=== PATIENT | male | born 1950 | race Caucasian/White ===

== ENCOUNTER 2017-09-21 04:12 | Inpatient (IN) ==
[2017-09-21] MEDS ORDERED: Sodium Chlor 0.9% Inj 500 ML IV.SIG ONE (04:25)
--- NOTE | 2017-09-21 04:56 | ED ---
HPI General Chief complaint: Weakness Stated complaint: Den Weakness/evac Time Seen by Provider: 09/21/17 04:23 Source: patient and EMS History of Present Illness HPI narrative: The patient is a 67 year old male who presents to the [facility] emergency department with a history of generalized weakness that began over the past week. The patient reports having a history of chronic anemia that has been gradually worsening in spite of oral iron supplementation. He is followed by Dr. Espinosa for his hematologic care. The patient reports that this past week he had an iron infusion. He reports that he briefly felt improved, however then the weakness began to worsen again. He denies having any numbness or tingling to his extremities. He denies having any one-sided weakness. He denies having any known fevers or chills. He denies having any loss of bowel or bladder control. He denies having any night sweats or unexplained weight loss. Since arriving in the emergency department he did develop a left-sided chest pain. He reports that it is an aching sensation. He denies having any radiation of pain. He denies having any shortness of breath. He denies having any diaphoresis, nausea, or vomiting. He denies having any recent diarrhea. The patient was brought in by ambulance services. The patient was noted to have frequent PVCs and intermittent bigeminy. The patient reported to them that he has a history of mitral valve prolapse, no other cardiac history. The patient is placed on nasal cannula O2 in normal saline a 500 mL bolus was given 1 without any changes in the PVCs. The patient's blood sugar was noted to be 150 prior to arrival. On review of systems otherwise, the patient denies having any known fevers, cough or congestion, neck pain, abdominal pain, urinary symptoms, vision changes, difficulty with word finding ability, facial droop, or vertigo. The patient reports that he was so weak prior to arrival that he was having difficulty getting up off of the toilet after urinating. He reports that he did fall to the ground, however he did not injure himself. The patient incidentally reports having chronic neck pain from rheumatoid arthritis. He is followed by pain management for this. He was last seen 2 weeks ago and underwent epidural steroid injection and cauterization of nerves in his neck that are causing pain. Related Data Home Medications Medication Instructions Recorded Confirmed aspirin 81 mg PO DAILY 09/21/17 09/21/17 baclofen 09/21/17 diclofenac sodium 75 mg PO BID 09/21/17 09/21/17 fluticasone 1 spray INTRANASAL DAILY 09/21/17 09/21/17 iron 44 mg PO BID 09/21/17 09/21/17 leflunomide 20 mg PO QAM 09/21/17 09/21/17 omeprazole 20 mg PO DAILY 09/21/17 09/21/17 potassium chloride 50 meq PO DAILY 09/21/17 09/21/17 saw palmetto-pumpkin seed oil 450 mg DAILY 09/21/17 09/21/17 sulfasalazine 500 mg PO BID 09/21/17 09/21/17 tramadol 50 mg PO TID 09/21/17 09/21/17 zolpidem 5 mg PO DAILY 09/21/17 09/21/17 Allergies Allergy/AdvReac Type Severity Reaction Status Date / Time ciprofloxacin Allergy Severe ANAPHYLAXIS Verified 09/21/17 04:35 Review of Systems ROS Unobtainable All other systems reviewed negative except as stated in HPI PMFSH History History Provided By: Patient Medical History Medical History Anemia (Acute) Arthritis (Acute) Cataract (Acute) GERD (gastroesophageal reflux disease) (Acute) Glaucoma (Acute) Osteoarthritis (Acute) Prostate cancer (Acute) Rheumatoid arthritis (Acute) Surgical History Surgical History History of cataract surgery (Acute) History of tonsillectomy (Acute) Social History Social History Substance History: No History of Abuse Second Hand Smoke Exposure: No Smoking Status: Never smoker How Often Do You Have a Drink Containing Alcohol: 2 to 3 times a week Exam Const General: cooperative and no acute distress Orientation: oriented x3 HENMT Head: normocephalic and atraumatic Nose: no nasal discharge and no epistaxis Mouth: moist mucous membranes Eyes Sclera: normal sclerae Pupils: PERRL Neck Neck: trachea midline and no JVD Resp Effort & Inspection: no use of accessory muscles Auscultation: clear to auscultation bilaterally Cardio Rate: other Rhythm: regular rhythm Heart Sounds: no murmurs Other: The patient's heart rate is irregularly irregular with frequent PVCs noted on telemetry. GI Inspection: non-distended Palpation: soft, no hepatosplenomegaly and nontender Skin General: dry skin (warm) and other (The patient is pale-appearing.) Neuro General: alert and awake Cranial Nerves: PERRL and other Speech: speech normal Motor: other (The patient has generalized weakness with 5/5 strength in b/l upper ext 4/5 strength in b/l lower extremities.) Sensory Exam: no sensory deficits noted Extrem General: normal to inspection, no clubbing, no cyanosis and no edema Psych Mood: congruent mood Affect: normal affect Judgment: judgment good Course Hospital Course: During the course of the patient's emergency department visit, the patient's history, examination, and differential diagnosis were reviewed with the patient. The patient was placed on a cardiac cath technician with oximetry and frequent blood pressure monitoring. The patient had IV access obtained and blood work sent for analysis. The patient was initially provided aspirin 324 mg p.o. 1, nitroglycerin sublingual 1, and a normal saline IV fluid bolus. Consultations Consultation #1: The patient's case including history, pertinent physical examination findings, and laboratory studies were discussed with Dr. Tilley. It was agreed that the patient would be admitted to the hospitalist service. Initial Documented Vital Signs Pulse Oximetry 100 09/21/17 04:42 Last Documented Vital Signs Temperature 98.2 F 09/21/17 05:06 Pulse Rate 65 09/21/17 05:15 Respiratory Rate 0 L 09/21/17 07:03 Blood Pressure 153/88 H 09/21/17 05:06 Pulse Oximetry 99 09/21/17 05:[address] [facility] Narrative Medical decision making narrative: The patient's diagnostic evaluation is remarkable for a white count of 6.6, hemoglobin 9.4, platelets 317 with a normal differential, PT 11, PTT 33.7, CMP is remarkable for a GFR of 65, AST 13 , albumin 2.9, BNP is elevated at 139, CPK within normal limits at 129, troponin I 0.10. Given the patient's new onset chest pain and intermediately elevated troponin with frequent PVCs, the patient will be admitted to the hospital for continued evaluation and treatment, rule out serial cardiac enzyme protocol. The patient's imaging is remarkable for CT scan of the head that showed no acute abnormality. CT scan of the C-spine shows degenerative changes, no other acute abnormality. Chest x-ray shows no acute abnormality. The patient's results were discussed with the patient, including the plan of care. I explained that further testing and/ or monitoring is indicated based on the patient's history, examination, and/ or laboratory findings. Therefore, I recommended admission for additional evaluation. The patient expressed understanding and was agreeable with this plan. The patient was admitted to the hospital in guarded condition and sent to a bed under the care of [facility] service Differential Diagnosis Differential Diagnosis: Progressive anemia that is now symptomatic, versus Medical Records Medical records reviewed: Yes I reviewed the patient's medical records. Lab Data Lab results reviewed: Yes I reviewed the patient's lab results. Result diagrams: 09/21/17 04:55 09/21/17 04:55 Lab Results 09/21/17 09/21/17 09/21/17 Range/Units 04:55 04:55 04:55 WBC 6.6 (4.0-11.0) th/mm3 RBC 3.27 L (4.50-5.90) mil/mm3 Hgb 9.4 L (13.0-17.0) gm/dL Hct 29.0 L (39.0-51.0) % MCV 88.8 (80.0-100.0) fL MCH 28.6 (27.0-34.0) pg MCHC 32.3 (32.0-36.0) % RDW 16.6 (11.6-17.2) % Plt Count 317 (150-450) th/mm3 MPV 6.3 L (7.0-11.0) fL Neut % (Auto) 78.8 H (16.0-70.0) % Lymph % (Auto) 10.4 (9.0-44.0) % [place] % (Auto) 7.9 (0.0-8.0) % Eos % (Auto) 2.5 (0.0-4.0) % Baso % (Auto) 0.4 (0.0-2.0) % Neut # (Auto) 5.2 (1.8-7.7) th/mm3 Lymph # (Auto) 0.7 L (1.0-4.8) th/mm3 [place] # (Auto) 0.5 (0.0-0.9) th/mm3 Eos # (Auto) 0.2 (0.0-0.4) th/mm3 Baso # (Auto) 0.0 (0.0-0.2) th/mm3 WBC Differential . Differential Comment Auto diff final PT 11.0 (9.8-11.6) sec INR 1.1 Ratio APTT 33.7 H (24.3-30.1) sec Sodium 141 (136-145) meq/L Potassium 3.6 (3.5-5.1) meq/L Chloride 104 (98-107) meq/L Carbon Dioxide 28.3 (21.0-32.0) meq/L Anion Gap 9 (5-15) meq/L BUN 14 (7-18) mg/dL Creatinine 1.13 (0.60-1.30) mg/dL Estimated GFR 65 L (>89) mL/min Random Glucose 102 (74-106) mg/dL Calcium 9.1 (8.5-10.1) mg/dL Magnesium 2.3 (1.5-2.5) mg/dL Total Bilirubin 0.4 (0.2-1.0) mg/dL AST 13 L (15-37) U/L ALT 14 (12-78) U/L Alkaline Phosphatase 99 (45-117) U/L Total Creatine Kinase 129 (39-308) U/L CK-MB (CK-2) 2.1 (0.5-3.6) ng/mL Troponin I 0.10 H (0.02-0.05) ng/mL B-Natriuretic Peptide (0-100) pg/mL Total Protein 7.3 (6.4-8.2) g/dL Albumin 2.9 L (3.4-5.0) g/dL Lipase 76 (73-393) U/L 09/21/17 Range/Units 04:55 WBC (4.0-11.0) th/mm3 RBC (4.50-5.90) mil/mm3 Hgb (13.0-17.0) gm/dL Hct (39.0-51.0) % MCV (80.0-100.0) fL MCH (27.0-34.0) pg MCHC (32.0-36.0) % RDW (11.6-17.2) % Plt Count (150-450) th/mm3 MPV (7.0-11.0) fL Neut % (Auto) (16.0-70.0) % Lymph % (Auto) (9.0-44.0) % [place] % (Auto) (0.0-8.0) % Eos % (Auto) (0.0-4.0) % Baso % (Auto) (0.0-2.0) % Neut # (Auto) (1.8-7.7) th/mm3 Lymph # (Auto) (1.0-4.8) th/mm3 [place] # (Auto) (0.0-0.9) th/mm3 Eos # (Auto) (0.0-0.4) th/mm3 Baso # (Auto) (0.0-0.2) th/mm3 WBC Differential Differential Comment PT (9.8-11.6) sec INR Ratio APTT (24.3-30.1) sec Sodium (136-145) meq/L Potassium (3.5-5.1) meq/L Chloride (98-107) meq/L Carbon Dioxide (21.0-32.0) meq/L Anion Gap (5-15) meq/L BUN (7-18) mg/dL Creatinine (0.60-1.30) mg/dL Estimated GFR (>89) mL/min Random Glucose (74-106) mg/dL Calcium (8.5-10.1) mg/dL Magnesium (1.5-2.5) mg/dL Total Bilirubin (0.2-1.0) mg/dL AST (15-37) U/L ALT (12-78) U/L Alkaline Phosphatase (45-117) U/L Total Creatine Kinase (39-308) U/L CK-MB (CK-2) (0.5-3.6) ng/mL Troponin I (0.02-0.05) ng/mL B-Natriuretic Peptide 139 H (0-100) pg/mL Total Protein (6.4-8.2) g/dL Albumin (3.4-5.0) g/dL Lipase (73-393) U/L Imaging Data Radiologist's impression: ITS Impressions Chest X-Ray 09/21/17 04:25 CONCLUSION: The lungs are clear. Cervical Spine CT 09/21/17 05:07 CONCLUSION: 1. No evidence of compression deformity or spondylolisthesis. 2. Hypertrophic degenerative changes in the posterior elements with multilevel right-sided bony neural foraminal stenosis. Head CT 09/21/17 05:07 CONCLUSION: 1. Negative noncontrast CT brain. ECG Data Attestation: I personally reviewed and interpreted this ECG as follows: Interpretation: The patient had a EKG done on arrival. The patient's EKG reveals a sinus rhythm with frequent ventricular premature complexes, moderate voltage criteria for LVH, nonspecific ST segment depression in leads V4, V5, V6. T waves are inverted in aVL, V1. Discharge Plan Discharge Disposition Patient Disposition: 30 Still Patient Discharge Details Discharge Problem: Generalized weakness, Elevated troponin I level Physicians Team ED Provider: Mirian Farmer Primary Care Provider: Dominic Blanchard Attending Provider: Nivia Hermosillo Status ED Status: Admitted Observation Patient
[2017-09-21 05:19] LABS: Baso % (Auto) 0.4 % (0.0-2.0); Eos # (Auto) 0.2 th/mm3 (0.0-0.4); Eos % (Auto) 2.5 % (0.0-4.0); Hemoglobin 9.4 gm/dL (13.0-17.0); Lymph # (Auto) 0.7 th/mm3 (1.0-4.8); Lymph % (Auto) 10.4 % (9.0-44.0); Mean Corpuscular HGB Conc 32.3 % (32.0-36.0); Mean Corpuscular Hemoglobin 28.6 pg (27.0-34.0); Mean Corpuscular Volume 88.8 fL (80.0-100.0); Mean Platelet Volume 6.3 fL (7.0-11.0); Mono # (Auto) 0.5 th/mm3 (0.0-0.9); Mono % (Auto) 7.9 % (0.0-8.0); Neut # (Auto) 5.2 th/mm3 (1.8-7.7); Neut % (Auto) 78.8 % (16.0-70.0); Platelet Count 317 th/mm3 (150-450); Red Blood Count 3.27 mil/mm3 (4.50-5.90); Red Cell Distribution Width 16.6 % (11.6-17.2); White Blood Count 6.6 th/mm3 (4.0-11.0)
--- NOTE | 2017-09-21 05:38 | XR ---
EXAM DATE: 09/21/2017 5:03 AM EDT AGE/SEX: 67 years / Male INDICATIONS: Chest pain. CLINICAL DATA: This is the patient's initial encounter. Patient reports that signs and symptoms have been present for 1 day and indicates a pain score of 8/10. MEDICAL/SURGICAL HISTORY: None. None. COMPARISON: POI, XR CHEST PA AND LAT, 09/20/2016. . FINDINGS: A single AP view of the chest demonstrates the lungs to be symmetrically aerated without evidence of mass, infiltrate or effusion. The cardiomediastinal contours are unremarkable. Osseous structures a re intact. CONCLUSION: The lungs are clear. Electronically signed by: Jamshid Ayala MD 09/21/2017 5:36 AM EDT
[2017-09-21 05:40] LABS: Activated Partial Thrombo Time 33.7 sec (24.3-30.1); INR 1.1 Ratio
[2017-09-21 05:47] LABS: Alanine Aminotransferase 14 U/L (12-78)
[2017-09-21 05:50] LABS: Albumin 2.9 g/dL (3.4-5.0); Anion Gap 9 meq/L (5-15); Aspartate Aminotransferase 13 U/L (15-37); Blood Urea Nitrogen 14 mg/dL (7-18); Calcium 9.1 mg/dL (8.5-10.1); Carbon Dioxide 28.3 meq/L (21.0-32.0); Chloride 104 meq/L (98-107); Glomerular Filtration Rate 65 mL/min (>89); Glucose,Random 102 mg/dL (74-106); Lipase 76 U/L (73-393); Magnesium 2.3 mg/dL (1.5-2.5); Potassium 3.6 meq/L (3.5-5.1); Sodium 141 meq/L (136-145)
[2017-09-21 05:51] LABS: Alkaline Phosphatase 99 U/L (45-117); Creatine Kinase 129 U/L (39-308); Total Protein 7.3 g/dL (6.4-8.2)
[2017-09-21 06:03] LABS: Creatine Kinase MB 2.1 ng/mL (0.5-3.6)
[2017-09-21 07:24] LABS: Bilirubin,Urine Negative (Negative); Clarity,Urine Clear (Clear); Color,Urine Amber (Yellw/Straw); Glucose,Urine (UA) Negative (Negative); Leukocyte Esterase,Urine Negative (Negative); Nitrite,Urine Negative (Negative)
[2017-09-21] MEDS ORDERED: IRON PO SCH (09:00)
[2017-09-21] MEDS: sulfaSALAzine 500 MG Tablet PO SCH ×2 (09:31→21:45)
[2017-09-21] MEDS: Potassium Chloride 10 MEQ ER Capsule PO SCH (09:32)
[2017-09-21] MEDS: Pantoprazole Sodium 20 MG DR Tablet PO SCH (09:32)
[2017-09-21 13:21] LABS: Troponin I 1.57 ng/mL (0.02-0.05)
--- NOTE | 2017-09-21 13:50 | P.HP ---
History of Present Illness Primary Care Physician: Dominic Blanchard History of Present Illness: Patient is a 67-year-old male with past medical history of prostate cancer, rheumatoid arthritis, iron deficiency anemia, GERD, glaucoma and cataracts presented to the emergency room because of worsening weakness in his lower extremities for the past 2 weeks. He states he sees Dr. Daley, taste tester, for his iron deficiency anemia and received a dose of IV iron recently. He states that his weakness have quickly gotten worst that yesterday after he used the restroom he could not make it to his bed, had to crawl back to bed and had trouble pushing himself up. His was not able to help and therefore they called the ambulance and he was brought here. Patient states that he went to see his primary care physician however he was not available so he saw the [employer] who was concerned about his progressive weakness and was going to refer him to a neurologist. He follows pain management for his chronic back pain and has received a few steroid injections which made him feel better. he notes muscle wasting in his lower ext and on the right has been having muscle spasms as if "bugs crawling" on it. denies any bladder or bowel incontinence Patient also states that he has also been having chest pain which she rates 4-5 out of 10. He states he has been having this chest pain open present in the mid chest) which he attributed to his arthritis however he is not able to reproduce it with palpation. He states that the pain at times gets worse with movement. He had a mild headache earlier but that has resolved. He denies any nausea or vomiting. He denies any radiation of his chest pain. He also mentions weight loss for the past few months 200lbs-->167lbs. He has been uptodate w his colonoscopies. Past medical history: prostate cancer status post TURP and radiation, rheumatoid arthritis, iron deficiency anemia, GERD, glaucoma and cataracts Past surgical history: Cataract removal, tonsillectomy, melanoma removal in 2005 , varicocele removal, bilateral feet surgery, Dupuytren surgery of the left hand , TURP in 2012 Family history: Father had either colon or prostate cancer. He does not know what medical condition his mother had. He has 2 sisters but he does not know other medical history. Social history: He has never smoked. Admits to drinking 2 drinks a day (hard liquor). Denies any illegal drug use. He tells me he has never had withdrawals or seizures from alcohol. CODE STATUS: he wishes to be DNR - Inpatient Certification If this patient has been admitted as an Inpatient: I certify that the inpatient services were ordered in accordance with Medicare regulations governing the order. This includes certification that hospital inpatient services are reasonable and necessary and in the case of services not specified as inpatient-only under 42 CFR 419.22(n), that they are appropriately provided as inpatient services in accordance to with the 2-midnight benchmark under 43 CFR 412.3(e) Review of Systems All other systems reviewed negative except as stated in HPI PMFSH - History History Provided By: Patient - Medical History Medical History: Medical History (Last Reviewed 09/21/17 @ 11:20 by Isis Collazo PT) Anemia Arthritis Cataract GERD (gastroesophageal reflux disease) Glaucoma History of radiation therapy Onset Date: 05/2016 Osteoarthritis Prostate cancer Rheumatoid arthritis - Surgical History Surgical History: Surgical History (Last Reviewed 09/21/17 @ 11:20 by Isis Collazo PT) History of cataract surgery History of tonsillectomy Hx of hand surgery Onset Date: ~2012 S/P foot surgery, left Onset Date: ~1999 S/P foot surgery, right Onset Date: ~1999 - Tobacco History Second Hand Smoke Exposure: No Tobacco Use In Past 30 Days: No Smoking Status: Never smoker - Alcohol History How Often Do You Have a Drink Containing Alcohol: 2 to 4 times a month - Substance Use History Substance History: No History of Abuse - Travel History Recent Travel in the [facility] Within the Last 8 Weeks: No - Immunization History Tetanus Immunization: Unsure Hx Influenza Vaccine This Season: Yes Medications and Allergies Active Medications: Active Medications Acetaminophen (Tylenol) 650 mg PO Q4H PRN PRN Reason: Temp > 100.4 Aspirin (Aspirin) 325 mg PO DAILY [facility] Diclofenac Sodium (Voltaren Dr) 75 mg PO BID [facility] Last Admin: 09/21/17 09:31 Dose: 75 mg Fluticasone Propionate (Flonase Nasal Bath) 1 spray EACH NARE DAILY [facility] Last Admin: 09/21/17 09:32 Dose: 1 spray Leflunomide (Arava) 20 mg PO DAILY [facility] Last Admin: 09/21/17 09:31 Dose: 20 mg Pantoprazole Sodium (Protonix) 20 mg PO DAILY [facility] Last Admin: 09/21/17 09:32 Dose: 20 mg Pt Own Med: Iron (44mg Po Bid) 0 each PO BID [facility] Potassium Chloride (Kcl) 50 meq PO DAILY [facility] Last Admin: 09/21/17 09:32 Dose: 50 meq Sodium Chloride (Ns Flush) 2 ml IV.FLUSH UNSCH PRN PRN Reason: FLUSH AFTER USING IV ACCESS Sulfasalazine (Azulfidine) 500 mg PO BID [facility] Last Admin: 09/21/17 09:31 Dose: 500 mg Allergies Allergy/AdvReac Type Severity Reaction Status Date / Time ciprofloxacin Allergy Severe Rash Verified 09/21/17 10:13 Home Medications Medication Instructions Recorded Confirmed Type aspirin 81 mg PO DAILY 09/21/17 09/21/17 History baclofen 5 mg PO TID 09/21/17 09/21/17 History diclofenac sodium 75 mg PO BID 09/21/17 09/21/17 History fluticasone 1 spray INTRANASAL DAILY 09/21/17 09/21/17 History iron 44 mg PO BID 09/21/17 09/21/17 History leflunomide 20 mg PO QAM 09/21/17 09/21/17 History omeprazole 20 mg PO DAILY 09/21/17 09/21/17 History potassium chloride 50 meq PO DAILY 09/21/17 09/21/17 History sulfasalazine 500 mg PO BID 09/21/17 09/21/17 History tramadol 50 mg PO TID 09/21/17 09/21/17 History zolpidem 5 mg PO HS PRN 09/21/17 09/21/17 History Exam Vital signs: Vital Signs 09/21/17 04:42 09/21/17 05:06 09/21/17 05:15 Temperature 98.2 F Pulse Rate 64 65 Respiratory Rate 16 Blood Pressure 153/88 H Pulse Oximetry 100 99 09/21/17 07:03 09/21/17 07:26 09/21/17 07:28 Temperature Pulse Rate 85 Respiratory Rate 0 L 14 Blood Pressure 157/77 H Pulse Oximetry 100 100 09/21/17 09:02 09/21/17 11:49 Temperature 98.8 F Pulse Rate 79 85 Respiratory Rate 16 14 Blood Pressure 156/89 H 160/82 H Pulse Oximetry 100 96 Intake & Output 09/20/17 09/21/17 09/21/17 18:59 06:59 18:59 Intake Total 500 / 500 Output Total 450 / 450 Balance 50 / 50 Weight 79.379 kg Intake: IV 500 / 500 NS Inj 500 ML @ Wide Open IV. 500 / 500 SIG ONCE ONE Rx#:[id number] Output: Urine Amount (Catheter) 450 / 450 Indwelling Urethral Catheter 450 / 450 Narrative: GENERAL: Pt laying in bed, appears tired. SKIN: Warm and dry. HEAD: Atraumatic. Normocephalic. EYES: EOMI ENT: No nasal discharge. Mucous membranes pink and moist. NECK: Trachea midline. CARDIOVASCULAR: Regular rate and rhythm. RESPIRATORY: No accessory muscle use. Clear to auscultation. No wheezing. GASTROINTESTINAL: Abdomen soft, non-tender, nondistended. MUSCULOSKELETAL: Extremities without edema. No obvious deformities. NEUROLOGICAL: Awake and alert. he has trouble lifting both of his lower ext agains gravity. he is able to flex or resist at the ankles. sensation appears intact. he is able to move his upper ext but he does have trouble lifting his upper ext above his head. Results - Labs CBC & Chem 7: 09/21/17 04:55 09/21/17 04:55 Labs: Laboratory Results - last 24 hr 09/21/17 09/21/17 09/21/17 04:55 04:55 04:55 WBC 6.6 RBC 3.27 L Hgb 9.4 L Hct 29.0 L MCV 88.8 MCH 28.6 MCHC 32.3 RDW 16.6 Plt Count 317 MPV 6.3 L Neut % (Auto) 78.8 H Lymph % (Auto) 10.4 Banner % (Auto) 7.9 Eos % (Auto) 2.5 Baso % (Auto) 0.4 Neut # (Auto) 5.2 Lymph # (Auto) 0.7 L Banner # (Auto) 0.5 Eos # (Auto) 0.2 Baso # (Auto) 0.0 WBC Differential . Differential Comment Auto diff final PT 11.0 INR 1.1 APTT 33.7 H Sodium 141 Potassium 3.6 Chloride 104 Carbon Dioxide 28.3 Anion Gap 9 BUN 14 Creatinine 1.13 Estimated GFR 65 L Random Glucose 102 Calcium 9.1 Magnesium 2.3 Total Bilirubin 0.4 AST 13 L ALT 14 Alkaline Phosphatase 99 Total Creatine Kinase 129 CK-MB (CK-2) 2.1 Troponin I 0.10 H B-Natriuretic Peptide Total Protein 7.3 Albumin 2.9 L Lipase 76 Urine Color Urine Clarity Urine pH Ur Specific [place] Urine Protein Urine Glucose (UA) Urine Ketones Urine Occult Blood Urine Nitrate Urine Bilirubin Urine Urobilinogen Ur Leukocyte Esterase Urine RBC Urine WBC Micro UA Comment Urine Culture Comments 09/21/17 09/21/17 09/21/17 04:55 07:03 12:00 WBC RBC Hgb Hct MCV MCH MCHC RDW Plt Count MPV Neut % (Auto) Lymph % (Auto) [place]anner % (Auto) Eos % (Auto) Baso % (Auto) Neut # (Auto) Lymph # (Auto) [place]anner # (Auto) Eos # (Auto) Baso # (Auto) WBC Differential Differential Comment PT INR APTT Sodium Potassium Chloride Carbon Dioxide Anion Gap BUN Creatinine Estimated GFR Random Glucose Calcium Magnesium Total Bilirubin AST ALT Alkaline Phosphatase Total Creatine Kinase 152 CK-MB (CK-2) Troponin I 1.57 H* B-Natriuretic Peptide 139 H Total Protein Albumin Lipase Urine Color [place] Urine Clarity Clear Urine pH 6.0 Ur Specific [place] 1.010 Urine Protein Negative Urine Glucose (UA) Negative Urine Ketones Negative Urine Occult Blood Negative Urine Nitrate Negative Urine Bilirubin Negative Urine Urobilinogen Less than 2 Ur Leukocyte Esterase Negative Urine RBC 1 Urine WBC Less than 1 Micro UA Comment Cath-culture not ind Urine Culture Comments Cath-cult not ind - Imaging Impressions Chest X-Ray 09/21/17 04:25 CONCLUSION: The lungs are clear. Cervical Spine CT 09/21/17 05:07 CONCLUSION: 1. No evidence of compression deformity or spondylolisthesis. 2. Hypertrophic degenerative changes in the posterior elements with multilevel right-sided bony neural foraminal stenosis. Head CT 09/21/17 05:07 CONCLUSION: 1. Negative noncontrast CT brain. Caprini VTE Risk Assessment Caprini VTE Risk Assessment: Moderate/High Risk (score >= 2) Caprini Risk Assessment Model: Point Value = 1 Point Value = 2 Point Value = 3 Point Value = 5 Age 41-60 Minor surgery BMI > 25 kg/m2 Swollen legs Varicose veins or History of unexplained or recurrent spontaneous Oral contraceptives or hormone replacement Sepsis (< 1 month) Serious lung disease, including pneumonia (< 1 month) Abnormal pulmonary function Acute myocardial infarction Congestive heart failure (< 1 month) History of inflammatory bowel disease Medical patient at bed rest Age 61-74 Arthroscopic surgery Major open surgery (> 45 min) Laparoscopic surgery (> 45 min) Malignancy Confined to bed (> 72 hours) Immobilizing plaster cast Central venous access Age >= 75 History of VTE Family history of VTE Factor V Leiden Prothrombin [id number] Lupus anticoagulant Anticardiolipin antibodies Elevated serum homocysteine Heparin-induced thrombocytopenia Other congenital or acquired thrombophilia Stroke (< 1 month) Elective arthroplasty Hip, pelvis, or leg fracture Acute spinal cord injury (< 1 month) Prophylaxis Regimen: Total Risk Factor Score Risk Level Prophylaxis Regimen 0-1 Low Early ambulation 2 Moderate Order ONE of the following: *Sequential Compression Device (SCD) *Heparin 5000 units SQ BID 3-4 Higher Order ONE of the following medications: *Heparin 5000 units SQ TID *Enoxaparin/Lovenox 40 mg SQ daily (WT < 150 kg, CrCl > 30 mL/min) *Enoxaparin/Lovenox 30 mg SQ daily (WT < 150 kg, CrCl > 10-29 mL/min) *Enoxaparin/Lovenox 30 mg SQ BID (WT < 150 kg, CrCl > 30 mL/min) AND/OR *Sequential Compression Device (SCD) 5 or more Highest Order ONE of the following medications: *Heparin 5000 units SQ TID (Preferred with Epidurals) *Enoxaparin/Lovenox 40 mg SQ daily (WT < 150 kg, CrCl > 30 mL/min) *Enoxaparin/Lovenox 30 mg SQ daily (WT < 150 kg, CrCl > 10-29 mL/min) *Enoxaparin/Lovenox 30 mg SQ BID (WT < 150 kg, CrCl > 30 mL/min) AND *Sequential Compression Device (SCD) Assessment and Plan - Plan 67-year-old male presents with: Chest pain: Pt states this has been going on for a while but always attributed to his arthritis although not reproducible. Initial troponin 0.1, second set was up to 1.5. Dr. Quiñones, technical instructor evaluated the patient. Continue w third set of troponin. Continue aspirin, morphine and nitro paste as needed for chest pain. After discussion with Dr. Quiñones, I will start patient on a heparin drip with bolus. monitor Hb closely lower ext weakness: for the past 2 weeks. Pt did see pain mgt as an outpatient however denies any MRI of his spine in the past. yesterday couldn't walk from bathroom to bed. will obtain MR cervical/thoracic/lumbar. neuro consult as well. PT gilal HTN: pt not on any meds but tells me that at home BP's in the 130's-140's systolic. will start him on 10mg po amlodipine. added vasotec prn Anemia: iron deficient. Sees Dr. Daley. If anemia worsens while on heparin, consult Dr. Daley. continue iron tabs All other chronic medical problems: stable Code Status: Pt wishes to be DNR
[2017-09-21] MEDS ORDERED: Heparin 10,000 UNITS/10 ML Vial (for IV use) IV.PUSH STA (13:59)
[2017-09-21] MEDS ORDERED: Morphine Sulfate Inj 2 MG/ML Vial IV.PUSH PRN (14:21)
--- NOTE | 2017-09-21 15:51 | MB ---
cc: Byron Quiñones DO DATE: 09/21/2017 REASON FOR CONSULTATION: Elevated troponins, and chest pain. HISTORY OF PRESENT ILLNESS: Abraham Goodman is a pleasant 67-year-old male, who presented to [facility] Emergency Room due to weakness. He states that the weakness has been coming on in his lower extremities for the past 3-4 weeks and over the past few days has gotten significantly worse. He has also been known to be anemic and being worked up by Dr. Daley for what is believed to be iron deficiency anemia. He has recently received a dose of IV iron. He went to use the restroom and while doing that, he started to feel weak in his legs, like they were going to give out. He denied lightheadedness, chest pain or shortness of breath during the episode. He lowered himself to the floor and attempted to crawl back to the bed. He was unable to get himself into bed and so they called EMS. He also states that he had chest pain, which is about 4/10. Chest pain is somewhat in the mid portion of the chest and he attributes it to his arthritis. He states this has been ongoing for some time. He has been worked up for his anemia with a colonoscopy, EGD and capsule endoscopy, which were all negative. PAST MEDICAL HISTORY: 1. Iron deficiency anemia. 2. Prostate cancer, status post radiation. 3. Rheumatoid arthritis. 4. Gastroesophageal reflux disease. 5. Glaucoma. 6. Cataracts. PAST SURGICAL HISTORY: 1. Cataract removal. 2. Tonsillectomy. 3. Melanoma removal (2005). 4. Varicocele removal. 5. Bilateral feet surgery. 6. Dupuytren surgery, left hand. 7. TURP. ALLERGIES: CIPROFLOXACIN. MEDICATIONS: 1. Diclofenac 75 mg b.i.d. 2. Leflunomide 20 mg every morning. 3. Iron 44 mg b.i.d. 4. 5 mg every night as needed for insomnia. 5. Omeprazole 20 mg daily. 6. Tramadol 50 mg t.i.d. 7. Potassium 50 mEq daily. 8. Sulfasalazine 500 mg b.i.d. 9. Baclofen 5 mg t.i.d. 10. Aspirin 81 mg daily. 11. 50 mcg daily. FAMILY HISTORY: Father had either colon or prostate cancer. He does not know the conditions of his mother or 2 sisters. SOCIAL HISTORY: He denies tobacco abuse. He drinks 2 drinks of hard liquor a day. Denies illegal drug abuse. REVIEW OF SYSTEMS: Fourteen systems were reviewed including osteopathic. Pertinent positives and negatives above, otherwise negative. PHYSICAL EXAMINATION: VITAL SIGNS: Temperature 98.8, heart rate 85, blood pressure 156/89, respirations 16, pulse oximetry 100% on 2 liters. GENERAL: The patient appears older than stated age and overall chronically ill. No acute distress. Alert, awake and oriented x3. HEENT: Extraocular muscles intact. Mucous membranes moist. NECK: Supple. No JVD at 45 degrees. No carotid bruits heard bilaterally. Carotid upstroke is brisk in nature. HEART: Regular rate and rhythm. Positive first and second heart sounds with no noted murmurs, gallops or rubs. LUNGS: Clear to auscultation bilaterally. No wheezes, rales or rhonchi. ABDOMEN: Soft, nontender, nondistended. No organomegaly noted. EXTREMITIES: Show no clubbing, cyanosis or edema. Overall, he does have muscle wasting throughout. NEUROLOGIC: He does have overall weakness, but specifically of the lower extremities. SKIN: Warm, dry and intact. OSTEOPATHIC: No kyphoscoliosis or lordosis. LABORATORY DATA: Hemoglobin 9.4, hematocrit 29.0, platelets 317. Potassium 3.6, BUN 14, creatinine 1.13. Troponin 1.57. Electrocardiogram (09/21/2017 at 0627): Sinus rhythm with occasional PVC, LVH with probable secondary ST-T wave changes. IMPRESSION: 1. Chest pain, somewhat atypical for coronary insufficiency, although elevated troponin, signifying a non-ST elevation myocardial infarction. 2. Lower extremity weakness. 3. Anemia, felt to be iron deficiency. 4. Hypertension. RECOMMENDATIONS: 1. Mr. Goodman appears to have chest pain with an elevated troponin, and he will be started on a heparin drip. 2. He has made himself DNR status, but if there are plans for cardiac catheterization, which he said he was agreeable to, he will have to reverse this for 24 hours. This will be discussed further with him. 3. If he decides he would like to be treated medically due to all his chronic issues, we would plan on a heparin drip for 48 hours. 4. He has been started on a heparin drip. We will have to see what happens with his hemoglobin, although if this is iron deficiency anemia, it should not affect it. 5. We will check a 2-D echo to look at his overall left ventricular function, cardiac structure and possible valvulopathies. 6. Further recommendations will be made based on the hospital course. Thank you for allowing me to see Abraham Goodman. If there are any questions, please do not hesitate to call. Byron Quiñones DO VGP/TL , 03:10 PM , 03:49 PM
[2017-09-21 15:57] LABS: Activated Partial Thrombo Time 34.2 sec (24.3-30.1); INR 1.1 Ratio; Prothrombin Time 11.1 sec (9.8-11.6)
[2017-09-21] MEDS: amLODIPine 10 MG Tablet PO SCH (16:27)
[2017-09-21] MEDS: Heparin Drip 25,000 UNIT/250 ML BAG IV.CONT PRN (16:29)
[2017-09-21] MEDS ORDERED: IVIG (Immune Globulin) Inj 30 GM in Syringe/Bag 1 EACH IV.SIG SCH (16:45)
--- NOTE | 2017-09-21 17:08 | ECHRPT ---
Indication: CHEST PAIN CONCLUSIONS Mildly dilated left ventricle. Mild concentric left ventricular hypertrophy. Moderate global left ventricular systolic function with the ejection fraction of 35%. Distal anteroseptal and apical severe hypokinesis. Posterior mitral valve leaflet prolapse. Mild mitral valve regurgitation. There is trace tricuspid valve regurgitation. The estimated pulmonary arterial pressure is 41 mmHg. BP: / HR: Rhythm: Sinus MEASUREMENTS (Male / Female) Normal Values Technical Quality:Very technically difficult study 2D ECHO LV Diastolic Diameter PLAX 5.9 cm 4.2 - 5.9 / 3.9 - 5.3 cm LV Systolic Diameter PLAX 5.0 cm IVS Diastolic Thickness 1.1 cm 0.6 - 1.0 / 0.6 - 0.9 cm LVPW Diastolic Thickness 1.1 cm 0.6 - 1.0 / 0.6 - 0.9 cm LV Relative Wall Thickness 0.4 DOPPLER AV Peak Velocity 125.0 cm/s AV Peak Gradient 6.3 mmHg AV Mean Gradient 4.0 mmHg AV Velocity Time Integral 20.9 cm LVOT Peak Velocity 93.2 cm/s LVOT Peak Gradient 3.5 mmHg LVOT Velocity Time Integral 16.9 cm Mitral E Point Velocity 86.4 cm/s Mitral A Point Velocity 108.0 cm/s Mitral E to A Ratio 0.8 LV E' Lateral Velocity 5.9 cm/s Mitral E to LV E' Lateral Ratio 14.8 LV E' Septal Velocity 5.0 cm/s Mitral E to LV E' Septal Ratio 17.4 TR Peak Velocity 276.0 cm/s TR Peak Gradient 30.5 mmHg Right Atrial Pressure 10.0 mmHg Pulmonary Artery Systolic Pressu 40.5 mmHg Right Ventricular Systolic Press 40.5 mmHg FINDINGS LEFT VENTRICLE Mildly dilated left ventricle. Mild concentric left ventricular hypertrophy. Moderate global left ventricular systolic function with the ejection fraction of 35%. Distal anteroseptal and apical hypokinesis RIGHT VENTRICLE Normal right ventricular size and systolic function. LEFT ATRIUM The left atrial size is normal. RIGHT ATRIUM The right atrial size is normal. ATRIAL SEPTUM No atrial level shunt is demonstrated by color flow Doppler interrogation. AORTA The aortic root and proximal ascending aorta are not well visualized. MITRAL VALVE Posterior mitral valve leaflet prolapse. Mild mitral valve regurgitation. AORTIC VALVE Trileaflet aortic valve. No aortic valve stenosis or regurgitation. TRICUSPID VALVE There is trace tricuspid valve regurgitation. The estimated pulmonary arterial pressure is 40.5 mmHg. PULMONARY VALVE The pulmonary valve is not well visualized. VESSELS There is greater than 50% respiratory change in dimension of the inferior vena cava (normal). PERICARDIUM No pericardial effusion. Baldemar Ware MD, FACC (Electronically Signed) Final Date:21 September 2017 17:07
--- NOTE | 2017-09-21 17:27 | MB ---
cc: Mary Carmen Enriquez MD, Dalia MD DATE: 09/21/2017 REASON FOR CONSULTATION: Weakness. HISTORY OF PRESENT ILLNESS: This is a pleasant 67-year-old male with a history of rheumatoid arthritis, anemia, glaucoma, prostate cancer, status post TURP and radiation who comes in because he has had, over the last few days, progressive weakness. About a week ago, he was at [employer] and assisting an elderly neighbor painting their garage. He was fully functional. The last 2 days, he was having issues with strength in his legs that progressed. It initially felt like tingling but, progressed up into his arms. He states that he has no real sphincter control currently. As far as urination, he has a Stafford catheter. It took 2 therapists he states to get him out of bed to go to the bedside commode. He has trouble turning over in his bed and he is told also that his voice is lower than normal. He has not been choking on any food. There is no double vision. At times, he feels like his head is even weak. He no longer has any of the tingling. He has no loss of sensation. PAST MEDICAL HISTORY: As stated. PAST SURGICAL HISTORY: Cataracts, tonsillectomy, melanoma in 2005, varicocele, bilateral foot surgery, Dupuytren's in the left hand and TURP in 2012. FAMILY HISTORY: Colon and prostate cancer possibly. SOCIAL HISTORY: He does not smoke. He drinks maybe 2 drinks a day. No illicit drugs. PHYSICAL EXAMINATION: VITAL SIGNS: Temperature is 98.8, pulse 85, respiratory rate 14, blood pressure 160/82. NECK: Supple. No appreciable bruits. HEART: Regular. ABDOMEN: Soft, nontender. NEUROLOGIC: He is awake and alert. He is oriented and fluent. Pupils are reactive. Extraocular muscles are normal. There is no diplopia. There is no ptosis. His tongue is midline. Head strength otherwise is fairly intact in flexion and extension. Motor strength: He can lift his arms antigravity, but I can fairly easily overcome him; at best he is a 4/5 proximally and distally. There is no Rosa sign. He does have 2+ reflexes in his upper extremities. Lower extremity strength: He could not lift them antigravity. He can bend at the knee and lift the ankle up, but he cannot lift his entire legs. At best, he is a 4- 3+/5 bilaterally proximally and distally he is a 4/5. Ankle strength is intact. DTRs are absent at the knees, patellars and ankles. Toes are both downgoing. Sensory: He can feel light touch and temperature and position sense. Cerebellar: Mkuhyf-pmhm-[id number] upper is normal. Gait is withheld at this time. He has been seen by physical therapy. LABORATORY DATA: His troponin is 0.10, currently 1.57, AST 13, ALT 14, GFR 65, albumin 2.9. Urine unremarkable. Coag panel: PTT 34.2. He is on heparin now for cardiac issues. CBC: Hemoglobin 9.4, hematocrit 29, platelets 317,000. IMAGING STUDIES: CT head did not show anything acute. Her C-spine did not show anything acute either, but hypertrophic degenerative changes in the posterior elements with multilevel right-sided bony neural foraminal stenosis. Chest x-ray: Lungs were clear. ASSESSMENT AND PLAN: 1. 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 2. Doubt myasthenia. 3. Possible cord lesion less likely. Recommend at this point in time, after discussion with the hospital team, to start IVIG 30 grams mg/kg x5 days. Discussed with the pharmacist as well. I would like to do apheresis. However, at this point in time it would be difficult to set it up on the holiday weekend, so we are going to do the IVIG, have him undergo spinal tap. We will get glucose, protein, RBC, WBC, cytology. I want to see if his protein count is elevated. We will get a sedimentation rate, C-reactive protein, thyroid panel, vitamins and electrophoresis as well as I will just order myasthenic labs. He will undergo brain, cervical, thoracic, lumbosacral MRI with and without contrast to look for any type of lesions. The patient was informed of all testing that will be done and he is in agreement and actually he revoked his DNR status to full code. Further recommendations will be made accordingly. Most likely, if there is an issue with IVIG certainly we will change him to plasmapheresis and he will need a hematology consult as well as consult to radiology to put in a catheter. Further recommendations will be made accordingly. MD MARCO Gibbons , 05:02 PM , 05:26 PM [place]
--- NOTE | 2017-09-21 20:56 | MR ---
EXAM DATE: 09/21/2017 8:36 PM EDT AGE/SEX: 67 years / Male INDICATIONS: Extremity weakness. CLINICAL DATA: This is the patient's initial encounter. Patient reports that signs and symptoms have been present for 1 day and indicates a pain score of 2/10. MEDICAL/SURGICAL HISTORY: Carcinoma, prostatic. GERD. Tonsillectomy. Hand sx, Bilateral feet s x, COMPARISON: No prior exams available for comparison. TECHNIQUE: Multiplanar, multisequence MRI of the lumbar spine was performed without contrast. Patie nt was scanned in a sitting position; neutral, flexion, and extension scans were performed in the sa gittal plane. FINDINGS: At A25-[id number]-K7 there is minimal disc bulge and facet arthropathy without stenosis. Incidental renal cysts on the right. At L3-4 there is a broad-based disc bulge and facet arthropathy with a minimal anterolisthesis. There is mild stenosis of the lateral recesses and neural foramina bilaterally. At L4-5 there is a mild central canal stenosis secondary to facet arthropathy and disc osteophyte com plex with mild bilateral foraminal stenosis. At L5-S1 there is facet arthropathy. Minimal anterolisthesis. Mild foraminal stenosis on the right. CONCLUSION: 1. At L4-5 there is a mild central canal lateral recess stenosis with mild bilateral foraminal steno sis. 2. At L3-4 and L5-S1 there is a minimal anterolisthesis with mild foraminal encroachment. 3. Conus medullaris intact. No acute fracture. Electronically signed by: Rodrigo Hebert MD 09/21/2017 8:54 PM EDT
--- NOTE | 2017-09-21 21:02 | MR ---
EXAM DATE: 09/21/2017 8:45 PM EDT AGE/SEX: 67 years / Male INDICATIONS: Extremity weakness. Difficulty walking. CLINICAL DATA: This is the patient's initial encounter. Patient reports that signs and symptoms have been present for 1 day and indicates a pain score of 3/10. MEDICAL/SURGICAL HISTORY: Carcinoma, prostatic. GERD. Tonsillectomy. Hand sx, Bilateral feet s x. COMPARISON: No prior exams available for comparison. TECHNIQUE: Multiplanar, multisequence MRI of the thoracic spine was performed. FINDINGS: At the level of T5-6 there is suspected 1.4 cm nodule in the right lung. Further evaluation with ches t CT is recommended. There is mild to moderate degenerative disc disease in the thoracic spine. No acute fracture or spond ylolisthesis. No significant canal or foraminal stenosis. No discrete disc protrusions. Mild facet ar thropathy. CONCLUSION: 1. There is a suspected 1.4 cm nodule in the right lung. Further evaluation with chest CT is recomme nded. 2. Mild degenerative change in the thoracic spine without canal stenosis or nerve root compression i dentified. Electronically signed by: Rodrigo Hebert MD 09/21/2017 9:01 PM EDT
--- NOTE | 2017-09-21 21:47 | ECG ---
Date Performed: 09/21/2017 Time Performed: 06:27:17 PTAGE: 67 years EKG: Sinus rhythm WITH FREQUENT VENTRICULAR PREMATURE COMPLEXES MODERATE VOLTAGE CRITERIA FOR LVH, CONSIDER NORMAL SUSIE IANT MODERATE ST DEPRESSION ABNORMAL ECG NO PREVIOUS TRACING DOCTOR: Baldemar Ware Interpretating Date/Time 09/21/2017 21:46:52
[2017-09-21] MEDS: IVIG (Immune Globulin) Inj 30 GM in Syringe/Bag 1 EACH IV.SIG SCH ×2 (22:51→23:26)
[2017-09-21 23:10] LABS: Free T4 (Free Thyroxine) 1.09 ng/dL (0.76-1.46)
[2017-09-22] MEDS ORDERED: Chlorhexidine Gluconate 2% 1 Pack (2 Cloths) TOPICAL SCH (04:00)
[2017-09-22] MEDS ORDERED: Chlorhexidine Gluconate 2% 1 Pack (2 Cloths) TOPICAL PRN (04:00)
[2017-09-22] MEDS: Potassium Chloride 10 MEQ ER Capsule PO SCH (08:30)
[2017-09-22] MEDS: amLODIPine 10 MG Tablet PO SCH (08:35)
[2017-09-22] MEDS: Pantoprazole Sodium 20 MG DR Tablet PO SCH (08:35)
[2017-09-22] MEDS: Heparin Drip 25,000 UNIT/250 ML BAG IV.CONT PRN (08:36)
[2017-09-22] MEDS: sulfaSALAzine 500 MG Tablet PO SCH ×2 (08:39→21:44)
[2017-09-22] MEDS ORDERED: Aspirin 325 MG Tablet PO SCH (09:00)
[2017-09-22 09:18] LABS: Baso % (Auto) 0.5 % (0.0-2.0); Eos % (Auto) 0.5 % (0.0-4.0); Hematocrit 32.9 % (39.0-51.0); Hemoglobin 10.7 gm/dL (13.0-17.0); Lymph # (Auto) 0.7 th/mm3 (1.0-4.8); Lymph % (Auto) 14.7 % (9.0-44.0); Mean Corpuscular HGB Conc 32.5 % (32.0-36.0); Mean Corpuscular Hemoglobin 28.5 pg (27.0-34.0); Mean Corpuscular Volume 87.7 fL (80.0-100.0); Mean Platelet Volume 6.5 fL (7.0-11.0); Mono # (Auto) 0.4 th/mm3 (0.0-0.9); Mono % (Auto) 8.5 % (0.0-8.0); Neut # (Auto) 3.5 th/mm3 (1.8-7.7); Neut % (Auto) 75.8 % (16.0-70.0); Platelet Count 352 th/mm3 (150-450); Red Blood Count 3.76 mil/mm3 (4.50-5.90); Red Cell Distribution Width 16.6 % (11.6-17.2); White Blood Count 4.7 th/mm3 (4.0-11.0)
--- NOTE | 2017-09-22 10:04 | P.PN ---
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 Patient is currently in the ICU and doing well on room air. He denies any chest pain, shortness of breath, fever or chills. However, on minor exertion he does feel somewhat dyspneic. No fever or chills. I discussed with patient at length regarding lumbar puncture requested by neurology as well as the need for cardiac catheterization. After discussing with cardiology and neurology, we decided to proceed with LP. Patient received aspirin 325 mg this morning. He understands there is increased risk of bleeding but is not an absolute contraindication to undergo LP study. Patient agrees with our plan to obtain LP study. Physical Exam Vital signs: Vital Signs 09/21/17 11:49 09/21/17 16:45 09/21/17 16:57 Temperature 98.8 F 97.9 F 97.9 F Pulse Rate 85 83 87 Respiratory Rate 14 18 16 Blood Pressure 160/82 H 151/87 H 151/87 H Pulse Oximetry 96 96 96 09/21/17 21:30 09/21/17 22:00 09/21/17 22:30 Temperature 98.2 F Pulse Rate 95 H 88 90 Respiratory Rate 26 H 14 Blood Pressure 134/81 112/70 Pulse Oximetry 96 96 96 09/21/17 23:26 09/21/17 23:30 09/21/17 23:45 Temperature 98.5 F Pulse Rate 95 H 97 H 88 Respiratory Rate 24 17 12 Blood Pressure 137/86 128/75 117/70 Pulse Oximetry 97 97 96 09/22/17 00:00 09/22/17 00:15 09/22/17 00:30 Temperature 98.5 F Pulse Rate 88 96 H 91 H Respiratory Rate 19 17 12 Blood Pressure 124/78 129/79 126/75 Pulse Oximetry 97 95 97 09/22/17 01:00 09/22/17 02:00 09/22/17 03:00 Temperature Pulse Rate 86 92 H 99 H Respiratory Rate 21 16 21 Blood Pressure 124/77 123/76 116/67 Pulse Oximetry 97 97 97 09/22/17 04:00 09/22/17 05:00 09/22/17 06:00 Temperature 97.9 F Pulse Rate 92 H 86 92 H Respiratory Rate 12 14 Blood Pressure 116/69 117/68 Pulse Oximetry 96 96 09/22/17 07:00 09/22/17 07:25 Temperature Pulse Rate 91 H Respiratory Rate 14 Blood Pressure 120/73 Pulse Oximetry 96 95 Intake & Output 09/21/17 09/22/17 09/22/17 18:59 06:59 18:59 Intake Total 500 / 500 0 / 0 250 / 250 Output Total 450 / 450 1450 / 1450 Balance 50 / 50 -1450 / -1450 250 / 250 Weight 79.6 kg Intake: IV 500 / 500 250 / 250 Heparin/D5W 25,000 U/250 mL 25, 250 / 250 000 unit In 250 ml @ 1,000 UNITS/HR 10 mls/hr IV.CONT TITRATE PRN Rx#:[id number] NS Inj 500 ML @ Wide Open IV. 500 / 500 SIG ONCE ONE Rx#:[id number] Oral 0 / 0 Output: Urine Amount (Catheter) 450 / 450 1450 / 1450 Indwelling Urethral Catheter 450 / 450 1450 / 1450 Other: Date of Last Bowel Movement 09/21/17 09/21/17 # Bowel Movements 0 Weight On Admission 78.3 kg Narrative: GENERAL: Alert, oriented 3, NAD. SKIN: Warm and dry. HEAD: Normocephalic. EYES: No scleral icterus. No injection or drainage. NECK: Supple, trachea midline. No JVD or lymphadenopathy. CARDIOVASCULAR: Regular rate and rhythm without murmurs, gallops, or rubs. RESPIRATORY: Breath sounds equal bilaterally. No accessory muscle use. When he talks his breathing is somewhat labored. GASTROINTESTINAL: Abdomen soft, non-tender, nondistended. MUSCULOSKELETAL: No cyanosis, or edema. BACK: Nontender without obvious deformity. No CVA tenderness. - Urinary Catheter Management Indwelling Urethral Catheter Cath placed during this visit: yes Reason for continuing: Other continuation reason Insertion date: 09/21/17 Insertion time: 06:57 Results - Labs CBC & Chem 7: 09/22/17 09:05 09/21/17 04:55 Laboratory Results - last 24 hr 09/21/17 09/21/17 09/21/17 12:00 15:05 20:50 WBC RBC Hgb Hct MCV MCH MCHC RDW Plt Count MPV Neut % (Auto) Lymph % (Auto) [place] % (Auto) Eos % (Auto) Baso % (Auto) Neut # (Auto) Lymph # (Auto) [place] # (Auto) Eos # (Auto) Baso # (Auto) WBC Differential Differential Comment ESR PT 11.1 INR 1.1 APTT 34.2 H Total Creatine Kinase 152 Troponin I 1.57 H* C-Reactive Protein Total Protein (PEP) TSH Free T4 Nasal Screen MRSA (PCR) Not detected 09/21/17 09/21/17 09/21/17 22:20 22:20 22:20 WBC RBC Hgb Hct MCV MCH MCHC RDW Plt Count MPV Neut % (Auto) Lymph % (Auto) [place] % (Auto) Eos % (Auto) Baso % (Auto) Neut # (Auto) Lymph # (Auto) [place] # (Auto) Eos # (Auto) Baso # (Auto) WBC Differential Differential Comment ESR 78 H PT INR APTT 35.8 H Total Creatine Kinase Troponin I C-Reactive Protein 11.00 H Total Protein (PEP) TSH Free T4 Nasal Screen MRSA (PCR) 09/21/17 09/21/17 09/22/17 22:20 22:20 09:05 WBC 4.7 RBC 3.76 L Hgb 10.7 L Hct 32.9 L MCV 87.7 MCH 28.5 MCHC 32.5 RDW 16.6 Plt Count 352 MPV 6.5 L Neut % (Auto) 75.8 H Lymph % (Auto) 14.7 [place] % (Auto) 8.5 H Eos % (Auto) 0.5 Baso % (Auto) 0.5 Neut # (Auto) 3.5 Lymph # (Auto) 0.7 L [place] # (Auto) 0.4 Eos # (Auto) 0.0 Baso # (Auto) 0.0 WBC Differential . Differential Comment Auto diff final ESR PT INR APTT Total Creatine Kinase Troponin I C-Reactive Protein Total Protein (PEP) 7.8 TSH 2.240 Free T4 1.09 Nasal Screen MRSA (PCR) 09/22/17 09:05 WBC RBC Hgb Hct MCV MCH MCHC RDW Plt Count MPV Neut % (Auto) Lymph % (Auto) [place] % (Auto) Eos % (Auto) Baso % (Auto) Neut # (Auto) Lymph # (Auto) [place] # (Auto) Eos # (Auto) Baso # (Auto) WBC Differential Differential Comment ESR PT INR APTT 35.5 H Total Creatine Kinase Troponin I C-Reactive Protein Total Protein (PEP) TSH Free T4 Nasal Screen MRSA (PCR) - Imaging Impressions Lumbar Spine MRI 09/21/17 00:00 CONCLUSION: 1. At L4-5 there is a mild central canal lateral recess stenosis with mild bilateral foraminal stenosis. 2. At L3-4 and L5-S1 there is a minimal anterolisthesis with mild foraminal encroachment. 3. Conus medullaris intact. No acute fracture. Thoracic Spine MRI 09/21/17 00:00 CONCLUSION: 1. There is a suspected 1.4 cm nodule in the right lung. Further evaluation with chest CT is recommended. 2. Mild degenerative change in the thoracic spine without canal stenosis or nerve root compression identified. 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 Goodman is a pleasant 67-year-old male with a history of prostate cancer, rheumatoid arthritis, iron deficiency anemia who presented to the emergency department on 09/21/2017 due to worsening weakness in his lower extremities that started 2 weeks prior to this admission. He was evaluated by neurology who suspected possible Guillain Clinton syndrome. Patient also reports chest pain that has been going on for months but worse in the last 2-3 days. He reported having diaphoresis along with chest pain. His troponin was elevated to 1.57. Cardiology was consulted. 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 Patient is already on IVIG treatment. -After extensive discussion with patient as well as the neurologist and medical officer psychiatry, the decision is to proceed with MRI studies as well as lumbar puncture. - Patient understands that with aspirin there is increased risk of bleeding. However, he also understands the importance of getting LP study done. - Patient wishes to proceed with lumbar puncture study. I agree with his decision as well. NSTEMI -I discussed with medical officer psychiatry who will evaluate the need for cardiac catheterization on 09/26/2017. -We will continue aspirin 81 mg daily. Start Lipitor 40 mg nightly. History of iron deficiency anemia -currently stable. Hemoglobin 10.7, MCV 87.7. Hypertension -continue amlodipine 10 mg daily. Full code. Heparin drip. Discussed with interventional radiology, neurology, cardiology.
[2017-09-22 10:08] LABS: Anion Gap 14 meq/L (5-15); Blood Urea Nitrogen 10 mg/dL (7-18); Calcium 9.5 mg/dL (8.5-10.1); Carbon Dioxide 21.6 meq/L (21.0-32.0); Chloride 100 meq/L (98-107); Glomerular Filtration Rate Greater Than 89 mL/min (>89); Glucose,Random 83 mg/dL (74-106); Potassium 3.6 meq/L (3.5-5.1); Sodium 136 meq/L (136-145)
[2017-09-22] MEDS ORDERED: Gadodiamide PF Inj 287 MG/ML 5 ML Syringe (for RAD MRI) IVCONTRAST ONE (12:39)
--- NOTE | 2017-09-22 13:01 | MR ---
EXAM DATE: 09/22/2017 12:46 PM EDT AGE/SEX: 67 years / Male INDICATIONS: . Bilateral lower leg weakness. CLINICAL DATA: This is the patient's subsequent encounter. Patient reports that signs and symptoms h ave been present for 2 days and indicates a pain score of 0/10. MEDICAL/SURGICAL HISTORY: Carcinoma, prostatic. Rheumatoid arthritis. Gastroesophageal reflux disease. Tonsillectomy. Cataracts. Hand surgery. Bilateral foot surgery. COMPARISON: No prior exams available for comparison. TECHNIQUE: Multiplanar, multisequence MRI examination of the cervical spine was performed without an d with 15 ml Omniscan (gadodiamide) contrast as a single exam dose. FINDINGS: There are mild changes of degenerative disc disease. No discrete disc protrusions are identified. Is no significant canal or foraminal stenosis. No cord signal abnormality. No abnormal enhancing lesions post contrast. CONCLUSION: 1. No acute findings. No abnormal enhancement. Cervical cord unremarkable. Mild degenerative change. Electronically signed by: Rodrigo Hebert MD 09/22/2017 1:00 PM EDT
--- NOTE | 2017-09-22 13:02 | MR ---
EXAM DATE: 09/22/2017 12:52 PM EDT AGE/SEX: 67 years / Male INDICATIONS: . Unsteady gait. CLINICAL DATA: This is the patient's subsequent encounter. Patient reports that signs and symptoms h ave been present for 2 days and indicates a pain score of 0/10. MEDICAL/SURGICAL HISTORY: Carcinoma, prostatic. Rheumatoid arthritis. Gastroesophageal reflux disease. Tonsillectomy. Cataracts. Hand surgery. Bilateral foot surgery. COMPARISON: [facility], MR BRAIN W AND W/O CONTRAST, 03/18/2017. . TECHNIQUE: Multiplanar, multisequence examination of the brain was performed without and with 15 ml O mniscan (gadodiamide) contrast as a single exam dose. FINDINGS: Cerebrum: The ventricles are normal for age. No evidence of midline shift, mass lesion, hemorrhage or acute infarction. No extraaxial fluid collections are seen. The pituitary gland and suprasellar cistern are normal in configuration. White Matter: No significant signal abnormalities are seen in the white matter. Posterior Fossa: The cerebellum and brainstem are intact. The 4th ventricle is midline. The cerebel lopontine angle is unremarkable. The cerebellar tonsils are normal in position. Diffusion Imaging: No focal areas of restricted diffusion are seen. No evidence of acute infarction . Extracranial: The visualized portions of the orbits and paranasal sinuses are unremarkable. Post Contrast: No abnormal areas of parenchymal or dural enhancement. No evidence of blood-brain ba rrier breakdown. No enhancing mass occupying lesions. CONCLUSION: 1. Unremarkable and stable MRI of the brain compared to the prior examination. No new or significant changes. Electronically signed by: Jean Paul Dunham MD 09/22/2017 1:01 PM EDT
--- NOTE | 2017-09-22 14:12 | P.RAD ---
Post Procedure Progress Note - Pre Procedure Diagnosis (1) Guillain Romero syndrome - Post Procedure Diagnosis (1) Guillain Romero syndrome - Procedure Information Procedure Date: 09/22/17 Supervising Radiologist: Tima De La Cruz MD Estimated blood loss (mL): 0 Anesthesia: Local - Plan of Activity Patient to Unit: Nursing Unit Patient Condition: Good See PACS Report for procedural detail/treatment.
[2017-09-22 15:09] LABS: Total Protein,CSF 38.6 mg/dL (15.0-45.0)
--- NOTE | 2017-09-22 15:53 | IR ---
EXAM DATE: 09/22/2017 2:36 PM EDT AGE/SEX: 67 years / Male INDICATIONS: Patient presents with progressive weakness in need of lumbar puncture for further evalu ation. CLINICAL DATA: This is the patient's initial encounter. Patient reports that signs and symptoms have been present for 1 week and indicates a pain score of 0/10. MEDICAL/SURGICAL HISTORY: . Rheumatoid arthritisAnemiaGlaucomaProstate cancer . CataractsTonsi llectomyMelanoma in 2005VaricoceleBilateral foot surgeryTURP in 2012 COMPAR[place]: [facility] [place] C[place] SPINE W & W/O CON, 09/22/2017. . FLUORO TIME (min): 0.3 IMAGE SERIES: 2 ACCESS SITE: L4-5 LUMBAR PUNCTURE TIME: 13:57 hours FLUID: Total volume of 9 cc of . . PROCEDURE: 1. Fluoroscopic guided lumbar puncture. The risks, benefits and alternatives to the procedure were explained and verbal and written consent w as obtained. The site was prepped in sterile fashion. Full sterile technique was used, including ca p, mask, sterile gloves and gown and a large sterile sheet. Hand hygiene and 2% chlorhexidine and/or betadine/alcohol prep was utilized per protocol for cutaneous antisepsis. The skin and subcutaneous tissues were infiltrated with local anesthetic solution. With fluoroscopic guidance the lumbar thecal sac was punctured at the level above. The fluid describ ed above was removed without difficulty. The patient tolerated the procedure well and there were no complications. CONCLUSION: 1. Uncomplicated fluoroscopically guided lumbar puncture. Electronically signed by: Tima De La Cruz MD 09/22/2017 3:52 PM EDT
[2017-09-22 15:57] LABS: Eosinophils,CSF 1 %; Lymphocytes, CSF 71 %; Monocytes,CSF 11 %; Neutrophils,CSF 17 %
[2017-09-22 16:07] LABS: RBC on Tube 4 291 /mm3
--- NOTE | 2017-09-22 18:31 | P.PNCA ---
Subjective Interval history: Patient heading to [facility] No complaints Physical Exam Vital signs: Vital Signs 09/21/17 21:30 09/21/17 22:00 09/21/17 22:30 Temperature 98.2 F Pulse Rate 95 H 88 90 Respiratory Rate 26 H 14 Blood Pressure 134/81 112/70 Pulse Oximetry 96 96 96 09/21/17 23:26 09/21/17 23:30 09/21/17 23:45 Temperature 98.5 F Pulse Rate 95 H 97 H 88 Respiratory Rate 24 17 12 Blood Pressure 137/86 128/75 117/70 Pulse Oximetry 97 97 96 09/22/17 00:00 09/22/17 00:15 09/22/17 00:30 Temperature 98.5 F Pulse Rate 88 96 H 91 H Respiratory Rate 19 17 12 Blood Pressure 124/78 129/79 126/75 Pulse Oximetry 97 95 97 09/22/17 01:00 09/22/17 02:00 09/22/17 03:00 Temperature Pulse Rate 86 92 H 99 H Respiratory Rate 21 16 21 Blood Pressure 124/77 123/76 116/67 Pulse Oximetry 97 97 97 09/22/17 04:00 09/22/17 05:00 09/22/17 06:00 Temperature 97.9 F Pulse Rate 92 H 86 92 H Respiratory Rate 12 14 Blood Pressure 116/69 117/68 Pulse Oximetry 96 96 09/22/17 07:00 09/22/17 07:25 09/22/17 08:00 Temperature 98.4 F Pulse Rate 91 H 93 H Respiratory Rate 14 13 Blood Pressure 120/73 Pulse Oximetry 96 95 97 09/22/17 10:00 09/22/17 12:00 09/22/17 14:00 Temperature 98.9 F Pulse Rate 93 H 99 H 103 H Respiratory Rate 20 Blood Pressure Pulse Oximetry 20 L 09/22/17 16:00 Temperature 98.4 F Pulse Rate 65 Respiratory Rate 12 Blood Pressure 127/69 Pulse Oximetry 100 Intake & Output 09/21/17 09/22/17 09/22/17 18:59 06:59 18:59 Intake Total 500 / 500 0 / 0 250 / 250 Output Total 450 / 450 1450 / 1450 Balance 50 / 50 -1450 / -1450 250 / 250 Weight 79.6 kg Intake: IV 500 / 500 250 / 250 Heparin/D5W 25,000 U/250 mL 25, 250 / 250 000 unit In 250 ml @ 1,000 UNITS/HR 10 mls/hr IV.CONT TITRATE PRN Rx#:[id number] NS Inj 500 ML @ Wide Open IV. 500 / 500 SIG ONCE ONE Rx#:[id number] Oral 0 / 0 Output: Urine Amount (Catheter) 450 / 450 1450 / 1450 Indwelling Urethral Catheter 450 / 450 1450 / 1450 Other: Date of Last Bowel Movement 09/21/17 09/21/17 09/21/17 # Bowel Movements 0 Weight On Admission 78.3 kg Narrative: GENERAL: NAD, AAOx3 SKIN: Warm and dry. HEAD: Atraumatic. Normocephalic. EYES: Pupils equal and round. No scleral icterus. No injection or drainage. ENT: No nasal bleeding or discharge. Mucous membranes pink and moist. NECK: Trachea midline. No JVD. CARDIOVASCULAR: Regular rate and rhythm. RESPIRATORY: No accessory muscle use. Clear to auscultation. Breath sounds equal bilaterally. GASTROINTESTINAL: Abdomen soft, non-tender, nondistended. Hepatic and splenic margins not palpable. MUSCULOSKELETAL: Extremities without clubbing, cyanosis, or edema. No obvious deformities. NEUROLOGICAL: Awake and alert. No obvious cranial nerve deficits. Overall weakness of both legs PSYCHIATRIC: Appropriate mood and affect; insight and judgment normal. - Urinary Catheter Management Indwelling Urethral Catheter Cath placed during this visit: yes Reason for continuing: Other continuation reason Insertion date: 09/21/17 Insertion time: 06:57 Assessment and Plan - Assessment (1) Generalized weakness Code(s): R53.1 - Weakness Status: Acute (2) Elevated troponin I level Code(s): R74.8 - Abnormal levels of other serum enzymes Status: Acute (3) Guillain Romero syndrome Code(s): G61.0 - Guillain-Tryon syndrome Status: Acute (4) NSTEMI (non-ST elevated myocardial infarction) Code(s): I21.4 - Non-ST elevation (NSTEMI) myocardial infarction Status: Acute - Plan 1) Chest pain/NSTEMI Medical management for now Heparin drip Plan cardiac catheterization on Tuesday Unable to do cath today, as patient needed LP for further work up for GBS If cath today unable to do LP if placed on anti-platelets 2) Progressive weakness Concern for GBS Further work up per neurology 3) Iron deficiency anemia Stable on heparin drip
[2017-09-22] MEDS: IVIG (Immune Globulin) Inj 30 GM in Syringe/Bag 1 EACH IV.SIG SCH (19:00)
[2017-09-23] MEDS: Acetaminophen 325 MG Tablet PO PRN ×2 (08:21→16:34)
[2017-09-23] MEDS: Pantoprazole Sodium 20 MG DR Tablet PO SCH (08:22)
[2017-09-23] MEDS: Potassium Chloride 10 MEQ ER Capsule PO SCH (08:23)
[2017-09-23] MEDS: amLODIPine 10 MG Tablet PO SCH (08:24)
[2017-09-23] MEDS: sulfaSALAzine 500 MG Tablet PO SCH ×2 (08:26→21:22)
[2017-09-23 08:27] LABS: Hematocrit 34.3 % (39.0-51.0); Hemoglobin 11.4 gm/dL (13.0-17.0); Mean Corpuscular HGB Conc 33.2 % (32.0-36.0); Mean Corpuscular Volume 87.4 fL (80.0-100.0); Mean Platelet Volume 6.8 fL (7.0-11.0); Platelet Count 430 th/mm3 (150-450); Red Blood Count 3.92 mil/mm3 (4.50-5.90); Red Cell Distribution Width 16.7 % (11.6-17.2); White Blood Count 6.7 th/mm3 (4.0-11.0)
--- NOTE | 2017-09-23 12:25 | P.PNCA ---
Subjective Interval history: No events overnight No chest pain Mildly SOB Feels like he's moving his lower extremities better already Physical Exam Vital signs: Vital Signs 09/22/17 14:00 09/22/17 16:00 09/22/17 18:00 Temperature 98.4 F Pulse Rate 103 H 65 102 H Respiratory Rate 12 Blood Pressure 127/69 Pulse Oximetry 100 09/22/17 19:00 09/22/17 19:15 09/22/17 19:25 Temperature 98.6 F Pulse Rate 103 H 99 H Respiratory Rate 22 24 Blood Pressure 119/76 129/80 Pulse Oximetry 100 96 97 09/22/17 20:00 09/22/17 21:00 09/22/17 22:00 Temperature 98.6 F Pulse Rate 92 H 97 H 86 Respiratory Rate 15 24 21 Blood Pressure 131/73 129/80 134/89 Pulse Oximetry 96 97 97 09/22/17 23:00 09/23/17 00:00 09/23/17 01:00 Temperature 98.2 F Pulse Rate 82 97 H 90 Respiratory Rate 21 25 H 22 Blood Pressure 109/68 140/86 95/60 L Pulse Oximetry 97 98 98 09/23/17 02:00 09/23/17 03:00 09/23/17 04:00 Temperature 98.1 F Pulse Rate 86 80 90 Respiratory Rate 23 16 17 Blood Pressure 118/74 120/76 132/77 Pulse Oximetry 98 97 98 09/23/17 05:00 09/23/17 06:00 09/23/17 07:42 Temperature Pulse Rate 80 85 Respiratory Rate 15 15 Blood Pressure 131/78 113/73 Pulse Oximetry 98 98 98 09/23/17 08:00 09/23/17 10:00 09/23/17 12:00 Temperature 98.6 F 98.4 F Pulse Rate 97 H 102 H 93 H Respiratory Rate 15 15 Blood Pressure 107/71 92/64 L Pulse Oximetry 97 97 Intake & Output 09/22/17 09/23/17 09/23/17 18:59 06:59 18:59 Intake Total 970 / 970 240 / 240 Output Total 450 / 450 1050 / 1050 Balance 520 / 520 -810 / -810 Weight 76.3 kg Intake: IV 250 / 250 Heparin/D5W 25,000 U/250 mL 25, 250 / 250 000 unit In 250 ml @ 1,000 UNITS/HR 10 mls/hr IV.CONT TITRATE PRN Rx#:[id number] Oral 720 / 720 240 / 240 Output: Urine Amount (Catheter) 450 / 450 1050 / 1050 Indwelling Urethral Catheter 450 / 450 1050 / 1050 Other: Date of Last Bowel Movement 09/21/17 09/21/17 09/23/17 # Bowel Movements 0 Narrative: GENERAL: NAD, AAOx3 SKIN: Warm and dry. HEAD: Atraumatic. Normocephalic. EYES: Pupils equal and round. No scleral icterus. No injection or drainage. ENT: No nasal bleeding or discharge. Mucous membranes pink and moist. NECK: Trachea midline. No JVD. CARDIOVASCULAR: Regular rate and rhythm. RESPIRATORY: No accessory muscle use. Clear to auscultation. Breath sounds equal bilaterally. GASTROINTESTINAL: Abdomen soft, non-tender, nondistended. Hepatic and splenic margins not palpable. MUSCULOSKELETAL: Extremities without clubbing, cyanosis, or edema. No obvious deformities. NEUROLOGICAL: Awake and alert. No obvious cranial nerve deficits. Overall weakness of both legs PSYCHIATRIC: Appropriate mood and affect; insight and judgment normal. 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
--- NOTE | 2017-09-23 16:10 | P.PNNEU ---
Subjective Subjective Comments: Trouble swallowing MBS pending on modified diet now legs feel stronger than arms ivig#3 tonight. awake alert voice a bit wet sounding perrla tongue midline motor ue 4/5 legs 4 / dtrs 2+ue,absent dtrs in legs sensory intact gait deferred a/p GBS cont ivig for 5 days pt-ot-st chest pain elevated troponin-heparin,cardiac cath tuesday RA-likely cause of elevated esr/crp at least partly. some labs still pending Dr Velasquez to follow over the weekend. Active Medications: Active Medications Generic Name Dose Route Start Last Admin Trade Name Freq PRN Reason Stop Dose Admin Acetaminophen 650 mg 09/21/17 07:00 09/23/17 08:21 Tylenol PO 650 mg Q4H PRN Administration Temp > 100.4 Amlodipine Besylate 10 mg 09/21/17 15:00 09/23/17 08:24 Norvasc PO 10 mg DAILY DOROTHY Administration Aspirin 81 mg 09/23/17 09:00 09/23/17 08:22 Ecotrin PO 81 mg DAILY DOROTHY Administration Atorvastatin Calcium 40 mg 09/22/17 21:00 09/22/17 21:45 Lipitor PO 40 mg HS DOROTHY Administration Chlorhexidine Gluconate 3 pack 09/22/17 04:00 Chlorhexidine 2% Cloth TOPICAL 09/27/17 03:59 DAILY@0400 PRN Extra cloth needed Enalaprilat 1.25 mg 09/21/17 14:27 Vasotec Inj IV.PUSH Q6H PRN SBP>160, DBP>90 Fluticasone Propionate 1 spray 09/21/17 09:00 09/23/17 08:24 Flonase Nasal [place] EACH NARE 1 spray DAILY DOROTHY Administration Heparin Sodium/Dextrose 25,000 unit in 250 mls @ 10 mls/hr 09/21/17 14:30 09/05 10:00 Heparin/D5w 25,000 U/250 Ml IV.CONT 1,300 units/hr TITRATE PRN 13 mls/hr Per Protocol Titration Protocol 1,000 UNITS/HR Immune Globulin 30 gm/ Syringe 300 mls @ 23.81 mls/hr 09/22/17 18:00 19:00 /Bag IV.SIG 23.81 mls/hr Q24H DOROTHY Administration Protocol 0.5 MG/KG/MIN Leflunomide 20 mg 09/21/17 09:00 09/23/17 08:22 Arava PO 20 mg DAILY DOROTHY Administration Morphine Sulfate 2 mg 09/21/17 14:21 09/22/17 08:41 Morphine Inj IV.PUSH 2 mg Q3H PRN Administration CHEST PAIN Nitroglycerin 0.5 inch 09/21/17 18:00 09/23/17 11:35 Nitro-Bid 2% Oint TOPICAL 0.5 inch Q6HR DOROTHY Administration Pantoprazole Sodium 20 mg 09/21/17 09:00 09/23/17 08:22 Protonix PO 20 mg DAILY DOROTHY Administration Pt Own Med: Iron 0 each 09/21/17 09:00 44mg Po Bid PO BID DOROTHY Potassium Chloride 50 meq 09/21/17 09:00 09/23/17 08:23 Kcl PO 50 meq DAILY DOROTHY Administration Sodium Chloride 2 ml 09/21/17 04:25 09/23/17 08:21 Ns Flush IV.FLUSH 2 ml UNSCH PRN Administration FLUSH AFTER USING IV ACCESS Sulfasalazine 500 mg 09/21/17 09:00 09/23/17 08:26 Azulfidine PO 500 mg BID DOROTHY Administration Allergies/Adverse Reactions: Allergies Allergy/AdvReac Type Severity Reaction Status Date / Time ciprofloxacin Allergy Severe Rash Verified 09/21/17 10:13 Physical Exam Vital signs: Vital Signs 09/22/17 18:00 09/22/17 19:00 09/22/17 19:15 Temperature 98.6 F Pulse Rate 102 H 103 H 99 H Respiratory Rate 22 24 Blood Pressure 119/76 129/80 Pulse Oximetry 100 96 09/22/17 19:25 09/22/17 20:00 09/22/17 21:00 Temperature 98.6 F Pulse Rate 92 H 97 H Respiratory Rate 15 24 Blood Pressure 131/73 129/80 Pulse Oximetry 97 96 97 09/22/17 22:00 09/22/17 23:00 09/23/17 00:00 Temperature 98.2 F Pulse Rate 86 82 97 H Respiratory Rate 21 21 25 H Blood Pressure 134/89 109/68 140/86 Pulse Oximetry 97 97 98 09/23/17 01:00 09/23/17 02:00 09/23/17 03:00 Temperature Pulse Rate 90 86 80 Respiratory Rate 22 23 16 Blood Pressure 95/60 L 118/74 120/76 Pulse Oximetry 98 98 97 09/23/17 04:00 09/23/17 05:00 09/23/17 06:00 Temperature 98.1 F Pulse Rate 90 80 85 Respiratory Rate 17 15 15 Blood Pressure 132/77 131/78 113/73 Pulse Oximetry 98 98 98 09/23/17 07:42 09/23/17 08:00 09/23/17 10:00 Temperature 98.6 F Pulse Rate 97 H 102 H Respiratory Rate 15 Blood Pressure 107/71 Pulse Oximetry 98 97 09/23/17 12:00 09/23/17 14:00 Temperature 98.4 F Pulse Rate 93 H 100 H Respiratory Rate 15 Blood Pressure 92/64 L Pulse Oximetry 97 Intake & Output 09/22/17 09/23/17 09/23/17 18:59 06:59 18:59 Intake Total 970 / 970 240 / 240 Output Total 450 / 450 1050 / 1050 Balance 520 / 520 -810 / -810 Weight 76.3 kg Intake: IV 250 / 250 Heparin/D5W 25,000 U/250 mL 25, 250 / 250 000 unit In 250 ml @ 1,000 UNITS/HR 10 mls/hr IV.CONT TITRATE PRN Rx#:[id number] Oral 720 / 720 240 / 240 Output: Urine Amount (Catheter) 450 / 450 1050 / 1050 Indwelling Urethral Catheter 450 / 450 1050 / 1050 Other: Date of Last Bowel Movement 09/21/17 09/21/17 09/23/17 # Bowel Movements 0 - Urinary Catheter Management Indwelling Urethral Catheter Cath placed during this visit: yes Reason for continuing: Other continuation reason Insertion date: 09/21/17 Insertion time: 06:57 Objective Laboratory Results - last 24 hr 09/21/17 09/22/17 09/23/17 22:20 13:53 00:15 WBC RBC Hgb Hct MCV MCH MCHC RDW Plt Count MPV APTT 37.2 H Albumin (PEP) 4.13 Albumin/Globulin Ratio 1.12 L Puoel-1-Maihidunx 0.45 H Swnyu-9-Wlldazeaq 1.01 H Beta Globulins 0.84 Gamma Globulins 1.37 PEP Pathologist Comment CSF Volume (1) 1.4 CSF Supernat Color (1) Clear CSF Gross Blood (1) 0 CSF Volume (2) 2.1 CSF Supernat Color (2) Clear CSF Gross Blood (2) 0 CSF Volume (3) 2.2 CSF Supernat Color (3) Clear CSF Gross Blood (3) 0 CSF Volume (4) 2.9 CSF Supernat Color (4) Clear CSF Gross Blood (4) Trace A CSF WBC (4) 21 H CSF RBC (4) 291 H CSF Neutrophils % 17 CSF Lymphocytes % 71 CSF Monocytes % 11 CSF Eosinophils % 1 09/23/17 09/23/17 07:49 07:49 WBC 6.7 RBC 3.92 L Hgb 11.4 L Hct 34.3 L MCV 87.4 MCH 29.0 MCHC 33.2 RDW 16.7 Plt Count 430 MPV 6.8 L APTT 31.3 H Albumin (PEP) Albumin/Globulin Ratio Ulkmo-2-Pabjjvher Ixlny-7-Ibiiqnedz Beta Globulins Gamma Globulins PEP Pathologist Comment CSF Volume (1) CSF Supernat Color (1) CSF Gross Blood (1) CSF Volume (2) CSF Supernat Color (2) CSF Gross Blood (2) CSF Volume (3) CSF Supernat Color (3) CSF Gross Blood (3) CSF Volume (4) CSF Supernat Color (4) CSF Gross Blood (4) CSF WBC (4) CSF RBC (4) CSF Neutrophils % CSF Lymphocytes % CSF Monocytes % CSF Eosinophils % Microbiology 09/22/17 13:53 Gram Stain - Final Lumbar Puncture CSF Culture - Preliminary No growth in 24 hours
[2017-09-23] MEDS: Heparin Drip 25,000 UNIT/250 ML BAG IV.CONT PRN (16:35)
[2017-09-23] MEDS: IVIG (Immune Globulin) Inj 30 GM in Syringe/Bag 1 EACH IV.SIG SCH (17:43)
--- NOTE | 2017-09-23 23:22 | P.PN ---
Subjective Interval history: Follow-up for suspected Guillain Salam[place] syndrome, NSTEMI. Patient is doing better. He feels that his lower extremity strength is improving. No fever, chills. Physical Exam Vital signs: Vital Signs 09/22/17 23:00 09/23/17 00:00 09/23/17 01:00 Temperature 98.2 F Pulse Rate 82 97 H 90 Respiratory Rate 21 25 H 22 Blood Pressure 109/68 140/86 95/60 L Pulse Oximetry 97 98 98 09/23/17 02:00 09/23/17 03:00 09/23/17 04:00 Temperature 98.1 F Pulse Rate 86 80 90 Respiratory Rate 23 16 17 Blood Pressure 118/74 120/76 132/77 Pulse Oximetry 98 97 98 09/23/17 05:00 09/23/17 06:00 09/23/17 07:42 Temperature Pulse Rate 80 85 Respiratory Rate 15 15 Blood Pressure 131/78 113/73 Pulse Oximetry 98 98 98 09/23/17 08:00 09/23/17 10:00 09/23/17 12:00 Temperature 98.6 F 98.4 F Pulse Rate 97 H 102 H 93 H Respiratory Rate 15 15 Blood Pressure 107/71 92/64 L Pulse Oximetry 97 97 09/23/17 14:00 09/23/17 16:00 09/23/17 17:43 Temperature 98.4 F Pulse Rate 100 H 94 H 96 H Respiratory Rate 25 H 15 Blood Pressure 132/81 152/83 H Pulse Oximetry 97 09/23/17 18:00 09/23/17 19:12 Temperature Pulse Rate 93 H Respiratory Rate Blood Pressure Pulse Oximetry 97 Intake & Output 09/23/17 09/23/17 09/24/17 06:59 18:59 06:59 Intake Total 1930 / 1930 Output Total 2175 / 2175 Balance -245 / -245 Weight 76.3 kg Intake: IV 250 / 250 Heparin/D5W 25,000 U/250 mL 25, 250 / 250 000 unit In 250 ml @ 1,000 UNITS/HR 10 mls/hr IV.CONT TITRATE PRN Rx#:[id number] Oral 1680 / 1680 Output: Urine 1125 / 1125 Urine Amount (Catheter) 1050 / 1050 Indwelling Urethral Catheter 1050 / 1050 Other: Date of Last Bowel Movement 09/21/17 09/23/17 # Bowel Movements 1 Narrative: GENERAL: Alert, Oriented x 3, NAD. SKIN: Warm and dry. HEAD: Normocephalic. EYES: No scleral icterus. No injection or drainage. NECK: Supple, trachea midline. No JVD or lymphadenopathy. CARDIOVASCULAR: Regular rate and rhythm without murmurs, gallops, or rubs. RESPIRATORY: Breath sounds equal bilaterally. No accessory muscle use. GASTROINTESTINAL: Abdomen soft, non-tender, nondistended. MUSCULOSKELETAL: No cyanosis, or edema. BACK: Nontender without obvious deformity. No CVA tenderness. - Urinary Catheter Management Indwelling Urethral Catheter Cath placed during this visit: yes Reason for continuing: Other continuation reason Insertion date: 09/21/17 Insertion time: 06:57 Results - Labs CBC & Chem 7: 09/23/17 07:49 09/22/17 09:05 Laboratory Results - last 24 hr 09/21/17 09/23/17 09/23/17 22:20 00:15 07:49 WBC 6.7 RBC 3.92 L Hgb 11.4 L Hct 34.3 L MCV 87.4 MCH 29.0 MCHC 33.2 RDW 16.7 Plt Count 430 MPV 6.8 L APTT 37.2 H PEP Pathologist Comment 09/23/17 09/23/17 07:49 17:37 WBC RBC Hgb Hct MCV MCH MCHC RDW Plt Count MPV APTT 31.3 H 31.0 H PEP Pathologist Comment Microbiology 09/22/17 13:53 Lumbar Puncture Gram Stain - Final 09/22/17 13:53 Lumbar Puncture CSF Culture - Preliminary No growth in 24 hours Assessment and Plan - Assessment (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 Goodman is a pleasant 67-year-old male with a history of prostate cancer, rheumatoid arthritis, iron deficiency anemia who presented to the emergency department on 09/21/2017 due to worsening weakness in his lower extremities that started 2 weeks prior to this admission. He was evaluated by neurology who suspected possible Guillain Salamanca syndrome. Patient also reports chest pain that has been going on for months but worse in the last 2-3 days. He reported having diaphoresis along with chest pain. His troponin was elevated to 1.57. Cardiology was consulted. Probable Guillain [place] syndrome -Neurology is following. Patient is already on IVIG treatment. -s/p LP. CSF labs are pending. NSTEMI - Aspirin 81mg Qday, Lipitor 40mg QHS. - Possible Cath early next week. History of iron deficiency anemia -currently stable. Hemoglobin 11.4, MCV 87.7. Hypertension - continue amlodipine 10 mg daily. Full code. Heparin drip.
--- NOTE | 2017-09-24 09:42 | FL ---
EXAM DATE: 09/24/2017 9:38 AM EDT AGE/SEX: 67 years / Male INDICATIONS: Dysphagia. CLINICAL DATA: This is the patient's subsequent encounter. Patient reports that signs and symptoms h ave been present for 3 days and indicates a pain score of 2/10. MEDICAL/SURGICAL HISTORY: Gastroesophageal reflux disease. Tonsillectomy. Endoscopy a year ago for difficulty swallowing. COMPARISON: POI, XR SPINE CERVICAL (MIN 4 VIEWS), 08/05/2016. . FLUORO TIME: 2.41 IMAGE COUNT: 0 FINDINGS: A modified barium swallow was performed with speech pathology. Patient was given a variety of liquids to swallow. There was aspiration with thin and thick liquids and solid foods. For a full detailed report, see report by the speech pathologist. CONCLUSION: Aspiration as above. Electronically signed by: Dejuan Bernal MD 09/24/2017 9:41 AM EDT
[2017-09-24] MEDS: Heparin Drip 25,000 UNIT/250 ML BAG IV.CONT PRN (12:16)
[2017-09-24] MEDS: Potassium Chloride 10 MEQ ER Capsule PO SCH (12:51)
[2017-09-24] MEDS: sulfaSALAzine 500 MG Tablet PO SCH (12:51)
[2017-09-24] MEDS: Pantoprazole Sodium 20 MG DR Tablet PO SCH (12:52)
[2017-09-24] MEDS ORDERED: Potassium Chlor 40 mEq Premix 40 MEQ/100 ML PIGGYBACK IV.SIG PRN ×2 (15:26)
[2017-09-24] MEDS ORDERED: Potassium Chloride 25 MEQ Effervescent Tablet PO PRN (15:26)
[2017-09-24] MEDS ORDERED: Magnesium Sulfate Inj 4 GM in Sodium Chlor 0.9% Inj 92 ML IV.SIG PRN (15:26)
[2017-09-24] MEDS ORDERED: Potassium Phosphate 500 MG Soluble Tablet PO PRN ×2 (15:26)
[2017-09-24] MEDS ORDERED: Sodium Phosphate Inj 30 MMOL in Sodium Chlor 0.9% Inj 250 ML IV.SIG PRN (15:26)
[2017-09-24] MEDS ORDERED: Magnesium Oxide 400 MG Tablet PO PRN (15:26)
[2017-09-24] MEDS ORDERED: Potassium Chlor 20 mEq Premix 20 MEQ/100 ML PIGGYBACK IV.SIG PRN (15:26)
[2017-09-24] MEDS ORDERED: Potassium Phosphate Inj 30 MMOL in Sodium Chlor 0.9% Inj 250 ML IV.SIG PRN (15:26)
[2017-09-24] MEDS ORDERED: Magnesium Sulfate Inj 2 GM in Sodium Chlor 0.9% Inj 96 ML IV.SIG PRN (15:26)
[2017-09-24] MEDS ORDERED: Famotidine Premix Inj 20 MG/50 ML PIGGYBACK IV.SIG SCH (15:28)
--- NOTE | 2017-09-24 16:30 | P.PN ---
Subjective Interval history: Follow-up for suspected Guillain [place] syndrome, NSTEMI. Patient is currently doing well. He had speech therapy evaluation as well as barium swallow study. Speech therapy recommends complete n.p.o. Patient denies any fever chills. Physical Exam Vital signs: Vital Signs 09/23/17 17:43 09/23/17 18:00 09/23/17 19:12 Temperature Pulse Rate 96 H 93 H Respiratory Rate 15 Blood Pressure 152/83 H Pulse Oximetry 97 09/23/17 20:00 09/24/17 00:00 09/24/17 02:00 Temperature 99 F 98.4 F Pulse Rate 87 88 85 Respiratory Rate 18 18 Blood Pressure 115/68 142/80 H Pulse Oximetry 98 98 09/24/17 04:00 09/24/17 06:00 09/24/17 08:00 Temperature 98.4 F 98.2 F Pulse Rate 91 H 97 H 92 H Respiratory Rate 16 18 Blood Pressure 107/66 111/71 Pulse Oximetry 98 96 09/24/17 10:00 09/24/17 12:00 09/24/17 14:00 Temperature 98.5 F Pulse Rate 99 H 91 H 90 Respiratory Rate 19 Blood Pressure 113/72 Pulse Oximetry 96 Intake & Output 09/23/17 09/24/17 09/24/17 18:59 06:59 18:59 Intake Total 1930 / 1930 0 / 0 250 / 250 Output Total 2175 / 2175 1500 / 1500 Balance -245 / -245 -1500 / -1500 250 / 250 Weight 76.2 kg Intake: IV 250 / 250 250 / 250 Heparin/D5W 25,000 U/250 mL 25, 250 / 250 250 / 250 000 unit In 250 ml @ 1,000 UNITS/HR 10 mls/hr IV.CONT TITRATE PRN Rx#:[id number] Oral 1680 / 1680 0 / 0 Output: Urine 1125 / 1125 Urine Amount (Catheter) 1050 / 1050 1500 / 1500 Indwelling Urethral Catheter 1050 / 1050 1500 / 1500 Other: Date of Last Bowel Movement 09/23/17 09/24/17 09/24/17 # Bowel Movements 1 1 Narrative: GENERAL: Alert, Oriented x 3, NAD. SKIN: Warm and dry. HEAD: Normocephalic. EYES: No scleral icterus. No injection or drainage. NECK: Supple, trachea midline. No JVD or lymphadenopathy. CARDIOVASCULAR: Regular rate and rhythm without murmurs, gallops, or rubs. RESPIRATORY: Breath sounds equal bilaterally. No accessory muscle use. GASTROINTESTINAL: Abdomen soft, non-tender, nondistended. MUSCULOSKELETAL: No cyanosis, or edema. BACK: Nontender without obvious deformity. No CVA tenderness. - Urinary Catheter Management Indwelling Urethral Catheter Cath placed during this visit: yes Reason for continuing: Other continuation reason Insertion date: 09/21/17 Insertion time: 06:57 Results - Labs CBC & Chem 7: 09/23/17 07:49 09/22/17 09:05 Laboratory Results - last 24 hr 09/23/17 09/24/17 09/24/17 17:37 03:41 14:24 APTT 31.0 H 37.4 H D 41.4 H Microbiology 09/22/17 13:53 Lumbar Puncture Gram Stain - Final 09/22/17 13:53 Lumbar Puncture CSF Culture - Preliminary No growth in 48 hours - Imaging Impressions Videofluoroscopic Swallow 09/24/17 00:00 CONCLUSION: Aspiration as above. 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 Goodman is a pleasant 67-year-old male with a history of prostate cancer, rheumatoid arthritis, iron deficiency anemia who presented to the emergency department on 09/21/2017 due to worsening weakness in his lower extremities that started 2 weeks prior to this admission. He was evaluated by neurology who suspected possible Guillain Dou[place] syndrome. Patient also reports chest pain that has been going on for months but worse in the last 2-3 days. He reported having diaphoresis along with chest pain. His troponin was elevated to 1.57. Cardiology was consulted. Probable Guillain Doucette syndrome Lung nodule 1.4cm -Neurology is following. Patient is already on IVIG treatment. -Apparently neurology indicated starting steroids. Will start Solu-Medrol 60 mg every 6 hours. -If neurology recommends high dose steroid, we can increase the dosage. -s/p LP. -MRI studies are largely unremarkable for any acute findings. However thoracic MRI shows an incidental finding of 1.4 cm lung nodule. -Patient is likely to undergo cardiac catheterization on 09/26/2017. -2-3 days after cardiac cath, we can obtain a CT chest with contrast to evaluate lung nodule. NSTEMI - Aspirin 81mg Qday, Lipitor 40mg QHS. - Possible Cath early next week. Dysphagia - Possibly related to GBS - NPO Per Speech. - Will start patient on D5NS @ 84cc/hour. History of iron deficiency anemia -currently stable. Hemoglobin 11.4, MCV 87.7. Hypotension - Patient's BP is somewhat low. However, MAP is 70. - Will start D5NS. If BP does not improve, we will give 1L NS bolus. Full code. Heparin drip.
[2017-09-24] MEDS ORDERED: MethylPREDNISolone Sod Succinate Inj 125 MG/2 ML Vial IV.PUSH SCH (18:00)
--- NOTE | 2017-09-24 18:36 | P.PNNEU ---
Subjective Subjective Comments: No acute events reported Pt feels slight improvement in LE strength. Has received first dose of ivig yesterday and tolerated it. Is also on solumedrol 60 mg iv Q 6 hr Active Medications: Active Medications Generic Name Dose Route Start Last Admin Trade Name Freq PRN Reason Stop Dose Admin Acetaminophen 650 mg 09/21/17 07:00 09/23/17 16:34 Tylenol PO 650 mg Q4H PRN Administration Temp > 100.4 Aspirin 81 mg 09/23/17 09:00 09/24/17 12:51 Ecotrin PO Not Given DAILY DOROTHY Atorvastatin Calcium 40 mg 09/22/17 21:00 09/23/17 21:18 Lipitor PO 40 mg HS DOROTHY Administration Chlorhexidine Gluconate 3 pack 09/22/17 04:00 Chlorhexidine 2% Cloth TOPICAL 09/27/17 03:59 DAILY@0400 PRN Extra cloth needed Enalaprilat 1.25 mg 09/21/17 14:27 Vasotec Inj IV.PUSH Q6H PRN SBP>160, DBP>90 Famotidine 20 mg 09/24/17 16:00 Pepcid Pf Inj IV.SIG DAILY DOROTHY Fluticasone Propionate 1 spray 09/21/17 09:00 09/23/17 08:24 Flonase Nasal [place] EACH NARE 1 spray DAILY [facility] Administration Heparin Sodium/Dextrose 25,000 unit in 250 mls @ 10 mls/hr 09/21/17 14:30 10/05 12:16 Heparin/D5w 25,000 U/250 Ml IV.CONT 1,500 units/hr TITRATE PRN 15 mls/hr Per Protocol Administration Protocol 1,000 UNITS/HR Immune Globulin 30 gm/ Syringe 300 mls @ 23.81 mls/hr 09/22/17 18:00 17:43 /Bag IV.SIG 23.81 mls/hr Q24H DOROTHY Administration Protocol 0.5 MG/KG/MIN Magnesium Sulfate Inj 4 gm/ 100 mls @ 50 mls/hr 09/24/17 15:26 Sodium Chloride IV.SIG UNSCH PRN For Magnesium 0.9 - 1.1 mg/dL Magnesium Sulfate Inj 2 gm/ 100 mls @ 50 mls/hr 09/24/17 15:26 Sodium Chloride IV.SIG UNSCH PRN For Magnesium 1.2 - 1.6 mg/dL Potassium Chloride 20 meq in 100 mls @ 50 mls/hr 09/24/17 15:26 Kcl 20 Meq Premix Inj IV.SIG Q2H PRN For Potassium 3.3 - 3.5 mEq/L Potassium Chloride 40 meq in 100 mls @ 25 mls/hr 09/24/17 15:26 Kcl 40 Meq Premix Inj IV.SIG UNSCH PRN For Potassium 3.3 - 3.5 mEq/L Potassium Chloride 20 meq in 100 mls @ 50 mls/hr 09/24/17 15:26 Kcl 20 Meq Premix Inj IV.SIG Q2H PRN For Potassium 2.8 - 3.2 mEq/L Potassium Phosphate 30 mmol/ 260 mls @ 42 mls/hr 09/24/17 15:26 Sodium Chloride IV.SIG UNSCH PRN SEE LABEL COMMENTS Sodium Phosphate 30 mmol/ 260 mls @ 42 mls/hr 09/24/17 15:26 Sodium Chloride IV.SIG UNSCH PRN For Phosphorus < 2.5 mg/dL Potassium Chloride 40 meq in 100 mls @ 25 mls/hr 09/24/17 15:26 Kcl 40 Meq Premix Inj IV.SIG Q2H PRN For Potassium 2.8 - 3.2 mEq/L Dextrose/Sodium Chloride 1,000 mls @ 84 mls/hr 09/24/17 15:45 D5w/Normal Saline Inj IV.CONT .[id number] [facility] Leflunomide 20 mg 09/21/17 09:00 09/24/17 12:51 Arava PO Not Given DAILY [facility] Magnesium Oxide 800 mg 09/24/17 15:26 Mag-Ox PO UNSCH PRN For Magnesium 1.2 - 1.6 mg/dL Methylprednisolone Sodium Succinate 60 mg 09/24/17 18:00 Solumedrol Inj IV.PUSH Q6HR [facility] Morphine Sulfate 2 mg 09/21/17 14:21 09/22/17 08:41 Morphine Inj IV.PUSH 2 mg Q3H PRN Administration CHEST PAIN Nitroglycerin 0.5 inch 09/21/17 18:00 09/24/17 06:29 Nitro-Bid 2% Oint TOPICAL 0.5 inch Q6HR DOROTHY Administration Pt Own Med: Iron 0 each 09/21/17 09:00 44mg Po Bid PO BID [facility] Potassium Bicarb/Potassium Chloride 50 meq 09/24/17 15:26 K-Lyte Cl Eff PO UNSCH PRN For Potassium 3.3 - 3.5 mEq/L Potassium Phosphate 2,000 mg 09/24/17 15:26 K-Phos Original PO Q4H PRN Phosphorus Less Than 2.5 mg/dL Potassium Phosphate 2,000 mg 09/24/17 15:26 K-Phos Original PO UNSCH PRN SEE LABEL COMMENTS Sodium Chloride 2 ml 09/21/17 04:25 09/23/17 08:21 Ns Flush IV.FLUSH 2 ml UNSCH PRN Administration FLUSH AFTER USING IV ACCESS Sulfasalazine 500 mg 09/21/17 09:00 09/24/17 12:51 Azulfidine PO Not Given BID DOROTHY Allergies/Adverse Reactions: Allergies Allergy/AdvReac Type Severity Reaction Status Date / Time ciprofloxacin Allergy Severe Rash Verified 09/21/17 10:13 Physical Exam Vital signs: Vital Signs 09/23/17 19:12 09/23/17 20:00 09/24/17 00:00 Temperature 99 F 98.4 F Pulse Rate 87 88 Respiratory Rate 18 18 Blood Pressure 115/68 142/80 H Pulse Oximetry 97 98 98 09/24/17 02:00 09/24/17 04:00 09/24/17 06:00 Temperature 98.4 F Pulse Rate 85 91 H 97 H Respiratory Rate 16 Blood Pressure 107/66 Pulse Oximetry 98 09/24/17 08:00 09/24/17 10:00 09/24/17 12:00 Temperature 98.2 F 98.5 F Pulse Rate 92 H 99 H 91 H Respiratory Rate 18 19 Blood Pressure 111/71 113/72 Pulse Oximetry 96 96 09/24/17 14:00 09/24/17 16:00 09/24/17 18:00 Temperature 100.0 F H Pulse Rate 90 101 H 92 H Respiratory Rate Blood Pressure 137/85 Pulse Oximetry 95 Intake & Output 09/23/17 09/24/17 09/24/17 18:59 06:59 18:59 Intake Total 1930 / 1930 0 / 0 350 / 350 Output Total 2175 / 2175 1500 / 1500 500 / 500 Balance -245 / -245 -1500 / -1500 -150 / -150 Weight 76.2 kg Intake: IV 250 / 250 250 / 250 Heparin/D5W 25,000 U/250 mL 25, 250 / 250 250 / 250 000 unit In 250 ml @ 1,000 UNITS/HR 10 mls/hr IV.CONT TITRATE PRN Rx#:[id number] Oral 1680 / 1680 0 / 0 0 / 0 Other 100 / 100 Output: Urine 1125 / 1125 500 / 500 Stool 0 / 0 Urine Amount (Catheter) 1050 / 1050 1500 / 1500 Indwelling Urethral Catheter 1050 / 1050 1500 / 1500 Other: Other Intake Source Saline Solution Date of Last Bowel Movement 09/23/17 09/24/17 09/24/17 # Bowel Movements 1 1 - Routine Neurological Exam alert, oriented, normal speech CN intact MOTOR 5/5 BUE, 4/5 proximal and distal BLE DTR absent BLE with no Babinski sign - Urinary Catheter Management Indwelling Urethral Catheter Cath placed during this visit: yes Reason for continuing: Other continuation reason Insertion date: 09/21/17 Insertion time: 06:57 Objective Laboratory Results - last 24 hr 09/23/17 09/24/17 09/24/17 17:37 03:41 14:24 APTT 31.0 H 37.4 H D 41.4 H Microbiology 09/22/17 13:53 Gram Stain - Final Lumbar Puncture CSF Culture - Preliminary No growth in 48 hours Review/Management - 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 Will increase solumedrol dose to 250 mg iv Q 6 hr for 2 -3 days
[2017-09-24] MEDS: IVIG (Immune Globulin) Inj 30 GM in Syringe/Bag 1 EACH IV.SIG SCH (19:31)
[2017-09-24] MEDS: Famotidine PF Inj 20 MG/2 ML Vial IV.SIG SCH (19:33)
[2017-09-25] MEDS: MethylPREDNISolone Sod Succinate Inj 125 MG/2 ML Vial IV.PUSH SCH ×3 (03:56→18:47)
[2017-09-25] MEDS: Heparin Drip 25,000 UNIT/250 ML BAG IV.CONT PRN (06:19)
[2017-09-25] MEDS: Dextrose 5%/NaCl 0.9% Inj 1,000 ML IV.CONT SCH ×2 (06:19→18:46)
--- NOTE | 2017-09-25 10:02 | P.PNNEU ---
Subjective Subjective Comments: No acute events reported still weak in legs. possibly weak in arms tolerating solumedrol and ivig. Active Medications: Active Medications Generic Name Dose Route Start Last Admin Trade Name Frejessica PRN Reason Stop Dose Admin Acetaminophen 650 mg 09/21/17 07:00 09/23/17 16:34 Tylenol PO 650 mg Q4H PRN Administration Temp > 100.4 Aspirin 81 mg 09/23/17 09:00 09/24/17 12:51 Ecotrin PO Not Given DAILY DOROTHY Atorvastatin Calcium 40 mg 09/22/17 21:00 09/23/17 21:18 Lipitor PO 40 mg HS DOROTHY Administration Chlorhexidine Gluconate 3 pack 09/22/17 04:00 Chlorhexidine 2% Cloth TOPICAL 09/27/17 03:59 DAILY@0400 PRN Extra cloth needed Enalaprilat 1.25 mg 09/21/17 14:27 Vasotec Inj IV.PUSH Q6H PRN SBP>160, DBP>90 Famotidine 20 mg 09/24/17 16:00 09/24/17 19:33 Pepcid Pf Inj IV.SIG 20 mg DAILY [facility] Administration Fluticasone Propionate 1 spray 09/21/17 09:00 09/24/17 19:33 Flonase Nasal [place] EACH NARE Not Given DAILY [facility] Heparin Sodium/Dextrose 25,000 unit in 250 mls @ 10 mls/hr 09/21/17 14:30 11/05 06:19 Heparin/D5w 25,000 U/250 Ml IV.CONT 1,600 units/hr TITRATE PRN 16 mls/hr Per Protocol Administration Protocol 1,000 UNITS/HR Immune Globulin 30 gm/ Syringe 300 mls @ 23.81 mls/hr 09/22/17 18:00 19:31 /Bag IV.SIG 23.81 mls/hr Q24H DOROTHY Administration Protocol 0.5 MG/KG/MIN Magnesium Sulfate Inj 4 gm/ 100 mls @ 50 mls/hr 09/24/17 15:26 Sodium Chloride IV.SIG UNSCH PRN For Magnesium 0.9 - 1.1 mg/dL Magnesium Sulfate Inj 2 gm/ 100 mls @ 50 mls/hr 09/24/17 15:26 Sodium Chloride IV.SIG UNSCH PRN For Magnesium 1.2 - 1.6 mg/dL Potassium Chloride 20 meq in 100 mls @ 50 mls/hr 09/24/17 15:26 Kcl 20 Meq Premix Inj IV.SIG Q2H PRN For Potassium 3.3 - 3.5 mEq/L Potassium Chloride 40 meq in 100 mls @ 25 mls/hr 09/24/17 15:26 Kcl 40 Meq Premix Inj IV.SIG UNSCH PRN For Potassium 3.3 - 3.5 mEq/L Potassium Chloride 20 meq in 100 mls @ 50 mls/hr 09/24/17 15:26 Kcl 20 Meq Premix Inj IV.SIG Q2H PRN For Potassium 2.8 - 3.2 mEq/L Potassium Phosphate 30 mmol/ 260 mls @ 42 mls/hr 09/24/17 15:26 Sodium Chloride IV.SIG UNSCH PRN SEE LABEL COMMENTS Sodium Phosphate 30 mmol/ 260 mls @ 42 mls/hr 09/24/17 15:26 Sodium Chloride IV.SIG UNSCH PRN For Phosphorus < 2.5 mg/dL Potassium Chloride 40 meq in 100 mls @ 25 mls/hr 09/24/17 15:26 Kcl 40 Meq Premix Inj IV.SIG Q2H PRN For Potassium 2.8 - 3.2 mEq/L Dextrose/Sodium Chloride 1,000 mls @ 84 mls/hr 09/24/17 15:45 09/25/17 06:19 D5w/Normal Saline Inj IV.CONT 84 mls/hr .[id number] DOROTHY Administration Leflunomide 20 mg 09/21/17 09:00 09/24/17 12:51 Arava PO Not Given DAILY [facility] Magnesium Oxide 800 mg 09/24/17 15:26 Mag-Ox PO UNSCH PRN For Magnesium 1.2 - 1.6 mg/dL Methylprednisolone Sodium Succinate 250 mg 09/24/17 18:37 09/25/17 06:20 Solumedrol Inj IV.PUSH 250 mg Q6HR [facility] Administration Morphine Sulfate 2 mg 09/21/17 14:21 09/22/17 08:41 Morphine Inj IV.PUSH 2 mg Q3H PRN Administration CHEST PAIN Nitroglycerin 0.5 inch 09/21/17 18:00 09/25/17 06:23 Nitro-Bid 2% Oint TOPICAL Not Given Q6HR [facility] Pt Own Med: Iron 0 each 09/21/17 09:00 44mg Po Bid PO BID DOROTHY Potassium Bicarb/Potassium Chloride 50 meq 09/24/17 15:26 K-Lyte Cl Eff PO UNSCH PRN For Potassium 3.3 - 3.5 mEq/L Potassium Phosphate 2,000 mg 09/24/17 15:26 K-Phos Original PO Q4H PRN Phosphorus Less Than 2.5 mg/dL Potassium Phosphate 2,000 mg 09/24/17 15:26 K-Phos Original PO UNSCH PRN SEE LABEL COMMENTS Sodium Chloride 2 ml 09/21/17 04:25 09/23/17 08:21 Ns Flush IV.FLUSH 2 ml UNSCH PRN Administration FLUSH AFTER USING IV ACCESS Sulfasalazine 500 mg 09/21/17 09:00 09/24/17 12:51 Azulfidine PO Not Given BID [facility] Allergies/Adverse Reactions: Allergies Allergy/AdvReac Type Severity Reaction Status Date / Time ciprofloxacin Allergy Severe Rash Verified 09/21/17 10:13 Physical Exam Vital signs: Vital Signs 09/24/17 12:00 09/24/17 14:00 09/24/17 16:00 Temperature 98.5 F 100.0 F H Pulse Rate 91 H 90 101 H Respiratory Rate 19 Blood Pressure 113/72 137/85 Pulse Oximetry 96 95 09/24/17 18:00 09/24/17 19:31 09/24/17 19:33 Temperature Pulse Rate 92 H 94 H Respiratory Rate 25 H Blood Pressure 120/71 Pulse Oximetry 95 09/24/17 20:00 09/24/17 22:00 09/25/17 00:00 Temperature 99.4 F 99.1 F Pulse Rate 92 H 93 H 82 Respiratory Rate 21 19 Blood Pressure 122/77 128/71 Pulse Oximetry 96 96 09/25/17 02:00 09/25/17 04:00 09/25/17 06:00 Temperature 99.5 F Pulse Rate 94 H 91 H 81 Respiratory Rate 19 Blood Pressure 126/75 Pulse Oximetry 98 09/25/17 07:00 Temperature Pulse Rate Respiratory Rate Blood Pressure Pulse Oximetry 97 Intake & Output 09/24/17 09/25/17 09/25/17 18:59 06:59 18:59 Intake Total 350 / 350 250 / 250 Output Total 500 / 500 200 / 200 Balance -150 / -150 50 / 50 Weight 76.9 kg Intake: IV 250 / 250 250 / 250 Heparin/D5W 25,000 U/250 mL 25, 250 / 250 250 / 250 000 unit In 250 ml @ 1,000 UNITS/HR 10 mls/hr IV.CONT TITRATE PRN Rx#:[id number] Oral 0 / 0 Other 100 / 100 Output: Urine 500 / 500 Stool 0 / 0 Urine Amount (Catheter) 200 / 200 Indwelling Urethral Catheter 200 / 200 Other: Other Intake Source Saline Solution Date of Last Bowel Movement 09/24/17 09/24/17 - Routine Neurological Exam alert, speech normal Cn intact MOTOR 5/5 BUE, 4/5 BLE arreflexid BLE. 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 Dr Enriquez to follow up tomorrow
[2017-09-25] MEDS: Famotidine PF Inj 20 MG/2 ML Vial IV.SIG SCH (11:15)
[2017-09-25 13:43] LABS: Baso % (Auto) 0.2 % (0.0-2.0); Hematocrit 30.4 % (39.0-51.0); Lymph # (Auto) 0.3 th/mm3 (1.0-4.8); Lymph % (Auto) 5.8 % (9.0-44.0); Mean Corpuscular HGB Conc 32.8 % (32.0-36.0); Mean Corpuscular Hemoglobin 28.6 pg (27.0-34.0); Mean Corpuscular Volume 87.1 fL (80.0-100.0); Mean Platelet Volume 6.6 fL (7.0-11.0); Mono # (Auto) 0.1 th/mm3 (0.0-0.9); Mono % (Auto) 2.4 % (0.0-8.0); Neut # (Auto) 5.4 th/mm3 (1.8-7.7); Neut % (Auto) 91.6 % (16.0-70.0); Platelet Count 439 th/mm3 (150-450); Red Blood Count 3.49 mil/mm3 (4.50-5.90); Red Cell Distribution Width 16.3 % (11.6-17.2); White Blood Count 5.8 th/mm3 (4.0-11.0)
[2017-09-25 13:59] LABS: Anion Gap 8 meq/L (5-15); Blood Urea Nitrogen 22 mg/dL (7-18); Calcium 9.1 mg/dL (8.5-10.1); Chloride 105 meq/L (98-107); Glomerular Filtration Rate Greater Than 89 mL/min (>89); Glucose,Random 154 mg/dL (74-106); Sodium 139 meq/L (136-145)
--- NOTE | 2017-09-25 15:17 | P.PN ---
Subjective Interval history: Follow-up for suspected Guillain Bruce syndrome, NSTEMI. Patient is currently doing well. He reports gradual improvements. He believes his swallowing is probably somewhat improved too. Physical Exam Vital signs: Vital Signs 09/24/17 16:00 09/24/17 18:00 09/24/17 19:31 Temperature 100.0 F H Pulse Rate 101 H 92 H 94 H Respiratory Rate 25 H Blood Pressure 137/85 120/71 Pulse Oximetry 95 09/24/17 19:33 09/24/17 20:00 09/24/17 22:00 Temperature 99.4 F Pulse Rate 92 H 93 H Respiratory Rate 21 Blood Pressure 122/77 Pulse Oximetry 95 96 09/25/17 00:00 09/25/17 02:00 09/25/17 04:00 Temperature 99.1 F 99.5 F Pulse Rate 82 94 H 91 H Respiratory Rate 19 19 Blood Pressure 128/71 126/75 Pulse Oximetry 96 98 09/25/17 06:00 09/25/17 07:00 09/25/17 08:00 Temperature 99.2 F Pulse Rate 81 83 Respiratory Rate 21 Blood Pressure 126/86 Pulse Oximetry 97 98 09/25/17 10:00 09/25/17 12:00 Temperature Pulse Rate 87 79 Respiratory Rate Blood Pressure Pulse Oximetry Intake & Output 09/24/17 09/25/17 09/25/17 18:59 06:59 18:59 Intake Total 350 / 350 250 / 250 Output Total 500 / 500 200 / 200 Balance -150 / -150 50 / 50 Weight 76.9 kg Intake: IV 250 / 250 250 / 250 Heparin/D5W 25,000 U/250 mL 25, 250 / 250 250 / 250 000 unit In 250 ml @ 1,000 UNITS/HR 10 mls/hr IV.CONT TITRATE PRN Rx#:[id number] Oral 0 / 0 Other 100 / 100 Output: Urine 500 / 500 Stool 0 / 0 Urine Amount (Catheter) 200 / 200 Indwelling Urethral Catheter 200 / 200 Other: Other Intake Source Saline Solution Date of Last Bowel Movement 09/24/17 09/24/17 09/24/17 Narrative: GENERAL: Alert, Oriented x 3, NAD. SKIN: Warm and dry. HEAD: Normocephalic. EYES: No scleral icterus. No injection or drainage. NECK: Supple, trachea midline. No JVD or lymphadenopathy. CARDIOVASCULAR: Regular rate and rhythm without murmurs, gallops, or rubs. RESPIRATORY: Breath sounds equal bilaterally. No accessory muscle use. GASTROINTESTINAL: Abdomen soft, non-tender, nondistended. MUSCULOSKELETAL: No cyanosis, or edema. BACK: Nontender without obvious deformity. No CVA tenderness. - Urinary Catheter Management Indwelling Urethral Catheter Cath placed during this visit: yes, but has since been removed by the nurse Reason for continuing: Other continuation reason Insertion date: 09/21/17 Insertion time: 06:57 Removal date: 09/25/17 Removal time: 09:00 Results - Labs CBC & Chem 7: 09/25/17 13:20 09/25/17 13:20 Laboratory Results - last 24 hr 09/25/17 09/25/17 09/25/17 00:40 06:47 13:20 WBC RBC Hgb Hct MCV MCH MCHC RDW Plt Count MPV Neut % (Auto) Lymph % (Auto) [place] % (Auto) Eos % (Auto) Baso % (Auto) Neut # (Auto) Lymph # (Auto) [place] # (Auto) Eos # (Auto) Baso # (Auto) WBC Differential Differential Comment APTT 39.4 H 47.3 H D Sodium 139 Potassium 4.0 Chloride 105 Carbon Dioxide 26.0 Anion Gap 8 BUN 22 H Creatinine 0.81 Estimated GFR Greater than 89 Random Glucose 154 H Calcium 9.1 09/25/17 13:20 WBC 5.8 RBC 3.49 L Hgb 10.0 L Hct 30.4 L MCV 87.1 MCH 28.6 MCHC 32.8 RDW 16.3 Plt Count 439 MPV 6.6 L Neut % (Auto) 91.6 H Lymph % (Auto) 5.8 L [place] % (Auto) 2.4 Eos % (Auto) 0.0 Baso % (Auto) 0.2 Neut # (Auto) 5.4 Lymph # (Auto) 0.3 L [place] # (Auto) 0.1 Eos # (Auto) 0.0 Baso # (Auto) 0.0 WBC Differential . 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 Goodman is a pleasant 67-year-old male with a history of prostate cancer, rheumatoid arthritis, iron deficiency anemia who presented to the emergency department on 09/21/2017 due to worsening weakness in his lower extremities that started 2 weeks prior to this admission. He was evaluated by neurology who suspected possible Guillain Bruce syndrome. Patient also reports chest pain that has been going on for months but worse in the last 2-3 days. He reported having diaphoresis along with chest pain. His troponin was elevated to 1.57. Cardiology was consulted. 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 Patient is already on IVIG treatment and high dose steroid. -s/p LP. -MRI studies are largely unremarkable for any acute findings. However thoracic MRI shows an incidental finding of 1.4 cm lung nodule. -Patient is likely to undergo cardiac catheterization on 09/26/2017. -2-3 days after cardiac cath, we can obtain a CT chest with contrast to evaluate lung nodule. NSTEMI - Aspirin 81mg Qday, Lipitor 40mg QHS. - Possible Cath early next week. Dysphagia - Possibly related to GBS - NPO Per Speech. Would appreciate speech eval again on 09/26/2017. - Will continue on D5NS @ 84cc/hour. History of iron deficiency anemia -currently stable. Hemoglobin 11.4, MCV 87.7. Hypotension - Currently resolved. Full code. Heparin drip.
[2017-09-25] MEDS: IVIG (Immune Globulin) Inj 30 GM in Syringe/Bag 1 EACH IV.SIG SCH (19:43)
[2017-09-26] MEDS: MethylPREDNISolone Sod Succinate Inj 125 MG/2 ML Vial IV.PUSH SCH ×4 (00:55→18:50)
[2017-09-26] MEDS: Heparin Drip 25,000 UNIT/250 ML BAG IV.CONT PRN (01:36)
[2017-09-26] MEDS: Dextrose 5%/NaCl 0.9% Inj 1,000 ML IV.CONT SCH ×2 (05:57→18:31)
[2017-09-26] MEDS: Famotidine PF Inj 20 MG/2 ML Vial IV.SIG SCH (08:31)
--- NOTE | 2017-09-26 11:17 | P.PN ---
Subjective Interval history: Feels stronger w/increased rom cardiac cath today swallowing ?better will need reevaluation. Physical Exam Vital signs: Vital Signs 09/25/17 12:00 09/25/17 13:00 09/25/17 14:00 Temperature Pulse Rate 79 82 82 Respiratory Rate 18 14 17 Blood Pressure 133/75 127/78 154/84 H Pulse Oximetry 96 98 97 09/25/17 15:00 09/25/17 16:00 09/25/17 17:00 Temperature Pulse Rate 81 87 85 Respiratory Rate 20 23 19 Blood Pressure 131/71 149/79 H 152/72 H Pulse Oximetry 96 94 L 94 L 09/25/17 18:00 09/25/17 20:00 09/25/17 22:00 Temperature 98.8 F Pulse Rate 84 80 71 Respiratory Rate 20 Blood Pressure 149/81 H Pulse Oximetry 96 09/26/17 00:00 09/26/17 02:00 09/26/17 04:00 Temperature 97.9 F 97.9 F Pulse Rate 80 75 79 Respiratory Rate 15 14 Blood Pressure 140/82 144/82 H Pulse Oximetry 96 97 09/26/17 06:00 09/26/17 07:34 09/26/17 08:00 Temperature 97.8 F Pulse Rate 84 80 Respiratory Rate 14 Blood Pressure 148/80 H Pulse Oximetry 95 95 09/26/17 10:00 Temperature Pulse Rate 80 Respiratory Rate Blood Pressure Pulse Oximetry Intake & Output 09/25/17 09/26/17 09/26/17 18:59 06:59 18:59 Intake Total 1999 / 1999 1250 / 1250 Output Total 1000 / 1000 600 / 600 Balance 1000 / 1000 650 / 650 Weight 76.9 kg Intake: IV 1000 / 1000 1250 / 1250 D5W/Normal Saline Inj 1,000 ML 1000 / 1000 1000 / 1000 @ 84 mls/hr IV.CONT .[id number] DOROTHY Rx#:[id number] Heparin/D5W 25,000 U/250 mL 25, 250 / 250 000 unit In 250 ml @ 1,000 UNITS/HR 10 mls/hr IV.CONT TITRATE PRN Rx#:[id number] Oral 0 / 0 Other 1000 / 1000 Output: Stool 0 / 0 Urine Amount (Catheter) 1000 / 1000 600 / 600 Indwelling Urethral Catheter 1000 / 1000 600 / 600 Other: Other Intake Source Saline Solution Date of Last Bowel Movement 09/24/17 09/24/17 09/24/17 Narrative: awake alert oriented fluent motor ue nl 2 +dtrs LE much better near nl absent dtrs le - Urinary Catheter Management Indwelling Urethral Catheter Cath placed during this visit: yes, but has since been removed by the nurse Reason for continuing: Other continuation reason Insertion date: 09/25/17 Insertion time: 06:57 Removal date: 09/25/17 Removal time: 09:00 Results - Labs CBC & Chem 7: 09/25/17 13:20 09/25/17 13:20 Laboratory Results - last 24 hr 09/25/17 09/25/17 09/25/17 13:20 13:20 21:21 WBC 5.8 RBC 3.49 L Hgb 10.0 L Hct 30.4 L MCV 87.1 MCH 28.6 MCHC 32.8 RDW 16.3 Plt Count 439 MPV 6.6 L Neut % (Auto) 91.6 H Lymph % (Auto) 5.8 L [place] % (Auto) 2.4 Eos % (Auto) 0.0 Baso % (Auto) 0.2 Neut # (Auto) 5.4 Lymph # (Auto) 0.3 L [place] # (Auto) 0.1 Eos # (Auto) 0.0 Baso # (Auto) 0.0 WBC Differential . Differential Comment Auto diff final APTT 66.0 H D Sodium 139 Potassium 4.0 Chloride 105 Carbon Dioxide 26.0 Anion Gap 8 BUN 22 H Creatinine 0.81 Estimated GFR Greater than 89 Random Glucose 154 H Calcium 9.1 09/26/17 05:44 WBC RBC Hgb Hct MCV MCH MCHC RDW Plt Count MPV Neut % (Auto) Lymph % (Auto) [place] % (Auto) Eos % (Auto) Baso % (Auto) Neut # (Auto) Lymph # (Auto) [place] # (Auto) Eos # (Auto) Baso # (Auto) WBC Differential Differential Comment APTT 52.7 H D Sodium Potassium Chloride Carbon Dioxide Anion Gap BUN Creatinine Estimated GFR Random Glucose Calcium Microbiology 09/22/17 13:53 Lumbar Puncture Gram Stain - Final 09/22/17 13:53 Lumbar Puncture CSF Culture - Final No growth in 72 hours Assessment and Plan - 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 cardiac cath today defer tx to cardiology.
[2017-09-26] MEDS ORDERED: Heparin 10,000 UNITS/10 ML Vial (for IV use) ONE (13:13)
[2017-09-26] MEDS ORDERED: Heparin/NS PF Inj 1,500 ML ONE (13:13)
[2017-09-26] MEDS ORDERED: Lidocaine PF 1% Inj 30 ML Vial ONE (13:23)
[2017-09-26] MEDS ORDERED: fentaNYL Citrate Inj 100 MCG/2 ML Ampul ONE (13:23)
--- NOTE | 2017-09-26 14:23 | CATHPROC ---
[facility] HIS Report Study Information Study Number Admission Scheduled Start Study Start [id number] Sep 21 2017 1:51PM 09/26/2017 Sep 26 2017 1:11PM [place] Service Cardiac Catheterization Admit Source Facility Department Other [facility] - Sifting Operator Physician and Clinical Staff Initial Byron Jacobo Electronic Calibration Technician Jahaira Macario RN Electronic Calibration Technician Chris Morales RN Other cathlab, cathlab Recorder Latoya Rausch,LOGISTICS SUPERVISOR TECH2 Scrub Thalia Sharp ,RT(R) Procedures Performed Procedure Location (Site) Vessel Name Coronary Angiograms LCA Left Coronary Coronary Angiograms RCA Right Coronary L Heart Cath Wire insertion Radial (right) Radial Art. Equipment Time Flex O Writer Operator Description Size Mfg Part Number Used/Scraped TRANSDUCER, TRUWAVE [id number] 13:12 CARDONA MCCONNELL * Used W/STOCKCOCK *[id number] *[id number] *[id number] 13:12 28msec BLANKET,WARM AIR CCL * Used *[id number] 13:12 28msec PACK, CCL CUSTOM * Used *[id number] 13:12 28msec SUPPORT, ARTERIAL ADULT 15019 *[id number] Used BAND, RADIAL COMPRESSION TR [id number] 14:10 InstaGIS 24CM Used SHORT 24 *[id number] 13:12 [employer] WIRE, EXCHANGE 260CM 3MMJ 260CM Used *[id number] 13:12 NAMIC MANIFOLD, 4 PORT * Used *[id number] 13:12 NYCOMED OMNIPAQUE, 350 MG, 150ML 150ML [id number] Used SHEATH, FR6 TRANSRADIAL [id number] 13:12 TestCred MEDICAL FR 6 Used SLENDER 10CM *[id number] History: Current Medications Medication Dosage/Unit Route Frequency Last Date/Time Taken ASA History: Allergies Allergy Reaction Cipro ANAPHYLAXIS ciprofloxacin Rash History: Risk Factors Family History of Hypertension Dyslipidemia Previous NC Previous Heart Failure Premature CAD No No No No No Prior Valve Prior PCI Prior CABG Surgery No No No Cerebrovascular Peripheral Artery Chronic Lung On Dialysis Diabetes Disease Disease Disease No No No No No History: Stress Tests Stress or Imaging Studies Performed No History: Other Disease Selection Items Gerd History: Other Current Smoker No Labs Hgb (g/dl) Hct (%) WBC (l/cumm) 11.60-17.00 35.00-51.00 4.00-11.00 10.0 30.4 5.8 Glucose (mg/dl) BUN (mg/dl) Creatinine (mg/dl) BUN:Creatinine (1:x) 74.00-106.00 7.00-18.00 0.50-1.30 10.00-20.00 154 22 0.8 27.5 Na (meq/l) K (meq/l) 136.00-145.00 3.50-5.10 139 4 Troponin I (ng/ml) 0.02-0.05 1.5 Medication Medication Total Dose (Bolus/Oral) Medication Total Dosage/Unit 1% XYLOCAINE 10 mL FENTANYL 50 mcg RADIAL COCKTAIL 5 mL (Bolus) Medications (Bolus/Oral) Medication Time Given Dosage/Unit Administered By Reason FENTANYL 09/26/2017 1:48:45 PM 25 mcg Chris Morales 25 mcg FENTANYL given in lab by Chris Morales RN in Left Antecubital via Peripheral IV. Ordered by Byron Andrade 1% XYLOCAINE 09/26/2017 1:49:32 PM 10 mL Chris Morales Patient arrived on 10 mL 1% XYLOCAINE given by Chris Morales RN in Right Radial via Subcutaneous. Ord ered by Byron Nicole Ntg 200mcg Verapamil 2.5mg Heparin RADIAL COCKTAIL 09/26/2017 1:52:20 PM 5 mL (Bolus) Chris Morales 2000U Patient arrived on 5 mL (Bolus) RADIAL COCKTAIL given by Chris Morales RN via Radial. Using [Solution Name]. Ordered by Byron Nicole Reason: Ntg 200mcg Verapamil 2.5mg Heparin 3100U. FENTANYL 09/26/2017 1:59:23 PM 25 mcg Chris Morales Patient arrived on 25 mcg FENTANYL given by Chris Morales RN in Left Antecubital via Peripheral IV. O rdered by Byron Nicole Medication (Drip) Medication Time Given Dosage/Unit Concentration/Unit Diluent (ml) Solution IV Solutions 09/26/2017 1:11:24 PM 0 mL (IV) 500 NaCl .9 Patient arrived on IV Solutions given by Byron Nicole in Left Antecubital via Peripheral IV. P ump/Drip Flow = 20 ml/hr using NaCl .9. Ordered by Byron Nicole Initial Case Assessment Cardiovascular HR NIBP 75 161/96 Edema Present Skin color Skin None Normal Warm Dry Circulatory - Right Pulses Dorsalis Pedis Femoral Radial 2 2 2 Scale (0,1,2,3,4,d) Circulatory - Left Pulses Dorsalis Pedis Femoral Radial 2 2 Scale (0,1,2,3,4,d) Neurological State Oriented to time-place- Alert Moves all extremities person Respiration - General Respiration Rate SpO2 (%) (B/min) 15 95 Final Case Assessment Cardiovascular HR NIBP 75 159/87 Edema Present Skin color Skin None Normal Warm Dry Circulatory - Right Pulses Dorsalis Pedis Femoral Radial 2 2 2 Scale (0,1,2,3,4,d) Circulatory - Left Pulses Dorsalis Pedis Femoral Radial 2 2 Scale (0,1,2,3,4,d) Neurological State Oriented to time-place- Alert Moves all extremities person Respiration - General Respiration Rate SpO2 (%) (B/min) 15 97 Chronological Log Time Study Chronological Log 13:11:04 Patient arrived via Bed. 13:11:05 Patient Name, D.O.B, / Armband Verified By R.N. 13:11:06 Consent signed by the physician and the patient and verified by the Sifting Operator staff. 13:11:07 Pre-op and post- op instructions given; patient acknowledges understanding of instructions. 13:11:11 Allens test performed on the right radial and ulnar artery. 13:11:13 Patient has been NPO for More than 6Hrs. 13:11:14 NO Skin Breakdown- 13:11:16 Patient Warmer Placed on the Table. 13:11:17 Xander Prominences Protected 13:11:21 A # 20 IV was noted in the Wrist (right). Grade = 0 13:11:22 A # 18 IV was noted in the Antecubital (left). Grade = 0 Patient arrived on IV Solutions given by Byron Nicole in Left Antecubital via Peripheral IV. Pump/Drip Flow = 20 13:11:24 ml/hr using NaCl .9. Ordered by Byron Nicole. 13:11:25 History and physical on the chart or being dictated. Vitals capture started with the following parameters, Patient=Adult, Interval=5 min, Initial Pr ksxadc=300 mmHg, 13:19:50 Deflation Rate=5 mmHg, Cuff placed on Right Arm 13:20:27 HR=75 bpm, ESND=698/96 mmhg, SpO2=95.0 %, Resp=15 B/min, Pain=0, Grady=10, Ribera=2 Assessment: Initial Case, HR=75 BPM, WUZS=721/96 mmhg, Edema=None, Color=Normal, Skin = Warm, D ry Right Pulses: Issac Ped=2, Femoral=2, Radial=2 13:24:24 Left Pulses: Issac Ped=2, Femoral=2 Neurological: State=Alert, Ox3, HERNANDEZ Respiration: Resp=15 B/min, SpO2=95 % 13:24:34 Reference ECG taken 13:25:23 Right Radial and groin(s) prepped with 2% chlorhexidine, and draped after a 3 min. waiting time. 13:25:30 HR=83 bpm, JFDS=744/96 mmhg, SpO2=97.0 %, Resp=15 B/min, Pain=0, Grady=10, Ribera=2 13:30:31 HR=81 bpm, MOHE=250/88 mmhg, SpO2=97.0 %, Resp=15 B/min, Pain=0, Grady=10, Ribera=2 13:34:18 Pressure channel 1 zeroed. 13:35:30 HR=81 bpm, HGGS=929/97 mmhg, SpO2=96.0 %, Resp=15 B/min, Pain=0, Grady=10, Ribera=2 13:40:34 HR=78 bpm, EDHL=146/90 mmhg, SpO2=95.0 %, Resp=14 B/min, Pain=0, Grady=10, Ribera=2 13:45:33 HR=75 bpm, DKUB=441/91 mmhg, SpO2=96.0 %, Resp=13 B/min, Pain=0, Grady=10, Ribera=2 Time Out. Correct patient, correct procedure, correct physician, labs, allergies, and equipment verified with labor gang supervisor 13:48:21 team present. Fire risk assesment completed (see hard stop sheet for coding). Time Out Conc urred by MD and individual staff in procedure. 13:48:41 Case Start 25 mcg FENTANYL given in lab by Chris Morales RN in Left Antecubital via Peripheral IV. Ordered by Byron Nicole 13:48:45 G. Patient arrived on 10 mL 1% XYLOCAINE given by Chris Morales RN in Right Radial via Subcutaneou s. Ordered by 13:49:32 Byron Nicole 13:50:34 HR=77 bpm, FEBP=026/92 mmhg, SpO2=95.0 %, Resp=15 B/min, Pain=0, Grady=10, Ribera=2 13:51:58 Access site was Radial Artery. A SHEATH, FR6 TRANSRADIAL SLENDER 10CM FR 6 was advanced into the Radial (right) using the [place]khar fied Seldinger 13:52:07 technique. Patient arrived on 5 mL (Bolus) RADIAL COCKTAIL given by Chris Morales RN via Radial. Using [So lution Name]. 13:52:20 Ordered by Byron Nicole Reason: Ntg 200mcg Verapamil 2.5mg Heparin 3100U. 13:52:26 HEPARIN DISCONTIUED AT [address] NICOLE A JR 4.0 INFINITI CATHETER FR 5 was advanced over a wire. OMNIPAQUE, 350 MG, 150ML 150ML was us ed for 13:53:38 injections. Recorded Pressure: LV, HR=83, Condition=Condition 1 13:55:25 (Left Ventricle) LV 139/2/6 Recorded Pressure: LV, Ao, HR=78, Condition=Condition 1 13:55:37 (Left Ventricle) LV 136/1/9, (Aorta) Ao 128/66/97 13:55:39 HR=79 bpm, SRUE=572/82 mmhg, SpO2=94.0 %, Resp=14 B/min, Pain=0, Grady=10, Ribera=2 Recorded Pressure: Ao, HR=79, Condition=Condition 1 13:56:21 (Aorta) Ao 135/74/102 13:58:38 The RCA was injected and visualized at various angles. OMNIPAQUE, 350 MG, 150ML 150ML used . Patient arrived on 25 mcg FENTANYL given by Chris Morales RN in Left Antecubital via Peripheral IV. Ordered by 13:59:23 Byrno Nicole After removing the current catheter a JL 3.5 INFINITI CATHETER FR 5 was advanced over a WIRE, E XCHANGE 260CM 13:59:45 3MMJ 260CM. 14:01:07 HR=75 bpm, EUNO=740/90 mmhg, SpO2=95.0 %, Resp=14 B/min, Pain=0, Grady=10, Ribera=2 14:05:31 The LCA was injected and visualized at various angles. OMNIPAQUE, 350 MG, 150ML 150ML used . 14:05:37 HR=75 bpm, KZLE=447/82 mmhg, SpO2=96.0 %, Resp=15 B/min, Pain=0, Grady=10, Ribera=2 14:10:13 A WIRE, EXCHANGE 260CM 3MMJ 260CM was inserted via Radial (right). 14:10:20 Catheter was removed 14:10:34 HR=70 bpm, MRWD=075/90 mmhg, SpO2=96.0 %, Resp=13 B/min, Pain=0, Grady=10, Ribera=2 14:12:06 Case End (Physician broke scrub) 14:14:16 Catheter(s) removed without difficulty Radial Compression Device Used. 8 mLs of air placed in BAND, RADIAL COMPRESSION TR SHORT 24 24 CM. Affected 14:14:17 hand 97 % O2 saturation. 14:14:36 No case complications noted. 14:14:37 Cine recording checked. 14:14:41 Bedside Report will be given. 14:14:44 A Left Heart Cath was performed. 14:15:39 HR=75 bpm, SFNV=632/87 mmhg, SpO2=97 %, Resp=14 B/min, Pain=0, Grady=10, Ribera=2 14:16:09 Vitals capture stopped. Assessment: Final Case, HR=75 BPM, CPNJ=582/87 mmhg, Edema=None, Color=Normal, Skin = Warm, Dr y Right Pulses: Issac Ped=2, Femoral=2, Radial=2 14:16:29 Left Pulses: Issac Ped=2, Femoral=2 Neurological: State=Alert, Ox3, HERNANDEZ Respiration: Resp=15 B/min, SpO2=97 % 14:19:23 Patient moved to stretcher 14:21:32 A Left Heart Cath was performed. End Study - Contrast Media Used In Study Contrast Total Opened (mL) Total Used (mL) Total Wasted (mL) Hypaque 76 75 75 0 End Study - Maximum Contrast Load Max Contrast Load (mL) 480.1 End Study - Radiation Exposure Fluoro Time (minutes) 2.3 End Study - Patient Disposition Complications Transferred To No Telemetry Bed
--- NOTE | 2017-09-26 15:04 | MA ---
cc: Byron Quiñones DO DATE: 09/26/2017 DATE OF PROCEDURE: 09/26/2017. PROCEDURE: Left heart catheterization, coronary angiogram. PREOPERATIVE DIAGNOSIS: Chest pain, non-ST elevation myocardial infarction POSTOPERATIVE DIAGNOSIS: Mild to moderate coronary artery disease. MEDICATIONS: Fentanyl 50 mcg, nitro 200 mcg, verapamil 2.5 mg, heparin 3100 units. CONTRAST USED: 75 mL FLUOROSCOPY: 2.3 minutes. MODERATE SEDATION: 0 minutes. FRAILTY SCORE: 6. ESTIMATED BLOOD LOSS: 10 mL PROCEDURAL SUMMARY: Abraham Goodman is a pleasant 67-year-old male who presented to [facility] Emergency Room due to overall weakness. 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 During his initial presentation, he had chest pain and was found to have an elevated troponin. We had planned on doing catheterization on him last week, but because he needed a lumbar puncture, cardiac catheterization was put on hold until he was able to be placed on high-dose anticoagulation, IIb-IIIa inhibitors and/or dual antiplatelet therapy. Risks, benefits and alternatives were explained to him and he consented to such. He was brought to the lab and prepped in the usual sterile fashion. The right radial artery was accessed using a modified Seldinger technique and placement of a 5/6 Latvian Slender Sheath. This was easily aspirated and flushed. A JR4 was advanced over a J-wire to the ascending aorta and across the aortic valve for measurement of left ventricular pressure. This was pulled back across the aortic valve showing no significant gradient of aortic stenosis. JR4 was used for selective angiography of the right coronary artery system. This was exchanged out for a JL3.5, which was used for selective angiography of the left coronary artery system. JL3.5 was removed over a J wire. Radial band was placed over the arteriotomy site for hemostasis. The patient left the lab courier cardiovascularly stable. FINDINGS: LEFT MAIN: Large vessel with adequate reflux. It bifurcates into LAD and circumflex. LAD: Large vessel with no significant disease in the proximal portion. The mid-portion has 30-40% disease. Distally, it supplies the apex. It gives off 2 diagonals with no significant disease. LEFT CIRCUMFLEX: Large vessel with 20-30% disease in the proximal portion. Distally it supplies two obtuse marginals with no significant disease. RCA: Moderate-sized vessel with 20% disease in the mid portion. Distally it supplies a PDA as well as multiple posterolateral branches. LVEDP: 9. IMPRESSIONS: 1. Chest pain. 2. Mild coronary artery disease by cardiac catheterization. RECOMMENDATIONS: 1. Mr. Goodman presented with progressive weakness and this will be treated by Neurology. 2. He did have an elevated troponin, but overall has no significant disease by cardiac catheterization. He will be continued to be treated medically. 3. Heparin drip can be stopped. 4. Further recommendations will be made based on the hospital course. Thank you for allowing me to see Abraham Goodman. If there are any questions, please do not hesitate to call. Byron Quiñones DO VGP/SB , 02:27 PM , 03:02 PM
[2017-09-26] MEDS ORDERED: Iohexol 350 MG/ML 100 ML Vial (for Cath Lab) IVCONTRAST ONE (17:13)
--- NOTE | 2017-09-26 18:28 | P.PN ---
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 Patient is doing well. Feels that he is slowly improving. He was able to swallow water at bedside. No fever, chills. Physical Exam Vital signs: Vital Signs 09/25/17 20:00 09/25/17 22:00 09/26/17 00:00 Temperature 98.8 F 97.9 F Pulse Rate 80 71 80 Respiratory Rate 20 15 Blood Pressure 149/81 H 140/82 Pulse Oximetry 96 96 09/26/17 02:00 09/26/17 04:00 09/26/17 06:00 Temperature 97.9 F Pulse Rate 75 79 84 Respiratory Rate 14 Blood Pressure 144/82 H Pulse Oximetry 97 09/26/17 07:34 09/26/17 08:00 09/26/17 10:00 Temperature 97.8 F Pulse Rate 80 80 Respiratory Rate 14 Blood Pressure 148/80 H Pulse Oximetry 95 95 09/26/17 12:00 09/26/17 14:00 09/26/17 14:42 Temperature 98.2 F Pulse Rate 81 81 79 Respiratory Rate 21 22 Blood Pressure 154/74 H Pulse Oximetry 96 09/26/17 14:57 09/26/17 15:12 09/26/17 15:27 Temperature Pulse Rate 76 79 76 Respiratory Rate 16 23 16 Blood Pressure 149/85 H 150/93 H Pulse Oximetry 09/26/17 15:57 09/26/17 16:00 Temperature 98.0 F 98.0 F Pulse Rate 76 76 Respiratory Rate 15 15 Blood Pressure 156/87 H 156/87 H Pulse Oximetry Intake & Output 09/25/17 09/26/17 09/26/17 18:59 06:59 18:59 Intake Total 1999 / 1999 1250 / 1250 Output Total 1000 / 1000 600 / 600 Balance 1000 / 1000 650 / 650 Weight 76.9 kg Intake: IV 1000 / 1000 1250 / 1250 D5W/Normal Saline Inj 1,000 ML 1000 / 1000 1000 / 1000 @ 84 mls/hr IV.CONT .[id number] [facility] Rx#:[id number] Heparin/D5W 25,000 U/250 mL 25, 250 / 250 000 unit In 250 ml @ 1,000 UNITS/HR 10 mls/hr IV.CONT TITRATE PRN Rx#:[id number] Oral 0 / 0 Other 1000 / 1000 Output: Stool 0 / 0 Urine Amount (Catheter) 1000 / 1000 600 / 600 Indwelling Urethral Catheter 1000 / 1000 600 / 600 Other: Other Intake Source Saline Solution Date of Last Bowel Movement 09/24/17 09/24/17 09/24/17 Narrative: GENERAL: Alert, Oriented x 3, NAD. SKIN: Warm and dry. HEAD: Normocephalic. EYES: No scleral icterus. No injection or drainage. NECK: Supple, trachea midline. No JVD or lymphadenopathy. CARDIOVASCULAR: Regular rate and rhythm without murmurs, gallops, or rubs. RESPIRATORY: Breath sounds equal bilaterally. No accessory muscle use. GASTROINTESTINAL: Abdomen soft, non-tender, nondistended. MUSCULOSKELETAL: No cyanosis, or edema. BACK: Nontender without obvious deformity. No CVA tenderness. 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 Goodman is a pleasant 67-year-old male with a history of prostate cancer, rheumatoid arthritis, iron deficiency anemia who presented to the emergency department on 09/21/2017 due to worsening weakness in his lower extremities that started 2 weeks prior to this admission. He was evaluated by neurology who suspected possible Guillain Iberia syndrome. Patient also reports chest pain that has been going on for months but worse in the last 2-3 days. He reported having diaphoresis along with chest pain. His troponin was elevated to 1.57. Cardiology was consulted. 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 Patient is already on IVIG treatment and high dose steroid. -s/p LP. -MRI studies are largely unremarkable for any acute findings. However thoracic MRI shows an incidental finding of 1.4 cm lung nodule. -2-3 days after cardiac cath, we can obtain a CT chest with contrast to evaluate lung nodule. NSTEMI - Aspirin 81mg Qday, Lipitor 40mg QHS. -Patient underwent cardiac catheterization on 09/26/2017 ==> No remarkable finding, no stent placed. Dysphagia - Possibly related to GBS - NPO Per Speech. Speech again recommended NPO on 09/26/2017. - Will continue on D5NS @ 84cc/hour. - If there no improvement, Patient will likely need a PEG tube for nutrition. History of iron deficiency anemia -currently stable. Hemoglobin 10.0, MCV 87.1. Full code. Heparin drip discontinued. Will start Lovenox 40mg Qday for DVT prophylaxis.
--- NOTE | 2017-09-26 18:55 | P.PNCA ---
Subjective Interval history: Patient was seen post-cath No complaints Physical Exam Vital signs: Vital Signs 09/25/17 20:00 09/25/17 22:00 09/26/17 00:00 Temperature 98.8 F 97.9 F Pulse Rate 80 71 80 Respiratory Rate 20 15 Blood Pressure 149/81 H 140/82 Pulse Oximetry 96 96 09/26/17 02:00 09/26/17 04:00 09/26/17 06:00 Temperature 97.9 F Pulse Rate 75 79 84 Respiratory Rate 14 Blood Pressure 144/82 H Pulse Oximetry 97 09/26/17 07:34 09/26/17 08:00 09/26/17 10:00 Temperature 97.8 F Pulse Rate 80 80 Respiratory Rate 14 Blood Pressure 148/80 H Pulse Oximetry 95 95 09/26/17 12:00 09/26/17 14:00 09/26/17 14:42 Temperature 98.2 F Pulse Rate 81 81 79 Respiratory Rate 21 22 Blood Pressure 154/74 H Pulse Oximetry 96 09/26/17 14:57 09/26/17 15:12 09/26/17 15:27 Temperature Pulse Rate 76 79 76 Respiratory Rate 16 23 16 Blood Pressure 149/85 H 150/93 H Pulse Oximetry 09/26/17 15:57 09/26/17 16:00 09/26/17 16:27 Temperature 98.0 F 98.0 F 98.2 F Pulse Rate 76 76 80 Respiratory Rate 15 15 27 H Blood Pressure 156/87 H 156/87 H 155/90 H Pulse Oximetry 96 09/26/17 16:57 09/26/17 17:27 09/26/17 18:00 Temperature 80 F L Pulse Rate 77 80 74 Respiratory Rate 27 H 19 Blood Pressure 146/86 H 175/77 H Pulse Oximetry 97 98 09/26/17 18:27 Temperature Pulse Rate 74 Respiratory Rate 18 Blood Pressure 151/81 H Pulse Oximetry 95 Intake & Output 09/25/17 09/26/17 09/26/17 18:59 06:59 18:59 Intake Total 1999 / 1999 1250 / 1250 1000 / 1000 Output Total 1000 / 1000 600 / 600 450 / 450 Balance 1000 / 1000 650 / 650 550 / 550 Weight 76.9 kg Intake: IV 1000 / 1000 1250 / 1250 1000 / 1000 D5W/Normal Saline Inj 1,000 ML 1000 / 1000 1000 / 1000 1000 / 1000 @ 84 mls/hr IV.CONT .[id number] [facility] Rx#:[id number] Heparin/D5W 25,000 U/250 mL 25, 250 / 250 000 unit In 250 ml @ 1,000 UNITS/HR 10 mls/hr IV.CONT TITRATE PRN Rx#:[id number] Oral 0 / 0 0 / 0 Other 1000 / 1000 Output: Stool 0 / 0 0 / 0 Urine Amount (Catheter) 1000 / 1000 600 / 600 450 / 450 Indwelling Urethral Catheter 1000 / 1000 600 / 600 450 / 450 Other: Other Intake Source Saline Solution Date of Last Bowel Movement 09/24/17 09/24/17 09/24/17 Narrative: GENERAL: Alert, Oriented x 3, NAD. SKIN: Warm and dry. HEAD: Normocephalic. EYES: No scleral icterus. No injection or drainage. NECK: Supple, trachea midline. No JVD or lymphadenopathy. CARDIOVASCULAR: Regular rate and rhythm without murmurs, gallops, or rubs. RESPIRATORY: Breath sounds equal bilaterally. No accessory muscle use. GASTROINTESTINAL: Abdomen soft, non-tender, nondistended. MUSCULOSKELETAL: No cyanosis, or edema. Right radial no hematoma BACK: Nontender without obvious deformity. No CVA tenderness. 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
[2017-09-27] MEDS: MethylPREDNISolone Sod Succinate Inj 125 MG/2 ML Vial IV.PUSH SCH ×4 (00:23→18:53)
[2017-09-27] MEDS: Dextrose 5%/NaCl 0.9% Inj 1,000 ML IV.CONT SCH (07:07)
[2017-09-27 08:40] LABS: Hematocrit 29.4 % (39.0-51.0); Hemoglobin 9.5 gm/dL (13.0-17.0); Lymph # (Auto) 0.2 th/mm3 (1.0-4.8); Lymph % (Auto) 4.1 % (9.0-44.0); Mean Corpuscular HGB Conc 32.4 % (32.0-36.0); Mean Corpuscular Hemoglobin 28.5 pg (27.0-34.0); Mean Corpuscular Volume 88.1 fL (80.0-100.0); Mean Platelet Volume 7.2 fL (7.0-11.0); Mono # (Auto) 0.2 th/mm3 (0.0-0.9); Mono % (Auto) 3.8 % (0.0-8.0); Neut % (Auto) 92.1 % (16.0-70.0); Platelet Count 421 th/mm3 (150-450); Red Blood Count 3.34 mil/mm3 (4.50-5.90); Red Cell Distribution Width 16.7 % (11.6-17.2); White Blood Count 4.3 th/mm3 (4.0-11.0)
[2017-09-27 09:11] LABS: Anion Gap 7 meq/L (5-15); Blood Urea Nitrogen 24 mg/dL (7-18); Calcium 9.2 mg/dL (8.5-10.1); Carbon Dioxide 28.3 meq/L (21.0-32.0); Chloride 110 meq/L (98-107); Glomerular Filtration Rate Greater Than 89 mL/min (>89); Glucose,Random 154 mg/dL (74-106); Potassium 3.5 meq/L (3.5-5.1); Sodium 145 meq/L (136-145)
--- NOTE | 2017-09-27 09:12 | P.PN ---
Physical Exam Vital signs: Vital Signs 09/26/17 10:00 09/26/17 12:00 09/26/17 14:00 Temperature 98.2 F Pulse Rate 80 81 81 Respiratory Rate 21 Blood Pressure 154/74 H Pulse Oximetry 96 09/26/17 14:28 09/26/17 14:42 09/26/17 14:57 Temperature Pulse Rate 86 79 76 Respiratory Rate 20 22 16 Blood Pressure Pulse Oximetry 97 09/26/17 15:00 09/26/17 15:09 09/26/17 15:12 Temperature Pulse Rate 76 84 79 Respiratory Rate 15 29 H 23 Blood Pressure 171/92 H 149/85 H Pulse Oximetry 97 97 09/26/17 15:15 09/26/17 15:27 09/26/17 15:30 Temperature Pulse Rate 79 76 76 Respiratory Rate 23 16 16 Blood Pressure 149/85 H 150/93 H 150/93 H Pulse Oximetry 97 98 09/26/17 15:45 09/26/17 15:57 09/26/17 16:00 Temperature 98.0 F 98.0 F Pulse Rate 78 76 76 Respiratory Rate 29 H 15 16 Blood Pressure 157/94 H 156/87 H 156/87 H Pulse Oximetry 98 97 09/26/17 16:15 09/26/17 16:27 09/26/17 16:30 Temperature 98.2 F Pulse Rate 74 80 80 Respiratory Rate 14 27 H 27 H Blood Pressure 162/84 H 155/90 H 155/90 H Pulse Oximetry 97 96 96 09/26/17 16:45 09/26/17 16:57 09/26/17 17:00 Temperature Pulse Rate 76 77 77 Respiratory Rate 18 27 H 27 H Blood Pressure 148/76 H 146/86 H 146/86 H Pulse Oximetry 96 97 97 09/26/17 17:15 09/26/17 17:27 09/26/17 17:30 Temperature 80 F L Pulse Rate 78 80 80 Respiratory Rate 22 19 25 H Blood Pressure 174/85 H 175/77 H 175/77 H Pulse Oximetry 97 98 97 09/26/17 17:45 09/26/17 18:00 09/26/17 18:15 Temperature Pulse Rate 79 74 76 Respiratory Rate 19 18 32 H Blood Pressure 159/85 H 151/81 H 154/87 H Pulse Oximetry 98 95 97 09/26/17 18:27 09/26/17 19:00 09/26/17 20:00 Temperature 98.2 F Pulse Rate 74 75 74 Respiratory Rate 18 21 16 Blood Pressure 151/81 H 150/92 H 160/83 H Pulse Oximetry 95 94 L 96 09/26/17 20:14 09/26/17 21:00 09/26/17 22:00 Temperature Pulse Rate 71 72 Respiratory Rate 18 18 Blood Pressure 161/86 H 158/81 H Pulse Oximetry 100 96 95 09/26/17 23:00 09/27/17 00:00 09/27/17 01:00 Temperature 98.1 F Pulse Rate 73 74 77 Respiratory Rate 16 19 17 Blood Pressure 162/92 H 160/89 H 153/93 H Pulse Oximetry 96 93 L 96 09/27/17 01:37 09/27/17 02:00 09/27/17 03:00 Temperature 98.1 F Pulse Rate 81 87 Respiratory Rate 16 21 Blood Pressure 156/73 H 165/92 H Pulse Oximetry 94 L 94 L 09/27/17 04:00 09/27/17 05:00 09/27/17 06:00 Temperature 98.2 F Pulse Rate 81 77 72 Respiratory Rate 18 16 24 Blood Pressure 149/86 H 153/84 H 151/83 H Pulse Oximetry 96 97 97 09/27/17 07:00 09/27/17 07:41 Temperature Pulse Rate 89 Respiratory Rate 20 Blood Pressure 139/74 Pulse Oximetry 97 98 Intake & Output 09/26/17 09/27/17 09/27/17 18:59 06:59 18:59 Intake Total 1000 / 1000 1000 / 1000 Output Total 450 / 450 850 / 850 Balance 550 / 550 150 / 150 Weight 74.2 kg Intake: IV 1000 / 1000 1000 / 1000 D5W/Normal Saline Inj 1,000 ML 1000 / 1000 1000 / 1000 @ 84 mls/hr IV.CONT .[id number] [facility] Rx#:[id number] Oral 0 / 0 0 / 0 Output: Stool 0 / 0 0 / 0 Urine Amount (Catheter) 450 / 450 850 / 850 Indwelling Urethral Catheter 450 / 450 850 / 850 Other: Date of Last Bowel Movement 09/24/17 09/27/17 # Bowel Movements 1 Narrative: Subjective: Follow-up for suspected Guillain [place] syndrome, NSTEMI. Patient appears in nad. PT working with the patient. Patient failed repeatedly swallow evaluation. He is still n.p.o. We will insert Dobbhoff for feeding. Consult dietitian as well. Very well. No chest pain or shortness of breath. Blood pressure is better controlled. Physical exam: GENERAL: Alert, Oriented x 3, NAD. CARDIOVASCULAR: Regular rate and rhythm without murmurs, gallops, or rubs. RESPIRATORY: Breath sounds equal bilaterally. No accessory muscle use. GASTROINTESTINAL: Abdomen soft, non-tender, nondistended. MUSCULOSKELETAL: No cyanosis, or edema. BACK: Nontender without obvious deformity. No CVA tenderness. Assessment and Plan Mr. Goodman is a pleasant 67-year-old male with a history of prostate cancer, rheumatoid arthritis, iron deficiency anemia who presented to the emergency department on 09/21/2017 due to worsening weakness in his lower extremities that started 2 weeks prior to this admission. He was evaluated by neurology who suspected possible Guillain [place] syndrome. Patient also reports chest pain that has been going on for months but worse in the last 2-3 days. He reported having diaphoresis along with chest pain. His troponin was elevated to 1.57. Cardiology was consulted. 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 Patient is already on IVIG treatment and high dose steroid. s/p LP. MRI studies are largely unremarkable for any acute findings. However thoracic MRI shows an incidental finding of 1.4 cm lung nodule. 2-3 days after cardiac cath, we can obtain a CT chest with contrast to evaluate lung nodule. NSTEMI Aspirin 81mg Qday, Lipitor 40mg QHS. Patient underwent cardiac catheterization on 09/26/2017 ==> No remarkable finding , no stent placed. Dysphagia Possibly related to GBS NPO Per Speech. Speech again recommended NPO on 09/26/2017. Will continue on D5NS @ 84cc/hour. If there no improvement, Patient will likely need a PEG tube for nutrition. We will Place Dobbhoff for now and monitor for improvement. Patient may need a PEG tube feedings thereafter. Consult dietitian. History of iron deficiency anemia -currently stable. Hemoglobin 10.0, MCV 87.1. Full code. Lovenox 40mg Qday for DVT prophylaxis. Heparin drip discontinued. Discussed with the patient, nurse. - Urinary Catheter Management Indwelling Urethral Catheter Cath placed during this visit: yes, but has since been removed by the nurse Reason for continuing: Other continuation reason Insertion date: 09/25/17 Insertion time: 06:57 Removal date: 09/25/17 Removal time: 09:00 Results - Labs CBC & Chem 7: 09/27/17 07:42 09/27/17 07:42 Laboratory Results - last 24 hr 09/21/17 09/27/17 22:20 07:42 WBC 4.3 RBC 3.34 L Hgb 9.5 L Hct 29.4 L MCV 88.1 MCH 28.5 MCHC 32.4 RDW 16.7 Plt Count 421 MPV 7.2 Neut % (Auto) 92.1 H Lymph % (Auto) 4.1 L Person % (Auto) 3.8 Eos % (Auto) 0.0 Baso % (Auto) 0.0 Neut # (Auto) 4.0 Lymph # (Auto) 0.2 L Person # (Auto) 0.2 Eos # (Auto) 0.0 Baso # (Auto) 0.0 WBC Differential . 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
[2017-09-27] MEDS: Famotidine PF Inj 20 MG/2 ML Vial IV.SIG SCH (09:49)
[2017-09-27] MEDS: Enoxaparin Inj 40 MG/0.4 ML Syringe SQ SCH (09:51)
--- NOTE | 2017-09-27 13:58 | P.PNCA ---
Subjective Interval history: No events overnight Feels stronger Working with speech therapy on swallowing Physical Exam Vital signs: Vital Signs 09/26/17 14:00 09/26/17 14:28 09/26/17 14:42 Temperature Pulse Rate 81 86 79 Respiratory Rate 20 22 Blood Pressure Pulse Oximetry 97 09/26/17 14:57 09/26/17 15:00 09/26/17 15:09 Temperature Pulse Rate 76 76 84 Respiratory Rate 16 15 29 H Blood Pressure 171/92 H Pulse Oximetry 97 97 09/26/17 15:12 09/26/17 15:15 09/26/17 15:27 Temperature Pulse Rate 79 79 76 Respiratory Rate 23 23 16 Blood Pressure 149/85 H 149/85 H 150/93 H Pulse Oximetry 97 09/26/17 15:30 09/26/17 15:45 09/26/17 15:57 Temperature 98.0 F Pulse Rate 76 78 76 Respiratory Rate 16 29 H 15 Blood Pressure 150/93 H 157/94 H 156/87 H Pulse Oximetry 98 98 09/26/17 16:00 09/26/17 16:15 09/26/17 16:27 Temperature 98.0 F 98.2 F Pulse Rate 76 74 80 Respiratory Rate 16 14 27 H Blood Pressure 156/87 H 162/84 H 155/90 H Pulse Oximetry 97 97 96 09/26/17 16:30 09/26/17 16:45 09/26/17 16:57 Temperature Pulse Rate 80 76 77 Respiratory Rate 27 H 18 27 H Blood Pressure 155/90 H 148/76 H 146/86 H Pulse Oximetry 96 96 97 09/26/17 17:00 09/26/17 17:15 09/26/17 17:27 Temperature 80 F L Pulse Rate 77 78 80 Respiratory Rate 27 H 22 19 Blood Pressure 146/86 H 174/85 H 175/77 H Pulse Oximetry 97 97 98 09/26/17 17:30 09/26/17 17:45 09/26/17 18:00 Temperature Pulse Rate 80 79 74 Respiratory Rate 25 H 19 18 Blood Pressure 175/77 H 159/85 H 151/81 H Pulse Oximetry 97 98 95 09/26/17 18:15 09/26/17 18:27 09/26/17 19:00 Temperature Pulse Rate 76 74 75 Respiratory Rate 32 H 18 21 Blood Pressure 154/87 H 151/81 H 150/92 H Pulse Oximetry 97 95 94 L 09/26/17 20:00 09/26/17 20:14 09/26/17 21:00 Temperature 98.2 F Pulse Rate 74 71 Respiratory Rate 16 18 Blood Pressure 160/83 H 161/86 H Pulse Oximetry 96 100 96 09/26/17 22:00 09/26/17 23:00 09/27/17 00:00 Temperature 98.1 F Pulse Rate 72 73 74 Respiratory Rate 18 16 19 Blood Pressure 158/81 H 162/92 H 160/89 H Pulse Oximetry 95 96 93 L 09/27/17 01:00 09/27/17 01:37 09/27/17 02:00 Temperature 98.1 F Pulse Rate 77 81 Respiratory Rate 17 16 Blood Pressure 153/93 H 156/73 H Pulse Oximetry 96 94 L 09/27/17 03:00 09/27/17 04:00 09/27/17 05:00 Temperature 98.2 F Pulse Rate 87 81 77 Respiratory Rate 21 18 16 Blood Pressure 165/92 H 149/86 H 153/84 H Pulse Oximetry 94 L 96 97 09/27/17 06:00 09/27/17 07:00 09/27/17 07:41 Temperature Pulse Rate 72 89 Respiratory Rate 24 20 Blood Pressure 151/83 H 139/74 Pulse Oximetry 97 97 98 Intake & Output 09/26/17 09/27/17 09/27/17 18:59 06:59 18:59 Intake Total 1000 / 1000 1000 / 1000 Output Total 450 / 450 850 / 850 Balance 550 / 550 150 / 150 Weight 74.2 kg Intake: IV 1000 / 1000 1000 / 1000 D5W/Normal Saline Inj 1,000 ML 1000 / 1000 1000 / 1000 @ 84 mls/hr IV.CONT .[id number] [facility] Rx#:[id number] Oral 0 / 0 0 / 0 Output: Stool 0 / 0 0 / 0 Urine Amount (Catheter) 450 / 450 850 / 850 Indwelling Urethral Catheter 450 / 450 850 / 850 Other: Date of Last Bowel Movement 09/24/17 09/27/17 # Bowel Movements 1 Narrative: GENERAL: NAD, AAOx3 SKIN: Warm and dry. HEAD: Atraumatic. Normocephalic. EYES: Pupils equal and round. No scleral icterus. No injection or drainage. ENT: No nasal bleeding or discharge. Mucous membranes pink and moist. NECK: Trachea midline. No JVD. CARDIOVASCULAR: Regular rate and rhythm. RESPIRATORY: No accessory muscle use. Clear to auscultation. Breath sounds equal bilaterally. GASTROINTESTINAL: Abdomen soft, non-tender, nondistended. Hepatic and splenic margins not palpable. MUSCULOSKELETAL: Extremities without clubbing, cyanosis, or edema. No obvious deformities. 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
--- NOTE | 2017-09-27 17:33 | XR ---
EXAM DATE: 09/27/2017 5:28 PM EDT AGE/SEX: 67 years / Male INDICATIONS: Evaluate for Dobbhoff placement. CLINICAL DATA: This is the patient's initial encounter. Patient reports that signs and symptoms have been present for 1 day and indicates a pain score of 0/10. MEDICAL/SURGICAL HISTORY: None. None. COMPARISON: No prior exams available for comparison. FINDINGS: Limited examination of the abdomen demonstrates a weighted feeding tube in the left upper abdominal q uadrant in the expected location of the proximal gastric body. Retained contrast in the visualized co kasandra. No pneumoperitoneum. Lung bases are clear. CONCLUSION: Weighted feeding tube in the expected location of the proximal gastric body Electronically signed by: Ron Kellogg MD 09/27/2017 5:31 PM EDT
[2017-09-28] MEDS: MethylPREDNISolone Sod Succinate Inj 125 MG/2 ML Vial IV.PUSH SCH ×3 (00:11→23:30)
[2017-09-28 07:44] LABS: Baso % (Auto) 0.1 % (0.0-2.0); Hematocrit 29.2 % (39.0-51.0); Hemoglobin 9.5 gm/dL (13.0-17.0); Lymph # (Auto) 0.2 th/mm3 (1.0-4.8); Lymph % (Auto) 6.2 % (9.0-44.0); Mean Corpuscular HGB Conc 32.6 % (32.0-36.0); Mean Corpuscular Hemoglobin 28.4 pg (27.0-34.0); Mean Corpuscular Volume 87.2 fL (80.0-100.0); Mean Platelet Volume 7.2 fL (7.0-11.0); Mono # (Auto) 0.2 th/mm3 (0.0-0.9); Mono % (Auto) 5.4 % (0.0-8.0); Neut # (Auto) 2.5 th/mm3 (1.8-7.7); Neut % (Auto) 88.3 % (16.0-70.0); Platelet Count 370 th/mm3 (150-450); Red Blood Count 3.35 mil/mm3 (4.50-5.90); Red Cell Distribution Width 16.2 % (11.6-17.2); White Blood Count 2.8 th/mm3 (4.0-11.0)
[2017-09-28 08:11] LABS: Anion Gap 7 meq/L (5-15); Blood Urea Nitrogen 25 mg/dL (7-18); Calcium 9.3 mg/dL (8.5-10.1); Carbon Dioxide 30.4 meq/L (21.0-32.0); Chloride 110 meq/L (98-107); Glomerular Filtration Rate Greater Than 89 mL/min (>89); Glucose,Random 162 mg/dL (74-106); Potassium 3.2 meq/L (3.5-5.1); Sodium 147 meq/L (136-145)
[2017-09-28] MEDS: Enoxaparin Inj 40 MG/0.4 ML Syringe SQ SCH (08:56)
[2017-09-28] MEDS: Famotidine PF Inj 20 MG/2 ML Vial IV.SIG SCH (08:57)
--- NOTE | 2017-09-28 09:12 | P.PN ---
Physical Exam Vital signs: Vital Signs 09/27/17 09:45 09/27/17 10:00 09/27/17 11:00 Temperature Pulse Rate 95 H 90 87 Respiratory Rate 18 18 19 Blood Pressure 143/81 H 145/84 H 161/98 H Pulse Oximetry 91 L 95 95 09/27/17 12:00 09/27/17 13:00 09/27/17 13:37 Temperature 98.1 F Pulse Rate 88 79 79 Respiratory Rate 21 15 27 H Blood Pressure 162/87 H 160/86 H 172/88 H Pulse Oximetry 97 99 96 09/27/17 14:00 09/27/17 15:00 09/27/17 16:00 Temperature 98.1 F Pulse Rate 78 85 83 Respiratory Rate 20 24 34 H Blood Pressure 156/85 H 158/87 H 167/90 H Pulse Oximetry 98 96 98 09/27/17 17:00 09/27/17 17:30 09/27/17 18:00 Temperature Pulse Rate 81 73 77 Respiratory Rate 32 H 17 20 Blood Pressure 179/95 H 159/91 H 178/97 H Pulse Oximetry 98 97 99 09/27/17 19:00 09/27/17 19:26 09/27/17 19:30 Temperature Pulse Rate 77 78 Respiratory Rate 22 34 H Blood Pressure 158/85 H 156/80 H Pulse Oximetry 98 97 98 09/27/17 20:00 09/27/17 21:00 09/27/17 22:00 Temperature 97.9 F Pulse Rate 72 67 69 Respiratory Rate 22 16 16 Blood Pressure 159/93 H 166/81 H 153/81 H Pulse Oximetry 99 96 98 09/27/17 23:00 09/28/17 00:00 09/28/17 01:00 Temperature 98.4 F Pulse Rate 64 63 73 Respiratory Rate 18 15 37 H Blood Pressure 151/73 H 148/80 H Pulse Oximetry 98 99 98 09/28/17 01:08 09/28/17 02:00 09/28/17 03:00 Temperature Pulse Rate 71 65 67 Respiratory Rate 24 24 16 Blood Pressure 158/83 H 147/82 H Pulse Oximetry 97 98 98 09/28/17 03:01 09/28/17 04:00 09/28/17 05:00 Temperature 97.4 F L Pulse Rate 65 73 67 Respiratory Rate 13 25 H 15 Blood Pressure 170/88 H 160/83 H 180/77 H Pulse Oximetry 98 95 95 09/28/17 05:09 09/28/17 06:00 09/28/17 07:00 Temperature Pulse Rate 69 72 72 Respiratory Rate 17 19 13 Blood Pressure 155/78 H 148/84 H 156/84 H Pulse Oximetry 96 98 99 09/28/17 08:00 Temperature Pulse Rate Respiratory Rate Blood Pressure Pulse Oximetry 100 Intake & Output 09/27/17 09/28/17 09/28/17 18:59 06:59 18:59 Intake Total 0 / 0 0 / 0 Output Total 1100 / 1100 875 / 875 Balance -1100 / -1100 -875 / -875 Weight 73.9 kg Intake: Oral 0 / 0 0 / 0 Output: Stool 0 / 0 0 / 0 Urine Amount (Catheter) 1100 / 1099 875 / 875 Indwelling Urethral Catheter 1100 / 1099 875 / 875 Other: Date of Last Bowel Movement 09/27/17 09/28/17 # Bowel Movements 1 1 Narrative: Follow-up for suspected Guillain [place] syndrome, NSTEMI. Patient appears in nad. Patient failed repeatedly swallow evaluation. He is still n.p.o. feeding started and tolerates fairly well. No chest pain or shortness of breath. Blood pressure is into higher side. Patient is also anxious. Physical exam: GENERAL: Alert, Oriented x 3, NAD. CARDIOVASCULAR: Regular rate and rhythm without murmurs, gallops, or rubs. RESPIRATORY: Breath sounds equal bilaterally. No accessory muscle use. GASTROINTESTINAL: Abdomen soft, non-tender, nondistended. MUSCULOSKELETAL: No cyanosis, or edema. BACK: Nontender without obvious deformity. No CVA tenderness. Assessment and Plan Mr. Goodman is a pleasant 67-year-old male with a history of prostate cancer, rheumatoid arthritis, iron deficiency anemia who presented to the emergency department on 09/21/2017 due to worsening weakness in his lower extremities that started 2 weeks prior to this admission. He was evaluated by neurology who suspected possible Guillain [place] syndrome. Patient also reports chest pain that has been going on for months but worse in the last 2-3 days. He reported having diaphoresis along with chest pain. His troponin was elevated to 1.57. Cardiology was consulted. 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 Patient is already on IVIG treatment and high dose steroid. s/p LP. MRI studies are largely unremarkable for any acute findings. However thoracic MRI shows an incidental finding of 1.4 cm lung nodule. 2-3 days after cardiac cath, we can obtain a CT chest with contrast to evaluate lung nodule. NSTEMI Hypertension Aspirin 81mg Qday, Lipitor 40mg QHS. Patient underwent cardiac catheterization on 09/26/2017 ==> No remarkable finding , no stent placed. Increase Coreg to 6.25 mg p.o. twice daily as patient is with elevated blood pressure and also tachycardic Dysphagia Possibly related to GBS NPO Per Speech. Speech again recommended NPO on 09/26/2017. Speech therapy follow. Had modified barium swallow evaluation and is recommended n.p.o. at this time. Patient continues with exercises given by speech therapy Will continue on D5NS @ 84cc/hour. If there no improvement, Patient will likely need a PEG tube for nutrition. Continue tube feedings, has Dobbhoff for now and monitor for improvement. Patient may need a PEG tube feedings thereafter. The patient however is refusing PEG tube. Consult dietitian. History of iron deficiency anemia -currently stable. Hemoglobin 10.0, MCV 87.1. Anxiety. Give Xanax small dose as needed for anxiety Full code. Lovenox 40mg Qday for DVT prophylaxis. Heparin drip discontinued. Discussed with the patient, nurse. - Urinary Catheter Management Indwelling Urethral Catheter Cath placed during this visit: yes, but has since been removed by the nurse Reason for continuing: Other continuation reason Insertion date: 09/25/17 Insertion time: 06:57 Removal date: 09/25/17 Removal time: 09:00 Results - Labs CBC & Chem 7: 09/28/17 06:54 09/28/17 06:54 Laboratory Results - last 24 hr 09/21/17 09/22/17 09/27/17 22:20 13:53 07:42 WBC RBC Hgb Hct MCV MCH MCHC RDW Plt Count MPV Neut % (Auto) Lymph % (Auto) [place] % (Auto) Eos % (Auto) Baso % (Auto) Neut # (Auto) Lymph # (Auto) [place] # (Auto) Eos # (Auto) Baso # (Auto) WBC Differential Differential Comment Sodium 145 Potassium 3.5 Chloride 110 H Carbon Dioxide 28.3 Anion Gap 7 BUN 24 H Creatinine 0.73 Estimated GFR Greater than 89 Random Glucose 154 H Calcium 9.2 CSF [place] IgG Ab Less than 1.30 CSF [place] IgM Ab Less than 0.90 Striated Muscle Ab Ttr ND Striated Muscle Ab Negative 09/28/17 09/28/17 06:54 06:54 WBC 2.8 L RBC 3.35 L Hgb 9.5 L Hct 29.2 L MCV 87.2 MCH 28.4 MCHC 32.6 RDW 16.2 Plt Count 370 MPV 7.2 Neut % (Auto) 88.3 H Lymph % (Auto) 6.2 L [place] % (Auto) 5.4 Eos % (Auto) 0.0 Baso % (Auto) 0.1 Neut # (Auto) 2.5 Lymph # (Auto) 0.2 L [place] # (Auto) 0.2 Eos # (Auto) 0.0 Baso # (Auto) 0.0 WBC Differential . 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
--- NOTE | 2017-09-28 12:28 | P.DIET ---
Nutritional Evaluation Type of nutrition evaluation: initial Screening comments: [facility] [place] RECS: Continuous and Bolus Subjective Subjective Comments: Per Speech note: Pt states I REALLY WANT TO BE ABLE TO EAT, I HAVE BEEN DOING ALL THE EXERCISES QUITE A FEW TIMES A DAY Objective - Objective % IBW: 92 Body Weight Used for Calculations: Actual Energy Needs - Lower Range (kCal/kg): 28 Energy Needs - Upper Range (kCal/kg): 33 Lower Limit kCal/kg (kCals): 2,072 Upper Limit kCal/kg (kCals): 2,442 Lower Limit Protein Factor (Grams per Kg): 1.1 Upper Limit Protein Factor (Grams per Kg): 1.5 Lower Protein Needs (Protein): 81 Upper Protein Needs (Protein): 111 Fluid Factor (ml/kg): 30 Estimated Fluid Needs (ml): 2,220 Dietitian Reviewed in Medical Record: Current diet, Curent medications, Intake & Output, Labs, Medical history, Tube feeding Objective Comments: Nutritional needs based on 74kg PMH: RA, OA, Anemia, GERD, Prostate CA Meds include: Lipitor Labs include: WBC 2.8, Hgb 9.5, Hct 29.2, Na 147, K+ 3.2, Glu 162 +1 BM Assessment Assessment: Pt at nutritional risk r/t current clinical status. Pt s/p NSTEMI IN, has Guillain [place] Syndrome, pt NPO per speech. TF Jevity 1.5 per MD. Pt's nutritional needs as assessed above. In order to meet pt's needs a goal rate of 65 ml/hr is necessary providing 2340 kcals, 100 gms protein and 1186 mls free water. 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 Will monitor TF tolerance, clinical course. Recommendations: TF RECS: Jevity 1.5 with goal rate 65 ml/hr continuous If G-tube is necessary, suggested bolus feedinmls at 8am, 2pm, 8pm 240mls at 11am, 5pm 30mls before and after each bolus feeding To meet pt's fluid needs, 360mls free water flush q 12 hrs Will monitor clinical course. Dietitian to Monitor: Lab values, Intake & Output, Tube feeding tolerance, Weight change, Residuals, Medical course
--- NOTE | 2017-09-28 17:29 | P.PNCA ---
Subjective Interval history: No events overnight Resting comfortably in bed Physical Exam Vital signs: Vital Signs 09/27/17 17:30 09/27/17 18:00 09/27/17 19:00 Temperature Pulse Rate 73 77 77 Respiratory Rate 17 20 22 Blood Pressure 159/91 H 178/97 H 158/85 H Pulse Oximetry 97 99 98 09/27/17 19:26 09/27/17 19:30 09/27/17 20:00 Temperature 97.9 F Pulse Rate 78 72 Respiratory Rate 34 H 22 Blood Pressure 156/80 H 159/93 H Pulse Oximetry 97 98 99 09/27/17 21:00 09/27/17 22:00 09/27/17 23:00 Temperature Pulse Rate 67 69 64 Respiratory Rate 16 16 18 Blood Pressure 166/81 H 153/81 H 151/73 H Pulse Oximetry 96 98 98 09/28/17 00:00 09/28/17 01:00 09/28/17 01:08 Temperature 98.4 F Pulse Rate 63 73 71 Respiratory Rate 15 37 H 24 Blood Pressure 148/80 H 158/83 H Pulse Oximetry 99 98 97 09/28/17 02:00 09/28/17 03:00 09/28/17 03:01 Temperature Pulse Rate 65 67 65 Respiratory Rate 24 16 13 Blood Pressure 147/82 H 170/88 H Pulse Oximetry 98 98 98 09/28/17 04:00 09/28/17 05:00 09/28/17 05:09 Temperature 97.4 F L Pulse Rate 73 67 69 Respiratory Rate 25 H 15 17 Blood Pressure 160/83 H 180/77 H 155/78 H Pulse Oximetry 95 95 96 09/28/17 06:00 09/28/17 07:00 09/28/17 08:00 Temperature Pulse Rate 72 72 63 Respiratory Rate 19 13 20 Blood Pressure 148/84 H 156/84 H 164/79 H Pulse Oximetry 98 99 99 09/28/17 09:00 09/28/17 10:00 09/28/17 11:00 Temperature Pulse Rate 71 70 66 Respiratory Rate 17 14 24 Blood Pressure 169/79 H 147/82 H 148/78 H Pulse Oximetry 99 98 99 09/28/17 12:00 09/28/17 12:33 09/28/17 13:00 Temperature Pulse Rate 76 80 80 Respiratory Rate 22 25 H 17 Blood Pressure 155/91 H Pulse Oximetry 96 98 100 07/11/18 14:00 09/28/17 15:00 09/28/17 15:24 Temperature Pulse Rate 67 75 76 Respiratory Rate 23 21 19 Blood Pressure 164/85 H Pulse Oximetry 100 95 100 09/28/17 15:33 09/28/17 16:00 Temperature Pulse Rate 73 67 Respiratory Rate 17 17 Blood Pressure 195/93 H 162/85 H Pulse Oximetry 100 Intake & Output 09/27/17 09/28/17 09/28/17 18:59 06:59 18:59 Intake Total 0 / 0 0 / 0 Output Total 1100 / 1100 875 / 875 Balance -1100 / -1100 -875 / -875 Weight 73.9 kg Intake: Oral 0 / 0 0 / 0 Output: Stool 0 / 0 0 / 0 Urine Amount (Catheter) 1100 / 1100 875 / 875 Indwelling Urethral Catheter 1100 / 1100 875 / 875 Other: Date of Last Bowel Movement 09/27/17 09/28/17 09/28/17 # Bowel Movements 1 1 Narrative: GENERAL: NAD, AAOx3 SKIN: Warm and dry. HEAD: Atraumatic. Normocephalic. EYES: Pupils equal and round. No scleral icterus. No injection or drainage. ENT: No nasal bleeding or discharge. Mucous membranes pink and moist. NECK: Trachea midline. No JVD. CARDIOVASCULAR: Regular rate and rhythm. RESPIRATORY: No accessory muscle use. Clear to auscultation. Breath sounds equal bilaterally. GASTROINTESTINAL: Abdomen soft, non-tender, nondistended. Hepatic and splenic margins not palpable. MUSCULOSKELETAL: Extremities without clubbing, cyanosis, or edema. No obvious deformities. NEUROLOGICAL: Awake and alert. No obvious cranial nerve deficits. Weakness overall better PSYCHIATRIC: Appropriate mood and affect; insight and judgment normal. 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
[2017-09-28] MEDS: Carvedilol 6.25 MG Tablet PO SCH (21:00)
[2017-09-29] MEDS: Dextrose 5%/NaCl 0.9% Inj 1,000 ML IV.CONT SCH ×2 (00:33→11:56)
[2017-09-29] MEDS: MethylPREDNISolone Sod Succinate Inj 125 MG/2 ML Vial IV.PUSH SCH ×5 (05:20→17:27)
[2017-09-29] MEDS: Enoxaparin Inj 40 MG/0.4 ML Syringe SQ SCH (08:50)
[2017-09-29] MEDS: Carvedilol 6.25 MG Tablet PO SCH ×2 (08:51→20:21)
[2017-09-29] MEDS: Famotidine PF Inj 20 MG/2 ML Vial IV.SIG SCH (08:52)
--- NOTE | 2017-09-29 15:11 | P.PN ---
Physical Exam Vital signs: Vital Signs 09/28/17 15:24 09/28/17 15:33 09/28/17 16:00 Temperature Pulse Rate 76 73 67 Respiratory Rate 19 17 17 Blood Pressure 164/85 H 195/93 H 162/85 H Pulse Oximetry 100 100 09/28/17 17:00 09/28/17 17:16 09/28/17 18:00 Temperature Pulse Rate 75 67 69 Respiratory Rate 25 H 22 22 Blood Pressure 188/93 H 167/87 H 184/91 H Pulse Oximetry 100 100 100 09/28/17 18:32 09/28/17 19:00 09/28/17 20:00 Temperature 97.6 F Pulse Rate 100 H 75 62 Respiratory Rate 26 H 21 21 Blood Pressure 162/82 H 167/84 H 153/74 H Pulse Oximetry 97 97 96 09/28/17 21:00 09/28/17 22:00 09/28/17 23:00 Temperature Pulse Rate 60 64 67 Respiratory Rate 16 14 15 Blood Pressure 163/80 H 154/75 H 151/75 H Pulse Oximetry 100 100 98 09/29/17 00:00 09/29/17 01:00 09/29/17 02:00 Temperature 97.7 F Pulse Rate 66 64 71 Respiratory Rate 18 18 21 Blood Pressure 151/78 H 168/78 H 161/88 H Pulse Oximetry 100 98 99 09/29/17 03:00 09/29/17 04:00 09/29/17 05:00 Temperature 97.8 F Pulse Rate 71 65 64 Respiratory Rate 12 16 22 Blood Pressure 161/85 H 159/84 H 163/82 H Pulse Oximetry 99 99 98 09/29/17 06:00 09/29/17 07:00 09/29/17 08:00 Temperature 96.7 F L Pulse Rate 68 68 60 Respiratory Rate 15 22 16 Blood Pressure 174/81 H 166/84 H 173/81 H Pulse Oximetry 98 100 100 09/29/17 09:00 09/29/17 10:00 09/29/17 10:42 Temperature Pulse Rate 69 68 Respiratory Rate 19 16 Blood Pressure 177/84 H 141/79 H Pulse Oximetry 100 99 99 09/29/17 11:00 09/29/17 12:00 09/29/17 14:00 Temperature 98 F Pulse Rate 59 L 72 67 Respiratory Rate 17 27 H Blood Pressure 155/79 H 166/84 H Pulse Oximetry 100 100 Intake & Output 09/28/17 09/29/17 09/29/17 18:59 06:59 18:59 Intake Total 120 / 120 636 / 636 1000 / 1000 Output Total 500 / 500 1100 / 1100 Balance -380 / -380 -464 / -464 1000 / 1000 Weight 73.4 kg Intake: IV 1000 / 1000 D5W/Normal Saline Inj 1,000 ML 1000 / 1000 @ 84 mls/hr IV.CONT .[id number] [facility] Rx#:[id number] Oral 0 / 0 0 / 0 Tube Feeding 120 / 120 516 / 516 Water Bolus Amount 120 / 120 Output: Stool 0 / 0 0 / 0 Urine Amount (Catheter) 500 / 500 1100 / 1100 Indwelling Urethral Catheter 500 / 500 1100 / 1100 Other: Other Intake Source Saline Solution Date of Last Bowel Movement 09/28/17 09/29/17 09/29/17 # Bowel Movements 1 1 Narrative: Subjective: Follow-up for suspected Guillain [place] syndrome, NSTEMI. Dysphagia Patient appears in nad. BP elevated, start amlodipine no fever or chills plan for repeat swallow Overall improved. No cp, sob, no headache or change in vision Physical exam: GENERAL: Pleasant male in bed, Alert, Oriented x 3, appears in NAD. CARDIOVASCULAR: Regular rate and rhythm without murmurs, gallops, or rubs. RESPIRATORY: Breath sounds equal bilaterally. No accessory muscle use. GASTROINTESTINAL: NG tube in place. Abdomen soft, non-tender, nondistended. MUSCULOSKELETAL: No cyanosis, or edema. BACK: Nontender without obvious deformity. No CVA tenderness. Assessment and Plan Mr. Goodman is a pleasant 67-year-old male with a history of prostate cancer, rheumatoid arthritis, iron deficiency anemia who presented to the emergency department on 09/21/2017 due to worsening weakness in his lower extremities that started 2 weeks prior to this admission. He was evaluated by neurology who suspected possible Guillain [place] syndrome. Patient also reports chest pain that has been going on for months but worse in the last 2-3 days. He reported having diaphoresis along with chest pain. His troponin was elevated to 1.57. Cardiology was consulted. Probable Guillain [place] syndrome Lung nodule 1.4cm Neurology is following. Patient is already on IVIG treatment and high dose steroid. s/p LP. MRI studies are largely unremarkable for any acute findings. However thoracic MRI shows an incidental finding of 1.4 cm lung nodule. 2-3 days after cardiac cath, we can obtain a CT chest with contrast to evaluate lung nodule. NSTEMI Aspirin 81mg Qday, Lipitor 40mg QHS. Patient underwent cardiac catheterization on 09/26/2017 ==> No remarkable finding , no stent placed. Dysphagia Possibly related to GBS NPO Per Speech. Speech again recommended NPO on 09/26/2017. Will continue on D5NS @ 84cc/hour. If there no improvement, Patient will likely need a PEG tube for nutrition. We will Place Dobbhoff for now and monitor for improvement. Patient may need a PEG tube feedings thereafter. Consult dietitian. History of iron deficiency anemia -currently stable. Hemoglobin 10.0, MCV 87.1. Continue tube feedings per functional tester recommendations. Repeat swallow barium /st tomorrow 09/30 Full code. Lovenox 40mg Qday for DVT prophylaxis. Heparin drip discontinued. Discussed with the patient, nurse. 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
[2017-09-29] MEDS ORDERED: amLODIPine 5 MG Tablet PO ONE (18:15)
[2017-09-29] MEDS: Potassium Chlor 20 mEq Premix 20 MEQ/100 ML PIGGYBACK IV.SIG PRN ×2 (19:56→22:26)
--- NOTE | 2017-09-29 20:56 | P.PNCA ---
Subjective Interval history: Patient was seen earlier today, late entry note No events overnight Dobbhoff in place Physical Exam Vital signs: Vital Signs 09/28/17 21:00 09/28/17 22:00 09/28/17 23:00 Temperature Pulse Rate 60 64 67 Respiratory Rate 16 14 15 Blood Pressure 163/80 H 154/75 H 151/75 H Pulse Oximetry 100 100 98 09/29/17 00:00 09/29/17 01:00 09/29/17 02:00 Temperature 97.7 F Pulse Rate 66 64 71 Respiratory Rate 18 18 21 Blood Pressure 151/78 H 168/78 H 161/88 H Pulse Oximetry 100 98 99 09/29/17 03:00 09/29/17 04:00 09/29/17 05:00 Temperature 97.8 F Pulse Rate 71 65 64 Respiratory Rate 12 16 22 Blood Pressure 161/85 H 159/84 H 163/82 H Pulse Oximetry 99 99 98 09/29/17 06:00 09/29/17 07:00 09/29/17 08:00 Temperature 96.7 F L Pulse Rate 68 68 60 Respiratory Rate 15 22 16 Blood Pressure 174/81 H 166/84 H 173/81 H Pulse Oximetry 98 100 100 09/29/17 09:00 09/29/17 10:00 09/29/17 10:42 Temperature Pulse Rate 69 68 Respiratory Rate 19 16 Blood Pressure 177/84 H 141/79 H Pulse Oximetry 100 99 99 09/29/17 11:00 09/29/17 12:00 09/29/17 13:00 Temperature 98 F Pulse Rate 59 L 72 64 Respiratory Rate 17 27 H 20 Blood Pressure 155/79 H 166/84 H 170/85 H Pulse Oximetry 100 100 99 09/29/17 14:00 09/29/17 15:00 09/29/17 16:00 Temperature 98.3 F Pulse Rate 67 66 65 Respiratory Rate 20 18 17 Blood Pressure 169/88 H 166/80 H 187/99 H Pulse Oximetry 98 99 100 09/29/17 17:00 09/29/17 18:00 09/29/17 20:02 Temperature Pulse Rate 63 65 Respiratory Rate 14 15 Blood Pressure 156/77 H 159/84 H Pulse Oximetry 99 99 97 Intake & Output 09/29/17 09/29/17 09/30/17 06:59 18:59 06:59 Intake Total 636 / 636 1440 / 1440 Output Total 1100 / 1100 850 / 850 Balance -464 / -464 590 / 590 Weight 73.4 kg Intake: IV 1000 / 1000 D5W/Normal Saline Inj 1,000 ML 1000 / 1000 @ 84 mls/hr IV.CONT .[id number] [facility] Rx#:[id number] Oral 0 / 0 0 / 0 Tube Feeding 516 / 516 320 / 320 Water Bolus Amount 120 / 120 120 / 120 Output: Urine 850 / 850 Stool 0 / 0 Urine Amount (Catheter) 1100 / 1100 Indwelling Urethral Catheter 1100 / 1100 Other: Other Intake Source Saline Solution Date of Last Bowel Movement 09/29/17 09/29/17 # Bowel Movements 1 Narrative: GENERAL: NAD, AAOx3 SKIN: Warm and dry. HEAD: Atraumatic. Normocephalic. EYES: Pupils equal and round. No scleral icterus. No injection or drainage. ENT: No nasal bleeding or discharge. Mucous membranes pink and moist. NECK: Trachea midline. No JVD. CARDIOVASCULAR: Regular rate and rhythm. RESPIRATORY: No accessory muscle use. Clear to auscultation. Breath sounds equal bilaterally. GASTROINTESTINAL: Abdomen soft, non-tender, nondistended. Hepatic and splenic margins not palpable. MUSCULOSKELETAL: Extremities without clubbing, cyanosis, or edema. No obvious deformities. NEUROLOGICAL: Awake and alert. No obvious cranial nerve deficits. Motor grossly within normal limits. 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
[2017-09-29] MEDS: Lisinopril 5 MG Tablet PO SCH (22:27)
[2017-09-30] MEDS: Potassium Chlor 20 mEq Premix 20 MEQ/100 ML PIGGYBACK IV.SIG PRN ×6 (00:17→19:27)
[2017-09-30] MEDS: MethylPREDNISolone Sod Succinate Inj 125 MG/2 ML Vial IV.PUSH SCH ×4 (00:17→19:26)
[2017-09-30] MEDS: Dextrose 5%/NaCl 0.9% Inj 1,000 ML IV.CONT SCH (00:18)
--- NOTE | 2017-09-30 08:35 | P.PN ---
Subjective Interval history: Follow-up for suspected Guillain [place] syndrome, NSTEMI, dysphagia. Patient is currently doing well. Has Dobbhoff tube in place, tolerating tube feed well. Overall, he feels he is improving well. No fever, chills. Physical Exam Vital signs: Vital Signs 09/29/17 09:00 09/29/17 10:00 09/29/17 10:42 Temperature Pulse Rate 69 68 Respiratory Rate 19 16 Blood Pressure 177/84 H 141/79 H Pulse Oximetry 100 99 99 09/29/17 11:00 09/29/17 12:00 09/29/17 13:00 Temperature 98 F Pulse Rate 59 L 72 64 Respiratory Rate 17 27 H 20 Blood Pressure 155/79 H 166/84 H 170/85 H Pulse Oximetry 100 100 99 09/29/17 14:00 09/29/17 15:00 09/29/17 16:00 Temperature 98.3 F Pulse Rate 67 66 65 Respiratory Rate 20 18 17 Blood Pressure 169/88 H 166/80 H 187/99 H Pulse Oximetry 98 99 100 09/29/17 17:00 09/29/17 18:00 09/29/17 20:00 Temperature 98.6 F Pulse Rate 63 65 66 Respiratory Rate 14 15 17 Blood Pressure 156/77 H 159/84 H 165/90 H Pulse Oximetry 99 99 100 09/29/17 20:02 09/29/17 22:00 09/30/17 00:00 Temperature 98.7 F Pulse Rate 61 65 Respiratory Rate 17 Blood Pressure 157/74 H Pulse Oximetry 97 100 09/30/17 02:00 09/30/17 04:00 09/30/17 06:00 Temperature 98.6 F Pulse Rate 71 74 79 Respiratory Rate 17 Blood Pressure 158/74 H Pulse Oximetry 100 Intake & Output 09/29/17 09/30/17 09/30/17 18:59 06:59 18:59 Intake Total 1440 / 1440 2120 / 2120 Output Total 850 / 850 800 / 800 Balance 590 / 590 1320 / 1320 Weight 77.5 kg Intake: IV 1000 / 1000 1400 / 1400 D5W/Normal Saline Inj 1,000 ML 1000 / 1000 1000 / 1000 @ 84 mls/hr IV.CONT .[id number] [facility] Rx#:[id number] KCl 20 mEq Premix Inj 20 meq In 400 / 400 100 ml @ 50 mls/hr IV.SIG Q2H PRN Rx#:[id number] Oral 0 / 0 0 / 0 Tube Feeding 320 / 320 600 / 600 Water Bolus Amount 120 / 120 120 / 120 Output: Urine 850 / 850 Urine Amount (Catheter) 800 / 800 Indwelling Urethral Catheter 800 / 800 Other: Date of Last Bowel Movement 09/29/17 09/29/17 # Bowel Movements 1 Narrative: GENERAL: Alert, Oriented x 3, NAD. Dobbhoff in place. SKIN: Warm and dry. HEAD: Normocephalic. EYES: No scleral icterus. No injection or drainage. NECK: Supple, trachea midline. No JVD or lymphadenopathy. CARDIOVASCULAR: Regular rate and rhythm without murmurs, gallops, or rubs. RESPIRATORY: Breath sounds equal bilaterally. No accessory muscle use. GASTROINTESTINAL: Abdomen soft, non-tender, nondistended. MUSCULOSKELETAL: No cyanosis, or edema. BACK: Nontender without obvious deformity. No CVA tenderness. 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 Goodman is a pleasant 67-year-old male with a history of prostate cancer, rheumatoid arthritis, iron deficiency anemia who presented to the emergency department on 09/21/2017 due to worsening weakness in his lower extremities that started 2 weeks prior to this admission. He was evaluated by neurology who suspected possible Guillain [place] syndrome. Patient also reports chest pain that has been going on for months but worse in the last 2-3 days. He reported having diaphoresis along with chest pain. His troponin was elevated to 1.57. Cardiology was consulted. 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 Patient is already on IVIG treatment and high dose steroid. -s/p LP. -MRI studies are largely unremarkable for any acute findings. However thoracic MRI shows an incidental finding of 1.4 cm lung nodule. -Discussed with Patient regarding CT chest to further evaluate lung nodule. He will do CT chest in the outpatient setting. NSTEMI Cardiomyopathy -EF 35%. -Aspirin 81mg Qday, Lipitor 40mg QHS and Carvedilol 6.25mg BID, Lisinopril 5mg Qday. -Patient underwent cardiac catheterization on 09/26/2017 ==> No remarkable finding, no stent placed. Dysphagia - Possibly related to GBS - NPO Per Speech. Speech to see patient again 09/30/2017. - Continue Dobbhoff for now. History of iron deficiency anemia -currently stable. Hemoglobin 9.5, MCV 87.2. Possible transfer to med-surg floor after IVIG treatment is completed - possibly on 10/01/2017. Full code. Lovenox 40mg Qday.
[2017-09-30] MEDS ORDERED: amLODIPine 5 MG Tablet PO SCH (09:00)
[2017-09-30] MEDS: Enoxaparin Inj 40 MG/0.4 ML Syringe SQ SCH (09:26)
[2017-09-30] MEDS: Famotidine PF Inj 20 MG/2 ML Vial IV.SIG SCH (09:26)
[2017-09-30] MEDS: Carvedilol 6.25 MG Tablet PO SCH ×2 (09:26→20:12)
[2017-09-30] MEDS: Lisinopril 5 MG Tablet PO SCH (09:26)
[2017-09-30 10:28] LABS: Alanine Aminotransferase 54 U/L (12-78); Albumin 2.6 g/dL (3.4-5.0); Anion Gap 5 meq/L (5-15); Aspartate Aminotransferase 20 U/L (15-37); Blood Urea Nitrogen 25 mg/dL (7-18); Calcium 8.5 mg/dL (8.5-10.1); Carbon Dioxide 31.9 meq/L (21.0-32.0); Chloride 108 meq/L (98-107); Glomerular Filtration Rate Greater Than 89 mL/min (>89); Glucose,Random 191 mg/dL (74-106); Potassium 3.1 meq/L (3.5-5.1); Sodium 145 meq/L (136-145)
[2017-09-30 10:30] LABS: Alkaline Phosphatase 55 U/L (45-117); Total Protein 7.2 g/dL (6.4-8.2)
--- NOTE | 2017-09-30 11:34 | FL ---
EXAM DATE: 09/30/2017 11:10 AM EDT AGE/SEX: 67 years / Male INDICATIONS: Dysphagia. CLINICAL DATA: This is the patient's subsequent encounter. Patient reports that signs and symptoms h ave been present for 1 week and indicates a pain score of 0/10. MEDICAL/SURGICAL HISTORY: Gastroesophageal reflux disease. Tonsillectomy. Endoscopy a year ago for difficulty swallowing. COMPARISON: No prior exams available for comparison. FLUORO TIME: 3.8 IMAGE COUNT: 1 FINDINGS: A modified barium swallow was performed with speech pathology. Patient was given a variety of liquids to swallow. Moderate aspiration For a full detailed report, see report by the speech pathologist. CONCLUSION: Moderate aspiration. Please see consultation for speech pathology Electronically signed by: Tyler Staton MD 09/30/2017 11:33 AM EDT
--- NOTE | 2017-09-30 18:04 | P.PN ---
Subjective Interval history: did not pass mbs pending rehab. no new weakness better in legs and arms. awake alert fluent dht placed motor intact ue /le absent dtrs legs Physical Exam Vital signs: Vital Signs 09/29/17 19:00 09/29/17 20:00 09/29/17 20:02 Temperature 98.6 F Pulse Rate 67 64 Respiratory Rate 18 13 Blood Pressure 176/85 H 153/79 H Pulse Oximetry 98 98 97 09/29/17 21:00 09/29/17 22:00 09/29/17 22:01 Temperature Pulse Rate 67 61 65 Respiratory Rate 24 21 20 Blood Pressure 165/90 H 144/65 H Pulse Oximetry 99 97 99 09/29/17 23:00 09/30/17 00:00 09/30/17 01:00 Temperature 98.7 F Pulse Rate 74 65 69 Respiratory Rate 17 15 19 Blood Pressure 156/77 H 157/74 H 158/74 H Pulse Oximetry 97 97 93 L 09/30/17 02:00 09/30/17 03:00 09/30/17 04:00 Temperature 98.6 F Pulse Rate 66 71 77 Respiratory Rate 15 14 15 Blood Pressure 159/77 H 134/71 158/74 H Pulse Oximetry 98 98 95 09/30/17 05:00 09/30/17 06:00 09/30/17 07:00 Temperature Pulse Rate 71 74 71 Respiratory Rate 15 14 17 Blood Pressure 158/71 H 138/75 151/80 H Pulse Oximetry 99 98 96 09/30/17 08:00 09/30/17 09:00 09/30/17 10:00 Temperature Pulse Rate 74 80 70 Respiratory Rate 13 18 22 Blood Pressure 174/79 H Pulse Oximetry 98 98 09/30/17 11:28 09/30/17 11:29 09/30/17 12:00 Temperature Pulse Rate 67 68 64 Respiratory Rate 15 13 15 Blood Pressure 155/87 H Pulse Oximetry 98 98 97 09/30/17 13:00 09/30/17 14:00 09/30/17 15:00 Temperature Pulse Rate 71 87 71 Respiratory Rate 26 H 16 29 H Blood Pressure Pulse Oximetry 98 99 96 09/30/17 16:00 09/30/17 17:00 09/30/17 17:18 Temperature Pulse Rate 64 67 70 Respiratory Rate 16 19 23 Blood Pressure 137/78 Pulse Oximetry 99 98 99 Intake & Output 09/29/17 09/30/17 09/30/17 18:59 06:59 18:59 Intake Total 1440 / 1440 2120 / 2120 200 / 200 Output Total 850 / 850 800 / 800 Balance 590 / 590 1320 / 1320 200 / 200 Weight 77.5 kg Intake: IV 1000 / 1000 1400 / 1400 200 / 200 D5W/Normal Saline Inj 1,000 ML 1000 / 1000 1000 / 1000 @ 84 mls/hr IV.CONT .[id number] [facility] Rx#:[id number] KCl 20 mEq Premix Inj 20 meq In 400 / 400 200 / 200 100 ml @ 50 mls/hr IV.SIG Q2H PRN Rx#:[id number] Oral 0 / 0 0 / 0 Tube Feeding 320 / 320 600 / 600 Water Bolus Amount 120 / 120 120 / 120 Output: Urine 850 / 850 Urine Amount (Catheter) 800 / 800 Indwelling Urethral Catheter 800 / 800 Other: Date of Last Bowel Movement 09/29/17 09/29/17 09/29/17 # Bowel Movements 1 - Urinary Catheter Management Indwelling Urethral Catheter Cath placed during this visit: yes, but has since been removed by the nurse Reason for continuing: Acute urinary retention Insertion date: 09/25/17 Insertion time: 06:57 Removal date: 09/25/17 Removal time: 09:00 Results - Labs CBC & Chem 7: 09/28/17 06:54 09/30/17 08:55 Laboratory Results - last 24 hr 09/22/17 09/30/17 13:53 08:55 Sodium 145 Potassium 3.1 L Chloride 108 H Carbon Dioxide 31.9 Anion Gap 5 BUN 25 H Creatinine 0.72 Estimated GFR Greater than 89 Random Glucose 191 H Calcium 8.5 Total Bilirubin 0.6 AST 20 ALT 54 Alkaline Phosphatase 55 Total Protein 7.2 Albumin 2.6 L CSF VDRL Non-reactive CSF Lyme IgG Antibody CSF Lyme IgM Antibody - Imaging Impressions Videofluoroscopic Swallow 09/30/17 09:00 CONCLUSION: Moderate aspiration. 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
--- NOTE | 2017-09-30 18:27 | P.PNCA ---
Subjective Interval history: Still not passing his swallow study Blood pressure better Physical Exam Vital signs: Vital Signs 09/29/17 19:00 09/29/17 20:00 09/29/17 20:02 Temperature 98.6 F Pulse Rate 67 64 Respiratory Rate 18 13 Blood Pressure 176/85 H 153/79 H Pulse Oximetry 98 98 97 09/29/17 21:00 09/29/17 22:00 09/29/17 22:01 Temperature Pulse Rate 67 61 65 Respiratory Rate 24 21 20 Blood Pressure 165/90 H 144/65 H Pulse Oximetry 99 97 99 09/29/17 23:00 09/30/17 00:00 09/30/17 01:00 Temperature 98.7 F Pulse Rate 74 65 69 Respiratory Rate 17 15 19 Blood Pressure 156/77 H 157/74 H 158/74 H Pulse Oximetry 97 97 93 L 09/30/17 02:00 09/30/17 03:00 09/30/17 04:00 Temperature 98.6 F Pulse Rate 66 71 77 Respiratory Rate 15 14 15 Blood Pressure 159/77 H 134/71 158/74 H Pulse Oximetry 98 98 95 09/30/17 05:00 09/30/17 06:00 09/30/17 07:00 Temperature Pulse Rate 71 74 71 Respiratory Rate 15 14 17 Blood Pressure 158/71 H 138/75 151/80 H Pulse Oximetry 99 98 96 09/30/17 08:00 09/30/17 09:00 09/30/17 10:00 Temperature Pulse Rate 74 80 70 Respiratory Rate 13 18 22 Blood Pressure 174/79 H Pulse Oximetry 98 98 09/30/17 11:28 09/30/17 11:29 09/30/17 12:00 Temperature Pulse Rate 67 68 64 Respiratory Rate 15 13 15 Blood Pressure 155/87 H Pulse Oximetry 98 98 97 09/30/17 13:00 09/30/17 14:00 09/30/17 15:00 Temperature Pulse Rate 71 87 71 Respiratory Rate 26 H 16 29 H Blood Pressure Pulse Oximetry 98 99 96 09/30/17 16:00 09/30/17 17:00 09/30/17 17:18 Temperature Pulse Rate 64 67 70 Respiratory Rate 16 19 23 Blood Pressure 137/78 Pulse Oximetry 99 98 99 Intake & Output 09/29/17 09/30/17 09/30/17 18:59 06:59 18:59 Intake Total 1440 / 1440 2120 / 2120 200 / 200 Output Total 850 / 850 800 / 800 Balance 590 / 590 1320 / 1320 200 / 200 Weight 77.5 kg Intake: IV 1000 / 1000 1400 / 1400 200 / 200 D5W/Normal Saline Inj 1,000 ML 1000 / 1000 1000 / 1000 @ 84 mls/hr IV.CONT .[id number] [facility] Rx#:[id number] KCl 20 mEq Premix Inj 20 meq In 400 / 400 200 / 200 100 ml @ 50 mls/hr IV.SIG Q2H PRN Rx#:[id number] Oral 0 / 0 0 / 0 Tube Feeding 320 / 320 600 / 600 Water Bolus Amount 120 / 120 120 / 120 Output: Urine 850 / 850 Urine Amount (Catheter) 800 / 800 Indwelling Urethral Catheter 800 / 800 Other: Date of Last Bowel Movement 09/29/17 09/29/17 09/29/17 # Bowel Movements 1 Narrative: GENERAL: Alert, Oriented x 3, NAD. Dobbhoff in place. SKIN: Warm and dry. HEAD: Normocephalic. EYES: No scleral icterus. No injection or drainage. NECK: Supple, trachea midline. No JVD or lymphadenopathy. CARDIOVASCULAR: Regular rate and rhythm without murmurs, gallops, or rubs. RESPIRATORY: Breath sounds equal bilaterally. No accessory muscle use. GASTROINTESTINAL: Abdomen soft, non-tender, nondistended. MUSCULOSKELETAL: No cyanosis, or edema. BACK: Nontender without obvious deformity. No CVA tenderness. 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 - Guillain-[place] syndrome Status: Acute (4) NSTEMI (non-ST elevated myocardial infarction) Code(s): I21.4 - Non-ST elevation (NSTEMI) myocardial infarction Status: Acute - Plan 1) Chest pain/NSTEMI Cardiac cath showing mild CAD Con't medical management Heparin drip stopped 2) Progressive weakness Concern for GBS Further work up per neurology Weakness overall better 3) Iron deficiency anemia 4) Cardiomyopathy EF 35%, posterior MVP with mild MR Agree with Coreg 6.25mg BID No Norvasc, would try to decrease BP with Coreg/PRITESH-I combination due to cardiomyopathy 5) Will see PRN, call with questions If HTN, would increase Coreg/PRITESH-I Can follow with me in the office on discharge
[2017-10-01] MEDS: MethylPREDNISolone Sod Succinate Inj 125 MG/2 ML Vial IV.PUSH SCH ×4 (00:48→23:46)
[2017-10-01] MEDS: Dextrose 5%/NaCl 0.9% Inj 1,000 ML IV.CONT SCH ×2 (06:27→19:00)
[2017-10-01] MEDS: Famotidine PF Inj 20 MG/2 ML Vial IV.SIG SCH (09:52)
[2017-10-01] MEDS: Enoxaparin Inj 40 MG/0.4 ML Syringe SQ SCH (09:52)
[2017-10-01] MEDS: Carvedilol 6.25 MG Tablet PO SCH ×2 (09:53→21:32)
[2017-10-01] MEDS: Lisinopril 5 MG Tablet PO SCH (09:53)
--- NOTE | 2017-10-01 10:03 | P.PN ---
Subjective Interval history: Patient reports having slightly increased strength since admission. Says it is hard for him to tell if his left or right leg is weaker than the other. Physical Exam Vital signs: Vital Signs 09/30/17 11:28 09/30/17 11:29 09/30/17 12:00 Temperature Pulse Rate 67 68 64 Respiratory Rate 15 13 15 Blood Pressure 155/87 H Pulse Oximetry 98 98 97 09/30/17 13:00 09/30/17 14:00 09/30/17 15:00 Temperature Pulse Rate 71 87 71 Respiratory Rate 26 H 16 29 H Blood Pressure Pulse Oximetry 98 99 96 09/30/17 16:00 09/30/17 17:00 09/30/17 17:18 Temperature Pulse Rate 64 67 70 Respiratory Rate 16 19 23 Blood Pressure 137/78 Pulse Oximetry 99 98 99 09/30/17 18:00 09/30/17 19:00 09/30/17 20:00 Temperature 98.5 F Pulse Rate 72 70 66 Respiratory Rate 16 19 23 Blood Pressure 150/82 H 148/79 H 143/76 H Pulse Oximetry 97 98 97 09/30/17 20:54 09/30/17 21:00 09/30/17 22:00 Temperature Pulse Rate 69 64 Respiratory Rate 17 16 Blood Pressure 147/74 H 152/77 H Pulse Oximetry 98 97 98 09/30/17 23:00 10/01/17 00:00 10/01/17 01:00 Temperature Pulse Rate 64 65 66 Respiratory Rate 16 15 15 Blood Pressure 148/79 H 136/82 163/77 H Pulse Oximetry 97 97 97 10/01/17 02:00 10/01/17 03:00 10/01/17 04:00 Temperature 97.9 F Pulse Rate 67 64 64 Respiratory Rate 17 16 14 Blood Pressure 154/79 H 145/72 H 157/77 H Pulse Oximetry 96 98 97 10/01/17 05:00 10/01/17 06:00 10/01/17 06:06 Temperature Pulse Rate 72 70 67 Respiratory Rate 18 17 15 Blood Pressure 173/82 H 183/93 H Pulse Oximetry 97 98 96 Intake & Output 09/30/17 10/01/17 10/01/17 18:59 06:59 18:59 Intake Total 1738 / 1738 781 / 781 Output Total 950 / 950 650 / 650 Balance 788 / 788 131 / 131 Weight 75.9 kg Intake: IV 1200 / 1200 200 / 200 D5W/Normal Saline Inj 1,000 ML 1000 / 1000 @ 84 mls/hr IV.CONT .[id number] [facility] Rx#:[id number] KCl 20 mEq Premix Inj 20 meq In 200 / 200 200 / 200 100 ml @ 50 mls/hr IV.SIG Q2H PRN Rx#:[id number] Tube Feeding 538 / 538 581 / 581 Output: Urine Amount (Catheter) 950 / 950 650 / 650 Indwelling Urethral Catheter 950 / 950 650 / 650 Other: Date of Last Bowel Movement 09/29/17 09/30/17 # Bowel Movements 1 0 Narrative: 5/5 gross proximal upper extremity strength bilaterally, 4/5 proximal lower extremity strength grossly bilaterally Unlabored breathing, no slurred speech, clear lungs bilaterally - Urinary Catheter Management Indwelling Urethral Catheter Cath placed during this visit: yes, but has since been removed by the nurse Reason for continuing: Acute urinary retention Insertion date: 09/25/17 Insertion time: 06:57 Removal date: 09/25/17 Removal time: 09:00 Results - Labs CBC & Chem 7: 09/28/17 06:54 10/01/17 00:49 Laboratory Results - last 24 hr 09/30/17 10/01/17 08:55 00:49 Sodium 145 Potassium 3.1 L 3.5 Chloride 108 H Carbon Dioxide 31.9 Anion Gap 5 BUN 25 H Creatinine 0.72 Estimated GFR Greater than 89 Random Glucose 191 H Calcium 8.5 Total Bilirubin 0.6 AST 20 ALT 54 Alkaline Phosphatase 55 Total Protein 7.2 Albumin 2.6 L - Imaging Impressions Videofluoroscopic Swallow 09/30/17 09:00 CONCLUSION: Moderate aspiration. 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 Goodman is a pleasant 67-year-old male with a history of prostate cancer, rheumatoid arthritis, iron deficiency anemia who presented to the emergency department on 09/21/2017 due to worsening weakness in his lower extremities that started 2 weeks prior to this admission. He was evaluated by neurology who suspected possible Guillain Kennedy syndrome. Patient also reports chest pain that has been going on for months but worse in the last 2-3 days. He reported having diaphoresis along with chest pain. His troponin was elevated to 1.57. Cardiology was consulted. 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 Has completed IVIG treatment per neurology. Now on steroid taper -s/p LP. -MRI studies are largely unremarkable for any acute findings. However thoracic MRI shows an incidental finding of 1.4 cm lung nodule. -Discussed with Patient regarding CT chest to further evaluate lung nodule. He will do CT chest in the outpatient setting. NSTEMI Cardiomyopathy -EF 35%. -Aspirin 81mg Qday, Lipitor 40mg QHS and Carvedilol 6.25mg BID, Lisinopril 5mg Qday. -Patient underwent cardiac catheterization on 09/26/2017 ==> No remarkable finding, no stent placed. Dysphagia - Possibly related to GBS - NPO Per Speech. -Consulting GI for PEG tube placement - Continue Dobbhoff for now. History of iron deficiency anemia -currently stable. Hemoglobin 9.5, MCV 87.2. Full code. Lovenox 40mg Qday. Will need rehab. Jama?
--- NOTE | 2017-10-01 14:07 | MB ---
cc: Chance Cabral MD DATE: 10/01/2017 ENDOSCOPIST: Chance Cabral MD PRIMARY PLUGGING MACHINE OPERATOR: Roman Ashley MD REFERRING PHYSICIAN: Celestino Delaney MD SERVICE: Gastroenterology. REASON FOR CONSULTATION: Feeding tube placement and dysphagia. HISTORY OF PRESENT ILLNESS: This is a very pleasant 67-year-old gentleman who has been in reasonably good health until about 09/20/2017 but started to notice his lower extremities getting weaker, initially started using a cane due to the unsteadiness, but subsequently within the next day became more weak and fell to the ground, was unable to get up off the floor and therefore an ambulance was called and he came into the hospital for further workup and evaluation. He also had intermittent chest pain and has been evaluated per Cardiology. Due to generalized weakness, significant workup has been done and working diagnosis has been Guillain-[place] syndrome. Along with his symptoms, he has been having issues with dysphagia and difficulty swallowing. He underwent a modified barium swallow evaluation as well as a detailed speech evaluation and a video fluoroscopic swallow evaluation, and he was found to have moderate to severe aspiration on every consistency of meals. Therefore, he was placed n.p.o. and a Dobbhoff tube was placed for tube feeds. He is tolerating his tube feeds very well. He has received appropriate therapy for Guillain-Buffalo syndrome, including IVIG and the workup and treatment is under progress. There is talk of patient going for further rehabilitation. Due to this, GI was consulted to help consider placing a feeding tube to [employer] his nutrition. PAST MEDICAL HISTORY: Prostate cancer, rheumatoid arthritis, history of iron deficiency anemia, GERD, cataracts. PAST SURGICAL HISTORY: Cataract removal, tonsillectomy, melanoma removal in 2005, varicocele removal, bilateral Dupuytren contracture treatment and a TURP. FAMILY HISTORY: Questionable history of prostate cancer or colon cancer in the patient's father. SOCIAL HISTORY: History of drinking 2 alcoholic beverages a day. Denies any illicit drug use. ALLERGIES: CIPRO. HOME MEDICATIONS: Included: 1. Aspirin. 2. Baclofen. 3. Fluticasone. 4. Iron. 5. Leflunomide. 6. Omeprazole. 7. Sulfasalazine. 8. Tramadol. 9. Ambien. REVIEW OF SYSTEMS: A 12-point review of system was obtained by me and showed to be negative or noncontributory except for the above-mentioned in the HPI. PHYSICAL EXAMINATION: VITAL SIGNS: Temperature 98.0, heart rate 68, respirations 17, blood pressure 179/84, O2 saturation 98%. GENERAL: Alert, oriented. Weakness lower extremities. HEENT: Normocephalic. Oral mucosa is moist and pink. Pupils are equal and round, reactive to light. NECK: Supple. No carotid bruits noted. No JVD appreciated. HEART: Regular rate and rhythm. No murmurs. LUNGS: CTAP. No wheeze. ABDOMEN: Soft, nontender. Bowel sounds present in all 4 quadrants. No hepatosplenomegaly appreciated. No abdominal scars noted. GENITOURINARY: No CVA angle tenderness noted. LYMPHATICS: No lymphadenopathy noted. NEUROLOGIC: Alert, oriented. No focal deficits. Weakness in lower extremities. A detailed neuro exam is not completed. PSYCHIATRIC: Cooperative, appropriate mood and affect. LABORATORY DATA: WBC 2.8, hemoglobin 9.5, platelet count 370. PT 52. Sodium 145, potassium 3.5, chloride 108, bicarbonate 31, BUN 25, creatinine 0.72. IMPRESSION: 1. Dysphagia may be secondary to neurologic disorder, possibly Guillain-Buffalo syndrome. Currently, tolerating tube feeds via Dobbhoff. 2. Ascending paralysis. Working diagnosis per Neurology, Guillain-Buffalo syndrome. 3. Chest pain. Workup completed per cardiology. RECOMMENDATION IN REGARD TO TUBE FEEDS: 1. Continue tube feeds over the weekend with current rate. 2. Stop tube feeds and n.p.o. after midnight on Tuesday. 3. We will plan for an upper endoscopy with a PEG tube placement on Tuesday. Timing dependent on the OR schedule. Risks, benefits and alternatives to treatment were all explained to the patient in detail including, but not limited to risk of bleeding, infection, perforation and placement of feeding tube were all explained and he is agreeable and appreciates this consultation. Thank you for allowing [facility] to participate in the care of this patient. We will follow along with you and make recommendation as per the patient's clinical course. Please do not hesitate to contact me for any further questions. MD ALTHEA Leung/PORTIA , 12:33 PM , 02:05 PM
[2017-10-02] MEDS: MethylPREDNISolone Sod Succinate Inj 125 MG/2 ML Vial IV.PUSH SCH ×2 (05:55→12:24)
[2017-10-02] MEDS: Dextrose 5%/NaCl 0.9% Inj 1,000 ML IV.CONT SCH (06:50)
[2017-10-02] MEDS: Carvedilol 6.25 MG Tablet PO SCH ×2 (08:21→21:27)
[2017-10-02] MEDS: Enoxaparin Inj 40 MG/0.4 ML Syringe SQ SCH (08:21)
[2017-10-02] MEDS: Lisinopril 5 MG Tablet PO SCH (08:22)
[2017-10-02] MEDS: Famotidine PF Inj 20 MG/2 ML Vial IV.SIG SCH (08:22)
--- NOTE | 2017-10-02 10:12 | P.PN ---
Subjective Interval history: RN denies any deterioration since last night. Did have a partial run of either aberrancy vs vtach. No reports of any CP. Pt himself denies any setbacks otherwise. Physical Exam Vital signs: Vital Signs 10/01/17 10:34 10/01/17 12:00 10/01/17 19:20 Temperature 98 F Pulse Rate 68 Respiratory Rate 17 Blood Pressure 179/84 H Pulse Oximetry 98 98 97 10/01/17 20:00 10/01/17 22:00 10/02/17 00:00 Temperature 98.8 F 98.7 F Pulse Rate 68 69 69 Respiratory Rate 13 16 Blood Pressure 149/77 H 149/72 H Pulse Oximetry 96 96 10/02/17 02:00 10/02/17 04:00 10/02/17 06:00 Temperature 98.7 F Pulse Rate 66 67 67 Respiratory Rate 16 Blood Pressure 149/74 H Pulse Oximetry 100 Intake & Output 10/01/17 10/02/17 10/02/17 18:59 06:59 18:59 Intake Total 1000 / 1000 1575 / 1575 Output Total 1300 / 1300 Balance 1000 / 1000 275 / 275 Weight 75.9 kg Intake: IV 1000 / 1000 1000 / 1000 D5W/Normal Saline Inj 1,000 ML 1000 / 1000 1000 / 1000 @ 84 mls/hr IV.CONT .[id number] [facility] Rx#:[id number] Oral 0 / 0 Tube Feeding 575 / 575 Output: Urine Amount (Catheter) 1300 / 1300 Indwelling Urethral Catheter 1300 / 1300 Other: Date of Last Bowel Movement 09/30/17 09/30/17 # Bowel Movements 1 # Incontinent Bowel Movements 1 Narrative: Heart sounds regular rate rhythm, No JVD no lower extremity edema Clear lungs bilaterally, unlabored breathing 5 out of 5 proximal lower extremity strength bilaterally, no slurred speech, no facial droop - Urinary Catheter Management Indwelling Urethral Catheter Cath placed during this visit: yes, but has since been removed by the nurse Reason for continuing: Acute urinary retention Insertion date: 09/25/17 Insertion time: 06:57 Removal date: 09/25/17 Removal time: 09:00 Results - Labs CBC & Chem 7: 09/28/17 06:54 10/01/17 00:49 Assessment and Plan - Assessment (1) 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 Goodman is a pleasant 67-year-old male with a history of prostate cancer, rheumatoid arthritis, iron deficiency anemia who presented to the emergency department on 09/21/2017 due to worsening weakness in his lower extremities that started 2 weeks prior to this admission. He was evaluated by neurology who suspected possible Guillain [place] syndrome. Patient also reports chest pain that has been going on for months but worse in the last 2-3 days. He reported having diaphoresis along with chest pain. His troponin was elevated to 1.57. Cardiology was consulted. NSTEMI Cardiomyopathy -EF 35%. -Aspirin 81mg Qday, Lipitor 40mg QHS and Carvedilol 6.25mg BID, Lisinopril 5mg Qday. -Patient underwent cardiac catheterization on 09/26/2017 ==> mild CAD, no stent placed. -My independent review of the telemetry strip shows possible Vtach vs aberrance. Given low EF and recent NSTEMI case discussed with Dr. Das from electrophysiology who will see the patient today. Will await for cardiac input and clearance for PEG placement. Dysphagia - Possibly related to GBS - NPO Per Speech. Requesting speech to reevaluate the patient today - Consulting GI for PEG tube placement - awaiting cardiac input as well as mentioned above - Continue Dobbhoff for now. Probable Guillain [place] syndrome -Neurology is following. Has completed IVIG treatment per neurology. Now on steroid taper, can transition to oral steroids once definitive p.o. plan is in place either through PEG tube versus traditional oral intake if cleared by speech -s/p LP. -MRI studies are largely unremarkable for any acute findings. Lung nodule 1.4cm -thoracic MRI shows an incidental finding of 1.4 cm lung nodule. -Discussed with Patient regarding CT chest to further evaluate lung nodule. He will do CT chest in the outpatient setting. History of iron deficiency anemia -currently stable. Hemoglobin 9.5, MCV 87.2. Rheumatoid arthritis - resume arava once po plan is stable. Full code. Lovenox 40mg Qday. Will need rehab. Jama?
--- NOTE | 2017-10-02 21:56 | MB ---
cc: Duane Das MD,Celestino Quiñones, DATE: 10/02/2017 REASON FOR CONSULTATION: Ventricular tachycardia. HISTORY OF PRESENT ILLNESS: Mr. Goodman is a 67-year-old gentleman with history of iron deficiency anemia, rheumatoid arthritis, Guillain-[place], was admitted due to weakness. During hospitalization was found with elevated troponin. Left heart catheterization was performed by Dr. Quiñones, that indicated minimal disease. Ejection fraction is around 35%. He is being managed medically. He was scheduled for a PEG. Developed multiple episodes of nonsustained ventricular tachycardia. I was called by Dr. Delaney for evaluation. The chart was reviewed. The patient was evaluated, I discussed the case extensively with him over the phone. ALLERGIES: CIPROFLOXACIN. SOCIAL HISTORY: Negative for smoking and drinking. FAMILY HISTORY: Noncontributory to his current medical condition. MEDICATIONS: Aspirin, Tylenol, Lipitor 40 mg a day, Coreg 6.25 mg a day, he is on Lovenox subcutaneously for DVT prophylaxis, he is on Pepcid IV, lisinopril 5 mg a day, magnesium, morphine p.r.n., potassium, sulfasalazine 500 mg twice a day. REVIEW OF SYSTEMS: The patient currently refers no chest pain. Still has difficulty swallowing. No chest discomfort, no fever. PHYSICAL EXAMINATION: GENERAL: Alert, fully oriented. VITAL SIGNS: His blood pressure is 115/96, pulse 71, respiratory rate 18. LUNGS: Ventilated. CARDIOVASCULAR: S1, S2. No gallop. No murmur. ABDOMEN: Soft. No mass. No bruits. EXTREMITIES: No edema. HEENT: The patient has an NG tube. ELECTROCARDIOGRAM: Shows sinus rhythm, some PVCs. Diffuse ST changes. LABORATORY DATA: Hemoglobin is 9.5, white blood cells 2.8. INR 1.1. Potassium is 3.1, sodium 145, creatinine is 0.72, blood glucose 192. ASSESSMENT AND RECOMMENDATIONS: Mr. Goodman currently is stable. He has a duodenal feeding tube. Ejection fraction 35%. He is on beta radha, as well as PRITESH inhibitor. Left heart catheterization showed no significant occlusion. He gets an episode of nonsustained ventricular tachycardia. I had a long conversation with him, as well as Dr. Delaney. At this point, I think it is okay for this gentleman to go ahead with a PEG placement tomorrow morning. Possible if necessary and after conversation with Dr. Quiñones, electrophysiology study will be considered. I will discuss the case in the morning with Dr. Quiñones. I will follow the patient during hospitalization also. MD MYRNA Anne/MARY , 09:26 PM , 09:55 PM
[2017-10-03] MEDS: MethylPREDNISolone Sod Succinate Inj 125 MG/2 ML Vial IV.PUSH SCH ×3 (00:27→17:31)
[2017-10-03] MEDS: Dextrose 5%/NaCl 0.9% Inj 1,000 ML IV.CONT SCH ×2 (02:20→17:31)
[2017-10-03] MEDS: Lisinopril 5 MG Tablet PO SCH (11:06)
[2017-10-03] MEDS: Carvedilol 6.25 MG Tablet PO SCH ×2 (11:06→20:35)
[2017-10-03] MEDS: Famotidine PF Inj 20 MG/2 ML Vial IV.SIG SCH (11:06)
[2017-10-03] MEDS: Enoxaparin Inj 40 MG/0.4 ML Syringe SQ SCH (11:08)
--- NOTE | 2017-10-03 11:32 | P.PNCA ---
Subjective Interval history: Events over the weekend noted Wide complex tachycardia noted on telemetry, patient seen by Dr. Das Physical Exam Vital signs: Vital Signs 10/02/17 12:00 10/02/17 14:00 10/02/17 15:15 Temperature 98.1 F 97.7 F Pulse Rate 78 87 71 Respiratory Rate 16 20 Blood Pressure 146/83 H 159/96 H Pulse Oximetry 98 97 10/02/17 16:00 10/02/17 19:41 10/02/17 20:00 Temperature 97.7 F Pulse Rate 87 70 71 Respiratory Rate 20 Blood Pressure 155/80 H Pulse Oximetry 95 10/02/17 23:41 10/03/17 00:00 10/03/17 01:04 Temperature 97.4 F L Pulse Rate 66 66 Respiratory Rate 20 Blood Pressure 159/82 H Pulse Oximetry 95 95 10/03/17 03:59 10/03/17 04:00 10/03/17 08:00 Temperature 97.9 F 97.7 F Pulse Rate 62 66 66 Respiratory Rate 20 18 Blood Pressure 162/89 H 154/92 H Pulse Oximetry 95 96 Intake & Output 10/02/17 10/03/17 10/03/17 18:59 06:59 18:59 Intake Total 240 / 240 Output Total 725 / 725 600 / 600 Balance -725 / -725 -360 / -360 Weight 78.8 kg 78.9 kg Intake: Oral 240 / 240 Output: Urine 725 / 725 600 / 600 Stool 0 / 0 Other: Date of Last Bowel Movement 10/02/17 10/02/17 # Bowel Movements 1 0 Narrative: GENERAL: NAD, AAOx3, Dobbhoff in place SKIN: Warm and dry. HEAD: Atraumatic. Normocephalic. EYES: Pupils equal and round. No scleral icterus. No injection or drainage. ENT: No nasal bleeding or discharge. Mucous membranes pink and moist. NECK: Trachea midline. No JVD. CARDIOVASCULAR: Regular rate and rhythm. RESPIRATORY: No accessory muscle use. Clear to auscultation. Breath sounds equal bilaterally. GASTROINTESTINAL: Abdomen soft, non-tender, nondistended. Hepatic and splenic margins not palpable. MUSCULOSKELETAL: Extremities without clubbing, cyanosis, or edema. No obvious deformities. NEUROLOGICAL: Awake and alert. No obvious cranial nerve deficits. Motor grossly within normal limits. PSYCHIATRIC: Appropriate mood and affect; insight and judgment normal. 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 Das, discussed with Dr. Das 5) Dysphagia/aspiration For PEG tube Agree with Dr. Das, ok to proceed to PEG tube and plan EP study later this week at his discretion
[2017-10-03] MEDS ORDERED: Glycopyrrolate Inj 1 MG/5 ML Syringe IV.PUSH ONE (12:00)
[2017-10-03] MEDS ORDERED: Lidocaine PF 1% Inj 5 ML Syringe INFILTRATN ONE (12:00)
--- NOTE | 2017-10-03 12:10 | P.PNIM ---
Subjective Interval history: 10-02 RN denies any deterioration since last night. Did have a partial run of either aberrancy vs vtach. No reports of any CP. Pt himself denies any setbacks otherwise. 10-03 DW NOELLE HO FOR PEG- WILL NEED EP STUDY BEFORE DISCHARGE PATIENT STILL WITH DIFFICULTLY SWALLOWING FOR PEG TUBE TODAY DW PT AND RN AND CM AM LABS Physical Exam Vital signs: Vital Signs 10/02/17 14:00 10/02/17 15:15 10/02/17 16:00 Temperature 97.7 F Pulse Rate 87 71 87 Respiratory Rate 20 Blood Pressure 159/96 H Pulse Oximetry 97 10/02/17 19:41 10/02/17 20:00 10/02/17 23:41 Temperature 97.7 F Pulse Rate 70 71 66 Respiratory Rate 20 Blood Pressure 155/80 H Pulse Oximetry 95 10/03/17 00:00 10/03/17 01:04 10/03/17 03:59 Temperature 97.4 F L Pulse Rate 66 62 Respiratory Rate 20 Blood Pressure 159/82 H Pulse Oximetry 95 95 10/03/17 04:00 10/03/17 08:00 Temperature 97.9 F 97.7 F Pulse Rate 66 66 Respiratory Rate 20 18 Blood Pressure 162/89 H 154/92 H Pulse Oximetry 95 96 Intake & Output 10/02/17 10/03/17 10/03/17 18:59 06:59 18:59 Intake Total 240 / 240 Output Total 725 / 725 600 / 600 Balance -725 / -725 -360 / -360 Weight 78.8 kg 78.9 kg Intake: Oral 240 / 240 Output: Urine 725 / 725 600 / 600 Stool 0 / 0 Other: Date of Last Bowel Movement 10/02/17 10/02/17 # Bowel Movements 1 0 Narrative: GENERAL: NAD, AAOx3, Dobbhoff in place SKIN: Warm and dry. HEAD: Atraumatic. Normocephalic. EYES: Pupils equal and round. No scleral icterus. No injection or drainage. ENT: No nasal bleeding or discharge. Mucous membranes pink and moist. NECK: Trachea midline. No JVD. CARDIOVASCULAR: Regular rate and rhythm. S1 S2 NO S3 OR S4 RESPIRATORY: No accessory muscle use. Clear to auscultation. Breath sounds equal bilaterally. GASTROINTESTINAL: Abdomen soft, non-tender, nondistended. Hepatic and splenic margins not palpable. MUSCULOSKELETAL: Extremities without clubbing, cyanosis, or edema. No obvious deformities. NEUROLOGICAL: Awake and alert. No obvious cranial nerve deficits. Motor grossly within normal limits. PSYCHIATRIC: Appropriate mood and affect; insight and judgment normal. 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 Goodman is a pleasant 67-year-old male with a history of prostate cancer, rheumatoid arthritis, iron deficiency anemia who presented to the emergency department on 09/21/2017 due to worsening weakness in his lower extremities that started 2 weeks prior to this admission. He was evaluated by neurology who suspected possible Guillain Grapeview syndrome. Patient also reports chest pain that has been going on for months but worse in the last 2-3 days. He reported having diaphoresis along with chest pain. His troponin was elevated to 1.57. Cardiology was consulted. NSTEMI Cardiomyopathy -EF 35%. -Aspirin 81mg Qday, Lipitor 40mg QHS and Carvedilol 6.25mg BID, Lisinopril 5mg Qday. -Patient underwent cardiac catheterization on 09/26/2017 ==> mild CAD, no stent placed. -My independent review of the telemetry strip shows possible Vtach vs aberrance. Given low EF and recent NSTEMI case discussed with Dr. Das from electrophysiology who will see the patient 10-02. HAS BEEN CLEARED BY CARDIO FOR PEG TUBE PLACEMENT- PEG LATER TODAY 7 Dysphagia - Possibly related to GBS - NPO Per Speech. Requesting speech to reevaluate the patient today - Consulting GI for PEG tube placement - PEG 10-03 - Continue Dobbhoff for now. 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 Has completed IVIG treatment per neurology. Now on steroid taper, can transition to oral steroids once definitive p.o. plan is in place either through PEG tube versus traditional oral intake if cleared by speech -s/p LP. -MRI studies are largely unremarkable for any acute findings. Lung nodule 1.4cm -thoracic MRI shows an incidental finding of 1.4 cm lung nodule. -Discussed with Patient regarding CT chest to further evaluate lung nodule. He will do CT chest in the outpatient setting. History of iron deficiency anemia -currently stable. Hemoglobin 9.5, MCV 87.2. Rheumatoid arthritis - resume Arava once po plan is stable. Full code. Lovenox 40mg SUB Qday. Will need rehab. [facility]? Code Status: FULL CODE Discussed Condition With: CARDIO AND RN AND PT AND CM FOR PEG TODAY NEEDS EP STUDY PRIOR TO DISCHARGE Discharge Planning: [facility] VS SNF VS C AT [place]
--- NOTE | 2017-10-03 15:36 | GIPROC ---
[facility] [address] [facility]. [facility], [address] EGD WITH PEG PROCEDURE REPORT EXAM DATE: 10/03/2017 PATIENT NAME: Abraham Goodman MR#: [id number] BIRTHDATE: 1950 ATTENDING: Chance Cabral MD ORDER #: [id number] DIELECTRIC MACHINE OPERATOR: Roman Lam and Jackelin New STATUS: inpatient INDICATIONS: The patient is a 67 yr old male here for an EGD with PEG due to dysphagia and placement of PEG PROCEDURE PERFORMED: EGD with PEG placement MEDICATIONS: None and Per Anesthesia. TOPICAL ANESTHETIC: none CONSENT: The patient understands the risks and benefits of the procedure and understands that these risks include, but are not limited to: sedation, allergic reaction, infection, perforation and/or bleeding. Alternative means of evaluation and treatment include, among others: physical exam, x-rays, and/or surgical intervention. The patient elects to proceed with this endoscopic procedure. medical equipment was checked for proper function. Hand hygiene and appropriate measures for infection prevention was taken. After the risks, benefits and alternatives of the procedure were thoroughly explained, Informed consent was verified, confirmed and timeout was successfully executed by the treatment team. The patient was anesthetized with topical anesthesia and the Pentax EG-2770K endoscope was introduced through the mouth and advanced to the second portion of the duodenum. The instrument was slowly withdrawn as the mucosa was fully examined. The stomach was entered and closely examined. The antrum, angularis, and lesser curvature were well visualized, including a retroflexed view of the cardia and fundus. The stomach wall was normally distensable. The scope passed easily through the pylorus into the duodenum. at the gastroesophageal junction. normal Duodenitis was found in the bulb of the duodenum. mild dudenitis The stomach was then inflated with air, and by a combination of transillumination and manual palpation, the site for the gastrostomy tube placement was selected and marked on the anterior abdominal wall. The skin of the anterior abdomen was surgically prepped and draped with sterile towels. Utilizing strict sterile technique, the selected site was then anesthetized with 1% xylocaine by injection into the skin and subcutaneous tissue. A 1 cm incision was made through the skin and subcutaneous tissue, and the needle/cannula assembly was then passed through the abdominal wall and through the anterior wall of the stomach, maintaining visualization with the endoscope. A snare device previously placed through the instrument channel was then opened and placed around the cannula, the needle was removed, and the insertion wire was passed through the cannula and into the stomach lumen. The snare was then loosened from the cannula, and repositioned to snare the insertion wire. The snare was then pulled up to the endoscope distal tip, and the scope was then withdrawn bringing with it the snare and insertion wire. The insertion wire was then released from the snare, and then loop-attached to the Bard 20 Fr gastrostomy tube. Using the "pull technique", the G-tube was then pulled into place by traction on the insertion wire at the abdominal wall end. The G-tube insertion site was then cleansed once again, and the external bolster was placed over the tube to secure it to the abdominal wall. A sterile dressing was then applied, and the procedure terminated. a hiatal hernia The gastroscope was then slowly withdrawn and removed. ADVERSE EVENT: There were no complications. IMPRESSIONS: 1. The stomach was entered and closely examined. The antrum, angularis, and lesser curvature were well visualized, including a retroflexed view of the cardia and fundus. The stomach wall was normally distensable. The scope passed easily through the pylorus into the duodenum. at the gastroesophageal junction 2. Duodenitis was found in the bulb of the duodenum 3. A hiatal hernia 4. PEG tube palced. RECOMMENDATIONS: PEG recomendations: 1- NPO for 6 hours except for meds 2- Flush PEG tube every 6 hours with water and after each PEG feeding 3- May resume regular diet in the morning 4- May use Ensure or Boost etc. for PEG tube feeding REPEAT EXAM: procedure as needed Chance Cabral MD eSigned: Chance Cabral MD 10/03/2017 3:35 PM cc: PATIENT NAME: Abraham Goodman MR#: [id number]
[2017-10-04] MEDS: Dextrose 5%/NaCl 0.9% Inj 1,000 ML IV.CONT SCH ×2 (05:19→17:06)
[2017-10-04 08:29] LABS: Baso % (Auto) 0.2 % (0.0-2.0); Hemoglobin 10.1 gm/dL (13.0-17.0); Lymph # (Auto) 0.3 th/mm3 (1.0-4.8); Mean Corpuscular HGB Conc 32.7 % (32.0-36.0); Mean Corpuscular Volume 88.6 fL (80.0-100.0); Mean Platelet Volume 8.4 fL (7.0-11.0); Mono # (Auto) 0.6 th/mm3 (0.0-0.9); Mono % (Auto) 4.5 % (0.0-8.0); Neut # (Auto) 11.6 th/mm3 (1.8-7.7); Neut % (Auto) 93.3 % (16.0-70.0); Platelet Count 171 th/mm3 (150-450); Red Cell Distribution Width 16.8 % (11.6-17.2); White Blood Count 12.5 th/mm3 (4.0-11.0)
[2017-10-04 08:56] LABS: Albumin 2.1 g/dL (3.4-5.0); Anion Gap 8 meq/L (5-15); Aspartate Aminotransferase 20 U/L (15-37); Blood Urea Nitrogen 29 mg/dL (7-18); Carbon Dioxide 31.1 meq/L (21.0-32.0); Chloride 108 meq/L (98-107); Glomerular Filtration Rate Greater Than 89 mL/min (>89); Glucose,Random 132 mg/dL (74-106); Magnesium 2.5 mg/dL (1.5-2.5); Potassium 3.1 meq/L (3.5-5.1); Sodium 147 meq/L (136-145)
[2017-10-04 08:57] LABS: Alanine Aminotransferase 54 U/L (12-78); Phosphorus 2.9 mg/dL (2.5-4.9)
[2017-10-04 09:05] LABS: Alkaline Phosphatase 47 U/L (45-117); Free T4 (Free Thyroxine) 0.98 ng/dL (0.76-1.46); Total Protein 5.8 g/dL (6.4-8.2)
[2017-10-04] MEDS: Famotidine PF Inj 20 MG/2 ML Vial IV.SIG SCH (09:53)
[2017-10-04] MEDS: Carvedilol 6.25 MG Tablet PO SCH ×2 (09:53→20:28)
[2017-10-04] MEDS: Lisinopril 5 MG Tablet PO SCH (09:53)
[2017-10-04] MEDS: Enoxaparin Inj 40 MG/0.4 ML Syringe SQ SCH (09:54)
[2017-10-04] MEDS ORDERED: Potassium Chloride 25 MEQ Effervescent Tablet G-TUBE ONE (12:07)
--- NOTE | 2017-10-04 12:09 | P.PNIM ---
Subjective Interval history: 10-02 RN denies any deterioration since last night. Did have a partial run of either aberrancy vs vtach. No reports of any CP. Pt himself denies any setbacks otherwise. 10-[address] NICOLE, NOELLE FOR PEG- WILL NEED EP STUDY BEFORE DISCHARGE PATIENT STILL WITH DIFFICULTLY SWALLOWING FOR PEG TUBE TODAY DW PT AND RN AND CM AM LABS 10-04 SP PEG ON 10-03 WILL NEED EPS EVAL WITH DR ABDI BEFORE DC AM LABS DW RN AND PT AND CM REPLACE POTASSIUM VIA PEG Physical Exam Vital signs: Vital Signs 10/03/17 15:45 10/03/17 15:50 10/03/17 16:00 Temperature 97.6 F 98.2 F Pulse Rate 64 67 56 L Respiratory Rate 12 14 18 Blood Pressure 135/71 131/67 179/88 H Pulse Oximetry 95 95 96 10/03/17 18:10 10/03/17 18:16 10/03/17 20:00 Temperature 97.9 F 98.3 F Pulse Rate 61 68 Respiratory Rate 12 18 Blood Pressure 152/83 H 179/85 H Pulse Oximetry 96 96 94 L 10/04/17 00:00 10/04/17 04:00 10/04/17 07:56 Temperature 97.3 F L 98.4 F Pulse Rate 66 64 62 Respiratory Rate 18 18 Blood Pressure 111/68 188/91 H Pulse Oximetry 95 93 L 10/04/17 08:00 Temperature 98.1 F Pulse Rate 66 Respiratory Rate 18 Blood Pressure 168/89 H Pulse Oximetry 97 Intake & Output 10/03/17 10/04/17 10/04/17 18:59 06:59 18:59 Intake Total 1250 / 1250 1120 / 1120 Output Total 1250 / 1250 Balance 0 / 0 1120 / 1120 Intake: IV 1000 / 1000 1000 / 1000 D5W/Normal Saline Inj 1,000 ML 1000 / 1000 1000 / 1000 @ 84 mls/hr IV.CONT .[id number] [facility] Rx#:[id number] Oral 0 / 0 120 / 120 Oral Supplement 0 / 0 Anesthesia Amount 250 / 250 Output: Urine 300 / 300 Urine Amount (Catheter) 950 / 950 Indwelling Urethral Catheter 950 / 950 Other: Date of Last Bowel Movement 10/03/17 # Bowel Movements 1 Narrative: GENERAL: NAD, AAOx3, SKIN: Warm and dry. HEAD: Atraumatic. Normocephalic. EYES: Pupils equal and round. No scleral icterus. No injection or drainage. ENT: No nasal bleeding or discharge. Mucous membranes pink and moist. NECK: Trachea midline. No JVD. CARDIOVASCULAR: Regular rate and rhythm. S1 S2 NO S3 OR S4 RESPIRATORY: No accessory muscle use. Clear to auscultation. Breath sounds equal bilaterally. GASTROINTESTINAL: Abdomen soft, non-tender, nondistended. Hepatic and splenic margins not palpable. PEG TUBE IN PLACE MUSCULOSKELETAL: Extremities without clubbing, cyanosis, or edema. No obvious deformities. NEUROLOGICAL: Awake and alert. No obvious cranial nerve deficits. Motor grossly within normal limits. PSYCHIATRIC: Appropriate mood and affect; insight and judgment normal. - Urinary Catheter Management Indwelling Urethral Catheter Cath placed during this visit: yes, but has since been removed by the nurse Reason for continuing: Other continuation reason Insertion date: 09/25/17 Insertion time: 06:57 Removal date: 09/25/17 Removal time: 09:00 Results - Labs CBC & Chem 7: 10/04/17 07:28 10/04/17 07:28 Laboratory Results - last 24 hr 10/04/17 10/04/17 07:28 07:28 WBC 12.5 H RBC 3.50 L Hgb 10.1 L Hct 31.0 L MCV 88.6 MCH 29.0 MCHC 32.7 RDW 16.8 Plt Count 171 D MPV 8.4 Neut % (Auto) 93.3 H Lymph % (Auto) 2.0 L [place] % (Auto) 4.5 Eos % (Auto) 0.0 Baso % (Auto) 0.2 Neut # (Auto) 11.6 H Lymph # (Auto) 0.3 L [place] # (Auto) 0.6 Eos # (Auto) 0.0 Baso # (Auto) 0.0 WBC Differential . Differential Comment Auto diff final Sodium 147 H Potassium 3.1 L Chloride 108 H Carbon Dioxide 31.1 Anion Gap 8 BUN 29 H Creatinine 0.63 Estimated GFR Greater than 89 Random Glucose 132 H Calcium 8.0 L Phosphorus 2.9 Magnesium 2.5 Total Bilirubin 0.6 AST 20 ALT 54 Alkaline Phosphatase 47 Total Protein 5.8 L D Albumin 2.1 L TSH 1.100 Free T4 0.98 - Procedures EGD WITH PEG PROCEDURE REPORT EXAM DATE: 10/03/2017 PATIENT NAME: Abraham Goodman MR#: [id number] BIRTHDATE: 1950 ATTENDING: Chance Cabral MD ORDER #: [id number] GENERATOR ASSEMBLER: Roman Lam and Jackelin New STATUS: inpatient INDICATIONS: The patient is a 67 yr old male here for an EGD with PEG due to dysphagia and placement of PEG PROCEDURE PERFORMED: EGD with PEG placement MEDICATIONS: None and Per Anesthesia. TOPICAL ANESTHETIC: none CONSENT: The patient understands the risks and benefits of the procedure and understands that these risks include, but are not limited to: sedation, allergic reaction, infection, perforation and/or bleeding. Alternative means of evaluation and treatment include, among others: physical exam, x-rays, and/or surgical intervention. The patient elects to proceed with this endoscopic procedure. medical equipment was checked for proper function. Hand hygiene and appropriate measures for infection prevention was taken. After the risks, benefits and alternatives of the procedure were thoroughly explained, Informed consent was verified, confirmed and timeout was successfully executed by the treatment team. The patient was anesthetized with topical anesthesia and the Pentax EG-2770K endoscope was introduced through the mouth and advanced to the second portion of the duodenum. The instrument was slowly withdrawn as the mucosa was fully examined. The stomach was entered and closely examined. The antrum, angularis, and lesser curvature were well visualized, including a retroflexed view of the cardia and fundus. The stomach wall was normally distensable. The scope passed easily through the pylorus into the duodenum. at the gastroesophageal junction. normal Duodenitis was found in the bulb of the duodenum. mild dudenitis The stomach was then inflated with air, and by a combination of transillumination and manual palpation, the site for the gastrostomy tube placement was selected and marked on the anterior abdominal wall. The skin of the anterior abdomen was surgically prepped and draped with sterile towels. Utilizing strict sterile technique, the selected site was then anesthetized with 1% xylocaine by injection into the skin and subcutaneous tissue. A 1 cm incision was made through the skin and subcutaneous tissue, and the needle/cannula assembly was then passed through the abdominal wall and through the anterior wall of the stomach, maintaining visualization with the endoscope. A snare device previously placed through the instrument channel was then opened and placed around the cannula, the needle was removed, and the insertion wire was passed through the cannula and into the stomach lumen. The snare was then loosened from the cannula, and repositioned to snare the insertion wire. The snare was then pulled up to the endoscope distal tip, and the scope was then withdrawn bringing with it the snare and insertion wire. The insertion wire was then released from the snare, and then loop-attached to the Bard 20 Fr gastrostomy tube. Using the "pull technique", the G-tube was then pulled into place by traction on the insertion wire at the abdominal wall end. The G-tube insertion site was then cleansed once again, and the external bolster was placed over the tube to secure it to the abdominal wall. A sterile dressing was then applied, and the procedure terminated. a hiatal hernia The gastroscope was then slowly withdrawn and removed. ADVERSE EVENT: There were no complications. IMPRESSIONS: 1. The stomach was entered and closely examined. The antrum, angularis, and lesser curvature were well visualized, including a retroflexed view of the cardia and fundus. The stomach wall was normally distensable. The scope passed easily through the pylorus into the duodenum. at the gastroesophageal junction 2. Duodenitis was found in the bulb of the duodenum 3. A hiatal hernia 4. PEG tube palced. RECOMMENDATIONS: PEG recomendations: 1- NPO for 6 hours except for meds 2- Flush PEG tube every 6 hours with water and after each PEG feeding 3- May resume regular diet in the morning 4- May use Ensure or Boost etc. 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 Goodman is a pleasant 67-year-old male with a history of prostate cancer, rheumatoid arthritis, iron deficiency anemia who presented to the emergency department on 09/21/2017 due to worsening weakness in his lower extremities that started 2 weeks prior to this admission. He was evaluated by neurology who suspected possible Guillain Taft syndrome. Patient also reports chest pain that has been going on for months but worse in the last 2-3 days. He reported having diaphoresis along with chest pain. His troponin was elevated to 1.57. Cardiology was consulted. NSTEMI Cardiomyopathy -EF 35%. -Aspirin 81mg Qday, Lipitor 40mg QHS and Carvedilol 6.25mg BID, Lisinopril 5mg Qday. -Patient underwent cardiac catheterization on 09/26/2017 ==> mild CAD, no stent placed. -My independent review of the telemetry strip shows possible Vtach vs aberrance. Given low EF and recent NSTEMI case discussed with Dr. Abdi from electrophysiology who will see the patient 10-02. HAS BEEN CLEARED BY CARDIO FOR PEG TUBE PLACEMENT- PEG LATER TODAY 10-03 Dysphagia - Possibly related to GBS - NPO Per Speech. 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 Has completed IVIG treatment per neurology. Now on steroid taper, can transition to oral steroids once definitive p.o. plan is in place either through PEG tube versus traditional oral intake if cleared by speech--NEEDED PEG TUBE PLACED 10-03 -s/p LP. -MRI studies are largely unremarkable for any acute findings. Lung nodule 1.4cm -thoracic MRI shows an incidental finding of 1.4 cm lung nodule. -Discussed with Patient regarding CT chest to further evaluate lung nodule. He will do CT chest in the outpatient setting. History of iron deficiency anemia -currently stable. Hemoglobin 9.5, MCV 87.2. Rheumatoid arthritis - resume Arava once po plan is stable. HYPOKALEMIA- REPLACE VIA PEG AM LABS Full code. Lovenox 40mg SUB Qday. Will need rehab. [facility]? Code Status: FULL CODE Discussed Condition With: RN AND PT AND CM Discharge Planning: [facility] VS SNF VS HHC AT [place]
--- NOTE | 2017-10-04 12:09 | P.DIET ---
Nutritional Evaluation Type of nutrition evaluation: follow-up Nutrition consult regarding: Tube Feeding (MDC for Tube Feeding) Subjective Barriers to Nutrition: Swallowing problem Oral Diet Tolerance Assessment Indicates: Swallowing problems Subjective Comments: MBS's reviewed. Pt is to be strict NPO per ST recs. Objective - Diagnosis Chest Pain - Objective % IBW: 98 (XBM=666) Body Weight Used for Calculations: Actual (73.9kg) Energy Needs - Lower Range (kCal/kg): 28 Energy Needs - Upper Range (kCal/kg): 33 Lower Limit kCal/kg (kCals): 2,069 Upper Limit kCal/kg (kCals): 2,439 Lower Limit Protein Factor (Grams per Kg): 1.1 Upper Limit Protein Factor (Grams per Kg): 1.4 Lower Protein Needs (Protein): 81 Upper Protein Needs (Protein): 103 Fluid Factor (ml/kg): 30 Estimated Fluid Needs (ml): 2,217 Dietitian Reviewed in Medical Record: Curent medications, Intake & Output, Labs , Medical history, Tube feeding Diet Order: TF Only Objective Comments: Meds: Solumedrol Labs: Na 147, K 3.1, A1C pending LBM 10/03 s/p PEG tube 10/03 Feeding - Current Tube Feeding Tube Feeding Product: Jevity 1.5 Tube Feeding Method: Pump Tube Feeding Rate: 80 Tube Feeding Route: gastrostomy Current kCals Provided by Tube Feedin,880 Current Protein Provided by Tube Feeding (gPRO): 123 Current Free H2O Provided (m/l): 1,459 Assessment Assessment: Pt had a PEG tube placed yesterday for dysphagia. Most recent MBS indicates silent aspiration w/ all consistencies trailed. Currently, pt is on Jevity 1.5 @ 80mls/hr x 24hrs. To best meet pt's nutritional requirements, recommend Jevity 1.5 @ 65mls/hr x 24hrs. This regimen will provide 2340kcals, 100g PRO, and 1186mls fluid. Will monitor pt's TFing tolerance w/ hopefully an eventual transition to bolus feedings if nutritionally indicated. Will continue to monitor. Recommendations: 1. Recommend Jevity 1.5 @ 65mls/hr x 24hrs. 2. Will monitor TFing tolerance w/ hopefully an eventual transition to bolus feedings if nutritionally indicated. Dietitian to Monitor: Lab values, Intake & Output, Tube feeding tolerance, Weight change, Residuals, Swallow recommendations, Medical course
[2017-10-04] MEDS: MethylPREDNISolone Sod Succinate Inj 125 MG/2 ML Vial IV.PUSH SCH ×2 (12:58→17:58)
[2017-10-04 12:59] LABS: Hemoglobin A1c 5.1 % (4.3-6.0)
--- NOTE | 2017-10-04 20:44 | P.PNCA ---
Subjective Interval history: Short asymptomatic wide complex tachycardia last night Feels well PEG tube in place EP study cancelled today Physical Exam Vital signs: Vital Signs 10/04/17 00:00 10/04/17 04:00 10/04/17 07:56 Temperature 97.3 F L 98.4 F Pulse Rate 66 64 62 Respiratory Rate 18 18 Blood Pressure 111/68 188/91 H Pulse Oximetry 95 93 L 10/04/17 08:00 10/04/17 11:40 10/04/17 12:00 Temperature 98.1 F 97.8 F Pulse Rate 66 80 58 L Respiratory Rate 18 18 Blood Pressure 168/89 H 152/79 H Pulse Oximetry 97 96 10/04/17 15:46 10/04/17 16:00 Temperature 98.9 F Pulse Rate 70 64 Respiratory Rate 18 Blood Pressure 165/87 H Pulse Oximetry 95 Intake & Output 10/04/17 10/04/17 10/05/17 06:59 18:59 06:59 Intake Total 1120 / 1120 1000 / 1000 Balance 1120 / 1120 1000 / 1000 Intake: IV 1000 / 1000 1000 / 1000 D5W/Normal Saline Inj 1,000 ML 1000 / 1000 1000 / 1000 @ 84 mls/hr IV.CONT .[id number] [facility] Rx#:[id number] Oral 120 / 120 0 / 0 Oral Supplement 0 / 0 Other: # Voids 2,800 Date of Last Bowel Movement 10/03/17 # Bowel Movements 0 Narrative: GENERAL: NAD, AAOx3, SKIN: Warm and dry. HEAD: Atraumatic. Normocephalic. EYES: Pupils equal and round. No scleral icterus. No injection or drainage. ENT: No nasal bleeding or discharge. Mucous membranes pink and moist. NECK: Trachea midline. No JVD. CARDIOVASCULAR: Regular rate and rhythm. S1 S2 NO S3 OR S4 RESPIRATORY: No accessory muscle use. Clear to auscultation. Breath sounds equal bilaterally. GASTROINTESTINAL: Abdomen soft, non-tender, nondistended. Hepatic and splenic margins not palpable. PEG TUBE IN PLACE MUSCULOSKELETAL: Extremities without clubbing, cyanosis, or edema. No obvious deformities. NEUROLOGICAL: Awake and alert. No obvious cranial nerve deficits. Motor grossly within normal limits. PSYCHIATRIC: Appropriate mood and affect; insight and judgment normal. 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 Das, discussed with Dr. Das 5) Dysphagia/aspiration PEG tube placed
[2017-10-05] MEDS: Dextrose 5%/NaCl 0.9% Inj 1,000 ML IV.CONT SCH ×2 (04:26→18:47)
[2017-10-05 07:02] LABS: Baso % (Auto) 0.1 % (0.0-2.0); Hematocrit 31.8 % (39.0-51.0); Hemoglobin 10.6 gm/dL (13.0-17.0); Lymph # (Auto) 0.2 th/mm3 (1.0-4.8); Lymph % (Auto) 2.8 % (9.0-44.0); Mean Corpuscular HGB Conc 33.2 % (32.0-36.0); Mean Corpuscular Hemoglobin 29.4 pg (27.0-34.0); Mean Corpuscular Volume 88.4 fL (80.0-100.0); Mean Platelet Volume 8.7 fL (7.0-11.0); Mono # (Auto) 0.3 th/mm3 (0.0-0.9); Mono % (Auto) 4.5 % (0.0-8.0); Neut % (Auto) 92.6 % (16.0-70.0); Platelet Count 172 th/mm3 (150-450); Red Blood Count 3.59 mil/mm3 (4.50-5.90); Red Cell Distribution Width 16.3 % (11.6-17.2); White Blood Count 7.5 th/mm3 (4.0-11.0)
[2017-10-05] MEDS ORDERED: Isoproterenol 200mcg/50mL Bag 200 MCG/50 ML BAG IV.CONT ONE (07:26)
[2017-10-05 07:31] LABS: Albumin 2.2 g/dL (3.4-5.0); Anion Gap 8 meq/L (5-15); Aspartate Aminotransferase 22 U/L (15-37); Blood Urea Nitrogen 25 mg/dL (7-18); Calcium 8.3 mg/dL (8.5-10.1); Carbon Dioxide 29.6 meq/L (21.0-32.0); Chloride 108 meq/L (98-107); Glomerular Filtration Rate Greater Than 89 mL/min (>89); Glucose,Random 151 mg/dL (74-106); Magnesium 2.5 mg/dL (1.5-2.5); Potassium 3.4 meq/L (3.5-5.1); Sodium 146 meq/L (136-145)
[2017-10-05 07:33] LABS: Alanine Aminotransferase 67 U/L (12-78); Phosphorus 3.2 mg/dL (2.5-4.9)
[2017-10-05 07:35] LABS: Alkaline Phosphatase 49 U/L (45-117); Total Protein 5.9 g/dL (6.4-8.2)
--- NOTE | 2017-10-05 08:38 | CATHPROC ---
Patient Name: Abraham Goodman Study #: [id number] Initial MD: Duane Das Date of : 1950 Study Date: 10/05/2017 Cardiac Catheterization Report 10/05/2017 8:37:58 AM Financial #: [id number] 1 of 5 Patient Name: Abraham Goodman Study #: [id number] Initial MD: Duane Das Date of : 1950 Study Date: 10/05/2017 Entire Case Report Patient Information Patient Name Abraham Goodman Date of 1950 Age 67 years Financial # [id number] Gender M AlternateID Lab Number 2 Room Number 1418 Height (in) 72.0 Height (cm) 182.8 BSA 2.01 Weight (lbs) 173.6 Weight (kg) 78.9 Patient Address/Phone Number Home Address [facility] Home Phone Number [address] [facility] [address] Study Information Study Number Admission Scheduled Start Study Start [id number] Sep 21 2017 1:51PM 10/05/2017 Oct 05 2017 7:15AM [place] [facility] Electrophysiology Study Admit Source Facility Department Other [facility] - Flat Lock Operator Physician and Clinical Staff Initial Duane Jeffries Solar Mechanical Engineer Tanesha Tripathi,RT(R) TECH2 Other Anesthesia, CORK MOLDER Recorder Jahaira Macario,RN Iselaub Rojelio Wray,RT(R) Procedures Performed Procedure Ablation Procedure 10/05/2017 8:37:58 AM Financial #: [id number] 2 of 5 Patient Name: Abraham Goodman Study #: [id number] Initial MD: Duane Das Date of : 1950 Study Date: 10/05/2017 Equipment Time Cooper Apprentice Description Size Mfg Part Number Used/Scraped [id number] 07:16 [employer]ES BLANKET,WARM AIR CCL * Used *[id number] 07:16 [employer] PACK, CCL CUSTOM * Used *[id number] 07:16 MEDLINE PACER [place], LIMB * 2530 *[id number] Used [id number] 07:16 [employer] CATHETER, JSN, QUAD FR 5 Used *[id number] 07:16 [employer] CATHETER, JSN, QUAD FR 5 Used *[id number] 07:16 [employer] CATHETER, JSN, QUAD FR 5 Used *[id number] 07:16 [employer] MED[employer] CATHETER, JSN, QUAD FR 5 Used *[id number] 07:16 [employer] MED[employer] SHEATH, EPS, FR5 FAST CATH FR 5 Used *[id number] 07:16 [employer] SHEATH, EPS, FR5 FAST CATH FR 5 Used *[id number] 07:16 [employer] SHEATH, EPS, FR5 FAST CATH FR 5 Used *[id number] 07:16 [employer] SHEATH, EPS, FR6 FAST CATH FR 6 Used *[id number] Insurance Information Insurance Payor Private Health Insurance Third Green Party Third Green Party Number [employer] [facility] [place] [facility] Medication Medication Total Dose (Bolus/Oral) Medication Total Dosage/Unit 1% XYLOCAINE 20 mL Medications (Bolus/Oral) Medication Time Given Dosage/Unit Administered By Reason 1% XYLOCAINE 10/05/2017 7:59:07 AM 20 mL Duane Das 20 mL 1% XYLOCAINE given in lab by Duane Das in Right Groin via Subcutaneous. 10/05/2017 8:37:58 AM Financial #: [id number] 3 of 5 Patient Name: Abraham Goodman Study #: [id number] Initial MD: Duane Das Date of : 1950 Study Date: 8 Medication (Drip) Medication Time Given Dosage/Unit Concentration/Unit Diluent (ml) Solution ISUPREL 10/05/2017 8:13:11 AM 4 mcg/min 1 mg 250 NaCl .9 4 mcg/min ISUPREL given in lab by Duane Das via Peripheral IV. Pump/Drip Flow = 60 ml/hr using Na Cl .9 with a concentration of 1 mg in 250 ml. ISUPREL DRIP STOPPED 10/05/2017 8:21:35 AM 0 units/hr 0 D5W 0 units/hr ISUPREL DRIP STOPPED given in lab by Duane Das. Pump/Drip Flow = 0 ml/hr using D5W. Chronological Log Time Study Chronological Log 7:14:56 Patient arrived via Bed. 7:14:58 Patient Name, D.O.B, / Armband Verified By R.N. 7:14:59 Consent signed by the physician and the patient and verified by the Flat Lock Operator staff. 7:15:00 Pre-op and post- op instructions given; patient acknowledges understanding of instructions. 7:16:11 Anesthesia at bedside. Assumes care of patient. 7:16:11 Verbal Stimulation=2 Physical Stimulation=2 Airway=2 Respiration=2 TOTAL=8. (0=absent, 1=li mited, 2=present) 7:16:26 Presedation assessment performed by Flat Lock Operator RN. 7:16:28 Patient has been NPO for More than 6Hrs. 7:35:22 Reference ECG taken 7:35:30 Skin Breakdown- fresh peg tude placement in abdomen 7:36:03 Patient Warmer Placed on the Table. 7:36:04 Disposable Defibrillator Pads Placed On Patient. 7:36:05 Xander Prominences Protected 7:36:06 A # 20 IV was noted in the Antecubital (left). Grade = 0 7:36:14 A # 20 IV was noted in the Antecubital (right). Grade = 0 Time Out. Correct patient, procedure, procedure equipment, site and side verified with physici an present. Time 7:49:46 concurred by MD, individual staff and CORK MOLDER. Time Out #2 - Consents verified, patient in correct position, all results are labled and displ ayed, safety precautions 7:49:48 taken, antibiotics administered. Time out concurred by MD, individual staff and CORK MOLDER in proced ure 7:49:49 Case Start 7:59:07 20 mL 1% XYLOCAINE given in lab by Duane Das in Right Groin via Subcutaneous. 7:59:15 Vascular access was obtained in the Fem Vein (right). 7:59:18 Vascular access was obtained in the Fem Vein (right). 7:59:18 Vascular access was obtained in the Fem Vein (right). 7:59:18 Vascular access was obtained in the Fem Vein (right). 7:59:22 A SHEATH, EPS, FR5 FAST CATH FR 5 was advanced into the Fem Vein (right) using the Modified Seldinger technique. 7:59:30 A SHEATH, EPS, FR5 FAST CATH FR 5 was advanced into the Fem Vein (right) using the Modified Seldinger technique. 10/05/2017 8:37:58 AM Financial #: [id number] 4 of 5 Patient Name: Abraham Goodman Study #: [id number] Initial MD: Duane Das Date of : 1950 Study Date: 10/05/2017 7:59:32 A SHEATH, EPS, FR5 FAST CATH FR 5 was advanced into the Fem Vein (right) using the Modifie d Seldinger technique. 7:59:34 A SHEATH, EPS, FR6 FAST CATH FR 6 was advanced into the Fem Vein (right) using the Modifie d Seldinger technique. A CATHETER, JSN, QUAD FR 5 was advanced vis Fem Vein (right) and placed in the CS. Placement w as visually 7:59:39 confirmed under fluoroscopy. A CATHETER, JSN, QUAD FR 5 was advanced vis Fem Vein (right) and placed in the HIS. Placement was visually 7:59:47 confirmed under fluoroscopy. A CATHETER, JSN, QUAD FR 5 was advanced vis Fem Vein (right) and placed in the HRA. Placement was visually 7:59:51 confirmed under fluoroscopy. A CATHETER, JSN, QUAD FR 5 was advanced vis Fem Vein (right) and placed in the RVA. Placement was visually 8:00:06 confirmed under fluoroscopy. 8:00:26 ep study in progress 4 mcg/min ISUPREL given in lab by Duane Das via Peripheral IV. Pump/Drip Flow = 60 ml/hr u sing NaCl .9 with a 8:13:11 concentration of 1 mg in 250 ml. 8:21:35 0 units/hr ISUPREL DRIP STOPPED given in lab by Duane Das. Pump/Drip Flow = 0 ml/hr us ing D5W. 8:22:40 Catheter(s) removed without difficulty 8:22:41 Sheath removed; pressure applied to access site. 8:22:59 Ablation procedure performed: ~ABLATION TYPE~. EP STUDY 8:23:00 Case End (Physician broke scrub) 8:23:40 EP Procedure was performed. EP STUDY ONLY End Study - Contrast Media Used In Study Contrast Total Opened (mL) Total Used (mL) Total Wasted (mL) Unspecified 0 0 0 End Study - Radiation Exposure Fluoro Time (minutes) 0.9 End Study - Patient Disposition Complications Transferred To Interventional Outcome No Telemetry Bed successful 10/05/2017 8:37:58 AM Financial #: [id number]
--- NOTE | 2017-10-05 09:08 | MA ---
cc: Duane Das MD DATE: 10/05/2017 PROCEDURE PERFORMED: Electrophysiology study, CS cannulation, repeat electrophysiology study on isuprel infusion. INDICATION: Mr. Goodman is a 67-year-old gentleman with history of Guillain-[place], previous PEG placement yesterday, episode of nonsustained ventricular tachycardia, was referred for electrophysiology study. The risks, the nature and the benefits of the procedure are clearly stated to him. Risks include pneumothorax, cardiac perforation, stroke, need for open heart surgery and even . The patient understood and agreed to proceed. PROCEDURE: After written informed consent was obtained, the patient was brought to the EP lab where he was prepped and draped in the usual sterile fashion. Conscious sedation was initiated and maintained throughout the procedure by the anesthesiologist. Once sedation was verified, the right inguinal area was anesthetized with 2% Xylocaine. Using modified Seldinger technique, the right femoral vein was cannulated on 4 occasions, 4 guidewires were advanced. Over the wire, a 3, 5 and a 6-Bermudian Hemaquet were advanced. Then, under fluoroscopic guidance through the 5 and 6-Bermudian Hemaquet, 4, 5-Bermudian Zane curved quadripolar electrophysiology catheters were advanced and placed around the His, upper right atrium, coronary sinus and right ventricular apex. Basic intervals were measured. They were within normal limits. At this point, atrial pacing protocol was performed. Atrial pacing protocol consisted of incremental atrial pacing as well as program stimulation with 210 cycle length and up to 1 extrastimuli delivered. Wenckebach was high around 650 milliseconds at baseline. Then, ventricular pacing protocol was performed. There was VA conduction. Ventricular pacing protocol consists of incremental ventricular pacing, as well as program stimulation 410 cycle length and up to 3 extrastimuli delivered. No tachyarrhythmia was induced. Then, isuprel infusion was initiated. Ventricular and atrial pacing protocol was repeated. Again, no tachyarrhythmia was induced. At that point, the procedure was complete. All catheters were removed. The patient is going to be transferred to the recovery room. No incident to report. The patient tolerated the procedure. Blood loss minimal. 1. ELECTROCARDIOGRAM: At baseline, the patient was in sinus. Postprocedure electrocardiogram was unchanged. 2. BASIC INTERVAL: Base cycle length was 2040 milliseconds, AH at 66 and HV at 44 milliseconds. 3. ATRIAL PACING PROTOCOL: Wenckebach at baseline was around 650 milliseconds. No tachyarrhythmia was induced. 4. VENTRICULAR PACING PROTOCOL: There was VA conduction. No tachyarrhythmia was induced. CONCLUSION: Negative electrophysiology study for supraventricular tachyarrhythmia. COMMENT AND RECOMMENDATION: The patient has ejection fraction of 35%. Medical management initiated. No ventricular tachycardia on electrophysiology study. My recommendation at this point is continue with medical management. Repeat echo in 2 months. If at that time, the patient still has low ejection fraction then defibrillator will be considered. Duane Das MD HS/TL , 08:26 AM , 09:07 AM
[2017-10-05] MEDS ORDERED: fentaNYL Citrate Inj 100 MCG/2 ML Ampul ONE (09:20)
[2017-10-05] MEDS ORDERED: Potassium Chloride 25 MEQ Effervescent Tablet PO ONE (10:00)
[2017-10-05] MEDS: Lisinopril 5 MG Tablet PO SCH (10:20)
[2017-10-05] MEDS: Famotidine PF Inj 20 MG/2 ML Vial IV.SIG SCH (10:20)
[2017-10-05] MEDS: Enoxaparin Inj 40 MG/0.4 ML Syringe SQ SCH (10:20)
[2017-10-05] MEDS: Carvedilol 6.25 MG Tablet PO SCH ×2 (10:20→21:11)
[2017-10-05] MEDS: MethylPREDNISolone Sod Succinate Inj 125 MG/2 ML Vial IV.PUSH SCH ×2 (11:22→18:48)
--- NOTE | 2017-10-05 14:09 | P.PNIM ---
Subjective Interval history: 10-02 RN denies any deterioration since last night. Did have a partial run of either aberrancy vs vtach. No reports of any CP. Pt himself denies any setbacks otherwise. 10-[address] NICOLE, NOELLE FOR PEG- WILL NEED EP STUDY BEFORE DISCHARGE PATIENT STILL WITH DIFFICULTLY SWALLOWING FOR PEG TUBE TODAY DW PT AND RN AND CM AM LABS 10-04 SP PEG ON 10-03 WILL NEED EPS EVAL WITH DR ABDI BEFORE DC AM LABS DW RN AND PT AND CM REPLACE POTASSIUM VIA PEG 10-05 had EPS STUDY TODAY NO INTERVENTIONS OR ABLATIONS MEDS BEING ADJUSTED BY CARDIOLOGY TUBE FEEDS BEING STARTED TODAY DW RN AND PT AND CM AND CARDIOLOGY NEEDS TO TOLERATE TUBE FEEDS AM LABS Physical Exam Vital signs: Vital Signs 10/04/17 15:46 10/04/17 16:00 10/04/17 20:00 Temperature 98.9 F 98.0 F Pulse Rate 70 64 64 Respiratory Rate 18 18 Blood Pressure 165/87 H 155/78 H Pulse Oximetry 95 96 10/05/17 00:00 10/05/17 04:00 10/05/17 10:13 Temperature 97.8 F 98.3 F 97.3 F L Pulse Rate 60 60 59 L Respiratory Rate 18 18 Blood Pressure 151/84 H 161/85 H 161/84 H Pulse Oximetry 96 97 97 10/05/17 12:00 Temperature 98.7 F Pulse Rate 59 L Respiratory Rate 14 Blood Pressure 147/82 H Pulse Oximetry 96 Intake & Output 10/04/17 10/05/17 10/05/17 18:59 06:59 18:59 Intake Total 1000 / 1000 1000 / 1000 Output Total 1200 / 1200 Balance 1000 / 1000 -200 / -200 Weight 80 kg Intake: IV 1000 / 1000 1000 / 1000 D5W/Normal Saline Inj 1,000 ML 1000 / 1000 1000 / 1000 @ 84 mls/hr IV.CONT .[id number] [facility] Rx#:[id number] Oral 0 / 0 0 / 0 Output: Urine 1200 / 1200 Other: # Voids 2,800 Date of Last Bowel Movement 10/03/17 10/04/17 # Bowel Movements 0 0 Narrative: GENERAL: NAD, AAOx3, SKIN: Warm and dry. HEAD: Atraumatic. Normocephalic. EYES: Pupils equal and round. No scleral icterus. No injection or drainage. ENT: No nasal bleeding or discharge. Mucous membranes pink and moist. NECK: Trachea midline. No JVD. CARDIOVASCULAR: Regular rate and rhythm. S1 S2 NO S3 OR S4 RESPIRATORY: No accessory muscle use. Clear to auscultation. Breath sounds equal bilaterally. GASTROINTESTINAL: Abdomen soft, non-tender, nondistended. Hepatic and splenic margins not palpable. PEG TUBE IN PLACE MUSCULOSKELETAL: Extremities without clubbing, cyanosis, or edema. No obvious deformities. NEUROLOGICAL: Awake and alert. No obvious cranial nerve deficits. Motor grossly within normal limits. PSYCHIATRIC: Appropriate mood and affect; insight and judgment normal. - Urinary Catheter Management Indwelling Urethral Catheter Cath placed during this visit: yes, but has since been removed by the nurse Reason for continuing: Other continuation reason Insertion date: 09/25/17 Insertion time: 06:57 Removal date: 09/25/17 Removal time: 09:00 Results - Labs CBC & Chem 7: 10/05/17 05:55 10/05/17 05:55 Laboratory Results - last 24 hr 10/05/17 10/05/17 05:55 05:55 WBC 7.5 RBC 3.59 L Hgb 10.6 L Hct 31.8 L MCV 88.4 MCH 29.4 MCHC 33.2 RDW 16.3 Plt Count 172 MPV 8.7 Neut % (Auto) 92.6 H Lymph % (Auto) 2.8 L Will % (Auto) 4.5 Eos % (Auto) 0.0 Baso % (Auto) 0.1 Neut # (Auto) 7.0 Lymph # (Auto) 0.2 L Will # (Auto) 0.3 Eos # (Auto) 0.0 Baso # (Auto) 0.0 WBC Differential . Differential Comment Auto diff final Sodium 146 H Potassium 3.4 L Chloride 108 H Carbon Dioxide 29.6 Anion Gap 8 BUN 25 H Creatinine 0.58 L Estimated GFR Greater than 89 Random Glucose 151 H Calcium 8.3 L Phosphorus 3.2 Magnesium 2.5 Total Bilirubin 0.6 AST 22 ALT 67 Alkaline Phosphatase 49 Total Protein 5.9 L Albumin 2.2 L - Procedures EGD WITH PEG PROCEDURE REPORT EXAM DATE: 10/03/2017 PATIENT NAME: Abraham Goodman MR#: [id number] BIRTHDATE: 1950 ATTENDING: Chance Cabral MD ORDER #: [id number] [facility] [employer] INTERMEDIARY: Roman Lam and Jackelin New STATUS: inpatient INDICATIONS: The patient is a 67 yr old male here for an EGD with PEG due to dysphagia and placement of PEG PROCEDURE PERFORMED: EGD with PEG placement MEDICATIONS: None and Per Anesthesia. TOPICAL ANESTHETIC: none CONSENT: The patient understands the risks and benefits of the procedure and understands that these risks include, but are not limited to: sedation, allergic reaction, infection, perforation and/or bleeding. Alternative means of evaluation and treatment include, among others: physical exam, x-rays, and/or surgical intervention. The patient elects to proceed with this endoscopic procedure. medical equipment was checked for proper function. Hand hygiene and appropriate measures for infection prevention was taken. After the risks, benefits and alternatives of the procedure were thoroughly explained, Informed consent was verified, confirmed and timeout was successfully executed by the treatment team. The patient was anesthetized with topical anesthesia and the Pentax [id number] endoscope was introduced through the mouth and advanced to the second portion of the duodenum. The instrument was slowly withdrawn as the mucosa was fully examined. The stomach was entered and closely examined. The antrum, angularis, and lesser curvature were well visualized, including a retroflexed view of the cardia and fundus. The stomach wall was normally distensable. The scope passed easily through the pylorus into the duodenum. at the gastroesophageal junction. normal Duodenitis was found in the bulb of the duodenum. mild dudenitis The stomach was then inflated with air, and by a combination of transillumination and manual palpation, the site for the gastrostomy tube placement was selected and marked on the anterior abdominal wall. The skin of the anterior abdomen was surgically prepped and draped with sterile towels. Utilizing strict sterile technique, the selected site was then anesthetized with 1% xylocaine by injection into the skin and subcutaneous tissue. A 1 cm incision was made through the skin and subcutaneous tissue, and the needle/cannula assembly was then passed through the abdominal wall and through the anterior wall of the stomach, maintaining visualization with the endoscope. A snare device previously placed through the instrument channel was then opened and placed around the cannula, the needle was removed, and the insertion wire was passed through the cannula and into the stomach lumen. The snare was then loosened from the cannula, and repositioned to snare the insertion wire. The snare was then pulled up to the endoscope distal tip, and the scope was then withdrawn bringing with it the snare and insertion wire. The insertion wire was then released from the snare, and then loop-attached to the Bard 20 Fr gastrostomy tube. Using the "pull technique", the G-tube was then pulled into place by traction on the insertion wire at the abdominal wall end. The G-tube insertion site was then cleansed once again, and the external bolster was placed over the tube to secure it to the abdominal wall. A sterile dressing was then applied, and the procedure terminated. a hiatal hernia The gastroscope was then slowly withdrawn and removed. ADVERSE EVENT: There were no complications. IMPRESSIONS: 1. The stomach was entered and closely examined. The antrum, angularis, and lesser curvature were well visualized, including a retroflexed view of the cardia and fundus. The stomach wall was normally distensable. The scope passed easily through the pylorus into the duodenum. at the gastroesophageal junction 2. Duodenitis was found in the bulb of the duodenum 3. A hiatal hernia 4. PEG tube palced. RECOMMENDATIONS: PEG recomendations: 1- NPO for 6 hours except for meds 2- Flush PEG tube every 6 hours with water and after each PEG feeding 3- May resume regular diet in the morning 4- May use Ensure or Boost etc. 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 Goodman is a pleasant 67-year-old male with a history of prostate cancer, rheumatoid arthritis, iron deficiency anemia who presented to the emergency department on 09/21/2017 due to worsening weakness in his lower extremities that started 2 weeks prior to this admission. He was evaluated by neurology who suspected possible Guillain Clementon syndrome. Patient also reports chest pain that has been going on for months but worse in the last 2-3 days. He reported having diaphoresis along with chest pain. His troponin was elevated to 1.57. Cardiology was consulted. NSTEMI Cardiomyopathy -EF 35%. -Aspirin 81mg Qday, Lipitor 40mg QHS and Carvedilol 6.25mg BID, Lisinopril 5mg Qday. -Patient underwent cardiac catheterization on 09/26/2017 ==> mild CAD, no stent placed. -My independent review of the telemetry strip shows possible Vtach vs aberrance. Given low EF and recent NSTEMI case discussed with Dr. Abdi from electrophysiology who will see the patient 10-02. HAS BEEN CLEARED BY CARDIO FOR PEG TUBE PLACEMENT- PEG LATER TODAY 10-[address] ABDI-ON 10-05-- NO INTERVENTION EF 35% Dysphagia - Possibly related to GBS - NPO Per Speech. 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 Has completed IVIG treatment per neurology. Now on steroid taper, can transition to oral steroids once definitive p.o. plan is in place either through PEG tube versus traditional oral intake if cleared by speech--NEEDED PEG TUBE PLACED 10-03 -s/p LP. -MRI studies are largely unremarkable for any acute findings. Lung nodule 1.4cm -thoracic MRI shows an incidental finding of 1.4 cm lung nodule. -Discussed with Patient regarding CT chest to further evaluate lung nodule. He will do CT chest in the outpatient setting. History of iron deficiency anemia -currently stable. Hemoglobin 9.5, MCV 87.2. Rheumatoid arthritis - resume Arava once po plan is stable. HYPOKALEMIA- REPLACE VIA PEG AM LABS Full code. Lovenox 40mg SUB Qday. Will need rehab. Wiley? Code Status: FULL CODE Discussed Condition With: RN AND PT AND CM AND CARDIOLOGY Discharge Planning: [place] [facility] [place]
--- NOTE | 2017-10-05 22:11 | P.PNCA ---
Subjective Interval history: Patient was seen earlier today Post-EP study, negative for induction of arrhythmia Physical Exam Vital signs: Vital Signs 10/05/17 00:00 10/05/17 04:00 10/05/17 10:13 Temperature 97.8 F 98.3 F 97.3 F L Pulse Rate 60 60 59 L Respiratory Rate 18 18 Blood Pressure 151/84 H 161/85 H 161/84 H Pulse Oximetry 96 97 97 10/05/17 12:00 10/05/17 16:00 Temperature 98.7 F 97.9 F Pulse Rate 59 L 62 Respiratory Rate 14 16 Blood Pressure 147/82 H 157/77 H Pulse Oximetry 96 95 Intake & Output 10/05/17 10/05/17 10/06/17 06:59 18:59 06:59 Intake Total 1000 / 1000 1000 / 1000 Output Total 1200 / 1200 550 / 550 Balance -200 / -200 450 / 450 Weight 80 kg Intake: IV 1000 / 1000 1000 / 1000 D5W/Normal Saline Inj 1,000 ML 1000 / 1000 1000 / 1000 @ 84 mls/hr IV.CONT .[id number] [facility] Rx#:[id number] Oral 0 / 0 Output: Urine 1200 / 1200 Urine Amount (Catheter) 550 / 550 Indwelling Urethral Catheter 550 / 550 Other: Date of Last Bowel Movement 10/04/17 # Bowel Movements 0 Narrative: GENERAL: NAD, AAOx3, SKIN: Warm and dry. HEAD: Atraumatic. Normocephalic. EYES: Pupils equal and round. No scleral icterus. No injection or drainage. ENT: No nasal bleeding or discharge. Mucous membranes pink and moist. NECK: Trachea midline. No JVD. CARDIOVASCULAR: Regular rate and rhythm. S1 S2 NO S3 OR S4 RESPIRATORY: No accessory muscle use. Clear to auscultation. Breath sounds equal bilaterally. GASTROINTESTINAL: Abdomen soft, non-tender, nondistended. Hepatic and splenic margins not palpable. PEG TUBE IN PLACE MUSCULOSKELETAL: Extremities without clubbing, cyanosis, or edema. No obvious deformities. NEUROLOGICAL: Awake and alert. No obvious cranial nerve deficits. Motor grossly within normal limits. PSYCHIATRIC: Appropriate mood and affect; insight and judgment normal. 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
[2017-10-06] MEDS: MethylPREDNISolone Sod Succinate Inj 125 MG/2 ML Vial IV.PUSH SCH ×5 (00:47→13:22)
[2017-10-06 07:48] LABS: Hematocrit 30.8 % (39.0-51.0); Hemoglobin 10.1 gm/dL (13.0-17.0); Lymph # (Auto) 0.2 th/mm3 (1.0-4.8); Lymph % (Auto) 2.3 % (9.0-44.0); Mean Corpuscular HGB Conc 32.8 % (32.0-36.0); Mean Corpuscular Hemoglobin 29.3 pg (27.0-34.0); Mean Corpuscular Volume 89.3 fL (80.0-100.0); Mean Platelet Volume 8.9 fL (7.0-11.0); Mono # (Auto) 0.3 th/mm3 (0.0-0.9); Mono % (Auto) 3.4 % (0.0-8.0); Neut # (Auto) 8.2 th/mm3 (1.8-7.7); Neut % (Auto) 94.3 % (16.0-70.0); Platelet Count 149 th/mm3 (150-450); Red Blood Count 3.45 mil/mm3 (4.50-5.90); Red Cell Distribution Width 16.5 % (11.6-17.2); White Blood Count 8.7 th/mm3 (4.0-11.0)
[2017-10-06 08:26] LABS: Alanine Aminotransferase 59 U/L (12-78); Albumin 2.1 g/dL (3.4-5.0); Alkaline Phosphatase 48 U/L (45-117); Anion Gap 8 meq/L (5-15); Aspartate Aminotransferase 17 U/L (15-37); Blood Urea Nitrogen 28 mg/dL (7-18); Calcium 8.1 mg/dL (8.5-10.1); Chloride 110 meq/L (98-107); Glomerular Filtration Rate Greater Than 89 mL/min (>89); Glucose,Random 253 mg/dL (74-106); Magnesium 2.4 mg/dL (1.5-2.5); Phosphorus 2.5 mg/dL (2.5-4.9); Potassium 3.5 meq/L (3.5-5.1); Sodium 148 meq/L (136-145); Total Protein 5.4 g/dL (6.4-8.2)
--- NOTE | 2017-10-06 11:38 | P.PNIM ---
Subjective Interval history: 10-02 RN denies any deterioration since last night. Did have a partial run of either aberrancy vs vtach. No reports of any CP. Pt himself denies any setbacks otherwise. 10-[address] NICOLE, NOELLE FOR PEG- WILL NEED EP STUDY BEFORE DISCHARGE PATIENT STILL WITH DIFFICULTLY SWALLOWING FOR PEG TUBE TODAY DW PT AND RN AND CM AM LABS 10-04 SP PEG ON 10-03 WILL NEED EPS EVAL WITH DR ABDI BEFORE DC AM LABS DW RN AND PT AND CM REPLACE POTASSIUM VIA PEG 10-05 had EPS STUDY TODAY NO INTERVENTIONS OR ABLATIONS MEDS BEING ADJUSTED BY CARDIOLOGY TUBE FEEDS BEING STARTED TODAY DW RN AND PT AND CM AND CARDIOLOGY NEEDS TO TOLERATE TUBE FEEDS AM LABS 10-06 TOLERATING TUBE FEEDS NEEDS TO GO TO [facility] OR SNF SOON MEDS WERE ADJUSTED BY CARDIOLOGY DW RN AND PT AND CM Physical Exam Vital signs: Vital Signs 10/05/17 12:00 10/05/17 16:00 10/05/17 20:00 Temperature 98.7 F 97.9 F 98.3 F Pulse Rate 59 L 62 65 Respiratory Rate 14 16 20 Blood Pressure 147/82 H 157/77 H 110/68 Pulse Oximetry 96 95 10/06/17 00:00 10/06/17 04:00 10/06/17 04:10 Temperature 79.6 F L 97.3 F L Pulse Rate 64 70 62 Respiratory Rate 20 18 Blood Pressure 114/72 159/77 H Pulse Oximetry 96 95 10/06/17 08:00 Temperature 97.7 F Pulse Rate 68 Respiratory Rate 20 Blood Pressure 166/83 H Pulse Oximetry 95 Intake & Output 10/05/17 10/06/17 10/06/17 18:59 06:59 18:59 Intake Total 1000 / 1000 0 / 0 Output Total 550 / 550 800 / 800 Balance 450 / 450 -800 / -800 Weight 79.6 kg Intake: IV 1000 / 1000 D5W/Normal Saline Inj 1,000 ML 1000 / 1000 @ 84 mls/hr IV.CONT .[id number] [facility] Rx#:[id number] Oral 0 / 0 Output: Urine 800 / 800 Urine Amount (Catheter) 550 / 550 Indwelling Urethral Catheter 550 / 550 Other: # Bowel Movements 0 Narrative: GENERAL: NAD, AAOx3, SKIN: Warm and dry. HEAD: Atraumatic. Normocephalic. EYES: Pupils equal and round. No scleral icterus. No injection or drainage. ENT: No nasal bleeding or discharge. Mucous membranes pink and moist. NECK: Trachea midline. No JVD. CARDIOVASCULAR: Regular rate and rhythm. S1 S2 NO S3 OR S4 RESPIRATORY: No accessory muscle use. Clear to auscultation. Breath sounds equal bilaterally. GASTROINTESTINAL: Abdomen soft, non-tender, nondistended. Hepatic and splenic margins not palpable. PEG TUBE IN PLACE MUSCULOSKELETAL: Extremities without clubbing, cyanosis, or edema. No obvious deformities. NEUROLOGICAL: Awake and alert. No obvious cranial nerve deficits. Motor grossly within normal limits. PSYCHIATRIC: Appropriate mood and affect; insight and judgment normal. - Urinary Catheter Management Indwelling Urethral Catheter Cath placed during this visit: yes, but has since been removed by the nurse Reason for continuing: Other continuation reason Insertion date: 09/25/17 Insertion time: 06:57 Removal date: 09/25/17 Removal time: 09:00 Results - Labs CBC & Chem 7: 10/06/17 06:50 10/06/17 06:50 Laboratory Results - last 24 hr 10/06/17 10/06/17 06:50 06:50 WBC 8.7 RBC 3.45 L Hgb 10.1 L Hct 30.8 L MCV 89.3 MCH 29.3 MCHC 32.8 RDW 16.5 Plt Count 149 L MPV 8.9 Neut % (Auto) 94.3 H Lymph % (Auto) 2.3 L [place] % (Auto) 3.4 Eos % (Auto) 0.0 Baso % (Auto) 0.0 Neut # (Auto) 8.2 H Lymph # (Auto) 0.2 L [place] # (Auto) 0.3 Eos # (Auto) 0.0 Baso # (Auto) 0.0 WBC Differential . Differential Comment Auto diff final Sodium 148 H Potassium 3.5 Chloride 110 H Carbon Dioxide 30.0 Anion Gap 8 BUN 28 H Creatinine 0.68 Estimated GFR Greater than 89 Random Glucose 253 H D Calcium 8.1 L Phosphorus 2.5 Magnesium 2.4 Total Bilirubin 0.6 AST 17 ALT 59 Alkaline Phosphatase 48 Total Protein 5.4 L Albumin 2.1 L - Imaging Lumbar Spine MRI 09/21/17 00:00 CONCLUSION: 1. At L4-5 there is a mild central canal lateral recess stenosis with mild bilateral foraminal stenosis. 2. At L3-4 and L5-S1 there is a minimal anterolisthesis with mild foraminal encroachment. 3. Conus medullaris intact. No acute fracture. Thoracic Spine MRI 09/21/17 00:00 CONCLUSION: 1. There is a suspected 1.4 cm nodule in the right lung. Further evaluation with chest CT is recommended. 2. Mild degenerative change in the thoracic spine without canal stenosis or nerve root compression identified. Chest X-Ray 09/21/17 04:25 CONCLUSION: The lungs are clear. Cervical Spine CT 09/21/17 05:07 CONCLUSION: 1. No evidence of compression deformity or spondylolisthesis. 2. Hypertrophic degenerative changes in the posterior elements with multilevel right-sided bony neural foraminal stenosis. Head CT 09/21/17 05:07 CONCLUSION: 1. Negative noncontrast CT brain. Cervical Spine MRI 09/22/17 00:00 CONCLUSION: 1. No acute findings. No abnormal enhancement. Cervical cord unremarkable. Mild degenerative change. Head MRI 09/22/17 00:00 CONCLUSION: 1. Unremarkable and stable MRI of the brain compared to the prior examination. No new or significant changes. Lumbar Puncture Fluoroscopy 09/22/17 00:00 CONCLUSION: 1. Uncomplicated fluoroscopically guided lumbar puncture. Videofluoroscopic Swallow 09/24/17 00:00 CONCLUSION: Aspiration as above. Abdomen X-Ray 09/27/17 00:00 CONCLUSION: Weighted feeding tube in the expected location of the proximal gastric body Videofluoroscopic Swallow 09/30/17 09:00 CONCLUSION: Moderate aspiration. Please see consultation for speech pathology - Procedures EGD WITH PEG PROCEDURE REPORT EXAM DATE: 10/03/2017 PATIENT NAME: Abraham Goodman MR#: [id number] BIRTHDATE: 1950 ATTENDING: Chance Cabral MD ORDER #: [id number] EVIDENCE TECHNICIAN: Roman Lam and Jackelin New STATUS: inpatient INDICATIONS: The patient is a 67 yr old male here for an EGD with PEG due to dysphagia and placement of PEG PROCEDURE PERFORMED: EGD with PEG placement MEDICATIONS: None and Per Anesthesia. TOPICAL ANESTHETIC: none CONSENT: The patient understands the risks and benefits of the procedure and understands that these risks include, but are not limited to: sedation, allergic reaction, infection, perforation and/or bleeding. Alternative means of evaluation and treatment include, among others: physical exam, x-rays, and/or surgical intervention. The patient elects to proceed with this endoscopic procedure. medical equipment was checked for proper function. Hand hygiene and appropriate measures for infection prevention was taken. After the risks, benefits and alternatives of the procedure were thoroughly explained, Informed consent was verified, confirmed and timeout was successfully executed by the treatment team. The patient was anesthetized with topical anesthesia and the Pentax [id number] endoscope was introduced through the mouth and advanced to the second portion of the duodenum. The instrument was slowly withdrawn as the mucosa was fully examined. The stomach was entered and closely examined. The antrum, angularis, and lesser curvature were well visualized, including a retroflexed view of the cardia and fundus. The stomach wall was normally distensable. The scope passed easily through the pylorus into the duodenum. at the gastroesophageal junction. normal Duodenitis was found in the bulb of the duodenum. mild dudenitis The stomach was then inflated with air, and by a combination of transillumination and manual palpation, the site for the gastrostomy tube placement was selected and marked on the anterior abdominal wall. The skin of the anterior abdomen was surgically prepped and draped with sterile towels. Utilizing strict sterile technique, the selected site was then anesthetized with 1% xylocaine by injection into the skin and subcutaneous tissue. A 1 cm incision was made through the skin and subcutaneous tissue, and the needle/cannula assembly was then passed through the abdominal wall and through the anterior wall of the stomach, maintaining visualization with the endoscope. A snare device previously placed through the instrument channel was then opened and placed around the cannula, the needle was removed, and the insertion wire was passed through the cannula and into the stomach lumen. The snare was then loosened from the cannula, and repositioned to snare the insertion wire. The snare was then pulled up to the endoscope distal tip, and the scope was then withdrawn bringing with it the snare and insertion wire. The insertion wire was then released from the snare, and then loop-attached to the Bard 20 Fr gastrostomy tube. Using the "pull technique", the G-tube was then pulled into place by traction on the insertion wire at the abdominal wall end. The G-tube insertion site was then cleansed once again, and the external bolster was placed over the tube to secure it to the abdominal wall. A sterile dressing was then applied, and the procedure terminated. a hiatal hernia The gastroscope was then slowly withdrawn and removed. ADVERSE EVENT: There were no complications. IMPRESSIONS: 1. The stomach was entered and closely examined. The antrum, angularis, and lesser curvature were well visualized, including a retroflexed view of the cardia and fundus. The stomach wall was normally distensable. The scope passed easily through the pylorus into the duodenum. at the gastroesophageal junction 2. Duodenitis was found in the bulb of the duodenum 3. A hiatal hernia 4. PEG tube palced. RECOMMENDATIONS: PEG recomendations: 1- NPO for 6 hours except for meds 2- Flush PEG tube every 6 hours with water and after each PEG feeding 3- May resume regular diet in the morning 4- May use Ensure or Boost etc. 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 Goodman is a pleasant 67-year-old male with a history of prostate cancer, rheumatoid arthritis, iron deficiency anemia who presented to the emergency department on 09/21/2017 due to worsening weakness in his lower extremities that started 2 weeks prior to this admission. He was evaluated by neurology who suspected possible Guillain Fitzpatrick syndrome. Patient also reports chest pain that has been going on for months but worse in the last 2-3 days. He reported having diaphoresis along with chest pain. His troponin was elevated to 1.57. Cardiology was consulted. NSTEMI Cardiomyopathy -EF 35%. -Aspirin 81mg Qday, Lipitor 40mg QHS and Carvedilol 6.25mg BID, Lisinopril 5mg Qday. -Patient underwent cardiac catheterization on 09/26/2017 ==> mild CAD, no stent placed. -My independent review of the telemetry strip shows possible Vtach vs aberrance. Given low EF and recent NSTEMI case discussed with Dr. Abdi from electrophysiology who will see the patient 10-02. HAS BEEN CLEARED BY CARDIO FOR PEG TUBE PLACEMENT- PEG LATER TODAY 10-[address] ABDI-ON 10-05-- NO INTERVENTION EF 35% Dysphagia - Possibly related to GBS - NPO Per Speech. 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 Has completed IVIG treatment per neurology. Now on steroid taper, can transition to oral steroids once definitive p.o. plan is in place either through PEG tube versus traditional oral intake if cleared by speech--NEEDED PEG TUBE PLACED 10-03 -s/p LP. -MRI studies are largely unremarkable for any acute findings. Lung nodule 1.4cm -thoracic MRI shows an incidental finding of 1.4 cm lung nodule. -Discussed with Patient regarding CT chest to further evaluate lung nodule. He will do CT chest in the outpatient setting. History of iron deficiency anemia -currently stable. Hemoglobin 9.5, MCV 87.2. Rheumatoid arthritis - resume Arava once po plan is stable. HYPOKALEMIA- REPLACE VIA PEG AM LABS Full code. Lovenox 40mg SUB Qday. Will need rehab. [facility]? Code Status: FULL CODE Discussed Condition With: RN AND CM AND PATIENT Discharge Planning: [facility] AT [facility] OR SNF
--- NOTE | 2017-10-06 13:17 | P.PNCA ---
Subjective Interval history: No events overnight No complaints Tolerating tube feeds Physical Exam Vital signs: Vital Signs 10/05/17 16:00 10/05/17 20:00 10/06/17 00:00 Temperature 97.9 F 98.3 F 79.6 F L Pulse Rate 62 65 64 Respiratory Rate 16 20 20 Blood Pressure 157/77 H 110/68 114/72 Pulse Oximetry 95 96 10/06/17 04:00 10/06/17 04:10 10/06/17 08:00 Temperature 97.3 F L 97.7 F Pulse Rate 70 62 68 Respiratory Rate 18 20 Blood Pressure 159/77 H 166/83 H Pulse Oximetry 95 95 Intake & Output 10/05/17 10/06/17 10/06/17 18:59 06:59 18:59 Intake Total 1000 / 1000 0 / 0 Output Total 550 / 550 800 / 800 Balance 450 / 450 -800 / -800 Weight 79.6 kg Intake: IV 1000 / 1000 D5W/Normal Saline Inj 1,000 ML 1000 / 1000 @ 84 mls/hr IV.CONT .[id number] [facility] Rx#:[id number] Oral 0 / 0 Output: Urine 800 / 800 Urine Amount (Catheter) 550 / 550 Indwelling Urethral Catheter 550 / 550 Other: # Bowel Movements 0 Narrative: GENERAL: NAD, AAOx3, SKIN: Warm and dry. HEAD: Atraumatic. Normocephalic. EYES: Pupils equal and round. No scleral icterus. No injection or drainage. ENT: No nasal bleeding or discharge. Mucous membranes pink and moist. NECK: Trachea midline. No JVD. CARDIOVASCULAR: Regular rate and rhythm. S1 S2 NO S3 OR S4 RESPIRATORY: No accessory muscle use. Clear to auscultation. Breath sounds equal bilaterally. GASTROINTESTINAL: Abdomen soft, non-tender, nondistended. Hepatic and splenic margins not palpable. PEG TUBE IN PLACE MUSCULOSKELETAL: Extremities without clubbing, cyanosis, or edema. No obvious deformities. NEUROLOGICAL: Awake and alert. No obvious cranial nerve deficits. Motor grossly within normal limits. PSYCHIATRIC: Appropriate mood and affect; insight and judgment normal. 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
[2017-10-06] MEDS: Carvedilol 6.25 MG Tablet PO SCH ×2 (13:22→20:50)
[2017-10-06] MEDS: Famotidine PF Inj 20 MG/2 ML Vial IV.SIG SCH (13:23)
[2017-10-06] MEDS: Enoxaparin Inj 40 MG/0.4 ML Syringe SQ SCH (13:23)
[2017-10-06] MEDS: Lisinopril 5 MG Tablet PO SCH (13:24)
--- NOTE | 2017-10-06 19:13 | ECG ---
Date Performed: 10/06/2017 Time Performed: 10:03:08 PTAGE: 67 years EKG: SINUS RYTHM NONSPECIFIC ST & T-WAVE ABNORMALITY PROLONGED QT INTERVAL ABNORMAL ECG PREVIOUS TRACING : 09/21/2017 06.27 QRS Voltage not as high as the previous tracing DOCTOR: Carl Farmer Interpretating Date/Time 10/06/2017 19:11:59
[2017-10-06] MEDS: predniSONE Liq 5 MG/5 ML UDC G-TUBE SCH ×2 (21:06→23:23)
[2017-10-07] MEDS: Dextrose 5%/NaCl 0.9% Inj 1,000 ML IV.CONT SCH (06:12)
[2017-10-07] MEDS: predniSONE Liq 5 MG/5 ML UDC G-TUBE SCH ×3 (06:13→17:08)
[2017-10-07 08:40] LABS: Hematocrit 28.5 % (39.0-51.0); Hemoglobin 9.3 gm/dL (13.0-17.0); Lymph # (Auto) 0.1 th/mm3 (1.0-4.8); Lymph % (Auto) 1.6 % (9.0-44.0); Mean Corpuscular HGB Conc 32.7 % (32.0-36.0); Mean Corpuscular Hemoglobin 29.3 pg (27.0-34.0); Mean Corpuscular Volume 89.4 fL (80.0-100.0); Mean Platelet Volume 9.1 fL (7.0-11.0); Mono # (Auto) 0.6 th/mm3 (0.0-0.9); Mono % (Auto) 6.4 % (0.0-8.0); Neut # (Auto) 8.2 th/mm3 (1.8-7.7); Platelet Count 127 th/mm3 (150-450); Red Blood Count 3.19 mil/mm3 (4.50-5.90); Red Cell Distribution Width 16.8 % (11.6-17.2); White Blood Count 8.9 th/mm3 (4.0-11.0)
[2017-10-07 09:10] LABS: Alanine Aminotransferase 48 U/L (12-78); Albumin 1.9 g/dL (3.4-5.0); Alkaline Phosphatase 43 U/L (45-117); Anion Gap 10 meq/L (5-15); Aspartate Aminotransferase 17 U/L (15-37); Blood Urea Nitrogen 23 mg/dL (7-18); Calcium 7.8 mg/dL (8.5-10.1); Carbon Dioxide 29.4 meq/L (21.0-32.0); Chloride 109 meq/L (98-107); Glomerular Filtration Rate Greater Than 89 mL/min (>89); Glucose,Random 220 mg/dL (74-106); Magnesium 2.4 mg/dL (1.5-2.5); Phosphorus 1.8 mg/dL (2.5-4.9); Sodium 148 meq/L (136-145)
[2017-10-07 09:13] LABS: Potassium 2.8 meq/L (3.5-5.1)
[2017-10-07] MEDS: Famotidine PF Inj 20 MG/2 ML Vial IV.SIG SCH (09:57)
[2017-10-07] MEDS: Carvedilol 6.25 MG Tablet PO SCH ×2 (09:57→21:44)
[2017-10-07] MEDS: Lisinopril 5 MG Tablet PO SCH (09:57)
[2017-10-07] MEDS: Enoxaparin Inj 40 MG/0.4 ML Syringe SQ SCH (10:09)
--- NOTE | 2017-10-07 10:16 | P.PNIM ---
Subjective Interval history: f/u; possible GBS in no acute distress. denies pain. no new complaints. d/w the RN at the bedside. Physical Exam Vital signs: Vital Signs 10/06/17 12:00 10/06/17 16:00 10/06/17 20:00 Temperature 98.2 F 98.1 F 98.8 F Pulse Rate 64 67 73 Respiratory Rate 20 20 20 Blood Pressure 152/81 H 154/81 H 135/70 Pulse Oximetry 95 96 96 10/06/17 20:40 10/07/17 00:00 10/07/17 04:00 Temperature 98.0 F 98.2 F Pulse Rate 75 69 65 Respiratory Rate 20 20 Blood Pressure 133/65 136/70 Pulse Oximetry 97 96 Intake & Output 10/06/17 10/07/17 10/07/17 18:59 06:59 18:59 Intake Total 0 / 0 1851 / 1851 Output Total 900 / 900 775 / 775 Balance -900 / -900 1076 / 1076 Weight 81.4 kg Intake: Oral 0 / 0 Tube Feeding 1751 / 1751 Tube Irrigant 100 / 100 Output: Urine 900 / 900 775 / 775 Other: Date of Last Bowel Movement 10/04/17 10/06/17 # Bowel Movements 1 0 - Constitutional no acute distress - Routine Respiratory Exam Present: CTA bilaterally - Routine Cardiovascular Exam Present: RRR - Routine Abdominal Exam Present: soft - Routine Extremities Exam Comments: no pedal edema. - Routine Neurological Exam Present: alert, oriented X3 - Urinary Catheter Management Indwelling Urethral Catheter Cath placed during this visit: yes, but has since been removed by the nurse Reason for continuing: Other continuation reason Insertion date: 09/25/17 Insertion time: 06:57 Removal date: 09/25/17 Removal time: 09:00 Results - Labs CBC & Chem 7: 10/07/17 08:07 10/07/17 08:07 Laboratory Results - last 24 hr 10/07/17 10/07/17 08:07 08:07 WBC 8.9 RBC 3.19 L Hgb 9.3 L Hct 28.5 L MCV 89.4 MCH 29.3 MCHC 32.7 RDW 16.8 Plt Count 127 L MPV 9.1 Neut % (Auto) 92.0 H Lymph % (Auto) 1.6 L [place] % (Auto) 6.4 Eos % (Auto) 0.0 Baso % (Auto) 0.0 Neut # (Auto) 8.2 H Lymph # (Auto) 0.1 L [place] # (Auto) 0.6 Eos # (Auto) 0.0 Baso # (Auto) 0.0 WBC Differential . Differential Comment Auto diff final Sodium 148 H Potassium 2.8 L* Chloride 109 H Carbon Dioxide 29.4 Anion Gap 10 BUN 23 H Creatinine 0.73 Estimated GFR Greater than 89 Random Glucose 220 H Calcium 7.8 L Phosphorus 1.8 L Magnesium 2.4 Total Bilirubin 0.5 AST 17 ALT 48 Alkaline Phosphatase 43 L Total Protein 5.0 L Albumin 1.9 L - Procedures EGD WITH PEG PROCEDURE REPORT EXAM DATE: 10/03/2017 PATIENT NAME: Abraham Goodman MR#: [id number] BIRTHDATE: 1950 ATTENDING: Chance Cabral MD ORDER #: [id number] BLOCKER HAND: Roman Lam and Jackelin New STATUS: inpatient INDICATIONS: The patient is a 67 yr old male here for an EGD with PEG due to dysphagia and placement of PEG PROCEDURE PERFORMED: EGD with PEG placement MEDICATIONS: None and Per Anesthesia. TOPICAL ANESTHETIC: none CONSENT: The patient understands the risks and benefits of the procedure and understands that these risks include, but are not limited to: sedation, allergic reaction, infection, perforation and/or bleeding. Alternative means of evaluation and treatment include, among others: physical exam, x-rays, and/or surgical intervention. The patient elects to proceed with this endoscopic procedure. medical equipment was checked for proper function. Hand hygiene and appropriate measures for infection prevention was taken. After the risks, benefits and alternatives of the procedure were thoroughly explained, Informed consent was verified, confirmed and timeout was successfully executed by the treatment team. The patient was anesthetized with topical anesthesia and the Canatuax [id number] endoscope was introduced through the mouth and advanced to the second portion of the duodenum. The instrument was slowly withdrawn as the mucosa was fully examined. The stomach was entered and closely examined. The antrum, angularis, and lesser curvature were well visualized, including a retroflexed view of the cardia and fundus. The stomach wall was normally distensable. The scope passed easily through the pylorus into the duodenum. at the gastroesophageal junction. normal Duodenitis was found in the bulb of the duodenum. mild dudenitis The stomach was then inflated with air, and by a combination of transillumination and manual palpation, the site for the gastrostomy tube placement was selected and marked on the anterior abdominal wall. The skin of the anterior abdomen was surgically prepped and draped with sterile towels. Utilizing strict sterile technique, the selected site was then anesthetized with 1% xylocaine by injection into the skin and subcutaneous tissue. A 1 cm incision was made through the skin and subcutaneous tissue, and the needle/cannula assembly was then passed through the abdominal wall and through the anterior wall of the stomach, maintaining visualization with the endoscope. A snare device previously placed through the instrument channel was then opened and placed around the cannula, the needle was removed, and the insertion wire was passed through the cannula and into the stomach lumen. The snare was then loosened from the cannula, and repositioned to snare the insertion wire. The snare was then pulled up to the endoscope distal tip, and the scope was then withdrawn bringing with it the snare and insertion wire. The insertion wire was then released from the snare, and then loop-attached to the Bard 20 Fr gastrostomy tube. Using the "pull technique", the G-tube was then pulled into place by traction on the insertion wire at the abdominal wall end. The G-tube insertion site was then cleansed once again, and the external bolster was placed over the tube to secure it to the abdominal wall. A sterile dressing was then applied, and the procedure terminated. a hiatal hernia The gastroscope was then slowly withdrawn and removed. ADVERSE EVENT: There were no complications. IMPRESSIONS: 1. The stomach was entered and closely examined. The antrum, angularis, and lesser curvature were well visualized, including a retroflexed view of the cardia and fundus. The stomach wall was normally distensable. The scope passed easily through the pylorus into the duodenum. at the gastroesophageal junction 2. Duodenitis was found in the bulb of the duodenum 3. A hiatal hernia 4. PEG tube palced. RECOMMENDATIONS: PEG recomendations: 1- NPO for 6 hours except for meds 2- Flush PEG tube every 6 hours with water and after each PEG feeding 3- May resume regular diet in the morning 4- May use Ensure or Boost etc. 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 -Aspirin 81mg Qday, Lipitor 40mg QHS and Carvedilol 6.25mg BID, Lisinopril 5mg Qday. -Patient underwent cardiac catheterization on 09/26/2017 ==> mild CAD, no stent placed. -continue medical treatment. -cleared by cardiology for discharge. 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 Has completed IVIG treatment per neurology. -now on steroid taper. -s/p LP. -MRI studies are largely unremarkable for any acute findings. Lung nodule 1.4cm -thoracic MRI shows an incidental finding of 1.4 cm lung nodule. -Discussed with Patient regarding CT chest to further evaluate lung nodule. He will do CT chest in the outpatient setting. History of iron deficiency anemia -currently stable. Hemoglobin 9.5, MCV 87.2. Rheumatoid arthritis - resume Arava once po plan is stable. hypokalemia; will replace and monitor,. Discharge Planning: [facility]- hopefully soon.
[2017-10-07] MEDS ORDERED: Potassium Chloride 20 MEQ Pwd Pkt G-TUBE ONE ×3 (11:00→18:00)
--- NOTE | 2017-10-07 12:23 | P.CONREH ---
History of Present Illness Consult date: 10/07/17 Requesting Physician: Tyler Gomez Reason for Consult: Comprehensive rehabilitation evaluation Primary Care Provider: Dominic Blanchard MD Chief Complaint: Weakness History of Present Illness: Abraham Goodman is a 67-year-old [id number] male admitted to [facility] 09/21/17 with a 2 day history of ascending weakness and bowel and bladder continent incontinence. Head CT 09/21/17 was negative for acute intracranial change. Brain MRI 09/22/[address] of the cervical spine 09/21/17 showed no evidence of compression deformity or spondylolisthesis. Hypertrophic degenerative changes in the posterior elements with multilevel right-sided bony neural foraminal stenosis. MRI of the cervical spine 09/22/17 showed no acute findings. No abnormal enhancement. Cervical cord unremarkable. Mild degenerative change MRI of the thoracic spine 09/21/17 showed suspected 1.4 cm nodule in the right lung. Further evaluation with chest CT was recommended. Mild degenerative change in the thoracic spine without canal stenosis or nerve root compression identified. MRI lumbar spine 09/21/17 showed L4-5 mild central canal lateral recess stenosis with mild bilateral foraminal stenosis. L3-4 and L5-S1 there is a minimal anterolisthesis with mild foraminal encroachment. Conus medullaris intact. No acute fracture. Echocardiogram 09/21/17 showed mildly dilated left ventricle. Mild concentric left ventricular hypertrophy. Moderate global left ventricular systolic function with the ejection fraction of 35%. Distal anteroseptal and apical severe hypokinesis. Posterior mitral valve leaflet prolapse. Mild mitral valve regurgitation. There is trace tricuspid valve regurgitation. He will underwent lumbar puncture which showed CSF pleocytosis but normal protein. He was started on IVIG. He subsequently received IV Solu-Medrol and is currently receiving p.o. steroids. His course has included non-STEMI for which he was treated with heparin drip. Cardiac cath showed mild coronary artery disease. He had episode of nonsustained V. tach and underwent EPS study 10/05/17. Cardiology is following and medications have been adjusted. PEG was placed 10/03/17 due to dysphagia and risk for silent aspiration. Review of Systems Constitutional: Denies anorexia, Denies headache(s) Eyes: Denies double vision Ears, Nose, Mouth, and Throat: Reports abnormal hearing, Reports poor balance, Reports sore throat, Reports other (Throat feels dry) Cardiovascular: Denies chest pain Respiratory: Reports shortness of breath with activity, Denies cough Gastrointestinal: Reports incontinent of stools, Denies abdominal pain Genitourinary: Reports urinary incontinence (Stafford catheter is in place) Musculoskeletal: Reports abnormal walking, Reports muscle weakness, Reports numbness, Denies muscle cramps Skin/Breast: Denies unusual bruising Neurologic: Reports tingling, Reports unsteadiness, Reports weakness, Denies headache(s), Denies memory loss, Denies other visual disturbances Psychiatric: Denies confusion Hematologic/Lymphatic: Denies easy bruising PMFSH - History History Provided By: Patient, Medical Record - Medical History Medical History: Medical History (Last Reviewed 10/07/17 @ 08:27 by Sita Lazar, TRANSPORTATION ECONOMICS TEACHER) Anemia Arthritis Cataract GERD (gastroesophageal reflux disease) Glaucoma History of radiation therapy Onset Date: 05/2016 Osteoarthritis Prostate cancer Rheumatoid arthritis - Surgical History Surgical History: Surgical History (Last Reviewed 10/05/17 @ 17:08 by Jessica Gerard) History of cataract surgery History of tonsillectomy Hx of hand surgery Onset Date: ~2012 S/P foot surgery, left Onset Date: ~1999 S/P foot surgery, right Onset Date: ~1999 - Tobacco History Second Hand Smoke Exposure: No Tobacco Use In Past 30 Days: No Smoking Status: Never smoker - Alcohol History How Often Do You Have a Drink Containing Alcohol: 4 or more times a week - Substance Use History Substance History: No History of Abuse - Travel History Recent Travel in the [facility] Within the Last 8 Weeks: No - Immunization History Tetanus Immunization: Unsure Hx Influenza Vaccine This Season: Yes Medications and Allergies Active Medications: Active Medications Acetaminophen (Tylenol) 650 mg PO Q4H PRN PRN Reason: Temp > 100.4 Last Admin: 09/23/17 16:34 Dose: 650 mg Aspirin (Ecotrin) 81 mg PO DAILY [facility] Last Admin: 10/07/17 09:57 Dose: 81 mg Atorvastatin Calcium (Lipitor) 40 mg PO HS [facility] Last Admin: 09/23/17 21:18 Dose: 40 mg Carvedilol (Coreg) 6.25 mg PO BID [facility] Last Admin: 10/07/17 09:57 Dose: 6.25 mg Enalaprilat (Vasotec Inj) 1.25 mg IV.PUSH Q6H PRN PRN Reason: SBP>160, DBP>90 Last Admin: 09/29/17 16:35 Dose: 1.25 mg Enoxaparin Sodium (Lovenox Inj) 40 mg SQ DAILY [facility] Last Admin: 10/07/17 10:09 Dose: 40 mg Famotidine (Pepcid Pf Inj) 20 mg IV.SIG DAILY [facility] Last Admin: 10/07/17 09:57 Dose: 20 mg Fluticasone Propionate (Flonase Nasal [place]) 1 spray EACH NARE DAILY [facility] Last Admin: 10/07/17 09:57 Dose: 1 spray Dextrose/Sodium Chloride (D5w/Normal Saline Inj) 1,000 mls @ 84 mls/hr IV.CONT .[id number] [facility] Last Admin: 10/07/17 06:12 Dose: 84 mls/hr Leflunomide (Arava) 20 mg PO DAILY [facility] Last Admin: 09/24/17 12:51 Dose: Not Given Lisinopril (Prinivil) 10 mg PO DAILY [facility] Last Admin: 10/07/17 09:57 Dose: 10 mg Morphine Sulfate (Morphine Inj) 2 mg IV.PUSH Q3H PRN PRN Reason: CHEST PAIN Last Admin: 09/22/17 08:41 Dose: 2 mg Ondansetron HCl (Zofran Inj) 4 mg IV.PUSH Q4H PRN PRN Reason: NAUSEA Pt Own Med: Iron (44mg Po Bid) 0 each PO BID [facility] Potassium Chloride (Kcl Powder) 20 meq G-TUBE ONCE ONE Stop: 10/07/17 14:01 Potassium Chloride (Kcl Powder) 20 meq G-TUBE ONCE ONE Stop: 10/07/17 18:01 Prednisone (Deltasone Liq) 50 mg G-TUBE Q6HR [facility] Last Admin: 10/07/17 06:13 Dose: 50 mg Sodium Chloride (Ns Flush) 2 ml IV.FLUSH BID [facility] Last Admin: 10/07/17 10:09 Dose: 2 ml Sodium Chloride (Ns Flush) 2 ml IV.FLUSH UNSCH PRN PRN Reason: FLUSH AFTER USING IV ACCESS Last Admin: 10/02/17 08:23 Dose: 2 ml Sulfasalazine (Azulfidine) 500 mg PO BID [facility] Last Admin: 09/24/17 12:51 Dose: Not Given Allergies Allergy/AdvReac Type Severity Reaction Status Date / Time ciprofloxacin Allergy Severe Rash Verified 09/21/17 10:13 Home Medications Medication Instructions Recorded Confirmed Type aspirin 81 mg PO DAILY 09/21/17 09/21/17 History baclofen 5 mg PO TID 09/21/17 09/21/17 History diclofenac sodium 75 mg PO BID 09/21/17 09/21/17 History fluticasone 1 spray INTRANASAL DAILY 09/21/17 09/21/17 History iron 44 mg PO BID 09/21/17 09/21/17 History leflunomide 20 mg PO QAM 09/21/17 09/21/17 History omeprazole 20 mg PO DAILY 09/21/17 09/21/17 History potassium chloride 50 meq PO DAILY 09/21/17 09/21/17 History sulfasalazine 500 mg PO BID 09/21/17 09/21/17 History tramadol 50 mg PO TID 09/21/17 09/21/17 History zolpidem 5 mg PO HS PRN 09/21/17 09/21/17 History Exam - Physical Examination Vital Signs / I&O: Vital Signs 10/06/17 16:00 10/06/17 20:00 10/06/17 20:40 Temperature 98.1 F 98.8 F Pulse Rate 67 73 75 Respiratory Rate 20 20 Blood Pressure 154/81 H 135/70 Pulse Oximetry 96 96 10/07/17 00:00 10/07/17 04:00 10/07/17 08:00 Temperature 98.0 F 98.2 F 98.0 F Pulse Rate 69 65 63 Respiratory Rate 20 20 20 Blood Pressure 133/65 136/70 174/84 H Pulse Oximetry 97 96 94 L Intake & Output 10/06/17 10/07/17 10/07/17 18:59 06:59 18:59 Intake Total 0 / 0 1851 / 1851 Output Total 900 / 900 775 / 775 Balance -900 / -900 1076 / 1076 Weight 81.4 kg Intake: Oral 0 / 0 Tube Feeding 1751 / 1751 Tube Irrigant 100 / 100 Output: Urine 900 / 900 775 / 775 Other: Date of Last Bowel Movement 10/04/17 10/06/17 10/06/17 # Bowel Movements 1 0 Intake & Output 10/05/17 10/06/17 10/07/17 10/08/17 06:59 06:59 06:59 06:59 Intake Total 1999 1851 / 1851 Output Total 1200 / 1200 1350 / 1350 1675 / 1675 Balance 800 / 800 650 / 650 176 / 176 Weight 80 kg 79.6 kg 81.4 kg General: No acute distress Respiratory: Lungs CTA, Non-labored respirations, BS equal (Decreased breath sounds in the bases) Gastrointestinal: Positive bowel sounds, Non-distended, Non-tender Date of Last Bowel Movement: 10/06/17 Cardiovascular: Normal rate, No edema, Regular rhythm Skin: Wound(s) (Left sacrum 3 mm x 5 mm open tear with blanchable redness in the sacral area approximately 4 x 4 cm), Other (Patient is incontinent of stool) Musculoskeletal: ROM (Within normal limits) Psychiatric: Cooperative, Appropriate mood & affect - Neurologic Orientation: oriented to: Self, Place, Time, Situation Neurologic: Cranial nerves (Intact 2 through 12), Speech (Hoarseness) Motor: Right Upper Extremity (4/5), Left Upper Extremity (4/5), Right Lower Extremity (Hip flexion 2/5; hip extension 3/5; knee extension 3-/5; ankle dorsi and plantar flexion 3+/5), Left Lower Extremity (Hip flexion 2/5; hip extension 3/5; knee extension 3-/5; ankle dorsi and plantar flexion 3+/5) Sensory: Impaired distal to the inguinal area bilaterally. Sensation is present but decreased to light touch DTRs: Abnormal (Areflexic in the lower extremities; trace upper extremities) Babinski: Negative Clonus: Negative Results - Labs CBC & Chem 7: 10/07/17 08:07 10/07/17 08:07 Labs: Laboratory Results - last 24 hr 10/07/17 10/07/17 08:07 08:07 WBC 8.9 RBC 3.19 L Hgb 9.3 L Hct 28.5 L MCV 89.4 MCH 29.3 MCHC 32.7 RDW 16.8 Plt Count 127 L MPV 9.1 Neut % (Auto) 92.0 H Lymph % (Auto) 1.6 L [place] % (Auto) 6.4 Eos % (Auto) 0.0 Baso % (Auto) 0.0 Neut # (Auto) 8.2 H Lymph # (Auto) 0.1 L [place] # (Auto) 0.6 Eos # (Auto) 0.0 Baso # (Auto) 0.0 WBC Differential . Differential Comment Auto diff final Sodium 148 H Potassium 2.8 L* Chloride 109 H Carbon Dioxide 29.4 Anion Gap 10 BUN 23 H Creatinine 0.73 Estimated GFR Greater than 89 Random Glucose 220 H Calcium 7.8 L Phosphorus 1.8 L Magnesium 2.4 Total Bilirubin 0.5 AST 17 ALT 48 Alkaline Phosphatase 43 L Total Protein 5.0 L Albumin 1.9 L Assessment and Plan (1) Guillain Romero syndrome Status: Acute Code(s): G61.0 - Guillain-[place] syndrome (2) NSTEMI (non-ST elevated myocardial infarction) Status: Acute Code(s): I21.4 - Non-ST elevation (NSTEMI) myocardial infarction - Plan Assessment: 1. 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 Dysphagia currently n.p.o. status post PEG placement with tube feeding 3. Non-STEMI with ejection fraction 35% 4. Episode of nonsustained V. tach with EPS study 10/05/17 5. Rheumatoid arthritis 6. Anemia 7. Prostate cancer status post TURP with radiation 8. History of melanoma 9. History of chronic low back pain 10. Sacral skin breakdown Recommendations: 1. Return to reposition every 2 hours with barrier cream and skin prep to sacral area 2. Continue to mobilize with physical therapy. Patient is maximal assistance to sit edge of bed. He is unable to stand due to lower extremity weakness. 3. Roho cushion when up to sitting 4. Occupational therapy is addressing ADLs and monitor max assist for upper body dressing/ADLs and dependent for lower body ADLs 5. Continue speech therapy to address swallow including vital stim 6. Continue dietitian for tube feeding and to monitor hydration and nutritional intake 7. Patient will benefit from ongoing inpatient rehabilitation to address quadriparesis due to Guilain Romero versus transverse myelitis. Case management is arranging [id number] review for benefits 8. Will follow while hospitalized and at discharge
--- NOTE | 2017-10-07 19:55 | P.PNCA ---
Subjective Interval history: No events overnight Feels a little more weak today Physical Exam Vital signs: Vital Signs 10/06/17 20:00 10/06/17 20:40 10/07/17 00:00 Temperature 98.8 F 98.0 F Pulse Rate 73 75 69 Respiratory Rate 20 20 Blood Pressure 135/70 133/65 Pulse Oximetry 96 97 10/07/17 04:00 10/07/17 08:00 10/07/17 12:00 Temperature 98.2 F 98.0 F 98.5 F Pulse Rate 65 63 69 Respiratory Rate 20 20 20 Blood Pressure 136/70 174/84 H 133/73 Pulse Oximetry 96 94 L 96 10/07/17 16:00 Temperature 98.7 F Pulse Rate 69 Respiratory Rate 20 Blood Pressure 134/73 Pulse Oximetry 95 Intake & Output 10/07/17 10/07/17 10/08/17 06:59 18:59 06:59 Intake Total 1851 / 1851 0 / 0 Output Total 775 / 775 1000 / 1000 Balance 1076 / 1076 -1000 / -1000 Weight 81.4 kg Intake: Oral 0 / 0 Tube Feeding 1751 / 1751 Tube Irrigant 100 / 100 Output: Urine 775 / 775 1000 / 1000 Other: Date of Last Bowel Movement 10/06/17 10/06/17 # Bowel Movements 0 2 Narrative: GENERAL: NAD, AAOx3, SKIN: Warm and dry. HEAD: Atraumatic. Normocephalic. EYES: Pupils equal and round. No scleral icterus. No injection or drainage. ENT: No nasal bleeding or discharge. Mucous membranes pink and moist. NECK: Trachea midline. No JVD. CARDIOVASCULAR: Regular rate and rhythm. S1 S2 NO S3 OR S4 RESPIRATORY: No accessory muscle use. Clear to auscultation. Breath sounds equal bilaterally. GASTROINTESTINAL: Abdomen soft, non-tender, nondistended. Hepatic and splenic margins not palpable. PEG TUBE IN PLACE MUSCULOSKELETAL: Extremities without clubbing, cyanosis, or edema. No obvious deformities. NEUROLOGICAL: Awake and alert. No obvious cranial nerve deficits. Motor grossly within normal limits. PSYCHIATRIC: Appropriate mood and affect; insight and judgment normal. 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 - Guillain-[place] syndrome Status: Acute (4) NSTEMI (non-ST elevated myocardial infarction) Code(s): I21.4 - Non-ST elevation (NSTEMI) myocardial infarction Status: Acute - Plan 1) Chest pain/NSTEMI Cardiac cath showing mild CAD Con't medical management 2) Progressive weakness Concern for GBS Weakness overall better 3) Iron deficiency anemia 4) Cardiomyopathy EF 35%, posterior MVP with mild MR Con't Coreg.Lisinopril Wide complex tachycardia EP study negative for inducing arrhythmia 5) Dysphagia/aspiration PEG tube placed 6) HTN Better today 7) Stable to discharge to SNF whenever accepted
[2017-10-08] MEDS: Dextrose 5%/NaCl 0.9% Inj 1,000 ML IV.CONT SCH (07:04)
--- NOTE | 2017-10-08 09:50 | P.PNIM ---
Subjective Interval history: in no acute distress. looks comfortable. no new complaints. Physical Exam Vital signs: Vital Signs 10/07/17 12:00 10/07/17 16:00 10/07/17 20:00 Temperature 98.5 F 98.7 F 98.3 F Pulse Rate 69 69 71 Respiratory Rate 20 20 18 Blood Pressure 133/73 134/73 134/78 Pulse Oximetry 96 95 96 10/07/17 23:55 10/08/17 00:00 10/08/17 04:00 Temperature 98.4 F 98.2 F Pulse Rate 64 67 76 Respiratory Rate 18 18 Blood Pressure 148/80 H 154/82 H Pulse Oximetry 97 95 10/08/17 08:00 Temperature 98.4 F Pulse Rate 61 Respiratory Rate 20 Blood Pressure 127/85 Pulse Oximetry 96 Intake & Output 10/07/17 10/08/17 10/08/17 18:59 06:59 18:59 Intake Total 1000 / 1000 120 / 120 Output Total 1000 / 1000 850 / 850 1 / 1 Balance 0 / 0 -730 / -730 -1 / -1 Weight 81.9 kg Intake: IV 1000 / 1000 D5W/Normal Saline Inj 1,000 ML 1000 / 1000 @ 84 mls/hr IV.CONT .[id number] [facility] Rx#:[id number] Oral 0 / 0 120 / 120 Output: Urine 1000 / 1000 850 / 850 Stool 1 / Other: Date of Last Bowel Movement 10/06/17 10/07/17 10/08/17 # Bowel Movements 2 3 - Constitutional no acute distress - Routine Respiratory Exam Present: CTA bilaterally - Routine Cardiovascular Exam Present: RRR - Routine Abdominal Exam Present: soft - Routine Extremities Exam Comments: no pedal edema. - Routine Neurological Exam Present: alert, oriented X3 - Urinary Catheter Management Indwelling Urethral Catheter Cath placed during this visit: yes, but has since been removed by the nurse Reason for continuing: Other continuation reason Insertion date: 09/25/17 Insertion time: 06:57 Removal date: 09/25/17 Removal time: 09:00 Results - Labs CBC & Chem 7: 10/07/17 08:07 10/08/17 05:51 Laboratory Results - last 24 hr 10/08/17 05:51 Potassium 3.0 L - Procedures EGD WITH PEG PROCEDURE REPORT EXAM DATE: 10/03/2017 PATIENT NAME: Abraham Goodman MR#: [id number] BIRTHDATE: 1950 ATTENDING: Chance Cabral MD ORDER #: [id number] TILLER WORKER: Roman Lam and Jackelin New STATUS: inpatient INDICATIONS: The patient is a 67 yr old male here for an EGD with PEG due to dysphagia and placement of PEG PROCEDURE PERFORMED: EGD with PEG placement MEDICATIONS: None and Per Anesthesia. TOPICAL ANESTHETIC: none CONSENT: The patient understands the risks and benefits of the procedure and understands that these risks include, but are not limited to: sedation, allergic reaction, infection, perforation and/or bleeding. Alternative means of evaluation and treatment include, among others: physical exam, x-rays, and/or surgical intervention. The patient elects to proceed with this endoscopic procedure. medical equipment was checked for proper function. Hand hygiene and appropriate measures for infection prevention was taken. After the risks, benefits and alternatives of the procedure were thoroughly explained, Informed consent was verified, confirmed and timeout was successfully executed by the treatment team. The patient was anesthetized with topical anesthesia and the Pentax [id number] endoscope was introduced through the mouth and advanced to the second portion of the duodenum. The instrument was slowly withdrawn as the mucosa was fully examined. The stomach was entered and closely examined. The antrum, angularis, and lesser curvature were well visualized, including a retroflexed view of the cardia and fundus. The stomach wall was normally distensable. The scope passed easily through the pylorus into the duodenum. at the gastroesophageal junction. normal Duodenitis was found in the bulb of the duodenum. mild dudenitis The stomach was then inflated with air, and by a combination of transillumination and manual palpation, the site for the gastrostomy tube placement was selected and marked on the anterior abdominal wall. The skin of the anterior abdomen was surgically prepped and draped with sterile towels. Utilizing strict sterile technique, the selected site was then anesthetized with 1% xylocaine by injection into the skin and subcutaneous tissue. A 1 cm incision was made through the skin and subcutaneous tissue, and the needle/cannula assembly was then passed through the abdominal wall and through the anterior wall of the stomach, maintaining visualization with the endoscope. A snare device previously placed through the instrument channel was then opened and placed around the cannula, the needle was removed, and the insertion wire was passed through the cannula and into the stomach lumen. The snare was then loosened from the cannula, and repositioned to snare the insertion wire. The snare was then pulled up to the endoscope distal tip, and the scope was then withdrawn bringing with it the snare and insertion wire. The insertion wire was then released from the snare, and then loop-attached to the Bard 20 Fr gastrostomy tube. Using the "pull technique", the G-tube was then pulled into place by traction on the insertion wire at the abdominal wall end. The G-tube insertion site was then cleansed once again, and the external bolster was placed over the tube to secure it to the abdominal wall. A sterile dressing was then applied, and the procedure terminated. a hiatal hernia The gastroscope was then slowly withdrawn and removed. ADVERSE EVENT: There were no complications. IMPRESSIONS: 1. The stomach was entered and closely examined. The antrum, angularis, and lesser curvature were well visualized, including a retroflexed view of the cardia and fundus. The stomach wall was normally distensable. The scope passed easily through the pylorus into the duodenum. at the gastroesophageal junction 2. Duodenitis was found in the bulb of the duodenum 3. A hiatal hernia 4. PEG tube palced. RECOMMENDATIONS: PEG recomendations: 1- NPO for 6 hours except for meds 2- Flush PEG tube every 6 hours with water and after each PEG feeding 3- May resume regular diet in the morning 4- May use Ensure or Boost etc. 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 -Aspirin 81mg Qday, Lipitor 40mg QHS and Carvedilol 6.25mg BID, Lisinopril 5mg Qday. -Patient underwent cardiac catheterization on 09/26/2017 ==> mild CAD, no stent placed. -continue medical treatment. -cleared by cardiology for discharge. Dysphagia - Possibly related to GBS - SP PEG 7-16 Probable Guillain [place] syndrome -Neurology is following. Has completed IVIG treatment per neurology. -now on steroid taper. -s/p LP. -MRI studies are largely unremarkable for any acute findings. Lung nodule 1.4cm -thoracic MRI shows an incidental finding of 1.4 cm lung nodule. -Discussed with Patient regarding CT chest to further evaluate lung nodule. He will do CT chest in the outpatient setting. History of iron deficiency anemia -currently stable. Hemoglobin 9.5, MCV 87.2. Rheumatoid arthritis - resume Arava hypokalemia; will replace and monitor,. Discharge Planning: dc to inpatient rehab when arrangements made. see med list. f/u; pcp and neurology. d/w the patient.
--- NOTE | 2017-10-08 10:01 | P.DS ---
Date of admission: 09/21/17 13:51 Primary care physician: Dominic Blanchard MD Brief History from admission: Patient is a 67-year-old male with past medical history of prostate cancer, rheumatoid arthritis, iron deficiency anemia, GERD, glaucoma and cataracts presented to the emergency room because of worsening weakness in his lower extremities for the past 2 weeks. He states he sees Dr. Daley, heeler, for his iron deficiency anemia and received a dose of IV iron recently. He states that his weakness have quickly gotten worst that yesterday after he used the restroom he could not make it to his bed, had to crawl back to bed and had trouble pushing himself up. His was not able to help and therefore they called the ambulance and he was brought here. Patient states that he went to see his primary care physician however he was not available so he saw the FEEDER DRIVER who was concerned about his progressive weakness and was going to refer him to a neurologist. He follows pain management for his chronic back pain and has received a few steroid injections which made him feel better. he notes muscle wasting in his lower ext and on the right has been having muscle spasms as if "bugs crawling" on it. denies any bladder or bowel incontinence Patient also states that he has also been having chest pain which she rates 4-5 out of 10. He states he has been having this chest pain open present in the mid chest) which he attributed to his arthritis however he is not able to reproduce it with palpation. He states that the pain at times gets worse with movement. He had a mild headache earlier but that has resolved. He denies any nausea or vomiting. He denies any radiation of his chest pain. He also mentions weight loss for the past few months 200lbs-->167lbs. He has been uptodate w his colonoscopies. Past medical history: prostate cancer status post TURP and radiation, rheumatoid arthritis, iron deficiency anemia, GERD, glaucoma and cataracts Past surgical history: Cataract removal, tonsillectomy, melanoma removal in 2005 , varicocele removal, bilateral feet surgery, Dupuytren surgery of the left hand , TURP in 2013 Family history: Father had either colon or prostate cancer. He does not know what medical condition his mother had. He has 2 sisters but he does not know other medical history. Social history: He has never smoked. Admits to drinking 2 drinks a day (hard liquor). Denies any illegal drug use. He tells me he has never had withdrawals or seizures from alcohol. CODE STATUS: he wishes to be DNR DS: Diagnosis - Discharge Diagnosis (1) Guillain Romero syndrome Status: Acute (2) NSTEMI (non-ST elevated myocardial infarction) Status: Acute DS: Summary Hospital Course: patient was admitted with dysphagia, possible Guillain- [place] syndrome and cardiomyopathy. he was seen by neurology and received IVIG and IV steroids. he completed the course of IVIG and IV steroids was switched to po prednisone which will be tapered down over the next few weeks. he was evaluated by cardiology, underwent cardiac cath and started on BB and PRITESH. he also had EP study which was negative.he had PEG placement during this admission. electrolytes were replaced as needed. he will have a f/u by pcp, neurology and cardiology as outpatient. - Time Spent with Patient Total time spent providing and/or coordinating discharge services: - Quality: VTE Deep Vein Thrombosis/Pulmonary Embolism Present on Admission: No Exam Vital signs: Vital Signs 10/07/17 12:00 10/07/17 16:00 10/07/17 20:00 Temperature 98.5 F 98.7 F 98.3 F Pulse Rate 69 69 71 Respiratory Rate 20 20 18 Blood Pressure 133/73 134/73 134/78 Pulse Oximetry 96 95 96 10/07/17 23:55 10/08/17 00:00 10/08/17 04:00 Temperature 98.4 F 98.2 F Pulse Rate 64 67 76 Respiratory Rate 18 18 Blood Pressure 148/80 H 154/82 H Pulse Oximetry 97 95 10/08/17 08:00 Temperature 98.4 F Pulse Rate 61 Respiratory Rate 20 Blood Pressure 127/85 Pulse Oximetry 96 Intake & Output 10/07/17 10/08/17 10/08/17 18:59 06:59 18:59 Intake Total 1000 / 1000 120 / 120 Output Total 1000 / 1000 850 / 850 1 / 1 Balance 0 / 0 -730 / -730 -1 / -1 Weight 81.9 kg Intake: IV 1000 / 1000 D5W/Normal Saline Inj 1,000 ML 1000 / 1000 @ 84 mls/hr IV.CONT .[id number] [facility] Rx#:[id number] Oral 0 / 0 120 / 120 Output: Urine 1000 / 1000 850 / 850 Stool Other: Date of Last Bowel Movement 10/06/17 10/07/17 10/08/17 # Bowel Movements 2 3 Results Procedures completed during hospitalization: EGD WITH PEG PROCEDURE REPORT EXAM DATE: 10/03/2017 PATIENT NAME: Abraham Goodman MR#: [id number] BIRTHDATE: 1950 ATTENDING: Chance Cabral MD ORDER #: [id number] POLYMERIZATION SUPERVISOR: Roman Lam and Jackelin New STATUS: inpatient INDICATIONS: The patient is a 67 yr old male here for an EGD with PEG due to dysphagia and placement of PEG PROCEDURE PERFORMED: EGD with PEG placement MEDICATIONS: None and Per Anesthesia. TOPICAL ANESTHETIC: none CONSENT: The patient understands the risks and benefits of the procedure and understands that these risks include, but are not limited to: sedation, allergic reaction, infection, perforation and/or bleeding. Alternative means of evaluation and treatment include, among others: physical exam, x-rays, and/or surgical intervention. The patient elects to proceed with this endoscopic procedure. medical equipment was checked for proper function. Hand hygiene and appropriate measures for infection prevention was taken. After the risks, benefits and alternatives of the procedure were thoroughly explained, Informed consent was verified, confirmed and timeout was successfully executed by the treatment team. The patient was anesthetized with topical anesthesia and the Pentax EG-2770K endoscope was introduced through the mouth and advanced to the second portion of the duodenum. The instrument was slowly withdrawn as the mucosa was fully examined. The stomach was entered and closely examined. The antrum, angularis, and lesser curvature were well visualized, including a retroflexed view of the cardia and fundus. The stomach wall was normally distensable. The scope passed easily through the pylorus into the duodenum. at the gastroesophageal junction. normal Duodenitis was found in the bulb of the duodenum. mild dudenitis The stomach was then inflated with air, and by a combination of transillumination and manual palpation, the site for the gastrostomy tube placement was selected and marked on the anterior abdominal wall. The skin of the anterior abdomen was surgically prepped and draped with sterile towels. Utilizing strict sterile technique, the selected site was then anesthetized with 1% xylocaine by injection into the skin and subcutaneous tissue. A 1 cm incision was made through the skin and subcutaneous tissue, and the needle/cannula assembly was then passed through the abdominal wall and through the anterior wall of the stomach, maintaining visualization with the endoscope. A snare device previously placed through the instrument channel was then opened and placed around the cannula, the needle was removed, and the insertion wire was passed through the cannula and into the stomach lumen. The snare was then loosened from the cannula, and repositioned to snare the insertion wire. The snare was then pulled up to the endoscope distal tip, and the scope was then withdrawn bringing with it the snare and insertion wire. The insertion wire was then released from the snare, and then loop-attached to the Bard 20 Fr gastrostomy tube. Using the "pull technique", the G-tube was then pulled into place by traction on the insertion wire at the abdominal wall end. The G-tube insertion site was then cleansed once again, and the external bolster was placed over the tube to secure it to the abdominal wall. A sterile dressing was then applied, and the procedure terminated. a hiatal hernia The gastroscope was then slowly withdrawn and removed. ADVERSE EVENT: There were no complications. IMPRESSIONS: 1. The stomach was entered and closely examined. The antrum, angularis, and lesser curvature were well visualized, including a retroflexed view of the cardia and fundus. The stomach wall was normally distensable. The scope passed easily through the pylorus into the duodenum. at the gastroesophageal junction 2. Duodenitis was found in the bulb of the duodenum 3. A hiatal hernia 4. PEG tube palced. RECOMMENDATIONS: PEG recomendations: 1- NPO for 6 hours except for meds 2- Flush PEG tube every 6 hours with water and after each PEG feeding 3- May resume regular diet in the morning 4- May use Ensure or Boost etc. for PEG tube feeding REPEAT EXAM: procedure as needed EP STUDY WITH DR ABDI 10-05 NO INTERVENTIONS cardiac cath. Labs on day of discharge: Labs from last 24 hours 10/08/17 05:51 Potassium 3.0 L - Impressions ITS Impressions Lumbar Spine MRI 09/21/17 00:00 CONCLUSION: 1. At L4-5 there is a mild central canal lateral recess stenosis with mild bilateral foraminal stenosis. 2. At L3-4 and L5-S1 there is a minimal anterolisthesis with mild foraminal encroachment. 3. Conus medullaris intact. No acute fracture. Thoracic Spine MRI 09/21/17 00:00 CONCLUSION: 1. There is a suspected 1.4 cm nodule in the right lung. Further evaluation with chest CT is recommended. 2. Mild degenerative change in the thoracic spine without canal stenosis or nerve root compression identified. Chest X-Ray 09/21/17 04:25 CONCLUSION: The lungs are clear. Cervical Spine CT 09/21/17 05:07 CONCLUSION: 1. No evidence of compression deformity or spondylolisthesis. 2. Hypertrophic degenerative changes in the posterior elements with multilevel right-sided bony neural foraminal stenosis. Head CT 09/21/17 05:07 CONCLUSION: 1. Negative noncontrast CT brain. Cervical Spine MRI 09/22/17 00:00 CONCLUSION: 1. No acute findings. No abnormal enhancement. Cervical cord unremarkable. Mild degenerative change. Head MRI 09/22/17 00:00 CONCLUSION: 1. Unremarkable and stable MRI of the brain compared to the prior examination. No new or significant changes. Lumbar Puncture Fluoroscopy 09/22/17 00:00 CONCLUSION: 1. Uncomplicated fluoroscopically guided lumbar puncture. Abdomen X-Ray 09/27/17 00:00 CONCLUSION: Weighted feeding tube in the expected location of the proximal gastric body Videofluoroscopic Swallow 09/30/17 09:00 CONCLUSION: Moderate aspiration. Please see consultation for speech pathology Discharge Plan - Discharge Disposition Patient Disposition: [facility] Inpatient - Discharge Condition Condition: Good - Physicians Team Primary Care Provider: Dominic Blanchard Attending Provider: Beatriz Vasquez Other Providers: Mary Carmen Enriquez MD ; [facility],[place] ; [employer] ; Roman Ashley MD ; Baldemar Ware MD ; Genevieve Gramajo MD
[2017-10-08] MEDS: Carvedilol 6.25 MG Tablet PO SCH (10:28)
[2017-10-08] MEDS: Lisinopril 5 MG Tablet PO SCH (10:28)
[2017-10-08] MEDS: Enoxaparin Inj 40 MG/0.4 ML Syringe SQ SCH (10:29)
[2017-10-08] MEDS: Famotidine PF Inj 20 MG/2 ML Vial IV.SIG SCH (10:29)
[2017-10-08] MEDS ORDERED: Potassium Chloride 25 MEQ Effervescent Tablet NG/OG SCH (10:30)
--- NOTE | 2017-10-08 12:24 | P.PNCA ---
Subjective Interval history: No events overnight Resting comfortably Physical Exam Vital signs: Vital Signs 10/07/17 16:00 10/07/17 20:00 10/07/17 23:55 Temperature 98.7 F 98.3 F Pulse Rate 69 71 64 Respiratory Rate 20 18 Blood Pressure 134/73 134/78 Pulse Oximetry 95 96 10/08/17 00:00 10/08/17 04:00 10/08/17 08:00 Temperature 98.4 F 98.2 F 98.4 F Pulse Rate 67 76 82 Respiratory Rate 18 18 20 Blood Pressure 148/80 H 154/82 H 127/85 Pulse Oximetry 97 95 96 Intake & Output 10/07/17 10/08/17 10/08/17 18:59 06:59 18:59 Intake Total 1000 / 1000 120 / 120 Output Total 1000 / 1000 850 / 850 Balance 0 / 0 -730 / -730 - -1 Weight 81.9 kg Intake: IV 1000 / 1000 D5W/Normal Saline Inj 1,000 ML 1000 / 1000 @ 84 mls/hr IV.CONT .[id number] [facility] Rx#:[id number] Oral 0 / 0 120 / 120 Output: Urine 1000 / 1000 850 / 850 Stool Other: Date of Last Bowel Movement 10/06/17 10/07/17 10/08/17 # Bowel Movements 2 3 Narrative: GENERAL: NAD, AAOx3, SKIN: Warm and dry. HEAD: Atraumatic. Normocephalic. EYES: Pupils equal and round. No scleral icterus. No injection or drainage. ENT: No nasal bleeding or discharge. Mucous membranes pink and moist. NECK: Trachea midline. No JVD. CARDIOVASCULAR: Regular rate and rhythm. S1 S2 NO S3 OR S4 RESPIRATORY: No accessory muscle use. Clear to auscultation. Breath sounds equal bilaterally. GASTROINTESTINAL: Abdomen soft, non-tender, nondistended. Hepatic and splenic margins not palpable. PEG TUBE IN PLACE MUSCULOSKELETAL: Extremities without clubbing, cyanosis, or edema. No obvious deformities. NEUROLOGICAL: Awake and alert. No obvious cranial nerve deficits. Motor grossly within normal limits. PSYCHIATRIC: Appropriate mood and affect; insight and judgment normal. 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 - Guillain-[place] syndrome Status: Acute (4) NSTEMI (non-ST elevated myocardial infarction) Code(s): I21.4 - Non-ST elevation (NSTEMI) myocardial infarction Status: Acute - Plan 1) Chest pain/NSTEMI Cardiac cath showing mild CAD Con't medical management 2) Progressive weakness Concern for GBS Weakness overall better 3) Iron deficiency anemia 4) Cardiomyopathy EF 35%, posterior MVP with mild MR Con't Coreg.Lisinopril Wide complex tachycardia EP study negative for inducing arrhythmia 5) Dysphagia/aspiration PEG tube placed 6) HTN Better overall 7) Stable to discharge to SNF whenever accepted No further cardiovascular issues, will see PRN, call with questions
[2017-10-08] MEDS ORDERED: Potassium Phos/Sodium Phos 250 MG Tablet PO SCH (13:00)
[2017-10-08] MEDS ORDERED: Potassium Chloride 25 MEQ Effervescent Tablet NG/OG ONE (14:00)
== END 2017-10-08 14:30 ==
LOC: NEPE 04:12 → NEDA 04:12 → NEPGCP 10:24 → HIMC 20:45 → N04 10-02 15:13
PROVIDERS: ADMIT Internal Medicine; ATTEND Internal Medicine
PROC: PANENDO (2017-10-03 15:03)

== ENCOUNTER 2017-10-12 08:51 | Inpatient (IN) ==
--- NOTE | 2017-10-12 14:46 | P.HP ---
History of Present Illness Primary Care Physician: UNKNOWN Chief Complaint: GI bleed History of Present Illness: This is a pleasant 67-year-old male patient with a history of osteoarthritis, prostate cancer, anemia, CAD who was admitted to [facility] on 09/21/17 with complaints of bowel and bladder incontinence with ascending weakness. At the time of presentation head CT and brain MRI were negative. MRI of the cervical spine showed no acute findings. MRI of the thoracic spine on 09/21/17 did show a suspected 1.4 cm nodule in the right lung. Lumbar spine MRI did show an L4-L5 mild central canal lateral recess stenosis with mild bilateral foraminal stenosis. Patient did undergo a lumbar puncture which showed CSF pleocytosis was started on IVIG and received IV Solu-Medrol. It should be noted that patient also did have a NSTEMI, was started on a heparin drip and underwent cardiac catheterization showing mild coronary artery disease. He did have one episode of nonsustained V. tach, underwent an EP study on 10/05/17. During that time of hospitalization patient did show some dysphagia and silent aspiration for which a PEG tube was placed. [facility] has been consulted for medical management of complaints of bloody stool that began two days ago. It should be noted that patient did mention significant weight loss in the past few months roughly 30 pounds. At the time of assessment, patient is alert and oriented. Patient does admit to a history of internal hemorrhoids, denies any previous rectal bleeding. He did undergo a colonoscopy in December 2016 which was reportedly negative. [facility] Patient states he was straining two days ago, having a difficult time defecating and shortly after noticed bright red blood in his stool. He does admit to one other episode of bright red blood this morning. It should be noted that patient also felt lightheaded and dizzy this morning during PT which resolved once he returned to his room to rest. Patient denies any other complaints including chest pain, shortness of breath, headache, abdominal pain, n/v/d or dysuria. Inpatient Certification: I certify that the inpatient services were ordered in accordance with Medicare regulations governing the order. This includes certification that hospital inpatient services are reasonable and necessary and in the case of services not specified as inpatient-only under 42 CFR 419.22(n), that they are appropriately provided as inpatient services in accordance to with the 2-midnight benchmark under 43 CFR 412.3(e) Estimated Total Length of Stay (Days): 3 Plans for Post Hospital Care: Not yet determined Review of Systems All other systems reviewed negative except as stated in [facility] - History History Provided By: Patient - Medical History Medical History: Medical History (Last Reviewed 10/07/17 @ 08:27 by Sita Lazar, PILE [employer]) Anemia Arthritis Cataract GERD (gastroesophageal reflux disease) Glaucoma History of radiation therapy Onset Date: 05/2016 Osteoarthritis Prostate cancer Rheumatoid arthritis - Surgical History Surgical History: Surgical History (Last Reviewed 10/05/17 @ 17:08 by Jessica Gerard) History of cataract surgery History of tonsillectomy Hx of hand surgery Onset Date: ~2012 S/P foot surgery, left Onset Date: ~1999 S/P foot surgery, right Onset Date: ~1999 - Tobacco History Second Hand Smoke Exposure: No Smoking Status: Never smoker - Alcohol History How Often Do You Have a Drink Containing Alcohol: 4 or more times a week - Substance Use History Substance History: No History of Abuse - Travel History History of Recent Travel: Yes Medications and Allergies Allergies Allergy/AdvReac Type Severity Reaction Status Date / Time ciprofloxacin Allergy Severe Rash Verified 09/21/17 10:13 Home Medications Medication Instructions Recorded Confirmed Type aspirin 81 mg PO DAILY 09/21/17 10/08/17 History fluticasone 1 spray INTRANASAL DAILY 09/21/17 10/08/17 History iron 44 mg PO BID 09/21/17 10/08/17 History leflunomide 20 mg PO QAM 09/21/17 10/08/17 History omeprazole 20 mg PO DAILY 09/21/17 10/08/17 History sulfasalazine 500 mg PO BID 09/21/17 10/08/17 History Exam Narrative: GENERAL: Well-developed, well-nourished patient in [facility]. SKIN: Warm and dry. No rash. HEAD: Normocephalic. Atraumatic. EYES: Pupils equal and round. No scleral icterus. No injection or drainage. ENT: No nasal bleeding or discharge. Mucous membranes pink and moist. NECK: Supple. Trachea midline. CARDIOVASCULAR: Regular rate and rhythm. S1, S2 noted. No murmur appreciated. RESPIRATORY: No accessory muscle use. Clear to auscultation. Breath sounds equal bilaterally. GASTROINTESTINAL: Abdomen soft, non-tender, nondistended. Normoactive bowel sounds x4. MUSCULOSKELETAL: No obvious deformities. Extremities without clubbing, cyanosis , or edema. NEUROLOGICAL: Awake and alert. No obvious cranial nerve deficits. Motor grossly within normal limits. 5/5 muscle strength in bilateral upper and lower extremities. Normal speech. PSYCHIATRIC: Appropriate mood and affect; insight and judgment normal. - Constitutional no acute distress - Routine HEENT Exam Head: Present: normocephalic Eye: Present: EOMI ENT: Present: mucous membranes moist - Routine Neck Exam Present: supple - Routine Cardiovascular Exam Present: RRR - Routine Abdominal Exam Present: mass Results - Labs CBC & Chem 7: 10/12/17 16:20 Caprini VTE Risk Assessment Caprini VTE Risk Assessment: Moderate/High Risk (score >= 2) Caprini Risk Assessment Model: Point Value = 1 Point Value = 2 Point Value = 3 Point Value = 5 Age 41-60 Minor surgery BMI > 25 kg/m2 Swollen legs Varicose veins or History of unexplained or recurrent spontaneous Oral contraceptives or hormone replacement Sepsis (< 1 month) Serious lung disease, including pneumonia (< 1 month) Abnormal pulmonary function Acute myocardial infarction Congestive heart failure (< 1 month) History of inflammatory bowel disease Medical patient at bed rest Age 61-74 Arthroscopic surgery Major open surgery (> 45 min) Laparoscopic surgery (> 45 min) Malignancy Confined to bed (> 72 hours) Immobilizing plaster cast Central venous access Age >= 75 History of VTE Family history of VTE Factor V Leiden Prothrombin [id number] Lupus anticoagulant Anticardiolipin antibodies Elevated serum homocysteine Heparin-induced thrombocytopenia Other congenital or acquired thrombophilia Stroke (< 1 month) Elective arthroplasty Hip, pelvis, or leg fracture Acute spinal cord injury (< 1 month) Prophylaxis Regimen: Total Risk Factor Score Risk Level Prophylaxis Regimen 0-1 Low Early ambulation 2 Moderate Order ONE of the following: *Sequential Compression Device (SCD) *Heparin 5000 units SQ BID 3-4 Higher Order ONE of the following medications: *Heparin 5000 units SQ TID *Enoxaparin/Lovenox 40 mg SQ daily (WT < 150 kg, CrCl > 30 mL/min) *Enoxaparin/Lovenox 30 mg SQ daily (WT < 150 kg, CrCl > 10-29 mL/min) *Enoxaparin/Lovenox 30 mg SQ BID (WT < 150 kg, CrCl > 30 mL/min) AND/OR *Sequential Compression Device (SCD) 5 or more Highest Order ONE of the following medications: *Heparin 5000 units SQ TID (Preferred with Epidurals) *Enoxaparin/Lovenox 40 mg SQ daily (WT < 150 kg, CrCl > 30 mL/min) *Enoxaparin/Lovenox 30 mg SQ daily (WT < 150 kg, CrCl > 10-29 mL/min) *Enoxaparin/Lovenox 30 mg SQ BID (WT < 150 kg, CrCl > 30 mL/min) AND *Sequential Compression Device (SCD) Assessment and Plan - Plan This is a pleasant 67-year-old male patient with a history of osteoarthritis, prostate cancer, anemia, CAD who was admitted to [facility] on 09/21/17 with complaints of bowel and bladder incontinence with ascending weakness. Was reviewed eventually stabilized and sent to [place] [facility]. On 10/12/17 patient complained of multiple lowell red bloody bowel movements. Patient had an episode of hypotension and dizziness, was transfused 2 units PRBC and discharge from [place] [facility] and readmitted to the hospital. Symptomatic Anemia suspect secondary to GI bleed -Reports of multiple bloody bowel movements overnight and this morning. -Consult placed to gastroenterology, input and recommendations pending. -Based on Protonix drip. -Due to multiple reports of lowell red bloody bowel movements this morning, we will transfuse 2 units PRBC. Continue to monitor H&H trend. -Denies any complaints of dizziness. Hypotension resolved from yesterday. -Has a history of internal hemorrhoids. Will place on bowel regimen. Monitor for constipation. -Hold aspirin. 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 PEG in place -Continue PEG feedings. Changed to bolus. Continue FWF. Will keep n.p.o. after midnight for possible procedure by GI. -Status post IVIG and IV steroids. Continue on PO prednisone and taper. -Speech is following patient. UTI -Urine culture positive for klebsiella pneumoniae. -Continue antibiotics, sulfasalazine and Augmentin. -Stafford catheter removed. Monitor for retention. No retention overnight. Has been urinating well. CAD Cardiomyopathy -Recent NSTEMI. Evaluated by cardiology during hospitalization. Stable. Continue BB and PRITESH. Continue to monitor. -Recent ECHO showing EF 35%. DVT Prophylaxis: SCDs. Lovenox dcd secondary to active bleeding. Will monitor.
[2017-10-12] MEDS ORDERED: Acetaminophen 325 MG Tablet PO PRN (15:08)
[2017-10-12 16:34] LABS: Hematocrit 25.9 % (39.0-51.0); Hemoglobin 8.6 gm/dL (13.0-17.0)
[2017-10-12] MEDS: Pantoprazole Inj 80 MG in Sodium Chlor 0.9% Inj 100 ML IV.CONT SCH (20:10)
[2017-10-12] MEDS ORDERED: Carvedilol 6.25 MG Tablet PO SCH (21:00)
[2017-10-12 21:21] LABS: Hematocrit 23.5 % (39.0-51.0); Hemoglobin 7.8 gm/dL (13.0-17.0)
[2017-10-12] MEDS ORDERED: Sodium Chlor 0.9% Inj 250 ML IV.SIG SCH (22:00)
[2017-10-12] MEDS: Amoxicillin/Clavulanate 875/125 MG Tablet PO SCH (22:41)
[2017-10-12] MEDS: sulfaSALAzine 500 MG Tablet PO SCH (22:42)
--- NOTE | 2017-10-12 23:03 | MB ---
cc: Dandre Hatch MD, Steven M DO Pasricha, Sunil P MD Agnone, Louis M MD DATE: 10/12/2017 REASON FOR CONSULTATION: I was asked to see the patient at request of Dr. Gomez for evaluation of lower GI bleeding, anemia. HISTORY OF PRESENT ILLNESS: The patient is a pleasant 67-year-old white male, who was admitted with weakness and diagnosed with Guillain-Dobbins syndrome. He has also had a non-STEMI managed by cardiology. Cardiac catheterization showed minimal coronary artery disease. The patient has been placed on aspirin in this regard. Due to problem swallowing, the patient had a PEG tube placed on 10/03/2017. The upper endoscopy revealed hiatal hernia and duodenitis. He was transferred to [facility], and he states that on Tuesday he noticed a little bright red blood per rectum, nothing serious. However, early this morning, he had multiple episodes of red stool. It was much more than normal. It soaked the bed. It continued every 15, 20, 30 minutes until he got to the floor here, and now the bleeding has stopped. His blood pressure was low, but with blood transfusion and fluids, his blood pressure improved. Right now, he does not complain of any bleeding. There has been no dysphagia or odynophagia, nausea, vomiting right now. His swallowing has improved, but not completely back to normal. There is no abdominal pain, melena. He takes aspirin, but no NSAIDs. There has been no blood from his PEG tube. PAST MEDICAL HISTORY: Significant for upper endoscopy on 10/03/2017, which revealed a hiatal hernia and duodenitis. A PEG tube was placed. 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 He has also history of hyperplastic colon polyps. A colonoscopy done on 11/11/2016 revealed hyperplastic colon polyps, as well as diverticulosis, many in the left colon. There was also grade 2 internal hemorrhoids. His previous colonoscopies have revealed hyperplastic polyps and serrated adenomatous polyps and adenomatous colon polyps. The patient, on his last colonoscopy in 10/2016, also had an ileal ulcer. In 03/2016, he had a capsule endoscopy, which revealed gastric erosions and ileal erosions. OTHER PAST MEDICAL HISTORY: Includes iron-deficient anemia, prostate cancer, radiation therapy, rheumatoid arthritis. He is a TB carrier. He has history of a melanoma, cataracts, GERD, glaucoma, dyslipidemia and coronary artery disease. PAST SURGICAL HISTORY: Includes upper endoscopy and colonoscopy, capsule endoscopy, cataract surgery, tonsillectomy, hand surgery, foot surgery on both feet. ALLERGIES: CIPRO. FAMILY HISTORY: Significant for father with colon cancer. REVIEW OF SYSTEMS: CONSTITUTIONAL: He has had a 30-pound weight loss. No fever or chills. CARDIOPULMONARY: No chest pain, palpitations, shortness of breath. GASTROINTESTINAL: Please see above. He has some problems with dysphagia. MUSCULOSKELETAL: Weakness in the extremities. Otherwise unremarkable 10-point review of systems. MEDICATIONS: At this time, include Tylenol, Augmentin, Lipitor, Coreg, Prinivil and Zofran. PHYSICAL EXAMINATION: GENERAL: The patient is an elderly white male resting comfortably at this time, appears to be in no acute GI distress. VITAL SIGNS: Blood pressure is 150/64, pulse of 65, respiratory rate 17, and temperature 98.1 at 7:15 this morning. HEENT: Pupils are equal and reactive to light. No obvious scleral icterus. Oropharynx has dental caries. No tongue deviation or candidal lesions. Hearing was intact. NECK: Supple. No thyromegaly, lymphadenopathy. LUNGS: Clear to auscultation and percussion. HEART: Regular rate and rhythm. No gross murmurs are heard. ABDOMEN: Soft, nondistended, nontender. No organomegaly or masses noted. The PEG tube was in good position. No blood is noted in the PEG tube. EXTREMITIES: No cyanosis, clubbing or edema. NEUROLOGIC: His cranial nerves are grossly intact, although his lower extremities are weak. He is alert and oriented x3. I did not assess his gait. RECTAL: I did not do a rectal exam. Apparently, a fair amount of blood came out earlier. DATABASE: Patient's hemoglobin was 8.6, it was in the 10 range, when he was admitted earlier. Per report, he did get blood. His hemoglobin was 8.6 this afternoon, but was 9.3 early this morning, and 10.2 last night, before that was 9.4. Also, his BUN was 19, slightly elevated; creatinine of 0.45, potassium 3.5. There are no current vital signs listed on the chart for this afternoon. IMPRESSION: 1. Hematochezia. He had numerous episodes of bright red blood. Since he has been on floor, he has not had any further bleeding. The patient does have known diverticulosis. I suspect this is a diverticular bleed. He does have hemorrhoids, but this bleeding seems to be too significant for hemorrhoids. I also worry about upper gastrointestinal bleed, but he had no blood in the G-tube. This excludes a gastric ulcer, but not a duodenal ulcer, but no duodenal ulcer was noted on his recent upper endoscopy. The patient has had radiation proctitis, and this could be a possibility. 2. History of chronic diverticulosis. 3. History of colon polyps. 4. Hemorrhoids. 5. History of Aguilar esophagus. 6. History of recent PEG tube for dysphagia/Guillain-Dobbins syndrome. RECOMMENDATIONS: 1. Bowel rest. 2. Transfuse as needed. 3. Please consider nuclear bleeding scan if rapid bleeding 4. Based on nuclear medicine results, we will consider either mesenteric angiography or possibly even colonoscopy, although the colonoscopy may be a low yield procedure. It is hard to find exact diverticular bleeding and stop his diverticular bleeding. 5. Further recommendation depending on how he does. MD ANGEL Carrillo/rh/ll , 04:31 PM , 04:50 PM MTDD
[2017-10-13] MEDS: Pantoprazole Inj 80 MG in Sodium Chlor 0.9% Inj 100 ML IV.CONT SCH (05:13)
[2017-10-13 05:49] LABS: Hematocrit 25.6 % (39.0-51.0); Hemoglobin 8.7 gm/dL (13.0-17.0)
--- NOTE | 2017-10-13 08:25 | P.PNGI ---
Subjective Interval history: Had bleeding throughout the night per the patient. He did receive more blood. States that his last blood per rectum was about an hour ago. Patient denies any nausea, vomiting, abdominal pain. No fever chills Physical Exam Vital signs: Vital Signs 10/12/17 16:00 10/12/17 20:00 10/12/17 20:55 Temperature 98.1 F 98 F Pulse Rate 71 67 Respiratory Rate 20 18 Blood Pressure 94/53 L 88/53 L 90/48 L Pulse Oximetry 97 96 10/13/17 00:00 10/13/17 00:25 10/13/17 03:16 Temperature 98.3 F 98.3 F 97.9 F Pulse Rate 61 61 64 Respiratory Rate 18 18 18 Blood Pressure 88/53 L 88/53 L 101/59 L Pulse Oximetry 97 97 96 Intake & Output 10/12/17 10/13/17 10/13/17 18:59 06:59 18:59 Intake Total 360 / 360 Output Total 750 / 750 Balance -390 / -390 Weight 71.9 kg 71.9 kg Intake: IV 100 / 100 Protonix Inj 80 MG In NS Inj 100 / 100 100 ML @ 10 mls/hr IV.CONT CONT DOROTHY Rx#:[id number] Oral 240 / 240 Other 20 / 20 Rbc As-3 Leukoreduced Unit [id number] Intake (Blood Product) Amt 0 / 0 Rbc As-3 Leukoreduced Unit 0 / 0 [id number] Output: Urine 750 / 750 Other: Date of Last Bowel Movement 10/12/17 # Bowel Movements 2 - Constitutional no acute distress - Routine HEENT Exam Head: Present: normocephalic - Routine Neck Exam Present: supple - Routine Cardiovascular Exam Present: RRR - Routine Abdominal Exam Present: soft, normoactive bowel sounds - Routine Neurological Exam Present: alert, oriented X3 Results - Labs CBC & Chem 7: 10/13/17 05:35 Laboratory Results - last 24 hr 10/12/17 10/12/17 10/12/17 16:20 20:48 21:19 Hgb 8.6 L 7.8 L Hct 25.9 L 23.5 L MTS Gel Crossmatch See Detail 10/13/17 05:35 Hgb 8.7 L Hct 25.6 L MTS Gel Crossmatch Assessment and Plan - Plan IMPRESSION: 1. Hematochezia. Suspect diverticular. Patient still bleeding 2. History of colonic diverticulosis. 3. History of colon polyps. 4. Hemorrhoids. 5. History of Aguilar esophagus. 6. History of recent PEG tube for dysphagia/Guillain-Chester syndrome. RECOMMENDATIONS: 1. Bowel rest. 2. Transfuse as needed. 3. Bleeding scan 4. Consider octreotide
--- NOTE | 2017-10-13 08:33 | P.PNIM ---
Subjective Interval history: f/u; GI bleed in no acute distress. no dizziness,chest pain or sob. no abdominal pain, nausea or vomiting. Physical Exam Vital signs: Vital Signs 10/12/17 16:00 10/12/17 20:00 10/12/17 20:55 Temperature 98.1 F 98 F Pulse Rate 71 67 Respiratory Rate 20 18 Blood Pressure 94/53 L 88/53 L 90/48 L Pulse Oximetry 97 96 10/13/17 00:00 10/13/17 00:25 10/13/17 03:16 Temperature 98.3 F 98.3 F 97.9 F Pulse Rate 61 61 64 Respiratory Rate 18 18 18 Blood Pressure 88/53 L 88/53 L 101/59 L Pulse Oximetry 97 97 96 Intake & Output 10/12/17 10/13/17 10/13/17 18:59 06:59 18:59 Intake Total 360 / 360 Output Total 750 / 750 Balance -390 / -390 Weight 71.9 kg 71.9 kg Intake: IV 100 / 100 Protonix Inj 80 MG In NS Inj 100 / 100 100 ML @ 10 mls/hr IV.CONT CONT DOROTHY Rx#:[id number] Oral 240 / 240 Other 20 Rbc As-3 Leukoreduced Unit [id number] Intake (Blood Product) Amt 0 / 0 Rbc As-3 Leukoreduced Unit 0 / 0 [id number] Output: Urine 750 / 750 Other: Date of Last Bowel Movement 10/12/17 # Bowel Movements 2 - Constitutional no acute distress - Routine Respiratory Exam Present: CTA bilaterally - Routine Cardiovascular Exam Present: RRR - Routine Abdominal Exam Present: soft - Routine Extremities Exam Comments: no pedal edema. - Routine Neurological Exam Present: alert, oriented X3 Results - Labs CBC & Chem 7: 10/15/17 05:38 Laboratory Results - last 24 hr 10/12/17 10/12/17 10/12/17 16:20 20:48 21:19 Hgb 8.6 L 7.8 L Hct 25.9 L 23.5 L MTS Gel Crossmatch See Detail 10/13/17 05:35 Hgb 8.7 L Hct 25.6 L MTS Gel Crossmatch Assessment and Plan - Plan This is a pleasant 67-year-old male patient with a history of osteoarthritis, prostate cancer, anemia, CAD who was admitted to [facility] on 09/21/17 with complaints of bowel and bladder incontinence with ascending weakness. Was reviewed eventually stabilized and sent to [place] [facility]. On 10/12/17 patient complained of multiple lowell red bloody bowel movements. Patient had an episode of hypotension and dizziness, was transfused 2 units PRBC and discharged from [place] [facility] and readmitted to the hospital. Symptomatic Anemia suspect secondary to GI bleed -Reports of multiple bloody bowel movements overnight and this morning. -Consulted placed to gastroenterology. -started on Protonix drip. -Denies any complaints of dizziness. -Hold aspirin. Dysphagia suspect secondary to Gullain-[place] syndrome. PEG in place -resume PEG feeding when ok with GI. -Status post IVIG and IV steroids. Continue on PO prednisone and taper. -Speech is following patient. UTI -Urine culture positive for klebsiella pneumoniae. -Continue antibiotics, sulfasalazine and Augmentin. CAD Cardiomyopathy -Recent NSTEMI. Evaluated by cardiology during hospitalization. Stable. hold BB and PRITESH for now due to GI bleed/ low-normal BP's. -Recent ECHO showing EF 35%. DVT Prophylaxis: SCDs. Lovenox dcd secondary to active bleeding. Will monitor. Discharge Planning: when clinically stable-pending GI w/u.
[2017-10-13] MEDS: Pantoprazole Sodium 20 MG DR Tablet PO SCH (08:59)
[2017-10-13] MEDS ORDERED: Heparin Central Flush 100 UNIT/ML 5 ML Vial IV.FLUSH ONE (09:00)
[2017-10-13] MEDS ORDERED: Octreotide Inj 50 MCG/ML Vial IV.PUSH ONE (09:00)
[2017-10-13] MEDS ORDERED: Lisinopril 10 MG Tablet G-TUBE SCH (09:00)
[2017-10-13] MEDS: Amoxicillin/Clavulanate 875/125 MG Tablet PO SCH ×2 (09:01→23:54)
[2017-10-13] MEDS: sulfaSALAzine 500 MG Tablet PO SCH ×2 (09:13→23:55)
[2017-10-13] MEDS: Potassium Chloride 20 MEQ Pwd Pkt NG/OG SCH (09:13)
[2017-10-13] MEDS: Octreotide Inj 500 MCG in Sodium Chlor 0.9% Inj 500 ML IV.CONT SCH (09:40)
--- NOTE | 2017-10-13 13:08 | NM ---
EXAM DATE: 10/13/2017 1:00 PM EDT AGE/SEX: 67 years / Male INDICATIONS: Rectal bleeding. CLINICAL DATA: This is the patient's initial encounter. Patient reports that signs and symptoms have been present for 1 day and indicates a pain score of 0/10. MEDICAL/SURGICAL HISTORY: Anemia. Gastroesophageal reflux disease. Carcinoma, prostatic. Davide ateral foot surgery. Tonsillectomy. COMPARISON: POI, CT ABDOMEN AND PELVIS W/ CONTRAST, 10/04/2016. . No external comparison. TECHNIQUE: Following the modified in vitro labeling of autologous red cells, dynamic continuous image s were acquired for two hours. ?? DOSE: 20.4 mCi Tc 99m Ultratag Labeled Red Blood Cells IV IMAGING TIME: 2 hr FINDINGS: Biodistribution: There is a very good labeling of red cells without significant uptake in the gastri c wall. There is good delineation of the blood pool of the spleen and abdominal vessels. Bleeding: No episodes of active GI bleeding are observed during two hours of continuous observation . CONCLUSION: 1. Negative examination with no signs of active bleeding. Electronically signed by: Kilo Rivera MD 10/13/2017 1:07 PM EDT
[2017-10-13] MEDS: Sod Chloride 0.9% Inj 1,000 ML IV.CONT SCH ×2 (13:49→23:56)
[2017-10-13 14:09] LABS: Hematocrit 27.9 % (39.0-51.0); Hemoglobin 9.3 gm/dL (13.0-17.0)
[2017-10-14] MEDS: Octreotide Inj 500 MCG in Sodium Chlor 0.9% Inj 500 ML IV.CONT SCH (04:47)
[2017-10-14 07:40] LABS: Hematocrit 26.3 % (39.0-51.0); Hemoglobin 8.9 gm/dL (13.0-17.0); Mean Corpuscular HGB Conc 33.8 % (32.0-36.0); Mean Corpuscular Hemoglobin 29.6 pg (27.0-34.0); Mean Corpuscular Volume 87.7 fL (80.0-100.0); Mean Platelet Volume 8.8 fL (7.0-11.0); Platelet Count 78 th/mm3 (150-450); Red Cell Distribution Width 17.7 % (11.6-17.2); White Blood Count 4.8 th/mm3 (4.0-11.0)
[2017-10-14] MEDS: Amoxicillin/Clavulanate 875/125 MG Tablet PO SCH ×2 (08:52→21:13)
[2017-10-14] MEDS: Pantoprazole Sodium 20 MG DR Tablet PO SCH (08:52)
[2017-10-14] MEDS: Potassium Chloride 20 MEQ Pwd Pkt NG/OG SCH (08:53)
[2017-10-14] MEDS: sulfaSALAzine 500 MG Tablet PO SCH ×2 (08:53→21:14)
--- NOTE | 2017-10-14 10:09 | P.PNIM ---
Subjective Interval history: in no acute distress. no bleeding since yesterday afternoon. no abdominal pain, nausea or vomiting. Physical Exam Vital signs: Vital Signs 10/13/17 12:00 10/13/17 16:00 10/13/17 20:00 Temperature 98.0 F 98.1 F 98.5 F Pulse Rate 72 72 68 Respiratory Rate 20 20 16 Blood Pressure 140/78 147/88 H 125/57 L Pulse Oximetry 96 96 97 10/14/17 00:00 10/14/17 04:00 10/14/17 08:00 Temperature 98.2 F 97.2 F L 98.3 F Pulse Rate 68 72 66 Respiratory Rate 16 16 17 Blood Pressure 123/63 120/64 130/69 Pulse Oximetry 98 98 97 Intake & Output 10/13/17 10/14/17 10/14/17 18:59 06:59 18:59 Intake Total 1740.5 / 1740.5 Output Total 1300 / 1300 Balance 440.5 / 440.5 Weight 71.6 kg Intake: IV 1500.5 / 1500.5 SandoSTATIN Inj 500 MCG In NS 500.5 / 500.5 Inj 500 ML @ 25 MCG/HR 25.02 mls/hr IV.CONT .Q20H1M DOROTHY Rx#: [id number] NS Inj 1,000 ML @ 70 mls/hr IV. 1000 / 1000 CONT .[id number] DOROTHY Rx#:[id number] Oral 240 / 240 Output: Urine 1300 / 1300 Other: Date of Last Bowel Movement 10/14/17 # Bowel Movements 3 - Constitutional no acute distress - Routine Respiratory Exam Present: CTA bilaterally - Routine Cardiovascular Exam Present: RRR - Routine Abdominal Exam Present: soft - Routine Extremities Exam Comments: no pedal edema. - Routine Neurological Exam Present: alert, oriented X3 Results - Labs CBC & Chem 7: 10/15/17 05:38 Laboratory Results - last 24 hr 10/13/17 10/13/17 10/14/17 13:40 13:40 05:42 WBC 4.8 RBC 3.00 L Hgb 9.3 L 8.9 L Hct Cancelled 27.9 L 26.3 L MCV 87.7 MCH 29.6 MCHC 33.8 RDW 17.7 H Plt Count 78 L MPV 8.8 - Imaging Impressions GI Bleed Scan Nuclear Medicine 10/13/17 08:28 CONCLUSION: Assessment and Plan - Plan This is a pleasant 67-year-old male patient with a history of osteoarthritis, prostate cancer, anemia, CAD who was admitted to [facility] on 09/21/17 with complaints of bowel and bladder incontinence with ascending weakness. Was reviewed eventually stabilized and sent to [facility]. On 10/12/17 patient complained of multiple lowell red bloody bowel movements. Patient had an episode of hypotension and dizziness, was transfused 2 units PRBC and discharged from [facility] and readmitted to the hospital. Symptomatic Anemia suspect secondary to GI bleed -now bleeding has stopped and bleeding scan negative. -H/H stable. -GI following. -started on Protonix and octreotide drip. -Denies any complaints of dizziness. -Hold aspirin. 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 PEG in place -resume PEG feeding when ok with GI. -Status post IVIG and IV steroids. Continue on PO prednisone and taper. -Speech is following patient. UTI -Urine culture positive for klebsiella pneumoniae. -Continue antibiotics, sulfasalazine and Augmentin. CAD Cardiomyopathy -Recent NSTEMI. Evaluated by cardiology during hospitalization. Stable. hold BB and PRITESH for now due to GI bleed/ low-normal BP's. -Recent ECHO showing EF 35%. DVT Prophylaxis: SCDs. Lovenox dcd secondary to active bleeding. Will monitor. Discharge Planning: dc planning to [place] when cleared by GI.
--- NOTE | 2017-10-14 13:55 | P.PNGI ---
Subjective Interval history: Patient doing well at this time. No further bleeding noted but he has not had a bowel movement yet his nuclear bleeding scan was negative. he is currently on a PPI and octreotide Physical Exam Vital signs: Vital Signs 10/13/17 16:00 10/13/17 20:00 10/14/17 00:00 Temperature 98.1 F 98.5 F 98.2 F Pulse Rate 72 68 68 Respiratory Rate 20 16 16 Blood Pressure 147/88 H 125/57 L 123/63 Pulse Oximetry 96 97 98 10/14/17 04:00 10/14/17 08:00 10/14/17 12:00 Temperature 97.2 F L 98.3 F 97.8 F Pulse Rate 72 66 64 Respiratory Rate 16 17 18 Blood Pressure 120/64 130/69 117/70 Pulse Oximetry 98 97 98 Intake & Output 10/13/17 10/14/17 10/14/17 18:59 06:59 18:59 Intake Total 1740.5 / 1740.5 Output Total 1300 / 1300 Balance 440.5 / 440.5 Weight 71.6 kg Intake: IV 1500.5 / 1500.5 SandoSTATIN Inj 500 MCG In NS 500.5 / 500.5 Inj 500 ML @ 25 MCG/HR 25.02 mls/hr IV.CONT .Q20H1M DOROTHY Rx#: [id number] NS Inj 1,000 ML @ 70 mls/hr IV. 1000 / 1000 CONT .[id number] DOROTHY Rx#:[id number] Oral 240 / 240 Output: Urine 1300 / 1300 Other: Date of Last Bowel Movement 10/14/17 # Bowel Movements 3 - Constitutional no acute distress - Routine HEENT Exam ENT: Present: mucous membranes moist - Routine Neck Exam Present: supple - Routine Abdominal Exam Present: soft, normoactive bowel sounds. Absent: tenderness, organomegaly - Routine Extremities Exam Absent: edema - Routine Skin Exam Absent: erythema - Routine Neurological Exam Present: alert, oriented X3 Results - Labs CBC & Chem 7: 10/14/17 05:42 Laboratory Results - last 24 hr 10/13/17 10/13/17 10/14/17 13:40 13:40 05:42 WBC 4.8 RBC 3.00 L Hgb 9.3 L 8.9 L Hct Cancelled 27.9 L 26.3 L MCV 87.7 MCH 29.6 MCHC 33.8 RDW 17.7 H Plt Count 78 L MPV 8.8 - Imaging Impressions GI Bleed Scan Nuclear Medicine 10/13/17 08:28 CONCLUSION: 1. Negative examination with no signs of active bleeding. Assessment and Plan - Plan IMPRESSION: 1. Hematochezia. Suspect diverticular. no bleeding or bowel movements since yesterday. Nuclear bleeding scan negative 2. History of colonic diverticulosis. 3. History of colon polyps. 4. Hemorrhoids. 5. History of Aguilar esophagus. 6. 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 RECOMMENDATIONS: 1. patient understands he may still have a fair amount of blood in his colon and if he has more blood per rectum it may be old blood. 2. Transfuse as needed. 3. the if no further bleeding by this evening we can stop the octreotide and advanced his diet. He was on a pureed diet 4. discussed with primary service
--- NOTE | 2017-10-14 15:18 | P.DIET ---
Nutritional Evaluation Type of nutrition evaluation: initial Nutrition screening: Weight Loss > 10 lbs Subjective Subjective Comments: Pt known to me from [facility]. Currently NPO and was on TFings at [place] / to aspiration per ST. Objective - Diagnosis Acute GI Bleed - Objective % IBW: 88 (ZAW=317#) Body Weight Used for Calculations: IBW (81kg) Energy Needs - Lower Range (kCal/kg): 25 Energy Needs - Upper Range (kCal/kg): 30 Lower Limit kCal/kg (kCals): 2,025 Upper Limit kCal/kg (kCals): 2,430 Lower Limit Protein Factor (Grams per Kg): 1.0 Upper Limit Protein Factor (Grams per Kg): 1.4 Lower Protein Needs (Protein): 81 Upper Protein Needs (Protein): 114 Dietitian Reviewed in Medical Record: Current diet, Curent medications, Intake & Output, Labs, Medical history Diet Order: NPO Speech Therapy Recommendations: Yes (NPO per most recent MBS. [during previous [facility] stay]) Objective Comments: Meds: Prednisone LBM 10/13 100ml water flush Q 8hrs Assessment Assessment: Pt admitted from [facility] for acute GI bleed. He was on TFings only while at [place]. Currently NPO w/ no TFings initiated. Discussed w/ RN about most recent MBS suggesting aspiration when pt was on 4N, prior to [facility] admission. If TFings are going to be reinitiated, recommend Jevity 1.5 bolus feedings of 360mls QID. This regimen will provide 2130kcals, 91g PRO, and 1080mls fluid. Consider ST consult to evaluate for aspiration. Dietitian following. Recommendations: 1. For TF: Jevity 1.5, 360mls QID. 2. Consider ST consult to determine if pt is aspirating. Pt was strict NPO when at [facility]. Dietitian to Monitor: Lab values, Intake & Output, Tube feeding tolerance, Weight change, Diet advancement, Swallow recommendations, Medical course
[2017-10-14] MEDS: Temazepam 15 MG Capsule PO PRN (21:23)
[2017-10-15] MEDS: Sod Chloride 0.9% Inj 1,000 ML IV.CONT SCH ×3 (06:42→19:16)
[2017-10-15 07:24] LABS: Hematocrit 27.8 % (39.0-51.0); Hemoglobin 9.3 gm/dL (13.0-17.0)
[2017-10-15] MEDS: Pantoprazole Sodium 20 MG DR Tablet PO SCH (08:11)
[2017-10-15] MEDS: Amoxicillin/Clavulanate 875/125 MG Tablet PO SCH ×2 (08:11→21:52)
[2017-10-15] MEDS: sulfaSALAzine 500 MG Tablet PO SCH ×2 (08:11→21:52)
[2017-10-15] MEDS: Potassium Chloride 20 MEQ Pwd Pkt NG/OG SCH (08:12)
--- NOTE | 2017-10-15 09:26 | P.PNIM ---
Subjective Interval history: f/u; rectal bleed in no acute distress. denies abdominal pain, nausea, dizziness, sob. just had another episode of rectal bleed this morning. Physical Exam Vital signs: Vital Signs 10/14/17 12:00 10/14/17 16:00 10/14/17 20:00 Temperature 97.8 F 97.9 F 98.1 F Pulse Rate 70 73 64 Respiratory Rate 18 17 18 Blood Pressure 117/70 115/67 116/69 Pulse Oximetry 98 97 18 L 10/14/17 21:15 10/15/17 00:00 10/15/17 04:00 Temperature 98.1 F 97.8 F Pulse Rate 65 62 62 Respiratory Rate 16 18 Blood Pressure 114/61 133/74 Pulse Oximetry 98 95 Intake & Output 10/14/17 10/15/17 10/15/17 18:59 06:59 18:59 Intake Total 0 / 0 Output Total 400 / 400 1200 / 1200 Balance -400 / -400 -1200 / -1200 Weight 72.3 kg Intake: Oral 0 / 0 Output: Urine 400 / 400 1200 / 1200 Other: # Incontinent Voids 1 # Bowel Movements 0 # Incontinent Bowel Movements 1 - Constitutional no acute distress - Routine Respiratory Exam Present: CTA bilaterally - Routine Cardiovascular Exam Present: RRR - Routine Abdominal Exam Present: soft - Routine Extremities Exam Comments: no pedal edema. - Routine Neurological Exam Present: alert, oriented X3 Results - Labs CBC & Chem 7: 10/15/17 05:38 Laboratory Results - last 24 hr 10/15/17 05:38 Hgb 9.3 L Hct 27.8 L - Imaging Impressions GI Bleed Scan Nuclear Medicine 10/13/17 08:28 CONCLUSION: 1. Negative examination with no signs of active bleeding. Assessment and Plan - Plan This is a pleasant 67-year-old male patient with a history of osteoarthritis, prostate cancer, anemia, CAD who was admitted to [facility] on 09/21/17 with complaints of bowel and bladder incontinence with ascending weakness. Was reviewed eventually stabilized and sent to [facility]. On 10/12/17 patient complained of multiple lowell red bloody bowel movements. Patient had an episode of hypotension and dizziness, was transfused 2 units PRBC and discharged from [facility] and readmitted to the hospital. Symptomatic Anemia suspect secondary to GI bleed -now with recurrent bleeding thsi morning. -bleeding scan negative. -H/H stable. -GI following. - Protonix and octreotide drip discontinued last night. -Denies any complaints of dizziness. -Hold aspirin. -awaiting GI f/u and recommendations- keep NPO for now. 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 PEG in place -resume PEG feedings when ok with GI. -Status post IVIG and IV steroids. Continue on PO prednisone and taper. -Speech is following patient. UTI -Urine culture positive for klebsiella pneumoniae. -Continue antibiotics, sulfasalazine and Augmentin. CAD Cardiomyopathy -Recent NSTEMI. Evaluated by cardiology during hospitalization. Stable. hold BB and PRITESH for now due to GI bleed/ low-normal BP's. -Recent ECHO showing EF 35%. DVT Prophylaxis: SCDs. Lovenox dcd secondary to active bleeding. Will monitor. Discharge Planning: dc planning to [place] when cleared by GI.
--- NOTE | 2017-10-15 11:23 | P.PNGI ---
Subjective Interval history: Patient had more bleeding again this morning. No nausea, abdominal pain, chest pain or shortness of breath Physical Exam Vital signs: Vital Signs 10/14/17 12:00 10/14/17 16:00 10/14/17 20:00 Temperature 97.8 F 97.9 F 98.1 F Pulse Rate 70 73 64 Respiratory Rate 18 17 18 Blood Pressure 117/70 115/67 116/69 Pulse Oximetry 98 97 18 L 10/14/17 21:15 10/15/17 00:00 10/15/17 04:00 Temperature 98.1 F 97.8 F Pulse Rate 65 62 62 Respiratory Rate 16 18 Blood Pressure 114/61 133/74 Pulse Oximetry 98 95 Intake & Output 10/14/17 10/15/17 10/15/17 18:59 06:59 18:59 Intake Total 0 / 0 Output Total 400 / 400 1200 / 1200 Balance -400 / -400 -1200 / -1200 Weight 72.3 kg Intake: Oral 0 / 0 Output: Urine 400 / 400 1200 / 1200 Other: # Incontinent Voids 1 # Bowel Movements 0 # Incontinent Bowel Movements 1 - Constitutional no acute distress - Routine HEENT Exam ENT: Present: mucous membranes moist - Routine Neck Exam Present: supple - Routine Cardiovascular Exam Present: RRR - Routine Abdominal Exam Present: soft, normoactive bowel sounds. Absent: tenderness, distended - Routine Extremities Exam Absent: edema Results - Labs CBC & Chem 7: 10/15/17 05:38 Laboratory Results - last 24 hr 10/15/17 05:38 Hgb 9.3 L Hct 27.8 L - Imaging Impressions GI Bleed Scan Nuclear Medicine 10/13/17 08:28 CONCLUSION: 1. Negative examination with no signs of active bleeding. Assessment and Plan - Plan IMPRESSION: 1. Hematochezia. Suspect diverticular. Bleeding reoccurred this morning. The octreotide was stopped last night 2. History of colonic diverticulosis. 3. History of colon polyps. 4. Hemorrhoids. 5. History of Aguilar esophagus. 6. 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 RECOMMENDATIONS: 1. Please restart octreotide drip 2. Transfuse as needed. 3. May have to re-scope the patient but with recent cardiac event will need cardiac clearance
[2017-10-15] MEDS ORDERED: Sodium Chlor 0.9% Inj 500 ML IV.SIG ONE (11:43)
--- NOTE | 2017-10-15 12:26 | P.PNADD ---
Addendum to Inpatient Note Reason for Addendum: Additional Documentation (patient had another episode retacl bleed.now is hypotensive and dizzy. will start on IV bolus along with PRBC transfusion. 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
[2017-10-15] MEDS: Octreotide Inj 500 MCG in Sodium Chlor 0.9% Inj 500 ML IV.CONT SCH (12:46)
[2017-10-15] MEDS ORDERED: Sodium Chlor 0.9% Inj 250 ML IV.SIG SCH (13:00)
[2017-10-15 13:42] LABS: Baso % (Auto) 0.3 % (0.0-2.0); Eos % (Auto) 0.1 % (0.0-4.0); Hematocrit 22.1 % (39.0-51.0); Hemoglobin 7.3 gm/dL (13.0-17.0); Lymph # (Auto) 0.2 th/mm3 (1.0-4.8); Lymph % (Auto) 4.6 % (9.0-44.0); Mean Corpuscular HGB Conc 33.2 % (32.0-36.0); Mean Corpuscular Hemoglobin 29.5 pg (27.0-34.0); Mean Platelet Volume 9.1 fL (7.0-11.0); Mono # (Auto) 0.2 th/mm3 (0.0-0.9); Mono % (Auto) 3.2 % (0.0-8.0); Neut # (Auto) 4.5 th/mm3 (1.8-7.7); Neut % (Auto) 91.8 % (16.0-70.0); Platelet Count 74 th/mm3 (150-450); Red Blood Count 2.48 mil/mm3 (4.50-5.90); Red Cell Distribution Width 18.6 % (11.6-17.2); White Blood Count 4.9 th/mm3 (4.0-11.0)
--- NOTE | 2017-10-15 13:55 | P.CONCC ---
History of Present Illness Service: Critical care Consult date: 10/15/17 Requesting Physician: Beatriz Vasquez Reason for Consult: Lower GI bleed, hypotension Primary Care Provider: UNKNOWN Chief Complaint: GI bleed History of Present Illness: This is a 67-year-old male patient with a history of osteoarthritis, prostate cancer, anemia, CAD who was admitted to [facility] on 09/21/17 with complaints of bowel and bladder incontinence with ascending weakness. Lumbar puncture which showed CSF pleocytosis, was seen by neurology. 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 At that time he also sustained a NSTEMI, cardiac catheterization showing mild coronary artery disease. Patient did show some dysphagia and silent aspiration for which a PEG tube was placed. Patient was eventually discharged to [facility] however hospitalist was reconsulted and patient was readmitted to the hospital on 10/12/2017 for lower GI bleed. Apparently had colonoscopy in December 2016 which was reportedly negative. GI was consulted Dr. Dandre Buchanan has seen the patient. He is at the recommendation was to continue supportive care with transfusions Protonix octreotide infusion. His impression was this being diverticular bleed. Today critical care medicine was consulted after patient became hypotensive with a large bloody bowel movement; his blood pressure dropped to 70s. At 250 mL fluid bolus was started but without adequate response. He was pale and was emergently transferred to ICU. I evaluated the patient in ICU he appears ill but conversive. Last systolic blood pressure 79 with a map of 58. I have ordered stat additional 1 L of normal saline. 1 unit of PRBC stat also ordered. His CBC came back with a hemoglobin of 7.3 which is 2 points down from 9.3 in the morning. I will give total of 2 units PRBC and platelet count being 74 I will give 1 packed units of platelets also. GI doctor will be updated. Continue octreotide, DC p.o. Protonix, start Protonix 40 mg IV every 12. Patient currently is on prednisone 40 mg twice daily. I will keep the patient n.p.o. and placed on stress dose steroids hydrocortisone 100 mg IV every 8 hours. Review of Systems All other systems reviewed negative except as stated in HPI PMFSH - History History Provided By: Patient - Medical History Medical History: Medical History (Last Reviewed 10/14/17 @ 14:34 by Jagruti Pandya) Anemia Arthritis Cataract GERD (gastroesophageal reflux disease) Glaucoma History of radiation therapy Onset Date: 05/2016 Osteoarthritis Prostate cancer Rheumatoid arthritis - Surgical History Surgical History: Surgical History (Last Reviewed 10/14/17 @ 14:34 by Jagruti Pandya) History of cataract surgery History of tonsillectomy Hx of hand surgery Onset Date: ~2012 S/P foot surgery, left Onset Date: ~1999 S/P foot surgery, right Onset Date: ~1999 - Tobacco History Second Hand Smoke Exposure: No Smoking Status: Never smoker - Alcohol History How Often Do You Have a Drink Containing Alcohol: 4 or more times a week - Substance Use History Substance History: No History of Abuse - Travel History History of Recent Travel: Yes - Immunization History Tetanus Immunization: Never Vaccinated Hx Influenza Vaccine This Season: Yes Medications and Allergies Active Medications: Active Medications Acetaminophen (Tylenol) 650 mg PO Q4H PRN PRN Reason: Temp > 100.4 Amoxicillin/Clavulanate Potassium (Augmentin 875/125 Mg) 1 tab PO Q12HR [facility] Last Admin: 10/15/17 08:11 Dose: 1 tab Atorvastatin Calcium (Lipitor) 40 mg PO HS [facility] Last Admin: 10/14/17 21:14 Dose: 40 mg Carvedilol (Coreg) 6.25 mg PO BID [facility] Last Admin: 10/12/17 22:37 Dose: Not Given Fluticasone Propionate (Flonase Nasal [place]) 2 spray NASAL DAILY [facility] Last Admin: 10/15/17 08:11 Dose: 2 spray Pantoprazole Sodium 80 mg/ (Sodium Chloride) 100 mls @ 10 mls/hr IV.CONT CONT [facility] Last Admin: 10/13/17 05:13 Dose: 10 mls/hr Sodium Chloride (Ns Inj) 1,000 mls @ 70 mls/hr IV.CONT .[id number] [facility] Last Admin: 10/15/17 06:43 Dose: 70 mls/hr Octreotide Acetate 500 mcg/ (Sodium Chloride) 500.5 mls @ 25.02 mls/hr IV.CONT .Q20H1M [facility] Stop: 10/20/17 11:59 Last Admin: 10/15/17 12:46 Dose: 25 mcg/hr, 25.02 mls/hr Sodium Chloride (Ns Inj) 250 mls @ 15 mls/hr IV.SIG ONCE DOROTHY Stop: 10/16/17 05:39 Lisinopril (Prinivil) 10 mg G-TUBE DAILY [facility] Ondansetron HCl (Zofran Odt) 4 mg PO Q6H PRN PRN Reason: NAUSEA OR VOMITING Pantoprazole Sodium (Protonix) 20 mg PO DAILY [facility] Last Admin: 10/15/17 08:11 Dose: 20 mg Potassium Chloride (Kcl Powder) 20 meq NG/OG DAILY [facility] Last Admin: 10/15/17 08:12 Dose: 20 meq Prednisone (Deltasone) 40 mg PO BID [facility] Sodium Chloride (Ns Flush) 2 ml IV.FLUSH BID [facility] Sodium Chloride (Ns Flush) 2 ml IV.FLUSH PRN PRN PRN Reason: FLUSH AFTER USING IV ACCESS Sterile Water (Free Water) 100 ml G-TUBE Q8HR [facility] Last Admin: 10/15/17 06:44 Dose: 100 ml Sulfasalazine (Azulfidine) 500 mg PO BID [facility] Last Admin: 10/15/17 08:11 Dose: 500 mg Temazepam (Restoril) 15 mg PO HS PRN PRN Reason: INSOMNIA Last Admin: 10/14/17 21:23 Dose: 15 mg Allergies Allergy/AdvReac Type Severity Reaction Status Date / Time ciprofloxacin Allergy Severe Rash Verified 09/21/17 10:13 Home Medications Medication Instructions Recorded Confirmed Type aspirin 81 mg PO DAILY 09/21/17 10/08/17 History fluticasone 1 spray INTRANASAL DAILY 09/21/17 10/08/17 History iron 44 mg PO BID 09/21/17 10/08/17 History leflunomide 20 mg PO QAM 09/21/17 10/08/17 History omeprazole 20 mg PO DAILY 09/21/17 10/08/17 History sulfasalazine 500 mg PO BID 09/21/17 10/08/17 History Physical Exam Vital signs: Vital Signs 10/14/17 16:00 10/14/17 20:00 10/14/17 21:15 Temperature 97.9 F 98.1 F Pulse Rate 73 64 65 Respiratory Rate 17 18 Blood Pressure 115/67 116/69 Pulse Oximetry 97 18 L 10/15/17 00:00 10/15/17 04:00 Temperature 98.1 F 97.8 F Pulse Rate 62 62 Respiratory Rate 16 18 Blood Pressure 114/61 133/74 Pulse Oximetry 98 95 Intake & Output 10/14/17 10/15/17 10/15/17 18:59 06:59 18:59 Intake Total 0 / 0 Output Total 400 / 400 1200 / 1200 Balance -400 / -400 -1200 / -1200 Weight 72.3 kg Intake: Oral 0 / 0 Output: Urine 400 / 400 1200 / 1200 Other: # Incontinent Voids 1 # Bowel Movements 0 # Incontinent Bowel Movements 1 Narrative: GENERAL: Well-developed, well-nourished appears acutely ill pale hypotensive SKIN: Warm and dry. No rash. HEAD: Normocephalic. Atraumatic. EYES: Pupils equal and round. No scleral icterus. No injection or drainage. ENT: No nasal bleeding or discharge. Mucous membranes dry NECK: Supple. Trachea midline. CARDIOVASCULAR: Regular rate and rhythm. S1, S2 noted. No murmur appreciated. Systolic blood pressure in mid 70s RESPIRATORY: No accessory muscle use. Clear to auscultation. Breath sounds equal bilaterally. GASTROINTESTINAL: Abdomen soft, non-tender, nondistended. Normoactive bowel sounds. PEG tube in place without evidence of bleeding MUSCULOSKELETAL: No obvious deformities. Extremities without clubbing, cyanosis NEUROLOGICAL: Awake and alert conversant. No obvious cranial nerve deficits. Motor grossly within normal limits in the upper extremities. 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 Velasquez was seeing patient -Residual lower extremity weakness, PT OOB when stable RESP: -Breathing comfortably nasal cannula to keep saturation more than 90% -DuoNeb every 6 hours as needed -Aggressive pulmonary toilet CV: Hypotension -Normal saline IV fluids 1 L bolus and then 100 mL/h -Had recent non-ST elevation DE, EF 35% on echo -Hold aspirin PRITESH inhibitors and beta blockers secondary to GI bleed and hypertension -Levophed if needed to keep map above 65 GI/HEME: Lower GI bleed probably diverticular Anemia requiring transfusion Thrombocytopenia -N.p.o., IV Protonix 40 mg every 12 -Octreotide infusion -Gastroenterology Dandre Buchanan MD -If persistent bleed patient will need bleeding scan versus colonoscopy -Transfuse 2 units PRBC and 1 packed unit of platelets stat -H&H every 8 hours, INR pending : -Monitor renal function closely. ID: Klebsiella UTI -Urine culture from 10/08/2017 grew Klebsiella -Hold amoxicillin at this time. Repeat blood and urine cultures ENDO: -Electrolyte replacement per protocol -Sliding scale insulin if needed -Holding prednisone 40 mg p.o. twice daily, start stress dose steroids 100 mg hydrocortisone IV every 8 hours PROPH: -Bilateral lower extremity SCD/TEDs. IV Protonix. No chemical DVT prophylaxis LINES: -Utilize peripheral IVs, central line if needed CC time 37 min Code Status: Full Discussed Condition With: Dr. Vasquez
[2017-10-15 14:13] LABS: Platelet Morphology Normal (Normal)
--- NOTE | 2017-10-15 15:13 | MB ---
cc: Abdelrahman Dodd MD DATE: 10/15/2017 REASON FOR CONSULTATION: Cardiac clearance for GI procedures. HISTORY OF PRESENT ILLNESS: The patient is a very pleasant 67-year-old white male, recently evaluated by Dr. 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 He has been found to be severely anemic with ongoing GI bleeding. He denies chest pain, shortness of breath, palpitations, lightheadedness, syncope, near syncope, pedal edema, paroxysmal nocturnal dyspnea, and orthopnea. PAST MEDICAL HISTORY: 1. Prostate cancer, status post transurethral resection of the prostate 2012. 2. Benign prostatic hypertrophy. 3. Rheumatoid rheumatoid arthritis. 4. Gastroesophageal reflux disease. 5. Nonischemic cardiomyopathy with ejection fraction of 35% by echo 09/21/2017 and cardiac catheterization 09/26/2017 showing only mild coronary artery disease. 6. Mitral valve prolapse demonstrated on echo 09/21/2017. 7. Possible nonsustained ventricular tachycardia on hospital monitoring 09/2017, although with a negative electrophysiology study 10/05/2017. 8. Guillain-Allenport syndrome. 9. Mild 3-vessel coronary artery disease demonstrated on cardiac catheterization 09/26/2017. PAST SURGICAL HISTORY: 1. Transurethral resection of the prostate 07/2012. 2. Cataract surgery. 3. Melanoma resection 2005. 4. Tonsillectomy. CARDIAC MEDICATIONS AT HOME: 1. Potassium chloride 20 mEq daily. 2. Lisinopril 10 mg daily. 3. Carvedilol 6.25 mg b.i.d. 4. Atorvastatin 40 mg at bedtime. 5. Aspirin 81 mg daily. ALLERGIES: CIPROFLOXACIN. FAMILY HISTORY: Noncontributory. SOCIAL HISTORY: The patient denies any history of alcohol or tobacco abuse. REVIEW OF SYSTEMS: As in the history of present illness, otherwise negative or noncontributory. He also denies headache, abdominal pain, melena, and fevers. PHYSICAL EXAMINATION: VITAL SIGNS: His blood pressure is 133/74 with a pulse of 62, respirations 18. GENERAL: He is a well-developed, thin white male, in no acute distress. NECK: Jugular venous pressure is normal. Carotid pulses are 2+ bilaterally and without bruits. CHEST: Reveals clear lungs vang. CARDIAC: He has a regular rhythm and rate without S3, S4, or murmur. ABDOMEN: He has a soft, nontender abdomen. Bowel sounds are present. There is no definite hepatosplenomegaly. EXTREMITIES: Reveals no clubbing, cyanosis or edema. LABORATORY DATA: Includes WBC 4.9, hemoglobin 7.3, platelets 74. IMPRESSION: Stable cardiac status in this 67-year-old white male with a history of nonischemic cardiomyopathy with ejection fraction of 35% by echo earlier this month and with cardiac catheterization showing mild coronary artery disease, history of mitral valve prolapse, nonsustained ventricular tachycardia, rheumatoid arthritis, and prostate cancer, now admitted with recurrent severe anemia. I have been asked to see the patient for cardiac clearance for endoscopy. At this point, I see no preprocedural indices, which would significantly increase his periprocedural cardiovascular morbidity or mortality. RECOMMENDATIONS: 1. Proceed with GI procedures as needed. 2. Resume aspirin if/when possible. 3. Continue beta radha and PRITESH inhibitor therapy. 4. Will followup as needed. He should follow up with Dr. Quiñones as an outpatient. MD JENNY Mohan/PORTIA , 02:47 PM , 02:56 PM [place]
[2017-10-15 15:33] LABS: INR 1.8 Ratio; Prothrombin Time 17.8 sec (9.8-11.6)
[2017-10-15] MEDS ORDERED: PEG 3350/E-Lyte Soln 4000 ML Bottle PO ONE (15:35)
[2017-10-15 15:49] LABS: Alanine Aminotransferase 124 U/L (12-78); Albumin 2.2 g/dL (3.4-5.0); Alkaline Phosphatase 45 U/L (45-117); Anion Gap 7 meq/L (5-15); Aspartate Aminotransferase 31 U/L (15-37); Blood Urea Nitrogen 27 mg/dL (7-18); Calcium 7.2 mg/dL (8.5-10.1); Carbon Dioxide 26.8 meq/L (21.0-32.0); Chloride 107 meq/L (98-107); Glomerular Filtration Rate Greater Than 89 mL/min (>89); Glucose,Random 89 mg/dL (74-106); Potassium 3.9 meq/L (3.5-5.1); Sodium 141 meq/L (136-145); Total Protein 4.5 g/dL (6.4-8.2)
[2017-10-15] MEDS: Pantoprazole Inj 40 MG Vial IV.PUSH SCH (15:53)
[2017-10-15] MEDS: Hydrocortisone Sod Succinate 100 MG Vial IV.PUSH SCH ×2 (15:53→21:53)
[2017-10-15] MEDS ORDERED: Sod Chloride 0.9% Inj 1,000 ML IV.SIG ONE (20:00)
[2017-10-15] MEDS ORDERED: predniSONE 20 MG Tablet PO SCH (21:00)
[2017-10-16 01:05] LABS: Hematocrit 31.6 % (39.0-51.0); Hemoglobin 10.2 gm/dL (13.0-17.0)
[2017-10-16] MEDS: Pantoprazole Inj 40 MG Vial IV.PUSH SCH ×2 (02:00→16:36)
[2017-10-16] MEDS: Hydrocortisone Sod Succinate 100 MG Vial IV.PUSH SCH ×3 (05:28→22:00)
[2017-10-16 05:42] LABS: Hematocrit 29.6 % (39.0-51.0); Mean Corpuscular HGB Conc 33.8 % (32.0-36.0); Mean Corpuscular Hemoglobin 30.3 pg (27.0-34.0); Mean Corpuscular Volume 89.8 fL (80.0-100.0); Mean Platelet Volume 8.7 fL (7.0-11.0); Platelet Count 85 th/mm3 (150-450); Red Blood Count 3.29 mil/mm3 (4.50-5.90); Red Cell Distribution Width 17.1 % (11.6-17.2); White Blood Count 9.3 th/mm3 (4.0-11.0)
[2017-10-16 07:10] LABS: Alanine Aminotransferase 108 U/L (12-78); Albumin 2.3 g/dL (3.4-5.0); Alkaline Phosphatase 50 U/L (45-117); Anion Gap 10 meq/L (5-15); Aspartate Aminotransferase 25 U/L (15-37); Blood Urea Nitrogen 24 mg/dL (7-18); Calcium 7.4 mg/dL (8.5-10.1); Carbon Dioxide 29.5 meq/L (21.0-32.0); Chloride 103 meq/L (98-107); Glomerular Filtration Rate Greater Than 89 mL/min (>89); Glucose,Random 97 mg/dL (74-106); Potassium 3.3 meq/L (3.5-5.1); Sodium 142 meq/L (136-145); Total Protein 4.7 g/dL (6.4-8.2)
--- NOTE | 2017-10-16 07:54 | P.PNIM ---
Subjective Interval history: f/u; GI bleed in no acute distress. rectal bleeding is better. no dizziness, chest pain. no abdominal pain or nausea. Physical Exam Vital signs: Vital Signs 10/15/17 15:28 10/15/17 16:00 10/15/17 18:00 Temperature 98.1 F 98.1 F Pulse Rate 69 62 63 Respiratory Rate 16 19 Blood Pressure 79/50 L 131/66 Pulse Oximetry 99 99 10/15/17 18:30 10/15/17 20:00 10/15/17 21:45 Temperature 97.8 F 97.8 F Pulse Rate 63 70 69 Respiratory Rate 13 17 18 Blood Pressure 126/70 123/78 113/67 Pulse Oximetry 98 99 98 10/16/17 00:00 10/16/17 04:00 Temperature 98.1 F 97.7 F Pulse Rate 63 78 Respiratory Rate 13 19 Blood Pressure 132/75 112/66 Pulse Oximetry 98 100 Intake & Output 10/15/17 10/16/17 10/16/17 18:59 06:59 18:59 Intake Total 0 / 0 1740 / 1740 Output Total 2450 / 2450 Balance 0 / 0 -710 / -710 Weight 72.3 kg Intake: IV 1000 / 1000 NS Inj 1,000 ML @ 70 mls/hr IV. 1000 / 1000 CONT .[id number] [facility] Rx#:[id number] Oral 120 / 120 Intake (Blood Product) Amt 0 / 0 620 / 620 Prepooled Plts Leukoreduced 5d 220 / 220 Unit [id number] Rbc As-3 Leukoreduced Unit 0 / 0 400 / 400 [id number] Rbc As-3 Leukoreduced Unit 0 / 0 [id number] Output: Urine Amount (Catheter) 2450 / 2450 Condom 2450 / 2450 - Constitutional no acute distress - Routine Respiratory Exam Present: CTA bilaterally - Routine Cardiovascular Exam Present: RRR - Routine Abdominal Exam Present: soft - Routine Extremities Exam Comments: no pedal edema. - Routine Neurological Exam Present: alert, oriented X3 - Urinary Catheter Management Condom Cath placed during this visit: no Results - Labs CBC & Chem 7: 10/16/17 04:05 10/16/17 04:05 Laboratory Results - last 24 hr 10/15/17 10/15/17 10/15/17 13:15 13:15 13:50 WBC 4.9 RBC 2.48 L Hgb 7.3 L D Hct 22.1 L MCV 89.0 MCH 29.5 MCHC 33.2 RDW 18.6 H Plt Count 74 L MPV 9.1 Prelim Diff (Auto) Slide review pending Neut % (Auto) 91.8 H Lymph % (Auto) 4.6 L Green % (Auto) 3.2 Eos % (Auto) 0.1 Baso % (Auto) 0.3 Neut # (Auto) 4.5 Lymph # (Auto) 0.2 L Green # (Auto) 0.2 Eos # (Auto) 0.0 Baso # (Auto) 0.0 WBC Differential . Diff Scan Auto diff confirmed Differential Comment . Platelet Estimate Low L Platelet Morphology Normal Keratocytes Occ H PT INR Sodium Potassium Chloride Carbon Dioxide Anion Gap BUN Creatinine Estimated GFR Random Glucose Lactic Acid Calcium Prot Corrected Calcium Magnesium Total Bilirubin AST ALT Alkaline Phosphatase Total Protein Albumin Nasal Screen MRSA (PCR) Not detected Blood Type A Positive Antibody Screen Negative MTS Gel Crossmatch See Detail Bld Prod Order Comment 10/15/17 10/15/17 10/15/17 13:50 15:00 15:00 WBC RBC Hgb 7.9 L Hct MCV MCH MCHC RDW Plt Count MPV Prelim Diff (Auto) Neut % (Auto) Lymph % (Auto) Green % (Auto) Eos % (Auto) Baso % (Auto) Neut # (Auto) Lymph # (Auto) Green # (Auto) Eos # (Auto) Baso # (Auto) WBC Differential Diff Scan Differential Comment Platelet Estimate Platelet Morphology Keratocytes PT INR Sodium 141 Potassium 3.9 Chloride 107 Carbon Dioxide 26.8 Anion Gap 7 BUN 27 H Creatinine 0.43 L Estimated GFR Greater than 89 Random Glucose 89 Lactic Acid Calcium 7.2 L* Prot Corrected Calcium 8.7 Magnesium Total Bilirubin 0.7 AST 31 ALT 124 H Alkaline Phosphatase 45 Total Protein 4.5 L Albumin 2.2 L Nasal Screen MRSA (PCR) Blood Type Antibody Screen MTS Gel Crossmatch Bld Prod Order Comment 10/15/17 10/15/17 10/16/17 15:00 15:00 00:36 WBC RBC Hgb 10.2 L D Hct 31.6 L MCV MCH MCHC RDW Plt Count MPV Prelim Diff (Auto) Neut % (Auto) Lymph % (Auto) Green % (Auto) Eos % (Auto) Baso % (Auto) Neut # (Auto) Lymph # (Auto) Green # (Auto) Eos # (Auto) Baso # (Auto) WBC Differential Diff Scan Differential Comment Platelet Estimate Platelet Morphology Keratocytes PT 17.8 H INR 1.8 Sodium Potassium Chloride Carbon Dioxide Anion Gap BUN Creatinine Estimated GFR Random Glucose Lactic Acid 1.2 Calcium Prot Corrected Calcium Magnesium Total Bilirubin AST ALT Alkaline Phosphatase Total Protein Albumin Nasal Screen MRSA (PCR) Blood Type Antibody Screen MTS Gel Crossmatch Bld Prod Order Comment 10/16/17 10/16/17 04:05 04:05 WBC 9.3 D RBC 3.29 L Hgb 10.0 L Hct 29.6 L MCV 89.8 MCH 30.3 MCHC 33.8 RDW 17.1 Plt Count 85 L MPV 8.7 Prelim Diff (Auto) Neut % (Auto) Lymph % (Auto) Green % (Auto) Eos % (Auto) Baso % (Auto) Neut # (Auto) Lymph # (Auto) Green # (Auto) Eos # (Auto) Baso # (Auto) WBC Differential Diff Scan Differential Comment Platelet Estimate Platelet Morphology Keratocytes PT INR Sodium 142 Potassium 3.3 L Chloride 103 Carbon Dioxide 29.5 Anion Gap 10 BUN 24 H Creatinine 0.49 L Estimated GFR Greater than 89 Random Glucose 97 Lactic Acid Calcium 7.4 L* Prot Corrected Calcium 8.8 Magnesium 2.0 Total Bilirubin 1.3 H AST 25 ALT 108 H Alkaline Phosphatase 50 Total Protein 4.7 L Albumin 2.3 L Nasal Screen MRSA (PCR) Blood Type Antibody Screen MTS Gel Crossmatch Bld Prod Order Comment Assessment and Plan - Plan This is a pleasant 67-year-old male patient with a history of osteoarthritis, prostate cancer, anemia, CAD who was admitted to [facility] on 09/21/17 with complaints of bowel and bladder incontinence with ascending weakness. Was reviewed eventually stabilized and sent to [facility]. On 10/12/17 patient complained of multiple lowell red bloody bowel movements. Patient had an episode of hypotension and dizziness, was transfused 2 units PRBC and discharged from [facility] and readmitted to the hospital. Symptomatic Anemia suspect secondary to GI bleed -s/p PRBC and platelet transfusion- -bleeding scan negative. -H/H and BP improved. -started back on Octreotide and IV Protonix -NPO for now. -GI following. -cardiology consulted for cardiac clearance for possible GI intervention. -continue to monitor H/H. Dysphagia suspect secondary to [place] syndrome. PEG in place -resume PEG feedings when ok with GI. -Status post IVIG and IV steroids recent admission-. started on stress-dose IV steroids- -Speech is following . UTI ( recently diagnosed) -Urine culture positive for klebsiella pneumoniae. -treated with Augmentin. -blood cultures negative so far. CAD Cardiomyopathy -Recent NSTEMI. Evaluated by cardiology during hospitalization. Stable. hold BB and PRITESH for now due to GI bleed. -Recent ECHO showing EF 35%. -cardiology consulted for cardiac clearance. Hypokalemia; will replace and monitor. DVT Prophylaxis: SCDs. Lovenox dcd secondary to active bleeding. Will monitor. transfer to telemetry within the next 24 hrs if stable. Discharge Planning: dc planning to [place] when cleared by GI.
[2017-10-16] MEDS: Octreotide Inj 500 MCG in Sodium Chlor 0.9% Inj 500 ML IV.CONT SCH (11:22)
[2017-10-16] MEDS: Amoxicillin/Clavulanate 875/125 MG Tablet PO SCH (11:23)
[2017-10-16] MEDS: sulfaSALAzine 500 MG Tablet PO SCH ×2 (11:23→22:00)
--- NOTE | 2017-10-16 11:45 | P.PNGI ---
Subjective Interval history: Patient had profuse hematochezia with hypotension yesterday. With crystalloids and blood products his blood pressure is better this morning and his hemoglobin has improved to 10. No further bleeding has been noted. Have obtained cardiac clearance and patient tolerated a GoLYTELY prep via his PEG tube quite well last night. We will plan on doing both upper endoscopy and colonoscopy today. Patient denies any chest pain, palpitations, shortness of breath, abdominal pain , fever or chills Physical Exam Vital signs: Vital Signs 10/15/17 15:28 10/15/17 16:00 10/15/17 18:00 Temperature 98.1 F 98.1 F Pulse Rate 69 62 63 Respiratory Rate 16 19 Blood Pressure 79/50 L 131/66 Pulse Oximetry 99 99 10/15/17 18:30 10/15/17 20:00 10/15/17 21:45 Temperature 97.8 F 97.8 F Pulse Rate 63 70 69 Respiratory Rate 13 17 18 Blood Pressure 126/70 123/78 113/67 Pulse Oximetry 98 99 98 10/16/17 00:00 10/16/17 04:00 10/16/17 08:00 Temperature 98.1 F 97.7 F 97.9 F Pulse Rate 63 78 64 Respiratory Rate 13 19 17 Blood Pressure 132/75 112/66 140/68 Pulse Oximetry 98 100 95 Intake & Output 10/15/17 10/16/17 10/16/17 18:59 06:59 18:59 Intake Total 0 / 0 1740 / 1740 500.5 / 500.5 Output Total 2450 / 2450 Balance 0 / 0 -710 / -710 500.5 / 500.5 Weight 72.3 kg Intake: IV 1000 / 1000 500.5 / 500.5 SandoSTATIN Inj 500 MCG In NS 500.5 / 500.5 Inj 500 ML @ 25 MCG/HR 25.02 mls/hr IV.CONT .[id number] [facility] Rx#: [id number] NS Inj 1,000 ML @ 70 mls/hr IV. 1000 / 1000 CONT .[id number] [facility] Rx#:[id number] Oral 120 / 120 Intake (Blood Product) Amt 0 / 0 620 / 620 Prepooled Plts Leukoreduced 5d 220 / 220 Unit [id number] Rbc As-3 Leukoreduced Unit 0 / 0 400 / 400 [id number] Rbc As-3 Leukoreduced Unit 0 / 0 [id number] Output: Urine Amount (Catheter) 2450 / 2450 Condom 2450 / 2450 - Constitutional no acute distress - Routine HEENT Exam Head: Present: normocephalic - Routine Neck Exam Present: supple - Routine Respiratory Exam Present: CTA bilaterally - Routine Cardiovascular Exam Present: RRR - Routine Abdominal Exam Present: soft, normoactive bowel sounds. Absent: tenderness, distended - Routine Extremities Exam Absent: cyanosis - Routine Neurological Exam Present: alert, oriented X3 - Urinary Catheter Management Condom Cath placed during this visit: no Results - Labs CBC & Chem 7: 10/16/17 04:05 10/16/17 04:05 Laboratory Results - last 24 hr 10/15/17 10/15/17 10/15/17 13:15 13:15 13:50 WBC 4.9 RBC 2.48 L Hgb 7.3 L D Hct 22.1 L MCV 89.0 MCH 29.5 MCHC 33.2 RDW 18.6 H Plt Count 74 L MPV 9.1 Prelim Diff (Auto) Slide review pending Neut % (Auto) 91.8 H Lymph % (Auto) 4.6 L Coffee % (Auto) 3.2 Eos % (Auto) 0.1 Baso % (Auto) 0.3 Neut # (Auto) 4.5 Lymph # (Auto) 0.2 L Coffee # (Auto) 0.2 Eos # (Auto) 0.0 Baso # (Auto) 0.0 WBC Differential . Diff Scan Auto diff confirmed Differential Comment . Platelet Estimate Low L Platelet Morphology Normal Keratocytes Occ H PT INR Sodium Potassium Chloride Carbon Dioxide Anion Gap BUN Creatinine Estimated GFR Random Glucose Lactic Acid Calcium Prot Corrected Calcium Magnesium Total Bilirubin AST ALT Alkaline Phosphatase Total Protein Albumin Nasal Screen MRSA (PCR) Not detected Blood Type A Positive Antibody Screen Negative MTS Gel Crossmatch See Detail Bld Prod Order Comment 10/15/17 10/15/17 10/15/17 13:50 15:00 15:00 WBC RBC Hgb 7.9 L Hct MCV MCH MCHC RDW Plt Count MPV Prelim Diff (Auto) Neut % (Auto) Lymph % (Auto) Coffee % (Auto) Eos % (Auto) Baso % (Auto) Neut # (Auto) Lymph # (Auto) Coffee # (Auto) Eos # (Auto) Baso # (Auto) WBC Differential Diff Scan Differential Comment Platelet Estimate Platelet Morphology Keratocytes PT INR Sodium 141 Potassium 3.9 Chloride 107 Carbon Dioxide 26.8 Anion Gap 7 BUN 27 H Creatinine 0.43 L Estimated GFR Greater than 89 Random Glucose 89 Lactic Acid Calcium 7.2 L* Prot Corrected Calcium 8.7 Magnesium Total Bilirubin 0.7 AST 31 ALT 124 H Alkaline Phosphatase 45 Total Protein 4.5 L Albumin 2.2 L Nasal Screen MRSA (PCR) Blood Type Antibody Screen MTS Gel Crossmatch Bld Prod Order Comment 10/15/17 10/15/17 10/16/17 15:00 15:00 00:36 WBC RBC Hgb 10.2 L D Hct 31.6 L MCV MCH MCHC RDW Plt Count MPV Prelim Diff (Auto) Neut % (Auto) Lymph % (Auto) Coffee % (Auto) Eos % (Auto) Baso % (Auto) Neut # (Auto) Lymph # (Auto) Coffee # (Auto) Eos # (Auto) Baso # (Auto) WBC Differential Diff Scan Differential Comment Platelet Estimate Platelet Morphology Keratocytes PT 17.8 H INR 1.8 Sodium Potassium Chloride Carbon Dioxide Anion Gap BUN Creatinine Estimated GFR Random Glucose Lactic Acid 1.2 Calcium Prot Corrected Calcium Magnesium Total Bilirubin AST ALT Alkaline Phosphatase Total Protein Albumin Nasal Screen MRSA (PCR) Blood Type Antibody Screen MTS Gel Crossmatch Bld Prod Order Comment 10/16/17 10/16/17 04:05 04:05 WBC 9.3 D RBC 3.29 L Hgb 10.0 L Hct 29.6 L MCV 89.8 MCH 30.3 MCHC 33.8 RDW 17.1 Plt Count 85 L MPV 8.7 Prelim Diff (Auto) Neut % (Auto) Lymph % (Auto) Coffee % (Auto) Eos % (Auto) Baso % (Auto) Neut # (Auto) Lymph # (Auto) Coffee # (Auto) Eos # (Auto) Baso # (Auto) WBC Differential Diff Scan Differential Comment Platelet Estimate Platelet Morphology Keratocytes PT INR Sodium 142 Potassium 3.3 L Chloride 103 Carbon Dioxide 29.5 Anion Gap 10 BUN 24 H Creatinine 0.49 L Estimated GFR Greater than 89 Random Glucose 97 Lactic Acid Calcium 7.4 L* Prot Corrected Calcium 8.8 Magnesium 2.0 Total Bilirubin 1.3 H AST 25 ALT 108 H Alkaline Phosphatase 50 Total Protein 4.7 L Albumin 2.3 L Nasal Screen MRSA (PCR) Blood Type Antibody Screen MTS Gel Crossmatch Bld Prod Order Comment Microbiology 10/15/17 16:34 Blood - Peripheral Aerobic Blood Culture - Preliminary No growth in 1 day 10/15/17 16:34 Blood - Peripheral Anaerobic Blood Culture - Preliminary No growth in 1 day 10/15/17 16:28 Blood - Peripheral Aerobic Blood Culture - Preliminary No growth in 1 day 10/15/17 16:28 Blood - Peripheral Anaerobic Blood Culture - Preliminary No growth in 1 day Assessment and Plan - Plan IMPRESSION: 1. Hematochezia. Suspect diverticular. Cannot rule out bleeding from duodenal area (PEG tube aspirate was negative for blood), patient's hypotension and anemia are better this morning and we will proceed with both upper endoscopy and colonoscopy 2. History of colonic diverticulosis. 3. History of colon polyps. 4. Hemorrhoids. 5. History of Aguilar esophagus. 6. History of recent PEG tube for dysphagia/Guillain-[place] syndrome. RECOMMENDATIONS: 1. Cont octreotide drip 2. Transfuse as needed. 3. The patient understands the indications, risks, complications, benefits, alternatives (upper GI series, barium enema, virtual colonoscopy) and limitations regarding an upper endoscopy/colonoscopy include risk of bleeding, perforation, infection, arrhythmias, mediastinitis if a dilatation is done, as well as a small possibility of , etc. The patient understands that having a normal colonoscopy does not exclude colon cancer in the future since not all colon cancer start from colon polyps. Some start from flat adenomas which can be missed on the index colonoscopy. In addition, the patient understands the inherent miss rate for polyps and malignancy/cancer, especially if the preparation is not the best and for right-sided lesions.
[2017-10-16] MEDS ORDERED: Phenylephrine/NS 1000 MCG/10ML Syringe IV.PUSH ONE (12:00)
[2017-10-16 14:14] LABS: Hematocrit 28.7 % (39.0-51.0); Hemoglobin 9.8 gm/dL (13.0-17.0)
--- NOTE | 2017-10-16 17:03 | GIPROC ---
[facility] [address] [facility]. [facility], [address] EGD PROCEDURE REPORT EXAM DATE: 10/16/2017 PATIENT NAME: Abraham Goodman MR #: [id number] BIRTHDATE: 1950 ATTENDING: Dandre Hatch MD ORDER #: [id number] OD GRINDER OPERATOR: Sangeeta Sarmiento and Terra Siddiqui STATUS: inpatient INDICATIONS: The patient is a 67 yr old male here for an EGD due to hematochezia PROCEDURE PERFORMED: EGD, diagnostic MEDICATIONS: None and Per Anesthesia. TOPICAL ANESTHETIC: none CONSENT: The patient understands the risks and benefits of the procedure and understands that these risks include, but are not limited to: sedation, allergic reaction, infection, perforation and/or bleeding. Alternative means of evaluation and treatment include, among others: physical exam, x-rays, and/or surgical intervention. The patient elects to proceed with this endoscopic procedure. medical equipment was checked for proper function. Hand hygiene and appropriate measures for infection prevention was taken. After the risks, benefits and alternatives of the procedure were thoroughly explained, Informed consent was verified, confirmed and timeout was successfully executed by the treatment team. The patient was anesthetized with topical anesthesia and the Pentax [id number] endoscope was introduced through the mouth and advanced to the third portion of the duodenum. Retroflexion was performed and was normal The gastroscope was then slowly withdrawn and removed. ESOPHAGUS: A small hiatal hernia was noted. STOMACH: PEG tube noted. DUODENUM: The duodenal mucosa appeared normal. ADVERSE EVENTS: There were no complications. IMPRESSIONS: 1. Small hiatal hernia 2. PEG tube noted 3. Normal duodenal mucosa 4. Retroflexion was performed and was normal RECOMMENDATIONS: Colonoscopy today PATIENT CONDITION: stable DISPOSITION: Inpatient REPEAT EXAM: NONE Dandre Hatch MD eSigned: Dandre Hatch MD 10/16/2017 5:03 PM cc: PATIENT NAME: Abrahma Goodman MR#: [id number]
--- NOTE | 2017-10-16 17:15 | GIPROC ---
[facility] [address] [facility]. [facility], [address] COLONOSCOPY PROCEDURE REPORT EXAM DATE: 10/16/2017 PATIENT NAME: Abraham Goodman MR #: [id number] BIRTHDATE: 1950 ENDOSCOPIST: Dandre Hatch MD ORDER #: [id number] PATROL OFFICER: Sangeeta Sarmiento and Terra Siddiqui STATUS: inpatient INDICATIONS: The patient is a 67 yr old male here for a colonoscopy due to hematochezia and hypotension PROCEDURE PERFORMED: Colonoscopy with control of bleeding MEDICATIONS: None and Per Anesthesia. PREP QUALITY: suboptimal PREP TYPE:GoLytely ESTIMATED BLOOD LOSS: None CONSENT: The patient understands the risks and benefits of the procedure and understands that these risks include, but are not limited to: sedation, allergic reaction, infection, perforation and/or bleeding. Alternative means of evaluation and treatment include, among others: physical exam, x-rays, and/or surgical intervention. The patient elects to proceed with this endoscopic procedure. medical equipment was checked for proper function. Hand hygiene and appropriate measures for infection prevention was taken. After the risks, benefits and alternatives of the procedure were thoroughly explained, Informed consent was verified, confirmed and timeout was successfully executed by the treatment team. A digital exam was performed and revealed no abnormalities of the rectum The Pentax [id number] endoscope was introduced through the anus and advanced to the terminal ileum which was intubated for a short distance. The instrument was then slowly withdrawn as the colon was fully examined. COLON FINDINGS: Mild diverticulosis was noted in the ascending colon, descending colon, and sigmoid colon. Small internal hemorrhoids were found. A single bleeding ulcer ranging between 3-5 mm in size with a red spot and active oozing of blood was found in the rectum. Complete hemostasis was achieved by placing four hemoclips on the bleeding site(s). Retroflexion was performed and was normal The scope was then completely withdrawn from the patient and the procedure terminated. PROCEDURE WITHDRAWAL TIME:21minutes ADVERSE EVENTS: There were no complications. IMPRESSIONS: 1. Mild diverticulosis was noted in the ascending colon, descending colon, and sigmoid colon 2. Small internal hemorrhoids 3. Single ulcer ranging between 3-5 mm in size was found in the rectum; Complete hemostasis was achieved by placing four hemoclips on the bleeding site(s) 4. Retroflexion was performed and was normal 5. Was performed 6. Revealed no abnormalities of the rectum RECOMMENDATIONS: Continue surveillance RECALL: NONE Dandre Hatch MD eSigned: Dandre Hatch MD 10/16/2017 5:15 PM cc: PATIENT NAME: Abraham Goodman MR#: [id number]
[2017-10-17] MEDS: Pantoprazole Inj 40 MG Vial IV.PUSH SCH ×2 (02:00→12:59)
[2017-10-17] MEDS: Octreotide Inj 500 MCG in Sodium Chlor 0.9% Inj 500 ML IV.CONT SCH ×2 (03:59→09:41)
[2017-10-17 07:53] LABS: Hematocrit 32.5 % (39.0-51.0); Hemoglobin 10.9 gm/dL (13.0-17.0); Mean Corpuscular HGB Conc 33.5 % (32.0-36.0); Mean Corpuscular Hemoglobin 30.5 pg (27.0-34.0); Mean Corpuscular Volume 91.1 fL (80.0-100.0); Mean Platelet Volume 8.6 fL (7.0-11.0); Platelet Count 74 th/mm3 (150-450); Red Blood Count 3.57 mil/mm3 (4.50-5.90); Red Cell Distribution Width 17.7 % (11.6-17.2); White Blood Count 4.1 th/mm3 (4.0-11.0)
[2017-10-17 08:18] LABS: Anion Gap 8 meq/L (5-15); Blood Urea Nitrogen 19 mg/dL (7-18); Calcium 7.9 mg/dL (8.5-10.1); Carbon Dioxide 30.3 meq/L (21.0-32.0); Chloride 104 meq/L (98-107); Glomerular Filtration Rate Greater Than 89 mL/min (>89); Glucose,Random 65 mg/dL (74-106); Sodium 142 meq/L (136-145)
[2017-10-17] MEDS: sulfaSALAzine 500 MG Tablet PO SCH ×2 (08:53→20:51)
[2017-10-17] MEDS ORDERED: Potassium Chlor 20 mEq Premix 20 MEQ/100 ML PIGGYBACK IV.SIG ONE (09:56)
--- NOTE | 2017-10-17 10:05 | P.PNIM ---
Subjective Interval history: The patient was resting in bed comfortably. He was looking forward to having his tube feeds resumed. He denied any pain. Discussed with nursing at the bedside. Physical Exam Vital signs: Vital Signs 10/16/17 10:00 10/16/17 10:30 10/16/17 11:00 Temperature Pulse Rate 65 62 74 Respiratory Rate 15 13 14 Blood Pressure 125/69 129/70 136/76 Pulse Oximetry 97 97 98 10/16/17 11:30 10/16/17 12:00 10/16/17 12:30 Temperature Pulse Rate 69 68 67 Respiratory Rate 16 15 13 Blood Pressure 113/67 112/57 L 108/60 Pulse Oximetry 98 99 98 10/16/17 13:00 10/16/17 13:30 10/16/17 14:00 Temperature Pulse Rate 67 65 74 Respiratory Rate 17 15 21 Blood Pressure 113/59 L 112/59 L 120/60 Pulse Oximetry 98 96 98 10/16/17 14:30 10/16/17 15:00 10/16/17 15:31 Temperature Pulse Rate 74 74 77 Respiratory Rate 18 11 L 27 H Blood Pressure 92/58 L 89/57 L 137/60 Pulse Oximetry 98 100 98 10/16/17 15:52 10/16/17 17:07 10/16/17 17:15 Temperature 98.8 F 97.9 F Pulse Rate 70 62 62 Respiratory Rate 16 16 16 Blood Pressure 114/70 132/58 L 128/65 Pulse Oximetry 98 99 98 10/16/17 17:53 10/16/17 17:56 10/16/17 18:00 Temperature Pulse Rate 64 63 Respiratory Rate 16 16 13 Blood Pressure 126/65 Pulse Oximetry 98 97 10/16/17 20:00 10/17/17 00:00 10/17/17 04:00 Temperature 97.9 F 98.3 F 98.1 F Pulse Rate 67 65 88 Respiratory Rate 8 L 12 26 H Blood Pressure 101/61 151/73 H 179/84 H Pulse Oximetry 99 97 100 Intake & Output 10/16/17 10/17/17 10/17/17 18:59 06:59 18:59 Intake Total 900.5 / 900.5 1500.5 / 1500.5 500.5 / 500.5 Output Total 750 / 750 400 / 400 Balance 150.5 / 150.5 1100.5 / 1100.5 500.5 / 500.5 Weight 77.5 kg Intake: IV 500.5 / 500.5 1500.5 / 1500.5 500.5 / 500.5 NS + KCl 20 mEq Inj 1,000 ML @ 1000 / 1000 70 mls/hr IV.CONT .[id number] [facility] Rx#:[id number] SandoSTATIN Inj 500 MCG In NS 500.5 / 500.5 500.5 / 500.5 500.5 / 500.5 Inj 500 ML @ 25 MCG/HR 25.02 mls/hr IV.CONT .Q20H1M [facility] Rx#: [id number] Anesthesia Amount 400 / 400 Output: Estimated Blood Loss 0 / 0 Urine Amount (Catheter) 750 / 750 400 / 400 Condom 400 / 400 Indwelling Urethral Catheter 750 / 750 Other: # Voids 1 Date of Last Bowel Movement 10/14/17 Weight On Admission 72.3 kg Narrative: GENERAL: Well-developed, well-nourished. SKIN: Warm and dry. No rash. HEAD: Normocephalic. Atraumatic. EYES: Pupils equal and round. No scleral icterus. No injection or drainage. ENT: No nasal bleeding or discharge. Mucous membranes dry NECK: Supple. Trachea midline. CARDIOVASCULAR: Regular rate and rhythm. S1, S2 noted. No murmur appreciated. RESPIRATORY: No accessory muscle use. Clear to auscultation. Breath sounds equal bilaterally. GASTROINTESTINAL: Abdomen soft, non-tender, nondistended. Normoactive bowel sounds. PEG tube in place without evidence of bleeding MUSCULOSKELETAL: No obvious deformities. Extremities without clubbing, cyanosis NEUROLOGICAL: Awake and alert conversant. No obvious cranial nerve deficits. Motor grossly within normal limits in the upper extremities. 4 out of 5 power bilateral lower extremities. - Urinary Catheter Management Condom Cath placed during this visit: no Indwelling Urethral Catheter Cath placed during this visit: no Results - Labs CBC & Chem 7: 10/17/17 06:42 10/17/17 06:42 Laboratory Results - last 24 hr 10/16/17 10/17/17 10/17/17 14:00 06:42 06:42 WBC 4.1 RBC 3.57 L Hgb 9.8 L 10.9 L Hct 28.7 L 32.5 L MCV 91.1 MCH 30.5 MCHC 33.5 RDW 17.7 H Plt Count 74 L MPV 8.6 Sodium 142 Potassium 3.0 L Chloride 104 Carbon Dioxide 30.3 Anion Gap 8 BUN 19 H Creatinine 0.44 L Estimated GFR Greater than 89 Random Glucose 65 L Calcium 7.9 L Microbiology 10/15/17 16:34 Blood - Peripheral Aerobic Blood Culture - Preliminary No growth in 1 day 10/15/17 16:34 Blood - Peripheral Anaerobic Blood Culture - Preliminary No growth in 1 day 10/15/17 16:28 Blood - Peripheral Aerobic Blood Culture - Preliminary No growth in 1 day 10/15/17 16:28 Blood - Peripheral Anaerobic Blood Culture - Preliminary No growth in 1 day Assessment and Plan - Plan This is a pleasant 67-year-old male patient with a history of osteoarthritis, prostate cancer, anemia, CAD who was admitted to [facility] on 09/21/17 with complaints of bowel and bladder incontinence with ascending weakness. Was eventually stabilized and sent to [place] [facility]. On 10/12/17 patient complained of multiple lowell red bloody bowel movements. Patient had an episode of hypotension and dizziness, was transfused 2 units PRBC and discharged from [place] [facility] and readmitted to the hospital. Symptomatic Anemia suspect secondary to GI bleed -s/p PRBC and platelet transfusion. -bleeding scan negative -started back on Octreotide and IV Protonix -GI following. S/p EGD/ colonoscopy with ulcer noted in rectum with diverticulosis and hemorrhoids and a hiatal hernia. -continue to monitor H/H. 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 PEG in place -resume PEG feedings when ok with GI. -Status post IVIG and IV steroids recent admission-. D/c stress-dose IV steroids. -Speech is following. UTI ( recently diagnosed) -Urine culture positive for klebsiella pneumoniae. -treated with Augmentin. -blood cultures negative. CAD Cardiomyopathy -Recent NSTEMI. Evaluated by cardiology during hospitalization. Stable. hold BB and PRITESH for now due to hypotension. -Recent ECHO showing EF 35%. Hypokalemia; will replace and monitor. DVT Prophylaxis: SCDs. Lovenox dcd secondary to active bleeding
--- NOTE | 2017-10-17 14:14 | P.PNGI ---
Subjective Interval history: Patient doing well after his recent upper endoscopy and colonoscopy. he is aware the colonoscopy revealed diverticulosis and a rectal also with a visible vessel. the rectal ulcer was clipped. Unsure whether this was the source of bleeding or diverticulosis. no bleeding has been noted now Physical Exam Vital signs: Vital Signs 10/16/17 14:30 10/16/17 15:00 10/16/17 15:31 Temperature Pulse Rate 74 74 77 Respiratory Rate 18 11 L 27 H Blood Pressure 92/58 L 89/57 L 137/60 Pulse Oximetry 98 100 98 10/16/17 15:52 10/16/17 17:07 10/16/17 17:15 Temperature 98.8 F 97.9 F Pulse Rate 70 62 62 Respiratory Rate 16 16 16 Blood Pressure 114/70 132/58 L 128/65 Pulse Oximetry 98 99 98 10/16/17 17:53 10/16/17 17:56 10/16/17 18:00 Temperature Pulse Rate 64 63 Respiratory Rate 16 16 13 Blood Pressure 126/65 Pulse Oximetry 98 97 10/16/17 20:00 10/17/17 00:00 10/17/17 04:00 Temperature 97.9 F 98.3 F 98.1 F Pulse Rate 67 65 88 Respiratory Rate 8 L 12 26 H Blood Pressure 101/61 151/73 H 179/84 H Pulse Oximetry 99 97 100 10/17/17 08:00 10/17/17 12:00 Temperature 97.5 F L 97.8 F Pulse Rate 74 66 Respiratory Rate 21 12 Blood Pressure 154/83 H 133/71 Pulse Oximetry 99 100 Intake & Output 10/16/17 10/17/17 10/17/17 18:59 06:59 18:59 Intake Total 900.5 / 900.5 1500.5 / 1500.5 500.5 / 500.5 Output Total 750 / 750 400 / 400 Balance 150.5 / 150.5 1100.5 / 1100.5 500.5 / 500.5 Weight 77.5 kg Intake: IV 500.5 / 500.5 1500.5 / 1500.5 500.5 / 500.5 NS + KCl 20 mEq Inj 1,000 ML @ 1000 / 1000 70 mls/hr IV.CONT .[id number] [facility] Rx#:[id number] SandoSTATIN Inj 500 MCG In NS 500.5 / 500.5 500.5 / 500.5 500.5 / 500.5 Inj 500 ML @ 25 MCG/HR 25.02 mls/hr IV.CONT .Q20H1M [facility] Rx#: [id number] Anesthesia Amount 400 / 400 Output: Estimated Blood Loss 0 / 0 Urine Amount (Catheter) 750 / 750 400 / 400 Condom 400 / 400 Indwelling Urethral Catheter 750 / 750 Other: # Voids 1 Date of Last Bowel Movement 10/14/17 10/14/17 Weight On Admission 72.3 kg - Constitutional no acute distress - Routine HEENT Exam Eye: Present: PERRL - Routine Neck Exam Present: supple - Routine Respiratory Exam Present: CTA bilaterally - Routine Cardiovascular Exam Present: RRR - Routine Abdominal Exam Present: soft, normoactive bowel sounds. Absent: tenderness - Urinary Catheter Management Condom Cath placed during this visit: no Indwelling Urethral Catheter Cath placed during this visit: no Results - Labs CBC & Chem 7: 10/17/17 06:42 10/17/17 06:42 Laboratory Results - last 24 hr 10/16/17 10/17/17 10/17/17 14:00 06:42 06:42 WBC 4.1 RBC 3.57 L Hgb 9.8 L 10.9 L Hct 28.7 L 32.5 L MCV 91.1 MCH 30.5 MCHC 33.5 RDW 17.7 H Plt Count 74 L MPV 8.6 Sodium 142 Potassium 3.0 L Chloride 104 Carbon Dioxide 30.3 Anion Gap 8 BUN 19 H Creatinine 0.44 L Estimated GFR Greater than 89 Random Glucose 65 L Calcium 7.9 L Microbiology 10/15/17 16:34 Blood - Peripheral Aerobic Blood Culture - Preliminary No growth in 2 days 10/15/17 16:34 Blood - Peripheral Anaerobic Blood Culture - Preliminary No growth in 2 days 10/15/17 16:28 Blood - Peripheral Aerobic Blood Culture - Preliminary No growth in 2 days 10/15/17 16:28 Blood - Peripheral Anaerobic Blood Culture - Preliminary No growth in 2 days Assessment and Plan - Plan IMPRESSION: 1. Hematochezia. resolved. This may have been related to the rectal ulcer with a vessel or diverticulosis. Either way patient has stopped bleeding 2. History of colonic diverticulosis. 3. History of colon polyps. 4. Hemorrhoids. 5. History of Aguilar esophagus. 6. 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 7. rectal ulcer with a vessel- why he developed a ulcer there is unclear. patient denies any recent prolonged constipation or rectal balloon RECOMMENDATIONS: 1. can wean off octreotide drip 2. Transfuse as needed. 3. OK for tube feeding --D/W discussed with nurse.
--- NOTE | 2017-10-17 15:13 | P.DIET ---
Nutritional Evaluation Type of nutrition evaluation: follow-up Nutrition consult regarding: Tube Feeding Nutrition screening: Weight Loss > 10 lbs Objective - Diagnosis Acute GI Bleed - Objective % IBW: 96 (WGD=407#) Body Weight Used for Calculations: IBW (81kg) Energy Needs - Lower Range (kCal/kg): 25 Energy Needs - Upper Range (kCal/kg): 30 Lower Limit kCal/kg (kCals): 2,025 Upper Limit kCal/kg (kCals): 2,430 Lower Limit Protein Factor (Grams per Kg): 1.0 Upper Limit Protein Factor (Grams per Kg): 1.4 Lower Protein Needs (Protein): 81 Upper Protein Needs (Protein): 114 Dietitian Reviewed in Medical Record: Curent medications, Intake & Output, Labs , Tube feeding Diet Order: TF only Objective Comments: LBM 10/14 100ml water flush Q 8hrs Feeding - Current Tube Feeding Tube Feeding Product: Jevity 1.5 Tube Feeding Method: Pump Tube Feeding Rate: 65 Current kCals Provided by Tube Feedin,340 Current Protein Provided by Tube Feeding (gPRO): 100 Current Free H2O Provided (m/l): 1,186 Assessment Assessment: Pt underwent colonoscopy and endoscopy on 10/15, findings reviewed. Pt had a rectal ulcer that was clamped, diverticulosis noted. Current TF order is for Jevity 1.5 @ 65mls/hr x 24hrs, this is appropriate. Will continue to monitor. Recommendations: Continue Jevity 1.5 @ 65mls/hr. Dietitian to Monitor: Lab values, Intake & Output, Tube feeding tolerance, Weight change, Medical course
[2017-10-18] MEDS: Pantoprazole Inj 40 MG Vial IV.PUSH SCH ×2 (01:17→13:19)
[2017-10-18 04:41] LABS: Baso % (Auto) 0.2 % (0.0-2.0); Eos # (Auto) 0.1 th/mm3 (0.0-0.4); Eos % (Auto) 2.2 % (0.0-4.0); Hematocrit 27.5 % (39.0-51.0); Hemoglobin 9.2 gm/dL (13.0-17.0); Lymph # (Auto) 0.3 th/mm3 (1.0-4.8); Lymph % (Auto) 10.5 % (9.0-44.0); Mean Corpuscular HGB Conc 33.6 % (32.0-36.0); Mean Corpuscular Hemoglobin 30.7 pg (27.0-34.0); Mean Corpuscular Volume 91.3 fL (80.0-100.0); Mean Platelet Volume 7.9 fL (7.0-11.0); Mono # (Auto) 0.1 th/mm3 (0.0-0.9); Mono % (Auto) 2.6 % (0.0-8.0); Neut # (Auto) 2.2 th/mm3 (1.8-7.7); Neut % (Auto) 84.5 % (16.0-70.0); Platelet Count 42 th/mm3 (150-450); Red Blood Count 3.01 mil/mm3 (4.50-5.90); Red Cell Distribution Width 18.3 % (11.6-17.2); White Blood Count 2.6 th/mm3 (4.0-11.0)
[2017-10-18 05:09] LABS: Alanine Aminotransferase 107 U/L (12-78); Albumin 2.1 g/dL (3.4-5.0); Alkaline Phosphatase 52 U/L (45-117); Anion Gap 6 meq/L (5-15); Aspartate Aminotransferase 43 U/L (15-37); Blood Urea Nitrogen 14 mg/dL (7-18); Calcium 7.5 mg/dL (8.5-10.1); Carbon Dioxide 32.3 meq/L (21.0-32.0); Chloride 102 meq/L (98-107); Glomerular Filtration Rate Greater Than 89 mL/min (>89); Glucose,Random 134 mg/dL (74-106); Sodium 140 meq/L (136-145); Total Protein 4.4 g/dL (6.4-8.2)
[2017-10-18 05:35] LABS: Potassium 2.9 meq/L (3.5-5.1)
[2017-10-18] MEDS ORDERED: Potassium Chlor 20 mEq Premix 20 MEQ/100 ML PIGGYBACK IV.SIG ONE (05:56)
[2017-10-18] MEDS ORDERED: Potassium Chloride 20 MEQ Pwd Pkt NG/OG ONE ×2 (06:00→09:00)
[2017-10-18 06:52] LABS: Platelet Morphology Normal (Normal)
[2017-10-18] MEDS ORDERED: Potassium Chlor 20 mEq Premix 20 MEQ/100 ML PIGGYBACK IV.SIG SCH (08:12)
[2017-10-18] MEDS: sulfaSALAzine 500 MG Tablet PO SCH ×2 (08:22→20:58)
--- NOTE | 2017-10-18 09:38 | P.PNGI ---
Subjective Interval history: No further bleeding noted. Hemoglobin slightly low at 9.2. This could be delusional. Tube feeding started without problems. Octreotide was discontinued last night Physical Exam Vital signs: Vital Signs 10/17/17 12:00 10/17/17 16:00 10/17/17 20:00 Temperature 97.8 F 97.8 F 97.9 F Pulse Rate 66 62 63 Respiratory Rate 12 16 12 Blood Pressure 133/71 139/75 97/56 L Pulse Oximetry 100 98 97 10/17/17 22:00 10/18/17 00:00 10/18/17 02:00 Temperature 98 F Pulse Rate 61 63 59 L Respiratory Rate 13 Blood Pressure 116/64 Pulse Oximetry 99 10/18/17 04:00 Temperature 98.1 F Pulse Rate 61 Respiratory Rate 14 Blood Pressure 114/63 Pulse Oximetry 99 Intake & Output 10/17/17 10/18/17 10/18/17 18:59 06:59 18:59 Intake Total 863.5 / 863.5 750 / 750 Output Total 700 / 700 650 / 650 Balance 163.5 / 163.5 100 / 100 Weight 77.5 kg Intake: IV 500.5 / 500.5 100 / 100 SandoSTATIN Inj 500 MCG In NS 500.5 / 500.5 Inj 500 ML @ 25 MCG/HR 25.02 mls/hr IV.CONT .Q20H1M [facility] Rx#: [id number] Oral 120 / 120 Tube Feeding 93 / 93 400 / 400 Tube Irrigant 150 / 150 Water Bolus Amount 250 / 250 Output: Urine 650 / 650 Estimated Blood Loss 0 / 0 Urine Amount (Catheter) 700 / 700 Condom 700 / 700 Other: Date of Last Bowel Movement 10/14/17 10/14/17 # Bowel Movements 0 - Constitutional no acute distress - Routine HEENT Exam Head: Absent: facial swelling - Routine Neck Exam Present: supple - Routine Cardiovascular Exam Present: RRR - Routine Abdominal Exam Present: soft, normoactive bowel sounds. Absent: tenderness, distended - Urinary Catheter Management Condom Cath placed during this visit: no Indwelling Urethral Catheter Cath placed during this visit: no Results - Labs CBC & Chem 7: 10/18/17 03:27 10/18/17 03:27 Laboratory Results - last 24 hr 10/18/17 10/18/17 03:27 03:27 WBC 2.6 L RBC 3.01 L Hgb 9.2 L Hct 27.5 L MCV 91.3 MCH 30.7 MCHC 33.6 RDW 18.3 H Plt Count 42 L D MPV 7.9 Prelim Diff (Auto) Slide review pending Neut % (Auto) 84.5 H Lymph % (Auto) 10.5 [place] % (Auto) 2.6 Eos % (Auto) 2.2 Baso % (Auto) 0.2 Neut # (Auto) 2.2 Lymph # (Auto) 0.3 L [place] # (Auto) 0.1 Eos # (Auto) 0.1 Baso # (Auto) 0.0 WBC Differential . Diff Scan Auto diff confirmed Differential Comment . Platelet Estimate Low L Platelet Morphology Normal Sodium 140 Potassium 2.9 L* Chloride 102 Carbon Dioxide 32.3 H Anion Gap 6 BUN 14 Creatinine 0.48 L Estimated GFR Greater than 89 Random Glucose 134 H Calcium 7.5 L Magnesium 2.0 Total Bilirubin 0.7 Direct Bilirubin 0.3 H Indirect Bilirubin 0.4 AST 43 H ALT 107 H Alkaline Phosphatase 52 Total Protein 4.4 L Albumin 2.1 L Microbiology 10/15/17 16:34 Blood - Peripheral Aerobic Blood Culture - Preliminary No growth in 2 days 10/15/17 16:34 Blood - Peripheral Anaerobic Blood Culture - Preliminary No growth in 2 days 10/15/17 16:28 Blood - Peripheral Aerobic Blood Culture - Preliminary No growth in 2 days 10/15/17 16:28 Blood - Peripheral Anaerobic Blood Culture - Preliminary No growth in 2 days Assessment and Plan - Plan IMPRESSION: 1. Hematochezia. resolved. This may have been related to the rectal ulcer with a vessel or diverticulosis. No bleeding this morning. He is off his octreotide 2. History of colonic diverticulosis. 3. History of colon polyps. 4. Hemorrhoids. 5. History of Aguilar esophagus. 6. 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 7. rectal ulcer with a vessel- why he developed a ulcer there is unclear. patient denies any recent prolonged constipation or rectal balloon RECOMMENDATIONS: 1. Patient doing well from the GI standpoint. We will sign off for now. Patient needs follow-up in our office with Dr. Ashley upon discharge 2. Transfuse as needed..
--- NOTE | 2017-10-18 09:52 | P.PNIM ---
Subjective Interval history: The patient was resting comfortably in bed. He said he did not want to work with physical therapy yesterday. He has been tolerating his tube feeds. He denies any acute complaints. Discussed with nursing. Physical Exam Vital signs: Vital Signs 10/17/17 12:00 10/17/17 16:00 10/17/17 20:00 Temperature 97.8 F 97.8 F 97.9 F Pulse Rate 66 62 63 Respiratory Rate 12 16 12 Blood Pressure 133/71 139/75 97/56 L Pulse Oximetry 100 98 97 10/17/17 22:00 10/18/17 00:00 10/18/17 02:00 Temperature 98 F Pulse Rate 61 63 59 L Respiratory Rate 13 Blood Pressure 116/64 Pulse Oximetry 99 10/18/17 04:00 Temperature 98.1 F Pulse Rate 61 Respiratory Rate 14 Blood Pressure 114/63 Pulse Oximetry 99 Intake & Output 10/17/17 10/18/17 10/18/17 18:59 06:59 18:59 Intake Total 863.5 / 863.5 750 / 750 Output Total 700 / 700 650 / 650 Balance 163.5 / 163.5 100 / 100 Weight 77.5 kg Intake: IV 500.5 / 500.5 100 / 100 SandoSTATIN Inj 500 MCG In NS 500.5 / 500.5 Inj 500 ML @ 25 MCG/HR 25.02 mls/hr IV.CONT .Q20H1M [facility] Rx#: [id number] Oral 120 / 120 Tube Feeding 93 / 93 400 / 400 Tube Irrigant 150 / 150 Water Bolus Amount 250 / 250 Output: Urine 650 / 650 Estimated Blood Loss 0 / 0 Urine Amount (Catheter) 700 / 700 Condom 700 / 700 Other: Date of Last Bowel Movement 10/14/17 10/14/17 # Bowel Movements 0 Narrative: GENERAL: Well-developed, well-nourished. SKIN: Warm and dry. No rash. HEAD: Normocephalic. Atraumatic. EYES: Pupils equal and round. No scleral icterus. No injection or drainage. ENT: No nasal bleeding or discharge. Mucous membranes dry NECK: Supple. Trachea midline. CARDIOVASCULAR: Regular rate and rhythm. S1, S2 noted. No murmur appreciated. RESPIRATORY: No accessory muscle use. Clear to auscultation. Breath sounds equal bilaterally. GASTROINTESTINAL: Abdomen soft, non-tender, nondistended. Normoactive bowel sounds. PEG tube in place without evidence of bleeding MUSCULOSKELETAL: No obvious deformities. Extremities without clubbing, cyanosis NEUROLOGICAL: Awake and alert conversant. No obvious cranial nerve deficits. Motor grossly within normal limits in the upper extremities. 4 out of 5 power bilateral lower extremities. - Urinary Catheter Management Condom Cath placed during this visit: no Indwelling Urethral Catheter Cath placed during this visit: no Results - Labs CBC & Chem 7: 10/18/17 03:27 10/18/17 03:27 Laboratory Results - last 24 hr 10/18/17 10/18/17 03:27 03:27 WBC 2.6 L RBC 3.01 L Hgb 9.2 L Hct 27.5 L MCV 91.3 MCH 30.7 MCHC 33.6 RDW 18.3 H Plt Count 42 L D MPV 7.9 Prelim Diff (Auto) Slide review pending Neut % (Auto) 84.5 H Lymph % (Auto) 10.5 [place] % (Auto) 2.6 Eos % (Auto) 2.2 Baso % (Auto) 0.2 Neut # (Auto) 2.2 Lymph # (Auto) 0.3 L [place] # (Auto) 0.1 Eos # (Auto) 0.1 Baso # (Auto) 0.0 WBC Differential . Diff Scan Auto diff confirmed Differential Comment . Platelet Estimate Low L Platelet Morphology Normal Sodium 140 Potassium 2.9 L* Chloride 102 Carbon Dioxide 32.3 H Anion Gap 6 BUN 14 Creatinine 0.48 L Estimated GFR Greater than 89 Random Glucose 134 H Calcium 7.5 L Magnesium 2.0 Total Bilirubin 0.7 Direct Bilirubin 0.3 H Indirect Bilirubin 0.4 AST 43 H ALT 107 H Alkaline Phosphatase 52 Total Protein 4.4 L Albumin 2.1 L Microbiology 10/15/17 16:34 Blood - Peripheral Aerobic Blood Culture - Preliminary No growth in 2 days 10/15/17 16:34 Blood - Peripheral Anaerobic Blood Culture - Preliminary No growth in 2 days 10/15/17 16:28 Blood - Peripheral Aerobic Blood Culture - Preliminary No growth in 2 days 10/15/17 16:28 Blood - Peripheral Anaerobic Blood Culture - Preliminary No growth in 2 days Assessment and Plan - Plan This is a pleasant 67-year-old male patient with a history of osteoarthritis, prostate cancer, anemia, CAD who was admitted to [facility] on 09/21/17 with complaints of bowel and bladder incontinence with ascending weakness. Was eventually stabilized and sent to [facility]. On 10/12/17 patient complained of multiple lowell red bloody bowel movements. Patient had an episode of hypotension and dizziness, was transfused 2 units PRBC and discharged from [facility] and readmitted to the hospital. Symptomatic Anemia suspect secondary to GI bleed -s/p PRBC and platelet transfusion. -bleeding scan negative -octreotide d/c. Continue PPI. -GI following. S/p EGD/ colonoscopy with ulcer noted in rectum with diverticulosis and hemorrhoids and a hiatal hernia. -continue to monitor H/H. -d/c IVFs and hydrocortisone and monitor blood pressure. Stable. -follow CBC. Pancytopenia may be s/t sulfasalazine. Consult hematology if continues to get worse. 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 PEG in place -resume PEG feedings. -Status post IVIG and IV steroids recent admission-. D/c stress-dose IV steroids. -Speech is following. UTI ( recently diagnosed) -Urine culture positive for klebsiella pneumoniae. -treated with Augmentin. -blood cultures negative. CAD Cardiomyopathy -Recent NSTEMI. Evaluated by cardiology during hospitalization. Stable. hold BB and PRITESH for now due to hypotension. -Recent ECHO showing EF 35%. Hypokalemia; will replace and monitor. DVT Prophylaxis: SCDs. Lovenox dcd secondary to active bleeding Discharge Planning: Transfer to floor
[2017-10-19] MEDS: Pantoprazole Inj 40 MG Vial IV.PUSH SCH ×2 (02:33→13:16)
[2017-10-19 07:15] LABS: Baso % (Auto) 0.8 % (0.0-2.0); Eos # (Auto) 0.1 th/mm3 (0.0-0.4); Eos % (Auto) 4.2 % (0.0-4.0); Hematocrit 27.1 % (39.0-51.0); Hemoglobin 9.2 gm/dL (13.0-17.0); Lymph # (Auto) 0.3 th/mm3 (1.0-4.8); Lymph % (Auto) 25.7 % (9.0-44.0); Mean Corpuscular HGB Conc 34.1 % (32.0-36.0); Mean Corpuscular Volume 90.9 fL (80.0-100.0); Mono # (Auto) 0.1 th/mm3 (0.0-0.9); Mono % (Auto) 7.5 % (0.0-8.0); Neut # (Auto) 0.8 th/mm3 (1.8-7.7); Neut % (Auto) 61.8 % (16.0-70.0); Platelet Count 34 th/mm3 (150-450); Red Blood Count 2.98 mil/mm3 (4.50-5.90); Red Cell Distribution Width 18.6 % (11.6-17.2); White Blood Count 1.3 th/mm3 (4.0-11.0)
[2017-10-19 07:52] LABS: Anion Gap 4 meq/L (5-15); Blood Urea Nitrogen 11 mg/dL (7-18); Calcium 7.4 mg/dL (8.5-10.1); Carbon Dioxide 34.8 meq/L (21.0-32.0); Chloride 104 meq/L (98-107); Glomerular Filtration Rate Greater Than 89 mL/min (>89); Glucose,Random 115 mg/dL (74-106); Magnesium 1.9 mg/dL (1.5-2.5); Potassium 3.4 meq/L (3.5-5.1); Sodium 143 meq/L (136-145)
[2017-10-19 08:21] LABS: Total Protein 4.4 g/dL (6.4-8.2)
[2017-10-19 08:34] LABS: Acanthocytes Occ; Eosinophils 3 % (0-4); Lymphocytes 28 % (9-44); Monocytes 2 % (0-8); Platelet Morphology Normal (Normal)
[2017-10-19] MEDS ORDERED: Potassium Chlor 20 mEq Premix 20 MEQ/100 ML PIGGYBACK IV.SIG ONE (10:17)
[2017-10-19] MEDS: Potassium Chlor 10 mEq Premix 10 MEQ/100 ML PIGGYBACK IV.SIG SCH ×2 (10:56→13:16)
[2017-10-19] MEDS: Docusate Sodium 100 MG Capsule PO SCH ×2 (10:56→20:06)
--- NOTE | 2017-10-19 12:13 | P.PNIM ---
Subjective Interval history: The patient was resting comfortably in bed. He thinks he will do well without the sulfasalazine. No acute complaints. Discussed with nursing. Physical Exam Vital signs: Vital Signs 10/18/17 13:00 10/18/17 14:00 10/18/17 15:00 Temperature Pulse Rate 75 72 70 Respiratory Rate 26 H 17 19 Blood Pressure 99/58 L 100/56 L 96/59 L Pulse Oximetry 99 96 97 10/18/17 16:00 10/18/17 17:00 10/18/17 18:00 Temperature 98.7 F Pulse Rate 76 71 73 Respiratory Rate 15 15 11 L Blood Pressure 93/60 L 111/66 111/68 Pulse Oximetry 98 98 99 10/18/17 19:00 10/18/17 20:00 10/18/17 21:00 Temperature 98 F Pulse Rate 72 72 75 Respiratory Rate 14 13 12 Blood Pressure 87/56 L 110/67 84/52 L Pulse Oximetry 97 98 98 10/18/17 22:00 10/18/17 23:00 10/19/17 00:00 Temperature 97.9 F Pulse Rate 67 69 74 Respiratory Rate 14 16 14 Blood Pressure 102/55 L 112/58 L 122/60 Pulse Oximetry 99 98 94 L 10/19/17 01:00 10/19/17 02:00 10/19/17 03:00 Temperature Pulse Rate 79 73 74 Respiratory Rate 16 14 14 Blood Pressure 117/63 115/61 98/61 L Pulse Oximetry 93 L 97 97 10/19/17 04:00 10/19/17 05:00 10/19/17 05:01 Temperature 98.2 F Pulse Rate 77 80 87 Respiratory Rate 14 23 32 H Blood Pressure 114/61 140/73 Pulse Oximetry 99 97 100 10/19/17 06:00 10/19/17 07:00 10/19/17 08:00 Temperature 97.7 F Pulse Rate 74 77 76 Respiratory Rate 10 L 11 L 14 Blood Pressure 109/61 Pulse Oximetry 97 97 99 10/19/17 08:01 10/19/17 09:00 Temperature Pulse Rate 83 74 Respiratory Rate 28 H 12 Blood Pressure 109/61 Pulse Oximetry 97 97 Intake & Output 10/18/17 10/19/17 10/19/17 18:59 06:59 18:59 Intake Total 1080 / 1080 Output Total 2300 / 2300 Balance -1220 / -1220 Weight 77.5 kg Intake: Tube Feeding 780 / 780 Water Bolus Amount 300 / 300 Output: Urine 2300 / 2300 Other: Date of Last Bowel Movement 10/14/17 10/14/17 10/14/17 Narrative: GENERAL: Well-developed, well-nourished. SKIN: Warm and dry. No rash. HEAD: Normocephalic. Atraumatic. EYES: Pupils equal and round. No scleral icterus. No injection or drainage. ENT: No nasal bleeding or discharge. Mucous membranes dry NECK: Supple. Trachea midline. CARDIOVASCULAR: Regular rate and rhythm. S1, S2 noted. No murmur appreciated. RESPIRATORY: No accessory muscle use. Clear to auscultation. Breath sounds equal bilaterally. GASTROINTESTINAL: Abdomen soft, non-tender, nondistended. Normoactive bowel sounds. PEG tube in place without evidence of bleeding MUSCULOSKELETAL: No obvious deformities. Extremities without clubbing, cyanosis NEUROLOGICAL: Awake and alert conversant. No obvious cranial nerve deficits. Motor grossly within normal limits in the upper extremities. 4 out of 5 power bilateral lower extremities. - Urinary Catheter Management Condom Cath placed during this visit: no Indwelling Urethral Catheter Cath placed during this visit: no Results - Labs CBC & Chem 7: 10/19/17 05:51 10/19/17 05:57 Laboratory Results - last 24 hr 10/18/17 10/19/17 10/19/17 20:27 05:51 05:57 WBC 1.3 L RBC 2.98 L Hgb 9.2 L Hct 27.1 L MCV 90.9 MCH 31.0 MCHC 34.1 RDW 18.6 H Plt Count 34 L MPV 8.0 Prelim Diff (Auto) Slide review pending Neut % (Auto) 61.8 Lymph % (Auto) 25.7 Levy % (Auto) 7.5 Eos % (Auto) 4.2 H Baso % (Auto) 0.8 Neut # (Auto) 0.8 L Lymph # (Auto) 0.3 L Levy # (Auto) 0.1 Eos # (Auto) 0.1 Baso # (Auto) 0.0 WBC Differential Manual diff final Seg Neuts % (Manual) 62 Band Neuts % (Manual) 5 Lymphocytes % (Manual) 28 Monocytes % (Manual) 2 Eosinophils % (Manual) 3 Abs Neuts (Manual) 0.9 L Differential Comment . Platelet Estimate Low L Platelet Morphology Normal Acanthocytes (Spur) Occ H Sodium 143 Potassium 3.5 3.4 L Chloride 104 Carbon Dioxide 34.8 H Anion Gap 4 L BUN 11 Creatinine 0.49 L Estimated GFR Greater than 89 Random Glucose 115 H Calcium 7.4 L* Prot Corrected Calcium 9.0 Magnesium 1.9 Total Protein 4.4 L Microbiology 10/15/17 16:34 Blood - Peripheral Aerobic Blood Culture - Preliminary No growth in 4 days 10/15/17 16:34 Blood - Peripheral Anaerobic Blood Culture - Preliminary No growth in 4 days 10/15/17 16:28 Blood - Peripheral Aerobic Blood Culture - Preliminary No growth in 4 days 10/15/17 16:28 Blood - Peripheral Anaerobic Blood Culture - Preliminary No growth in 4 days Assessment and Plan - Plan This is a pleasant 67-year-old male patient with a history of osteoarthritis, prostate cancer, anemia, CAD who was admitted to [facility] on 09/21/17 with complaints of bowel and bladder incontinence with ascending weakness. Was eventually stabilized and sent to [facility]. On 10/12/17 patient complained of multiple lowell red bloody bowel movements. Patient had an episode of hypotension and dizziness, was transfused 2 units PRBC and discharged from [facility] and readmitted to the hospital. Symptomatic Anemia suspect secondary to GI bleed/ Pancytopenia -s/p PRBC and platelet transfusion. -bleeding scan negative -octreotide d/c. Continue PPI. -GI following. S/p EGD/ colonoscopy with ulcer noted in rectum with diverticulosis and hemorrhoids and a hiatal hernia. -continue to monitor H/H. -d/c IVFs and hydrocortisone and monitor blood pressure. Stable. -follow CBC. Pancytopenia may be s/t sulfasalazine. Hold sulfasalazine and consult hematology. 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 PEG in place -resume PEG feedings. -Status post IVIG and IV steroids recent admission-. D/c stress-dose IV steroids. -Speech is following. UTI ( recently diagnosed) -Urine culture positive for klebsiella pneumoniae. -treated with Augmentin. -blood cultures negative. CAD Cardiomyopathy -Recent NSTEMI. Evaluated by cardiology during hospitalization. Stable. hold BB and PRITESH for now due to hypotension. -Recent ECHO showing EF 35%. Hypokalemia; will replace and monitor. DVT Prophylaxis: SCDs. Lovenox dcd secondary to active bleeding Discharge Planning: Transfer to floor
[2017-10-20] MEDS: Pantoprazole Inj 40 MG Vial IV.PUSH SCH ×2 (01:21→13:04)
[2017-10-20] MEDS: Docusate Sodium 100 MG Capsule PO SCH ×2 (08:08→20:51)
--- NOTE | 2017-10-20 09:46 | P.PNIM ---
Subjective Interval history: The patient was resting comfortably in bed. He was wondering when he would be going back to rehabilitation. He stated that he worked with physical therapy and his blood pressure was low when he felt lightheaded and dizzy. No other acute complaints. Physical Exam Vital signs: Vital Signs 10/19/17 10:00 10/19/17 10:30 10/19/17 11:00 Temperature Pulse Rate 111 H 79 86 Respiratory Rate 22 11 L 13 Blood Pressure 117/67 97/60 L 105/63 Pulse Oximetry 98 98 98 10/19/17 11:30 10/19/17 12:00 10/19/17 12:30 Temperature 97.8 F Pulse Rate 79 72 73 Respiratory Rate 13 14 14 Blood Pressure 96/55 L 102/58 L 111/59 L Pulse Oximetry 99 98 99 10/19/17 13:00 10/19/17 13:30 10/19/17 14:00 Temperature Pulse Rate 80 77 80 Respiratory Rate 19 11 L 20 Blood Pressure 97/56 L 93/54 L 87/49 L Pulse Oximetry 99 98 98 10/19/17 14:30 10/19/17 15:00 10/19/17 15:30 Temperature Pulse Rate 79 76 80 Respiratory Rate 12 17 13 Blood Pressure 92/56 L 98/62 L 98/61 L Pulse Oximetry 97 97 98 10/19/17 16:00 10/19/17 16:30 10/19/17 17:00 Temperature 98.7 F Pulse Rate 81 83 82 Respiratory Rate 11 L 14 17 Blood Pressure 99/55 L 104/62 99/55 L Pulse Oximetry 97 97 99 10/19/17 17:02 10/19/17 20:00 10/20/17 00:00 Temperature 99 F 98.2 F Pulse Rate 82 80 72 Respiratory Rate 23 11 L 15 Blood Pressure 85/53 L 98/63 L 120/59 L Pulse Oximetry 94 L 99 97 10/20/17 04:00 Temperature 98.6 F Pulse Rate 75 Respiratory Rate 13 Blood Pressure 127/56 L Pulse Oximetry 97 Intake & Output 10/19/17 10/20/17 10/20/17 18:59 06:59 18:59 Intake Total 1037 / 1037 1011 / 1011 Output Total 2250 / 2250 1350 / 1350 Balance -1213 / -1213 -339 / -339 Weight 77.5 kg Intake: IV 100 / 100 KCl 10 mEq Premix Inj 10 meq In 100 / 100 100 ml @ 100 mls/hr IV.SIG Q1H DOROTHY Rx#:[id number] Tube Feeding 937 / 937 711 / 711 Water Bolus Amount 300 / 300 Output: Urine 2250 / 2250 Urine Amount (Catheter) 1350 / 1350 Condom 1350 / 1350 Other: Date of Last Bowel Movement 10/14/17 10/14/17 # Bowel Movements 2 Narrative: GENERAL: Well-developed, well-nourished. SKIN: Warm and dry. No rash. HEAD: Normocephalic. Atraumatic. EYES: Pupils equal and round. No scleral icterus. No injection or drainage. ENT: No nasal bleeding or discharge. Mucous membranes dry NECK: Supple. Trachea midline. CARDIOVASCULAR: Regular rate and rhythm. S1, S2 noted. No murmur appreciated. RESPIRATORY: No accessory muscle use. Clear to auscultation. Breath sounds equal bilaterally. GASTROINTESTINAL: Abdomen soft, non-tender, nondistended. Normoactive bowel sounds. PEG tube in place without evidence of bleeding MUSCULOSKELETAL: No obvious deformities. Extremities without clubbing, cyanosis NEUROLOGICAL: Awake and alert conversant. No obvious cranial nerve deficits. Motor grossly within normal limits in the upper extremities. 4 out of 5 power bilateral lower extremities. - Urinary Catheter Management Condom Cath placed during this visit: no Indwelling Urethral Catheter Cath placed during this visit: no Results - Labs CBC & Chem 7: 10/19/17 05:51 10/19/17 22:22 Laboratory Results - last 24 hr 10/19/17 22:22 Potassium 3.7 Microbiology 10/15/17 16:34 Blood - Peripheral Aerobic Blood Culture - Preliminary No growth in 4 days 10/15/17 16:34 Blood - Peripheral Anaerobic Blood Culture - Preliminary No growth in 4 days 10/15/17 16:28 Blood - Peripheral Aerobic Blood Culture - Preliminary No growth in 4 days 10/15/17 16:28 Blood - Peripheral Anaerobic Blood Culture - Preliminary No growth in 4 days Assessment and Plan - Plan This is a pleasant 67-year-old male patient with a history of osteoarthritis, prostate cancer, anemia, CAD who was admitted to [facility] on 09/21/17 with complaints of bowel and bladder incontinence with ascending weakness. Was eventually stabilized and sent to [facility]. On 10/12/17 patient complained of multiple lowell red bloody bowel movements. Patient had an episode of hypotension and dizziness, was transfused 2 units PRBC and discharged from [facility] and readmitted to the hospital. Symptomatic Anemia suspect secondary to GI bleed/ Pancytopenia -s/p PRBC and platelet transfusion. -bleeding scan negative -octreotide d/c. Continue PPI. -GI following. S/p EGD/ colonoscopy with ulcer noted in rectum with diverticulosis and hemorrhoids and a hiatal hernia. -continue to monitor H/H. -follow CBC. Pancytopenia may be s/t sulfasalazine. Hold sulfasalazine and consult hematology. Hypotension Blood pressure has decreased after steroids were discontinued. -resume stress dose steroids. -fluid and blood products as needed. 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 PEG in place -resume PEG feedings. -Status post IVIG and IV steroids recent admission-. D/c stress-dose IV steroids. -Speech is following. UTI ( recently diagnosed) -Urine culture positive for klebsiella pneumoniae. -treated with Augmentin. -blood cultures negative. CAD Cardiomyopathy -Recent NSTEMI. Evaluated by cardiology during hospitalization. Stable. hold BB and PRITESH for now due to hypotension. -Recent ECHO showing EF 35%. Hypokalemia; will replace and monitor. DVT Prophylaxis: SCDs. Lovenox dcd secondary to active bleeding Discharge Planning: Transfer to floor. D/c to [facility] once pancytopenia has stabilized.
[2017-10-20] MEDS: Hydrocortisone Sod Succinate 100 MG Vial IV.PUSH SCH ×2 (10:03→18:49)
[2017-10-20 11:50] LABS: Baso % (Auto) 0.4 % (0.0-2.0); Eos # (Auto) 0.1 th/mm3 (0.0-0.4); Eos % (Auto) 4.2 % (0.0-4.0); Hematocrit 28.9 % (39.0-51.0); Hemoglobin 9.6 gm/dL (13.0-17.0); Lymph # (Auto) 0.4 th/mm3 (1.0-4.8); Lymph % (Auto) 20.3 % (9.0-44.0); Mean Corpuscular HGB Conc 33.2 % (32.0-36.0); Mean Corpuscular Hemoglobin 30.6 pg (27.0-34.0); Mean Corpuscular Volume 92.4 fL (80.0-100.0); Mean Platelet Volume 8.3 fL (7.0-11.0); Mono # (Auto) 0.2 th/mm3 (0.0-0.9); Mono % (Auto) 7.5 % (0.0-8.0); Neut # (Auto) 1.4 th/mm3 (1.8-7.7); Neut % (Auto) 67.6 % (16.0-70.0); Platelet Count 36 th/mm3 (150-450); Red Blood Count 3.12 mil/mm3 (4.50-5.90); White Blood Count 2.1 th/mm3 (4.0-11.0)
[2017-10-20 12:17] LABS: Anion Gap 5 meq/L (5-15); Blood Urea Nitrogen 14 mg/dL (7-18); Calcium 7.6 mg/dL (8.5-10.1); Carbon Dioxide 32.2 meq/L (21.0-32.0); Chloride 106 meq/L (98-107); Glomerular Filtration Rate Greater Than 89 mL/min (>89); Glucose,Random 115 mg/dL (74-106); Potassium 3.7 meq/L (3.5-5.1); Sodium 143 meq/L (136-145)
[2017-10-20] MEDS: Potassium Chloride 20 MEQ Pwd Pkt NG/OG SCH (12:40)
[2017-10-20 12:42] LABS: Eosinophils 6 % (0-4); Lymphocytes 16 % (9-44); Monocytes 3 % (0-8); Platelet Morphology Normal (Normal)
[2017-10-20 12:43] LABS: Burr Cells 1+
--- NOTE | 2017-10-21 01:15 | MB ---
cc: Bernard Daley MD DATE: 10/20/2017 REASON FOR CONSULTATION: The patient with a history of anemia, rheumatoid arthritis and recent gastrointestinal bleeding as well as dysphagia secondary to suspected Guillain-[place] syndrome. HISTORY OF PRESENT ILLNESS: This is a 67-year-old male who has a history of rheumatoid arthritis and multifactorial anemia. He had underlying iron deficiency as well as anemia of chronic inflammation. For his rheumatoid arthritis, he is on immunosuppressive therapy including sulfasalazine and leflunomide. He has received iron infusions in the hematology clinic. The patient was admitted to the hospital recently with complaints of bowel and bladder incontinence and ascending weakness. 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 The patient had PEG tube placement. He received IVIG therapy and also received IV steroids. He was eventually transferred to [facility]. On 10/12/2017 he had multiple lowell red bloody bowel movements. He became hypotensive. He was transferred to the intensive care unit and 2 units of packed red blood cells were given. A bleeding scan was negative. The patient was started on octreotide and PPI. GI was consulted. The patient underwent EGD and colonoscopy. He was noted to have an ulceration in the rectum with diverticulosis and hemorrhoids, and he was also found to have a hiatal hernia. His hemoglobin is 9.6, MCV is 92.4. The patient had a drop in his blood counts during the course of admission; his white blood cell count is now 2.1 and platelet count is 36,000. Hematology has been consulted to make further recommendations. REVIEW OF SYSTEMS: A comprehensive review of system was completed which is negative except as described in the HPI. The patient is complaining of bilateral lower extremity weakness. PAST MEDICAL HISTORY: Anemia, arthritis, cataracts, gastroesophageal reflux disease, glaucoma, osteoarthritis, history of prostate cancer, rheumatoid arthritis. PAST SURGICAL HISTORY: History of cataract surgery, tonsillectomy, hand surgery, history of foot surgery x2, both right and left foot. FAMILY HISTORY: Reviewed and is noncontributory to this admission. SOCIAL HISTORY: He does not smoke cigarettes. He drinks alcohol 3-4 times per week. No illicit drug use. MEDICATIONS: 1. Lipitor 40 mg p.o. at bedtime. 2. Carvedilol 6.25 mg p.o. b.i.d. 3. Docusate 100 mg p.o. b.i.d. 4. Fluticasone 2 sprays daily. 5. Solu-Cortef 100 mg IV every 8 hours. 6. Lisinopril 10 mg daily. 7. Zofran p.r.n. 8. Protonix 40 mg IV every 12 hours. 9. Sulfasalazine 500 mg p.o. b.i.d. 10. Temazepam 15 mg p.o. at bedtime p.r.n. ALLERGIES: HE IS ALLERGIC TO CIPROFLOXACIN. PHYSICAL EXAMINATION: VITAL SIGNS: Blood pressure is 94/62, pulse is in the 70s, temperature is 98.8. O2 saturations are 97% on room air. GENERAL: Ill-appearing male in no apparent distress. HEENT: Pupils are equal, round, reactive to light. EOMI. No oral thrush. No lesion. NECK: Supple. No JVD. No bruits. No lymphadenopathy. CHEST: Clear to auscultation bilaterally. CARDIAC: S1, S2. Regular rate and rhythm. ABDOMEN: Soft, nontender, nondistended. Bowel sounds are present. PEG tube in place. IMAGING: Reviewed in the EMR. ASSESSMENT AND PLAN: This is a 67-year-old male who has a history of multifactorial anemia, rheumatoid arthritis, osteoarthritis, prostate cancer, coronary artery disease, who was admitted to the hospital on 09/21/2017 with bladder and bowel incontinence and ascending weakness. He underwent lumbar puncture, which showed cerebrospinal fluid (CSF) pleocytosis. Guillain-[place] was suspected and the patient was started on IVIG and received IV Solu-Medrol. He also had an [id number] myocardial infarction and was started on a heparin drip and underwent cardiac catheterization, which showed mild coronary artery disease. During the course of his admission, he became dysphagic and had silent aspiration. He underwent PEG tube placement. The patient was eventually transferred to [facility]. However, he had gastrointestinal bleeding with a drop in his hemoglobin. He was transferred to the intensive care unit. He was transfused 2 units of packed red blood cells. The patient has undergone EGD and colonoscopy, which shows a rectal ulceration and diverticulosis. He was also found to have a hiatal hernia. Hematology has been consulted to evaluate anemia in this patient. 1. Anemia with a hemoglobin of 9.6 and MCV of 92.4. This is multifactorial anemia due to recent illness and hospitalization, also with gastrointestinal bleeding. He also has underlying anemia of chronic kidney disease. There is also a drug effect from he has been on sulfasalazine and leflunomide due to history of rheumatoid arthritis. At this point, I would recommend obtaining anemia studies. He may benefit from iron infusion if he is found to have low iron levels. 2. Mild leukopenia with white blood cell count of 2.1, ANC of 1400. This is most likely due to acute illness and medication effect. We will continue to monitor. I would recommend obtaining hepatitis and HIV profile. We will review his peripheral smear. 3. Acute thrombocytopenia with platelet count of 36,000, likely due to acute illness; however, there is also a possibility of heparin-induced thrombocytopenia (HIT) given his recent exposure to heparin. I would recommend avoiding heparin and heparin products. No heparin flushes. We will obtain a HIT antibody panel. There is no evidence of thrombosis, thus I will not start him on any anticoagulation at this time. We will also obtain a DIC panel, hepatitis and HIV testing as stated above, check LDH and haptoglobin. 4. 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 He has been evaluated by Neurology. He has completed IVIG and he is currently on IV steroids. 5. Recent urinary tract infection with Klebsiella pneumoniae. He was treated with Augmentin. 6. Cardiomyopathy with recent [id number] myocardial infarction. He has an EF of 35%. He was evaluated by Cardiology. He Is being medically optimized. Thank you for allowing me to participate in the care of this patient. I will continue to follow this patient along. MD JUICE Sunshine/ADAIR , 12:31 AM , 12:49 AM
[2017-10-21] MEDS: Pantoprazole Inj 40 MG Vial IV.PUSH SCH ×2 (03:08→15:11)
[2017-10-21] MEDS: Hydrocortisone Sod Succinate 100 MG Vial IV.PUSH SCH ×3 (03:10→18:22)
[2017-10-21 07:50] LABS: Baso % (Auto) 0.6 % (0.0-2.0); Eos # (Auto) 0.1 th/mm3 (0.0-0.4); Eos % (Auto) 3.5 % (0.0-4.0); Hematocrit 27.2 % (39.0-51.0); Hemoglobin 9.3 gm/dL (13.0-17.0); Lymph # (Auto) 0.6 th/mm3 (1.0-4.8); Mean Corpuscular HGB Conc 34.1 % (32.0-36.0); Mean Corpuscular Hemoglobin 31.1 pg (27.0-34.0); Mean Corpuscular Volume 91.2 fL (80.0-100.0); Mean Platelet Volume 8.2 fL (7.0-11.0); Mono # (Auto) 0.2 th/mm3 (0.0-0.9); Mono % (Auto) 8.5 % (0.0-8.0); Neut # (Auto) 1.4 th/mm3 (1.8-7.7); Neut % (Auto) 61.4 % (16.0-70.0); Platelet Count 50 th/mm3 (150-450); Red Blood Count 2.99 mil/mm3 (4.50-5.90); Red Cell Distribution Width 19.7 % (11.6-17.2); White Blood Count 2.3 th/mm3 (4.0-11.0)
[2017-10-21 08:27] LABS: Anion Gap 3 meq/L (5-15); Blood Urea Nitrogen 17 mg/dL (7-18); Calcium 7.9 mg/dL (8.5-10.1); Carbon Dioxide 34.7 meq/L (21.0-32.0); Chloride 104 meq/L (98-107); Glomerular Filtration Rate Greater Than 89 mL/min (>89); Glucose,Random 88 mg/dL (74-106); Potassium 3.1 meq/L (3.5-5.1); Sodium 142 meq/L (136-145)
[2017-10-21 08:29] LABS: Platelet Morphology Normal (Normal)
[2017-10-21 08:50] LABS: % Iron Saturation 34.2 % (20-50)
[2017-10-21 08:56] LABS: Hepatitits B Surface Antigen Nonreactive (Nonreactive)
[2017-10-21] MEDS: Docusate Sodium 100 MG Capsule PO SCH ×2 (09:08→22:03)
[2017-10-21] MEDS: Potassium Chloride 20 MEQ Pwd Pkt NG/OG SCH (10:43)
--- NOTE | 2017-10-21 11:01 | P.PNONC ---
Subjective Interval history: Afebrile Patient resting in bed in no obvious distress Complaining of dry mouth and dizziness Hoping he can have some extra IV fluids Reports he stood up at the side of bed with physical therapy yesterday however this took "all of my might" Denies bleeding Objective Vital Signs/Intake & Output: Vital Signs 10/20/17 11:00 10/20/17 11:30 10/20/17 12:00 Temperature 98.9 F Pulse Rate 84 79 74 Respiratory Rate 10 L 12 14 Blood Pressure 105/65 100/65 123/68 Pulse Oximetry 99 97 99 10/20/17 12:30 10/20/17 13:00 10/20/17 13:30 Temperature Pulse Rate 86 77 81 Respiratory Rate 15 12 28 H Blood Pressure 97/56 L 99/59 L 105/62 Pulse Oximetry 98 97 97 10/20/17 14:00 10/20/17 14:30 10/20/17 15:00 Temperature Pulse Rate 80 79 88 Respiratory Rate 11 L 13 25 H Blood Pressure 97/59 L 93/58 L 92/71 L Pulse Oximetry 98 97 98 10/20/17 15:30 10/20/17 16:00 10/20/17 20:00 Temperature 98.8 F 98.1 F Pulse Rate 84 76 80 Respiratory Rate 15 14 17 Blood Pressure 92/59 L 94/62 L 102/66 Pulse Oximetry 97 97 97 10/21/17 00:00 10/21/17 04:00 10/21/17 09:12 Temperature 97.6 F 98.2 F Pulse Rate 78 76 74 Respiratory Rate 18 18 Blood Pressure 82/51 L 94/56 L Pulse Oximetry 98 97 Intake & Output 10/20/17 10/21/17 10/21/17 18:59 06:59 18:59 Intake Total 826 / 826 Output Total 1801 / 1801 Balance -975 / -975 Weight 155 lb 6.814 oz Intake: Tube Feeding 706 / 706 Water Bolus Amount 120 / 120 Output: Urine 1800 / 1800 Stool Other: Date of Last Bowel Movement 10/14/17 10/20/17 Result Diagrams: 10/21/17 07:13 10/21/17 07:13 Laboratory Results: Laboratory Results - last 24 hr 10/20/17 10/20/17 10/21/17 10:27 10:27 07:13 WBC 2.1 L 2.3 L RBC 3.12 L 2.99 L Hgb 9.6 L 9.3 L Hct 28.9 L 27.2 L MCV 92.4 91.2 MCH 30.6 31.1 MCHC 33.2 34.1 RDW 19.0 H 19.7 H Plt Count 36 L 50 L D MPV 8.3 8.2 Prelim Diff (Auto) Slide review pending Slide review pending Neut % (Auto) 67.6 61.4 Lymph % (Auto) 20.3 26.0 [place] % (Auto) 7.5 8.5 H Eos % (Auto) 4.2 H 3.5 Baso % (Auto) 0.4 0.6 Neut # (Auto) 1.4 L 1.4 L Lymph # (Auto) 0.4 L 0.6 L [place] # (Auto) 0.2 0.2 Eos # (Auto) 0.1 0.1 Baso # (Auto) 0.0 0.0 WBC Differential Manual diff final . Diff Scan Auto diff confirmed Seg Neuts % (Manual) 63 Band Neuts % (Manual) 12 H Lymphocytes % (Manual) 16 Monocytes % (Manual) 3 Eosinophils % (Manual) 6 H Abs Neuts (Manual) 1.6 L Differential Comment . . Platelet Estimate Low L Low L Platelet Morphology Normal Normal [place] Cells 1+ H Smear Path Review Haptoglobin Fibrinogen D-Dimer Quant (PE/DVT) Sodium 143 Potassium 3.7 Chloride 106 Carbon Dioxide 32.2 H Anion Gap 5 BUN 14 Creatinine 0.44 L Estimated GFR Greater than 89 Random Glucose 115 H Calcium 7.6 L Magnesium Iron TIBC % Saturation Lactate Dehydrogenase Vitamin B12 Hep Bs Antigen Hep B Core IgM Ab Hep C IgG Ab HIV 1&2 Ab/P24 Ag 4thGn 10/21/17 10/21/17 10/21/17 07:13 07:13 07:13 WBC RBC Hgb Hct MCV MCH MCHC RDW Plt Count MPV Prelim Diff (Auto) Neut % (Auto) Lymph % (Auto) [place] % (Auto) Eos % (Auto) Baso % (Auto) Neut # (Auto) Lymph # (Auto) [place] # (Auto) Eos # (Auto) Baso # (Auto) WBC Differential Diff Scan Seg Neuts % (Manual) Band Neuts % (Manual) Lymphocytes % (Manual) Monocytes % (Manual) Eosinophils % (Manual) Abs Neuts (Manual) Differential Comment Platelet Estimate Platelet Morphology [place] Cells Smear Path Review Haptoglobin 116 Fibrinogen D-Dimer Quant (PE/DVT) Sodium 142 Potassium 3.1 L Chloride 104 Carbon Dioxide 34.7 H Anion Gap 3 L BUN 17 Creatinine 0.48 L Estimated GFR Greater than 89 Random Glucose 88 Calcium 7.9 L Magnesium 2.0 Iron 69 TIBC 202 L % Saturation 34.2 Lactate Dehydrogenase 139 Vitamin B12 920 Hep Bs Antigen Hep B Core IgM Ab Hep C IgG Ab HIV 1&2 Ab/P24 Ag 4thGn 10/21/17 10/21/17 10/21/17 07:13 07:13 07:13 WBC RBC Hgb Hct MCV MCH MCHC RDW Plt Count MPV Prelim Diff (Auto) Neut % (Auto) Lymph % (Auto) [place] % (Auto) Eos % (Auto) Baso % (Auto) Neut # (Auto) Lymph # (Auto) [place] # (Auto) Eos # (Auto) Baso # (Auto) WBC Differential Diff Scan Seg Neuts % (Manual) Band Neuts % (Manual) Lymphocytes % (Manual) Monocytes % (Manual) Eosinophils % (Manual) Abs Neuts (Manual) Differential Comment Platelet Estimate Platelet Morphology [place] Cells Smear Path Review Haptoglobin Fibrinogen 309 D-Dimer Quant (PE/DVT) 2.19 H Sodium Potassium Chloride Carbon Dioxide Anion Gap BUN Creatinine Estimated GFR Random Glucose Calcium Magnesium Iron TIBC % Saturation Lactate Dehydrogenase Vitamin B12 Hep Bs Antigen Nonreactive Hep B Core IgM Ab Nonreactive Hep C IgG Ab Nonreactive HIV 1&2 Ab/P24 Ag 4thGn Nonreactive Culture Results: Microbiology 10/15/17 16:34 Aerobic Blood Culture - Final Blood - Peripheral No growth in 5 days Anaerobic Blood Culture - Final No growth in 5 days 10/15/17 16:28 Aerobic Blood Culture - Final Blood - Peripheral No growth in 5 days Anaerobic Blood Culture - Final No growth in 5 days Medications: Active Medications Generic Name Dose Route Start Last Admin Trade Name Freq PRN Reason Stop Dose Admin Atorvastatin Calcium 40 mg 10/12/17 21:00 10/20/17 20:51 Lipitor PO 40 mg HS DOROTHY Administration Carvedilol 6.25 mg 10/12/17 21:00 10/12/17 22:37 Coreg PO Not Given BID DOROTHY Docusate Sodium 100 mg 10/19/17 10:30 10/21/17 09:08 Colace PO 100 mg BID DOROTHY Administration Fluticasone Propionate 2 spray 10/13/17 09:00 10/21/17 10:43 Flonase Nasal [place] NASAL 2 spray DAILY DOROTHY Administration Hydrocortisone Sodium Succinate 100 mg 10/20/17 10:00 10/21/17 10:44 Solucortef Inj IV.PUSH 100 mg Q8H DOROTHY Administration Pantoprazole Sodium 40 mg 10/15/17 14:00 10/21/17 03:08 Protonix Inj IV.PUSH 40 mg Q12H DOROTHY Administration Potassium Chloride 20 meq 10/13/17 09:00 10/21/17 10:43 Kcl Powder NG/OG 20 meq DAILY DOROTHY Administration Sodium Chloride 2 ml 10/15/17 21:00 10/20/17 21:03 Ns Flush IV.FLUSH 2 ml BID DOROTHY Administration Sterile Water 100 ml 10/12/17 22:00 10/21/17 05:37 Free Water G-TUBE 100 ml Q8HR DOROTHY Administration Sulfasalazine 500 mg 10/12/17 21:00 10/18/17 20:58 Azulfidine PO 500 mg BID DOROTHY Administration Temazepam 15 mg 10/12/17 15:02 10/14/17 21:23 Restoril PO 15 mg HS PRN Administration INSOMNIA Objective Remarks: GENERAL: Older male resting in bed in no obvious distress. He is pleasant and smiling throughout exam. SKIN: Warm and dry. Mildly pale. HEAD: Normocephalic. Xerostomia. EYES: No scleral icterus. No injection or drainage. NECK: Supple, trachea midline. No JVD or lymphadenopathy. CARDIOVASCULAR: Regular rate and rhythm without murmurs. RESPIRATORY: Breath sounds equal bilaterally. No accessory muscle use. GASTROINTESTINAL: PEG tube to left upper quadrant. EXTREMITIES: No cyanosis, or edema. SCDs in place bilaterally. MUSCULOSKELETAL: Generalized weakness. NEUROLOGICAL: No obvious focal deficit. Awake, alert, and oriented x3. Assessment/Plan - Plan 67-year-old male with history of [place] Syndrome, GI Bleed and Recent GA; Hematology Consulted for Anemia 1. Noted patient's negative I's and O's. With hypotension and his complaints of dizziness I have ordered 1 L of normal saline to be infused at 125 ml/h. 2. Pancytopenia overall improved. This was likely due to sulfasalazine. Continue to monitor CBC. 3. 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 Will check FRANCISCO to confirm. Continue to avoid heparin products. 4. Iron levels low normal. Transfuse 1 dose of iron sucrose. Discussed with RN - Attending Statement The exam, history, and the medical decision-making described in the above note were completed with the assistance of the mid-level provider. I reviewed and agree with the findings presented. I attest that I had a [id number] encounter with the patient on the same day, and personally performed and documented my assessment and findings in the medical record.
[2017-10-21] MEDS: Sod Chloride 0.9% Inj 1,000 ML IV.CONT SCH (11:50)
[2017-10-21] MEDS ORDERED: Iron Sucrose Inj 100 MG in Sodium Chlor 0.9% Inj 100 ML IV.SIG ONE (13:00)
--- NOTE | 2017-10-21 15:44 | P.PN ---
Physical Exam Vital signs: Vital Signs 10/20/17 16:00 10/20/17 20:00 10/21/17 00:00 Temperature 98.8 F 98.1 F 97.6 F Pulse Rate 76 80 78 Respiratory Rate 14 17 18 Blood Pressure 94/62 L 102/66 82/51 L Pulse Oximetry 97 97 98 10/21/17 04:00 10/21/17 08:00 10/21/17 09:12 Temperature 98.2 F Pulse Rate 76 82 74 Respiratory Rate 18 Blood Pressure 94/56 L Pulse Oximetry 97 10/21/17 13:24 Temperature 98.2 F Pulse Rate 73 Respiratory Rate 16 Blood Pressure 106/58 L Pulse Oximetry 98 Intake & Output 10/20/17 10/21/17 10/21/17 18:59 06:59 18:59 Intake Total 826 / 826 Output Total 1801 / 1801 Balance -975 / -975 Weight 70.5 kg Intake: Tube Feeding 706 / 706 Water Bolus Amount 120 / 120 Output: Urine 1800 / 1800 Stool Other: Date of Last Bowel Movement 10/14/17 10/20/17 10/20/17 Narrative: Subjective In bed appears weak. 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 SKIN: Warm and dry. No rash. HEAD: Normocephalic. Atraumatic. EYES: Pupils equal and round. No scleral icterus. No injection or drainage. ENT: No nasal bleeding or discharge. Mucous membranes dry NECK: Supple. Trachea midline. CARDIOVASCULAR: Regular rate and rhythm. S1, S2 noted. No murmur appreciated. RESPIRATORY: No accessory muscle use. Clear to auscultation. Breath sounds equal bilaterally. GASTROINTESTINAL: Abdomen soft, non-tender, nondistended. Normoactive bowel sounds. PEG tube in place without evidence of bleeding MUSCULOSKELETAL: No obvious deformities. Extremities without clubbing, cyanosis NEUROLOGICAL: Awake and alert conversant. No obvious cranial nerve deficits. Motor grossly within normal limits in the upper extremities. 4 out of 5 power bilateral lower extremities. Assessment and Plan This is a pleasant 67-year-old male patient with a history of osteoarthritis, prostate cancer, anemia, CAD who was admitted to [facility] on 09/21/17 with complaints of bowel and bladder incontinence with ascending weakness. Was eventually stabilized and sent to [place] [facility]hab. On 10/12/17 patient complained of multiple lowell red bloody bowel movements. Patient had an episode of hypotension and dizziness, was transfused 2 units PRBC and discharged from [place] [facility] and readmitted to the hospital. Symptomatic Anemia suspect secondary to GI bleed/ Pancytopenia -s/p PRBC and platelet transfusion. -bleeding scan negative -octreotide d/c. Continue PPI. -GI following. S/p EGD/ colonoscopy with ulcer noted in rectum with diverticulosis and hemorrhoids and a hiatal hernia. -continue to monitor H/H. -follow CBC. Pancytopenia may be s/t sulfasalazine. Hold sulfasalazine and consult hematology. Hypotension Blood pressure has decreased after steroids were discontinued. -resume stress dose steroids. -fluid and blood products as needed. 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 PEG in place -resume PEG feedings. -Status post IVIG and IV steroids recent admission-. D/c stress-dose IV steroids. -Speech is following. UTI ( recently diagnosed) -Urine culture positive for klebsiella pneumoniae. -treated with Augmentin. -blood cultures negative. CAD Cardiomyopathy -Recent NSTEMI. Evaluated by cardiology during hospitalization. Stable. hold BB and PRITESH for now due to hypotension. -Recent ECHO showing EF 35%. Hypokalemia; will replace and monitor. DVT Prophylaxis: SCDs. Lovenox dcd secondary to active bleeding Discharge Planning: Transfer to floor. D/c to [place] once pancytopenia has stabilized. - Urinary Catheter Management Condom Cath placed during this visit: no Indwelling Urethral Catheter Cath placed during this visit: no Results - Labs CBC & Chem 7: 10/21/17 07:13 10/21/17 07:13 Laboratory Results - last 24 hr 10/21/17 10/21/17 10/21/17 07:13 07:13 07:13 WBC 2.3 L RBC 2.99 L Hgb 9.3 L Hct 27.2 L MCV 91.2 MCH 31.1 MCHC 34.1 RDW 19.7 H Plt Count 50 L D MPV 8.2 Prelim Diff (Auto) Slide review pending Neut % (Auto) 61.4 Lymph % (Auto) 26.0 [place] % (Auto) 8.5 H Eos % (Auto) 3.5 Baso % (Auto) 0.6 Neut # (Auto) 1.4 L Lymph # (Auto) 0.6 L [place] # (Auto) 0.2 Eos # (Auto) 0.1 Baso # (Auto) 0.0 WBC Differential . Diff Scan Auto diff confirmed Differential Comment . Platelet Estimate Low L Platelet Morphology Normal Smear Path Review Haptoglobin Fibrinogen D-Dimer Quant (PE/DVT) Sodium 142 Potassium 3.1 L Chloride 104 Carbon Dioxide 34.7 H Anion Gap 3 L BUN 17 Creatinine 0.48 L Estimated GFR Greater than 89 Random Glucose 88 Calcium 7.9 L Magnesium 2.0 Iron TIBC % Saturation Lactate Dehydrogenase Vitamin B12 Hep-Induced Plt Ab Bridgette HIPA Patient OD Hep Bs Antigen Hep B Core IgM Ab Hep C IgG Ab HIV 1&2 Ab/P24 Ag 4thGn 10/21/17 10/21/17 10/21/17 07:13 07:13 07:13 WBC RBC Hgb Hct MCV MCH MCHC RDW Plt Count MPV Prelim Diff (Auto) Neut % (Auto) Lymph % (Auto) [place] % (Auto) Eos % (Auto) Baso % (Auto) Neut # (Auto) Lymph # (Auto) [place] # (Auto) Eos # (Auto) Baso # (Auto) WBC Differential Diff Scan Differential Comment Platelet Estimate Platelet Morphology Smear Path Review Haptoglobin 116 Fibrinogen 309 D-Dimer Quant (PE/DVT) Sodium Potassium Chloride Carbon Dioxide Anion Gap BUN Creatinine Estimated GFR Random Glucose Calcium Magnesium Iron 69 TIBC 202 L % Saturation 34.2 Lactate Dehydrogenase 139 Vitamin B12 920 Hep-Induced Plt Ab Bridgette HIPA Patient OD Hep Bs Antigen Nonreactive Hep B Core IgM Ab Nonreactive Hep C IgG Ab Nonreactive HIV 1&2 Ab/P24 Ag 4thGn Nonreactive 10/21/17 10/21/17 07:13 07:13 WBC RBC Hgb Hct MCV MCH MCHC RDW Plt Count MPV Prelim Diff (Auto) Neut % (Auto) Lymph % (Auto) [place] % (Auto) Eos % (Auto) Baso % (Auto) Neut # (Auto) Lymph # (Auto) [place] # (Auto) Eos # (Auto) Baso # (Auto) WBC Differential Diff Scan Differential Comment Platelet Estimate Platelet Morphology Smear Path Review Haptoglobin Fibrinogen D-Dimer Quant (PE/DVT) 2.19 H Sodium Potassium Chloride Carbon Dioxide Anion Gap BUN Creatinine Estimated GFR Random Glucose Calcium Magnesium Iron TIBC % Saturation Lactate Dehydrogenase Vitamin B12 Hep-Induced Plt Ab Bridgette Positive H HIPA Patient OD 4.830 H Hep Bs Antigen Hep B Core IgM Ab Hep C IgG Ab HIV 1&2 Ab/P24 Ag 4thGn
[2017-10-22] MEDS: FONDAPARINUX 5 MG/0.4 ML SQ SCH ×2 (00:08→21:36)
[2017-10-22] MEDS: Hydrocortisone Sod Succinate 100 MG Vial IV.PUSH SCH ×3 (01:56→17:20)
[2017-10-22] MEDS: Pantoprazole Inj 40 MG Vial IV.PUSH SCH ×2 (01:56→13:14)
[2017-10-22] MEDS: Sod Chloride 0.9% Inj 1,000 ML IV.CONT SCH ×4 (04:35→18:04)
[2017-10-22] MEDS: Docusate Sodium 100 MG Capsule PO SCH ×2 (08:25→21:36)
[2017-10-22] MEDS: Potassium Chloride 20 MEQ Pwd Pkt NG/OG SCH (08:30)
[2017-10-22] MEDS: Potassium Chloride 25 MEQ Effervescent Tablet NG/OG SCH (09:02)
--- NOTE | 2017-10-22 09:03 | P.PN ---
Physical Exam Vital signs: Vital Signs 10/21/17 09:12 10/21/17 13:24 10/21/17 20:00 Temperature 98.2 F 98.2 F 97.9 F Pulse Rate 74 73 79 Respiratory Rate 18 16 18 Blood Pressure 94/56 L 106/58 L 104/57 L Pulse Oximetry 97 98 98 10/22/17 00:00 10/22/17 04:00 Temperature 98.8 F 97.4 F L Pulse Rate 112 H 80 Respiratory Rate 22 18 Blood Pressure 197/109 H 105/61 Pulse Oximetry 96 99 Intake & Output 10/21/17 10/22/17 10/22/17 18:59 06:59 18:59 Intake Total 1000 / 1000 1000 / 1000 105 / 105 Output Total 1100 / 1100 600 / 600 Balance -100 / -100 400 / 400 105 / 105 Intake: IV 1000 / 1000 105 / 105 NS Inj 1,000 ML @ 125 mls/hr IV 1000 / 1000 .CONT .Q8H DOROTHY Rx#:[id number] Oral 0 / 0 Tube Feeding 1000 / 1000 Output: Urine 600 / 600 Urine Amount (Catheter) 1100 / 1100 Condom 1100 / 1100 Other: Date of Last Bowel Movement 10/20/17 10/22/17 # Bowel Movements 2 Narrative: Subjective In bed appears in nad.No cp, sob. No n/v/d/c. BP is better controlled With HIT ab + discussed with hem/onc work up pending Also plan to DC to [facility], pending insurance approval Physical exam GENERAL: Well-developed, well-nourished. SKIN: Warm and dry. No rash. HEAD: Normocephalic. Atraumatic. EYES: Pupils equal and round. No scleral icterus. No injection or drainage. ENT: No nasal bleeding or discharge. Mucous membranes dry NECK: Supple. Trachea midline. CARDIOVASCULAR: Regular rate and rhythm. S1, S2 noted. No murmur appreciated. RESPIRATORY: No accessory muscle use. Clear to auscultation. Breath sounds equal bilaterally. GASTROINTESTINAL: Abdomen soft, non-tender, nondistended. Normoactive bowel sounds. PEG tube in place without evidence of bleeding MUSCULOSKELETAL: No obvious deformities. Extremities without clubbing, cyanosis NEUROLOGICAL: Awake and alert conversant. No obvious cranial nerve deficits. Motor grossly within normal limits in the upper extremities. 4 out of 5 power bilateral lower extremities. Assessment and Plan This is a pleasant 67-year-old male patient with a history of osteoarthritis, prostate cancer, anemia, CAD who was admitted to [facility] on 09/21/17 with complaints of bowel and bladder incontinence with ascending weakness. Was eventually stabilized and sent to [facility] rehab. On 10/12/17 patient complained of multiple lowell red bloody bowel movements. Patient had an episode of hypotension and dizziness, was transfused 2 units PRBC and discharged from [facility] rehab and readmitted to the hospital. Symptomatic Anemia suspect secondary to GI bleed/ Pancytopenia -s/p PRBC and platelet transfusion. -bleeding scan negative -octreotide d/c. Continue PPI. -GI following. S/p EGD/ colonoscopy with ulcer noted in rectum with diverticulosis and hemorrhoids and a hiatal hernia. -continue to monitor H/H. -follow CBC. Pancytopenia may be s/t sulfasalazine. Hold sulfasalazine and consult hematology. Hypotension Blood pressure has decreased after steroids were discontinued. -resume stress dose steroids. -fluid and blood products as needed. 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 PEG in place -PEG feedings. -Status post IVIG and IV steroids recent admission-. D/c stress-dose IV steroids. -Speech is following. UTI ( recently diagnosed) -Urine culture positive for klebsiella pneumoniae. -treated with Augmentin. -blood cultures negative. CAD Cardiomyopathy -Recent NSTEMI. Evaluated by cardiology during hospitalization. Stable. hold BB and PRITESH for now due to hypotension. -Recent ECHO showing EF 35%. Hypokalemia; will replace and monitor. DVT Prophylaxis: SCDs. Lovenox dcd secondary to active bleeding Discharge Planning: D/c to [facility] once pancytopenia has stabilized. With HIT ab positive work up in progress, pending clearance form hem/onc Plan to DC to [facility] pending insurance [employer] approval. - Urinary Catheter Management Condom Cath placed during this visit: no Indwelling Urethral Catheter Cath placed during this visit: no Results - Labs CBC & Chem 7: 10/21/17 07:13 10/21/17 07:13 Laboratory Results - last 24 hr 10/21/17 10/21/17 07:13 07:13 Hep-Induced Plt Ab Bridgette Positive H HIPA Patient OD 4.830 H Hep B Core IgM Ab Nonreactive Hep C IgG Ab Nonreactive HIV 1&2 Ab/P24 Ag 4thGn Nonreactive
[2017-10-22] MEDS: Temazepam 15 MG Capsule PO PRN (21:36)
[2017-10-22 22:28] LABS: Amorphous Sediment,Urine Rare /hpf; Bacteria,Urine Many /hpf; Bilirubin,Urine Negative (Negative); Clarity,Urine Cloudy (Clear); Color,Urine Amber (Yellw/Straw); Glucose,Urine (UA) Negative (Negative); Leukocyte Esterase,Urine Trace (Negative); Nitrite,Urine Negative (Negative); Specific Gravity,Urine 1.023 (1.002-1.035)
[2017-10-23] MEDS: Hydrocortisone Sod Succinate 100 MG Vial IV.PUSH SCH ×3 (01:49→17:17)
[2017-10-23] MEDS: Pantoprazole Inj 40 MG Vial IV.PUSH SCH ×2 (01:49→14:28)
[2017-10-23] MEDS: Sod Chloride 0.9% Inj 1,000 ML IV.CONT SCH ×3 (02:20→19:15)
--- NOTE | 2017-10-23 07:49 | P.PN ---
Physical Exam Vital signs: Vital Signs 10/22/17 08:00 10/22/17 12:00 10/22/17 16:00 Temperature 98.2 F 98.4 F 98.2 F Pulse Rate 72 71 69 Respiratory Rate 20 20 20 Blood Pressure 115/62 114/57 L 120/65 Pulse Oximetry 98 99 98 10/22/17 20:00 10/23/17 00:00 10/23/17 00:30 Temperature 98.3 F 98.2 F Pulse Rate 52 L 77 79 Respiratory Rate 17 17 Blood Pressure 113/61 130/65 Pulse Oximetry 98 99 10/23/17 04:00 Temperature 98.5 F Pulse Rate 75 Respiratory Rate 16 Blood Pressure 103/62 Pulse Oximetry 98 Intake & Output 10/22/17 10/23/17 10/23/17 18:59 06:59 18:59 Intake Total 2405 / 2405 1120 / 1120 Output Total 575 / 575 Balance 2405 / 2405 545 / 545 Weight 75.2 kg Intake: IV 2105 / 2105 1000 / 1000 NS Inj 1,000 ML @ 125 mls/hr IV 2000 / 2000 1000 / 1000 .CONT .Q8H [facility] Rx#:[id number] Oral 120 / 120 Other 300 / 300 Output: Urine 575 / 575 Other: Date of Last Bowel Movement 10/22/17 Narrative: Subjective In bed appears in nad. No lightheadedness. He hopes he will improve with PT . Also hopes he will be able to swallow soon, says he is doing the exercises given by ST. . No palpitations, cp, sob. No n/v/d/c. BP is better controlled. 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 Work up in progress. Physical exam GENERAL: Well-developed, well-nourished. SKIN: Warm and dry. No rash. HEAD: Normocephalic. Atraumatic. EYES: Pupils equal and round. No scleral icterus. No injection or drainage. ENT: No nasal bleeding or discharge. Mucous membranes dry NECK: Supple. Trachea midline. CARDIOVASCULAR: Regular rate and rhythm. S1, S2 noted. No murmur appreciated. RESPIRATORY: No accessory muscle use. Clear to auscultation. Breath sounds equal bilaterally. GASTROINTESTINAL: Abdomen soft, non-tender, nondistended. Normoactive bowel sounds. PEG tube in place without evidence of bleeding MUSCULOSKELETAL: No obvious deformities. Extremities without clubbing, cyanosis NEUROLOGICAL: Awake and alert conversant. No obvious cranial nerve deficits. Motor grossly within normal limits in the upper extremities. 4 out of 5 power bilateral lower extremities. Assessment and Plan This is a pleasant 67-year-old male patient with a history of osteoarthritis, prostate cancer, anemia, CAD who was admitted to [facility] on 09/21/17 with complaints of bowel and bladder incontinence with ascending weakness. Was eventually stabilized and sent to [place] re[facility]. On 10/12/17 patient complained of multiple lowell red bloody bowel movements. Patient had an episode of hypotension and dizziness, was transfused 2 units PRBC and discharged from [place] rehab and readmitted to the hospital. Symptomatic Anemia suspect secondary to GI bleed/ Pancytopenia -s/p PRBC and platelet transfusion. -bleeding scan negative -octreotide d/c. Continue PPI. -GI following. S/p EGD/ colonoscopy with ulcer noted in rectum with diverticulosis and hemorrhoids and a hiatal hernia. -continue to monitor H/H. -follow CBC. Pancytopenia may be s/t sulfasalazine. Hold sulfasalazine and consult hematology. Hypotension Blood pressure has decreased after steroids were discontinued. -resume stress dose steroids. -fluid and blood products as needed. 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 PEG in place -PEG feedings. -Status post IVIG and IV steroids recent admission-. D/c stress-dose IV steroids. -Speech is following. UTI ( recently diagnosed) -Urine culture positive for klebsiella pneumoniae. -treated with Augmentin. -blood cultures negative. CAD Cardiomyopathy -Recent NSTEMI. Evaluated by cardiology during hospitalization. Stable. hold BB and PRITESH for now due to hypotension. -Recent ECHO showing EF 35%. Hypokalemia; will replace and monitor. DVT Prophylaxis: SCDs. Lovenox dcd secondary to active bleeding Discharge Planning: D/c to [place] once pancytopenia has stabilized. 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 - Urinary Catheter Management Condom Cath placed during this visit: no Indwelling Urethral Catheter Cath placed during this visit: no Results - Labs CBC & Chem 7: 10/21/17 07:13 10/21/17 07:13 Laboratory Results - last 24 hr 10/22/17 21:22 Urine Color [place] Urine Clarity Cloudy H Urine pH 6.0 Ur Specific [place] 1.023 Urine Protein 100 H Urine Glucose (UA) Negative Urine Ketones Negative Urine Occult Blood Large H Urine Nitrate Negative Urine Bilirubin Negative Urine Urobilinogen 2.0 H Ur Leukocyte Esterase Trace H Urine RBC Urine WBC Amorphous Sediment Rare H Urine Bacteria Many H Micro UA Comment Culture indicated Urine Culture Comments Culture indicated
[2017-10-23] MEDS: Docusate Sodium 100 MG Capsule PO SCH ×2 (08:06→22:18)
[2017-10-23] MEDS: Potassium Chloride 25 MEQ Effervescent Tablet NG/OG SCH (08:06)
[2017-10-23] MEDS: FONDAPARINUX 5 MG/0.4 ML SQ SCH (22:43)
[2017-10-24] MEDS: Pantoprazole Inj 40 MG Vial IV.PUSH SCH ×2 (02:05→13:39)
[2017-10-24] MEDS: Sod Chloride 0.9% Inj 1,000 ML IV.CONT SCH ×3 (02:05→18:55)
[2017-10-24] MEDS: Hydrocortisone Sod Succinate 100 MG Vial IV.PUSH SCH ×3 (02:06→17:41)
[2017-10-24] MEDS: Docusate Sodium 100 MG Capsule PO SCH (08:20)
[2017-10-24] MEDS: Potassium Chloride 25 MEQ Effervescent Tablet NG/OG SCH (08:20)
--- NOTE | 2017-10-24 09:02 | P.PN ---
Physical Exam Vital signs: Vital Signs 10/23/17 12:00 10/23/17 16:00 10/23/17 20:00 Temperature 97.7 F 98.1 F 98.7 F Pulse Rate 66 72 68 Respiratory Rate 20 20 18 Blood Pressure 130/71 129/70 136/67 Pulse Oximetry 98 98 97 10/24/17 00:00 10/24/17 04:00 10/24/17 05:02 Temperature 98.4 F 97.4 F L Pulse Rate 70 73 Respiratory Rate 18 20 18 Blood Pressure 127/69 119/66 Pulse Oximetry 98 98 10/24/17 08:37 Temperature Pulse Rate 67 Respiratory Rate Blood Pressure Pulse Oximetry Intake & Output 10/23/17 10/24/17 10/24/17 18:59 06:59 18:59 Intake Total 1000 / 1000 2250 / 2250 Output Total 220 / 220 725 / 725 Balance 780 / 780 1525 / 1525 Weight 77 kg Intake: IV 1000 / 1000 2100 / 2100 NS Inj 1,000 ML @ 125 mls/hr IV 1000 / 1000 1999 / 1999 .CONT .Q8H DOROTHY Rx#:[id number] Rocephin Inj 1,000 MG In NS Inj 100 / 100 100 ML @ 200 mls/hr IV.SIG Q24H DOROTHY Rx#:[id number] Oral 150 / 150 Output: Urine 220 / 220 725 / 725 Other: Date of Last Bowel Movement 10/23/17 10/24/17 10/24/17 # Incontinent Bowel Movements 1 Narrative: Subjective In bed appears in nad. No lightheadedness. He worked more with physical therapy today and he is very eager to improve. Says he has no chest pain or lightheadedness when he had physical therapy today. Blood pressure is better controlled. He is eating fairly well. No palpitations, cp, sob. No n/v/d/c. 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 Work up in progress. Poss DC to rehab [facility] possible tomorrow if approved by insurance[facility] Physical exam GENERAL: Well-developed, well-nourished. SKIN: Pale. Warm and dry. No rash. HEAD: Normocephalic. Atraumatic. EYES: Pupils equal and round. No scleral icterus. No injection or drainage. ENT: No nasal bleeding or discharge. Mucous membranes dry NECK: Supple. Trachea midline. CARDIOVASCULAR: Regular rate and rhythm. S1, S2 noted. No murmur appreciated. RESPIRATORY: No accessory muscle use. Clear to auscultation. Breath sounds equal bilaterally. GASTROINTESTINAL: Abdomen soft, non-tender, nondistended. Normoactive bowel sounds. PEG tube in place without evidence of bleeding MUSCULOSKELETAL: No obvious deformities. Extremities without clubbing, cyanosis NEUROLOGICAL: Awake and alert conversant. No obvious cranial nerve deficits. Motor grossly within normal limits in the upper extremities. 4 out of 5 power bilateral lower extremities. Assessment and Plan This is a pleasant 67-year-old male patient with a history of osteoarthritis, prostate cancer, anemia, CAD who was admitted to [facility] on 09/21/17 with complaints of bowel and bladder incontinence with ascending weakness. Was eventually stabilized and sent to [facility]. On 10/12/17 patient complained of multiple lowell red bloody bowel movements. Patient had an episode of hypotension and dizziness, was transfused 2 units PRBC and discharged from [facility] and readmitted to the hospital. Symptomatic Anemia suspect secondary to GI bleed/ Pancytopenia -s/p PRBC and platelet transfusion. -bleeding scan negative -octreotide d/c. Continue PPI. -GI following. S/p EGD/ colonoscopy with ulcer noted in rectum with diverticulosis and hemorrhoids and a hiatal hernia. -continue to monitor H/H. -follow CBC. Pancytopenia may be s/t sulfasalazine. Hold sulfasalazine and consult hematology. Hypotension Blood pressure has decreased after steroids were discontinued. -resume stress dose steroids. -fluid and blood products as needed. 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 PEG in place -PEG feedings. -Status post IVIG and IV steroids recent admission-. D/c stress-dose IV steroids. -Speech is following. UTI ( recently diagnosed) -Urine culture positive for klebsiella pneumoniae. -treated with Augmentin. -blood cultures negative. CAD Cardiomyopathy -Recent NSTEMI. Evaluated by cardiology during hospitalization. Stable. hold BB and PRITESH for now due to hypotension. -Recent ECHO showing EF 35%. Hypokalemia; will replace and monitor. DVT Prophylaxis: SCDs. Lovenox dcd secondary to active bleeding Discharge Planning: D/c to [facility] once pancytopenia has stabilized. 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 Possible discharge tomorrow to [facility]. - Urinary Catheter Management Condom Cath placed during this visit: no Indwelling Urethral Catheter Cath placed during this visit: no Results - Labs CBC & Chem 7: 10/21/17 07:13 10/21/17 07:13 Laboratory Results - last 24 hr 10/22/17 21:22 Urine Color [place] Urine Clarity Cloudy H Urine pH 6.0 Ur Specific [place] 1.023 Urine Protein 100 H Urine Glucose (UA) Negative Urine Ketones Negative Urine Occult Blood Large H Urine Nitrate Negative Urine Bilirubin Negative Urine Urobilinogen 2.0 H Ur Leukocyte Esterase Trace H Urine RBC Urine WBC Amorphous Sediment Rare H Urine Bacteria Many H Micro UA Comment Culture indicated Urine Culture Comments Culture indicated Microbiology 10/22/17 21:22 Clean Catch Urine Urine Culture - Preliminary gram negative rods
--- NOTE | 2017-10-24 10:00 | US ---
EXAM DATE: 10/24/2017 9:35 AM EDT AGE/SEX: 67 years / Male INDICATIONS: Hematuria. Urinary tract infection. CLINICAL DATA: This is the patient's initial encounter. Patient reports that signs and symptoms have been present for 2 weeks and indicates a pain score of 0/10. MEDICAL/SURGICAL HISTORY: Anemia. Gastroesophageal reflux disease. Rheumatoid arthritis. Art hritis. Cataracts. Glaucoma. Radiation therapy. Prostate cancer. Osteoarthritis. Coronary artery dise ase. Blood transfusion. Pancytopenia. Tonsillectomy. Cataract surgery. Hand surgery. Bilateral foot surgery. Cardiac catheterization. Colonoscopy. EGD. COMPARISON: POI, CT ABDOMEN AND PELVIS W/ CONTRAST, 10/04/2016. . MEASUREMENTS: Right Kidney:__10.9 x 5.3 x 5.4 cm Left Kidney:__9.2 x 5.3 x 5.0 cm FINDINGS: Right Kidney: Normal echotexture and cortical thickness. No mass or hydronephrosis. The 2 cysts ident ified on the prior CT of the abdomen are not clearly identified on the images submitted. Left Kidney: Normal echotexture and cortical thickness. No mass or hydronephrosis. Bladder: There is increased echogenicity throughout the bladder wall Other: None. CONCLUSION: 1. Increased echogenicity throughout the bladder wall. Diagnostic considerations include mural air o r faint calcification. CT scan of the pelvis without contrast could be performed for further characte rization. 2. Otherwise, both kidneys are sonographically normal. The cortical cysts identified on the right ki dney on the prior CT are not identified on the images submitted. No hydronephrosis or nephrolithiasis . Electronically signed by: Ron Kellogg MD 10/24/2017 9:58 AM EDT
--- NOTE | 2017-10-24 13:56 | P.DS ---
Date of admission: 10/12/17 13:40 Primary care physician: UNKNOWN Brief History from admission: This is a pleasant 67-year-old male patient with a history of osteoarthritis, prostate cancer, anemia, CAD who was admitted to [facility] on 09/21/17 with complaints of bowel and bladder incontinence with ascending weakness. At the time of presentation head CT and brain MRI were negative. MRI of the cervical spine showed no acute findings. MRI of the thoracic spine on 09/21/17 did show a suspected 1.4 cm nodule in the right lung. Lumbar spine MRI did show an L4-L5 mild central canal lateral recess stenosis with mild bilateral foraminal stenosis. Patient did undergo a lumbar puncture which showed CSF pleocytosis was started on IVIG and received IV Solu-Medrol. It should be noted that patient also did have a NSTEMI, was started on a heparin drip and underwent cardiac catheterization showing mild coronary artery disease. He did have one episode of nonsustained V. tach, underwent an EP study on 10/05/17. During that time of hospitalization patient did show some dysphagia and silent aspiration for which a PEG tube was placed. [facility] has been consulted for medical management of complaints of bloody stool that began two days ago. It should be noted that patient did mention significant weight loss in the past few months roughly 30 pounds. At the time of assessment, patient is alert and oriented. Patient does admit to a history of internal hemorrhoids, denies any previous rectal bleeding. He did undergo a colonoscopy in December 2016 which was reportedly negative. He follows with Dr. Cabral with [facility]. Patient states he was straining two days ago, having a difficult time defecating and shortly after noticed bright red blood in his stool. He does admit to one other episode of bright red blood this morning. It should be noted that patient also felt lightheaded and dizzy this morning during PT which resolved once he returned to his room to rest. Patient denies any other complaints including chest pain, shortness of breath, headache, abdominal pain, n/v/d or dysuria. DS: Summary Hospital Course: This is a pleasant 67-year-old male patient with a history of osteoarthritis, prostate cancer, anemia, CAD who was admitted to [facility] on 09/21/17 with complaints of bowel and bladder incontinence with ascending weakness. [facility] On 10/[facility] patient complained of multiple lowell red bloody bowel movements. Patient had an episode of hypotension and dizziness, was transfused 2 units PRBC and discharged from [facility] and readmitted to the hospital. Symptomatic Anemia suspect secondary to GI bleed/ Pancytopenia -s/p PRBC and platelet transfusion. -bleeding scan negative -octreotide d/c. Continue PPI. -GI following. S/p EGD/ colonoscopy with ulcer noted in rectum with diverticulosis and hemorrhoids and a hiatal hernia. -continue to monitor H/H. -follow CBC. Pancytopenia may be s/t sulfasalazine. Hold sulfasalazine and consult hematology. Hypotension Blood pressure has decreased after steroids were discontinued. -resume stress dose steroids. -fluid and blood products as needed. 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 PEG in place -PEG feedings. -Status post IVIG and IV steroids recent admission-. D/c stress-dose IV steroids. -Speech is following. UTI ( recently diagnosed) -Urine culture positive for klebsiella pneumoniae. -treated with Augmentin. -blood cultures negative. CAD Cardiomyopathy -Recent NSTEMI. Evaluated by cardiology during hospitalization. Stable. hold BB and PRITESH for now due to hypotension. -Recent ECHO showing EF 35%. Hypokalemia; continue to replace and monitor. DVT Prophylaxis: SCDs. Lovenox dcd secondary to active bleeding D/c to [facility] once pancytopenia has stabilized. 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 Insurance approved, DC to [facility] was low replaced to follow up at rehab [facility] and to replace as need. - Time Spent with Patient Total time spent providing and/or coordinating discharge services: Greater than 30 minutes - Quality: VTE Deep Vein Thrombosis/Pulmonary Embolism Present on Admission: No Exam Vital signs: Vital Signs 10/23/17 16:00 10/23/17 20:00 10/24/17 00:00 Temperature 98.1 F 98.7 F 98.4 F Pulse Rate 72 68 70 Respiratory Rate 20 18 18 Blood Pressure 129/70 136/67 127/69 Pulse Oximetry 98 97 98 10/24/17 04:00 10/24/17 05:02 10/24/17 08:37 Temperature 97.4 F L Pulse Rate 73 67 Respiratory Rate 20 18 Blood Pressure 119/66 Pulse Oximetry 98 10/24/17 12:00 Temperature Pulse Rate 70 Respiratory Rate Blood Pressure Pulse Oximetry Intake & Output 10/23/17 10/24/17 10/24/17 18:59 06:59 18:59 Intake Total 1000 / 1000 2250 / 2250 1000 / 1000 Output Total 220 / 220 725 / 725 Balance 780 / 780 1525 / 1525 1000 / 1000 Weight 77 kg Intake: IV 1000 / 1000 2100 / 2100 1000 / 1000 NS Inj 1,000 ML @ 125 mls/hr IV 1000 / 1000 2000 / 2000 1000 / 1000 .CONT .Q8H DOROTHY Rx#:[id number] Rocephin Inj 1,000 MG In NS Inj 100 / 100 100 ML @ 200 mls/hr IV.SIG Q24H DOROTHY Rx#:[id number] Oral 150 / 150 Output: Urine 220 / 220 725 / 725 Other: Date of Last Bowel Movement 10/23/17 10/24/17 10/24/17 # Incontinent Bowel Movements 1 Narrative: GENERAL: Well-developed, well-nourished. CARDIOVASCULAR: Regular rate and rhythm. S1, S2 noted. No murmur appreciated. RESPIRATORY: No accessory muscle use. Clear to auscultation. Breath sounds equal bilaterally. GASTROINTESTINAL: Abdomen soft, non-tender, nondistended. Normoactive bowel sounds. PEG tube in place without evidence of bleeding MUSCULOSKELETAL: No obvious deformities. Extremities without clubbing, cyanosis NEUROLOGICAL: Awake and alert conversant. No obvious cranial nerve deficits. Motor grossly within normal limits in the upper extremities. 4 out of 5 power bilateral lower extremities. Results Procedures completed during hospitalization: S/p EGD/ colonoscopy - Impressions ITS Impressions GI Bleed Scan Nuclear Medicine 10/13/17 08:28 CONCLUSION: 1. Negative examination with no signs of active bleeding. Abdomen/Bladder Ultrasound 10/24/17 00:00 CONCLUSION: 1. Increased echogenicity throughout the bladder wall. Diagnostic considerations include mural air or faint calcification. CT scan of the pelvis without contrast could be performed for further characterization. 2. Otherwise, both kidneys are sonographically normal. The cortical cysts identified on the right kidney on the prior CT are not identified on the images submitted. No hydronephrosis or nephrolithiasis. Discharge Plan - Discharge Disposition Patient Disposition: [facility] Rehab Inpatient - Discharge Condition Condition: Stable - Discharge Order Discharge Orders: Discharge Order (Routine); Ordered 10/25/17 Ordered By: Waleska Mckeon - Physicians Team Primary Care Provider: UNKNOWN, Attending Provider: Waleska Mckeon Other Providers: Mary Hernandez ; Nicholas Enrique MD ; Abdelrahman Dodd MD ; Bernard Daley MD ; Genevieve Gramajo MD - Rxs /Orders / Referrals /Forms Prescriptions: Continue fluticasone 50 mcg/actuation [place],Suspension 1 spray INTRANASAL DAILY iron 18 mg Tablet 44 mg Feeding Tube BID leflunomide 20 mg Tablet 20 mg Feeding Tube QAM omeprazole 20 mg Tablet,Delayed Release (Dr/Ec) 20 mg DAILY Discontinued aspirin 81 mg Tablet,Chewable 81 mg PO DAILY aspirin 81 mg Tablet,Delayed Release (Dr/Ec) 81 mg PO DAILY 30 Days Qty: 30 RF: 0 enoxaparin [Lovenox] 40 mg/0.4 mL Syringe 40 mg Sub-Q DAILY RF: 0 lisinopril 5 mg Tablet 10 mg PO DAILY RF: 0 No Action amoxicillin-pot clavulanate 875-125 mg tablet 1 tab Feeding Tube Q12HR atorvastatin 40 mg tablet 40 mg Feeding Tube HS carvedilol [Coreg] 6.25 mg tablet 6.25 mg Feeding Tube BID potassium chloride 20 mEq packet 20 meq Feeding Tube DAILY prednisone 50 mg tablet 50 mg Feeding Tube BID sulfasalazine [Azulfidine] 500 mg tablet 500 mg Feeding Tube BID temazepam 15 mg capsule 15 mg Feeding Tube HS PRN (Reason: Insomnia) Referrals: Bernard Daley MD [Physician] - See Instructions ( Please call the physician's office to book the appointment to be seen within [1 week].) Roman Ashley MD [Physician] - See Instructions (1 week) UNKNOWN, [Primary Care Provider] - See Instructions - Discharge Instructions Patient Printed Instructions: Temazepam (By mouth), Sulfasalazine (By mouth), Amoxicillin/Clavulanate Potassium (By mouth), Gastrointestinal Bleeding (DC), How to Use and Care for Your PEG Tube (DC), Colonoscopy (DC)
--- NOTE | 2017-10-24 14:33 | P.DIET ---
Nutritional Evaluation Type of nutrition evaluation: follow-up Nutrition consult regarding: Tube Feeding Nutrition screening: Weight Loss > 10 lbs Subjective Subjective Comments: Pt has no complaints regarding TFing tolerance. Denied N/V/D/C. Tolerating continuous TFings. Objective - Diagnosis Acute GI Bleed - Objective % IBW: 95 (LQG=359#) Body Weight Used for Calculations: IBW (81kg) Energy Needs - Lower Range (kCal/kg): 25 Energy Needs - Upper Range (kCal/kg): 30 Lower Limit kCal/kg (kCals): 2,025 Upper Limit kCal/kg (kCals): 2,430 Lower Limit Protein Factor (Grams per Kg): 1.0 Upper Limit Protein Factor (Grams per Kg): 1.4 Lower Protein Needs (Protein): 81 Upper Protein Needs (Protein): 114 Dietitian Reviewed in Medical Record: Curent medications, Intake & Output, Labs , Tube feeding Diet Order: TF only Objective Comments: LBM 8/04 100ml water flush Q 8hrs Feeding - Current Tube Feeding Tube Feeding Product: Jevity 1.5 Tube Feeding Method: Pump Tube Feeding Rate: 65 Current kCals Provided by Tube Feedin,340 Current Protein Provided by Tube Feeding (gPRO): 100 Current Free H2O Provided (m/l): 1,186 Assessment Assessment: Pt remains on TFs as described above. He currently has no complaints and states he is tolerating them well. No N/V/D/C. Having 1-2 BMs daily per pt. Continue current TF regimen. Dietitian following. Recommendations: Continue Jevity 1.5 @ 65mls/hr. Dietitian to Monitor: Lab values, Intake & Output, Tube feeding tolerance, Weight change, Medical course
[2017-10-25] MEDS: Docusate Sodium 100 MG Capsule PO SCH ×3 (00:30→21:45)
[2017-10-25] MEDS: FONDAPARINUX 5 MG/0.4 ML SQ SCH ×2 (00:31→21:45)
[2017-10-25] MEDS: Hydrocortisone Sod Succinate 100 MG Vial IV.PUSH SCH ×3 (02:07→17:13)
[2017-10-25] MEDS: Pantoprazole Inj 40 MG Vial IV.PUSH SCH ×2 (02:07→13:39)
[2017-10-25] MEDS: Sod Chloride 0.9% Inj 1,000 ML IV.CONT SCH ×3 (04:58→21:47)
[2017-10-25] MEDS: Potassium Chloride 25 MEQ Effervescent Tablet NG/OG SCH (08:58)
[2017-10-25 10:00] LABS: Eos % (Auto) 0.1 % (0.0-4.0); Hematocrit 24.6 % (39.0-51.0); Hemoglobin 8.3 gm/dL (13.0-17.0); Lymph # (Auto) 0.4 th/mm3 (1.0-4.8); Lymph % (Auto) 14.9 % (9.0-44.0); Mean Corpuscular HGB Conc 33.9 % (32.0-36.0); Mean Corpuscular Hemoglobin 31.1 pg (27.0-34.0); Mean Corpuscular Volume 91.6 fL (80.0-100.0); Mean Platelet Volume 8.1 fL (7.0-11.0); Mono # (Auto) 0.3 th/mm3 (0.0-0.9); Mono % (Auto) 10.8 % (0.0-8.0); Neut # (Auto) 2.2 th/mm3 (1.8-7.7); Neut % (Auto) 74.2 % (16.0-70.0); Platelet Count 144 th/mm3 (150-450); Red Blood Count 2.68 mil/mm3 (4.50-5.90); Red Cell Distribution Width 19.7 % (11.6-17.2); White Blood Count 2.9 th/mm3 (4.0-11.0)
[2017-10-25 10:22] LABS: Alanine Aminotransferase 58 U/L (12-78); Albumin 1.9 g/dL (3.4-5.0); Aspartate Aminotransferase 25 U/L (15-37); Blood Urea Nitrogen 12 mg/dL (7-18); Calcium 7.5 mg/dL (8.5-10.1); Carbon Dioxide 35.9 meq/L (21.0-32.0); Glomerular Filtration Rate Greater Than 89 mL/min (>89); Glucose,Random 177 mg/dL (74-106)
[2017-10-25 11:06] LABS: Alkaline Phosphatase 62 U/L (45-117); Anion Gap 7 meq/L (5-15); Chloride 104 meq/L (98-107); Sodium 147 meq/L (136-145); Total Protein 4.4 g/dL (6.4-8.2)
[2017-10-25 11:08] LABS: Potassium 2.3 meq/L (3.5-5.1)
[2017-10-25 11:29] LABS: Acanthocytes Occ
[2017-10-25 11:30] LABS: Ovalocytes 1+; Platelet Morphology Normal (Normal)
[2017-10-25] MEDS ORDERED: Potassium Bicarbonate 25 MEQ Effervescent Tablet PO ONE ×2 (14:00→14:30)
--- NOTE | 2017-10-25 17:08 | P.PN ---
Physical Exam Vital signs: Vital Signs 10/24/17 22:45 10/25/17 00:00 10/25/17 02:50 Temperature 98 F 97.8 F 98.2 F Pulse Rate 62 64 69 Respiratory Rate 17 20 18 Blood Pressure 125/70 119/75 120/58 L Pulse Oximetry 97 98 96 10/25/17 08:00 10/25/17 12:00 10/25/17 16:00 Temperature 98.4 F 98.4 F 98.2 F Pulse Rate 65 68 65 Respiratory Rate 18 18 20 Blood Pressure 141/62 H 130/71 109/65 Pulse Oximetry 96 96 98 Intake & Output 10/24/17 10/25/17 10/25/17 18:59 06:59 18:59 Intake Total 1999 4439 / 4439 1000 / 1000 Output Total 3650 / 3650 Balance 1999 789 / 789 1000 / 1000 Weight 77 kg Intake: IV 1999 1100 / 1100 1000 / 1000 NS Inj 1,000 ML @ 125 mls/hr IV 1999 1000 / 1000 1000 / 1000 .CONT .Q8H DOROTHY Rx#:[id number] Rocephin Inj 1,000 MG In NS Inj 100 / 100 100 ML @ 200 mls/hr IV.SIG Q24H DOROTHY Rx#:[id number] Oral 1050 / 1050 Tube Feeding 1360 / 1360 Water Bolus Amount 400 / 400 Other 529 / 529 Output: Urine 3650 / 3650 Estimated Blood Loss 0 / 0 Other: # Voids 1 # Incontinent Voids 1 Date of Last Bowel Movement 10/24/17 10/24/17 10/25/17 # Bowel Movements 5 0 # Incontinent Bowel Movements 1 Narrative: Subjective In bed appears in nad. He is noted with low potassium replaced. Patient says he is eating fairly well. No lightheadedness. No palpitations, cp, sob. No n/v/d/c. 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 Work up in progress. Poss DC to rehab [facility] possible tomorrow if approved by insurance. [facility] Physical exam GENERAL: Well-developed, well-nourished. SKIN: Pale. Warm and dry. No rash. HEAD: Normocephalic. Atraumatic. EYES: Pupils equal and round. No scleral icterus. No injection or drainage. ENT: No nasal bleeding or discharge. Mucous membranes dry NECK: Supple. Trachea midline. CARDIOVASCULAR: Regular rate and rhythm. S1, S2 noted. No murmur appreciated. RESPIRATORY: No accessory muscle use. Clear to auscultation. Breath sounds equal bilaterally. GASTROINTESTINAL: Abdomen soft, non-tender, nondistended. Normoactive bowel sounds. PEG tube in place without evidence of bleeding MUSCULOSKELETAL: No obvious deformities. Extremities without clubbing, cyanosis NEUROLOGICAL: Awake and alert conversant. No obvious cranial nerve deficits. Motor grossly within normal limits in the upper extremities. 4 out of 5 power bilateral lower extremities. Assessment and Plan This is a pleasant 67-year-old male patient with a history of osteoarthritis, prostate cancer, anemia, CAD who was admitted to [facility] on 09/21/17 with complaints of bowel and bladder incontinence with ascending weakness. Was eventually stabilized and sent to [facility]. On 10/12/17 patient complained of multiple lowell red bloody bowel movements. Patient had an episode of hypotension and dizziness, was transfused 2 units PRBC and discharged from [facility] and readmitted to the hospital. Symptomatic Anemia suspect secondary to GI bleed/ Pancytopenia -s/p PRBC and platelet transfusion. -bleeding scan negative -octreotide d/c. Continue PPI. -GI following. S/p EGD/ colonoscopy with ulcer noted in rectum with diverticulosis and hemorrhoids and a hiatal hernia. -continue to monitor H/H. -follow CBC. Pancytopenia may be s/t sulfasalazine. Hold sulfasalazine and consult hematology. Hypotension Blood pressure has decreased after steroids were discontinued. -resume stress dose steroids. -fluid and blood products as needed. 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 PEG in place -PEG feedings. -Status post IVIG and IV steroids recent admission-. D/c stress-dose IV steroids. -Speech is following. UTI ( recently diagnosed) -Urine culture positive for klebsiella pneumoniae. -treated with Augmentin. -blood cultures negative. CAD Cardiomyopathy -Recent NSTEMI. Evaluated by cardiology during hospitalization. Stable. hold BB and PRITESH for now due to hypotension. -Recent ECHO showing EF 35%. Hypokalemia; continue to replace and monitor. DVT Prophylaxis: SCDs. Lovenox dcd secondary to active bleeding Discharge Planning: D/c to [facility] once pancytopenia has stabilized. 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 Possible discharge tomorrow to [facility]. - Urinary Catheter Management Condom Cath placed during this visit: no Indwelling Urethral Catheter Cath placed during this visit: no Results - Labs CBC & Chem 7: 10/25/17 08:09 10/25/17 08:09 Laboratory Results - last 24 hr 10/21/17 10/25/17 10/25/17 07:13 08:09 08:09 WBC 2.9 L RBC 2.68 L Hgb 8.3 L Hct 24.6 L MCV 91.6 MCH 31.1 MCHC 33.9 RDW 19.7 H Plt Count 144 L D MPV 8.1 Prelim Diff (Auto) Slide review pending Neut % (Auto) 74.2 H Lymph % (Auto) 14.9 [place] % (Auto) 10.8 H Eos % (Auto) 0.1 Baso % (Auto) 0.0 Neut # (Auto) 2.2 Lymph # (Auto) 0.4 L [place] # (Auto) 0.3 Eos # (Auto) 0.0 Baso # (Auto) 0.0 WBC Differential . Diff Scan Auto diff confirmed Differential Comment . Platelet Estimate Low L Platelet Morphology Normal Ovalocytes 1+ H Acanthocytes (Spur) Occ H Sodium 147 H Potassium 2.3 L* Chloride 104 Carbon Dioxide 35.9 H Anion Gap 7 BUN 12 Creatinine 0.44 L Estimated GFR Greater than 89 Random Glucose 177 H Calcium 7.5 L Total Bilirubin 0.3 AST 25 ALT 58 Alkaline Phosphatase 62 Total Protein 4.4 L Albumin 1.9 L RBC Folate 579
[2017-10-26] MEDS: Hydrocortisone Sod Succinate 100 MG Vial IV.PUSH SCH ×3 (01:17→17:39)
[2017-10-26] MEDS: Pantoprazole Inj 40 MG Vial IV.PUSH SCH ×2 (01:17→14:00)
[2017-10-26] MEDS: Sod Chloride 0.9% Inj 1,000 ML IV.CONT SCH ×3 (05:57→20:30)
[2017-10-26] MEDS ORDERED: Potassium Bicarbonate 25 MEQ Effervescent Tablet PO SCH (09:00)
[2017-10-26] MEDS: Potassium Chloride 25 MEQ Effervescent Tablet NG/OG SCH (10:51)
[2017-10-26] MEDS: Docusate Sodium 100 MG Capsule PO SCH ×2 (10:51→20:32)
--- NOTE | 2017-10-26 18:42 | P.PN ---
Physical Exam Vital signs: Vital Signs 10/25/17 22:00 10/26/17 00:00 10/26/17 00:15 Temperature 98 F 97.6 F Pulse Rate 98 H 60 88 Respiratory Rate 18 18 Blood Pressure 130/85 130/75 Pulse Oximetry 96 97 10/26/17 02:50 10/26/17 08:00 10/26/17 12:00 Temperature 98.1 F 98.3 F 98.5 F Pulse Rate 65 68 63 Respiratory Rate 16 18 18 Blood Pressure 125/65 117/66 128/72 Pulse Oximetry 98 96 97 10/26/17 16:00 Temperature 98.4 F Pulse Rate 60 Respiratory Rate 18 Blood Pressure 121/72 Pulse Oximetry 97 Intake & Output 10/25/17 10/26/17 10/26/17 18:59 06:59 18:59 Intake Total 1000 / 1000 2900 / 2900 4099 / 4099 Output Total 2650 / 2650 981 / 981 Balance 1000 / 1000 250 / 250 3118 / 3118 Weight 77 kg Intake: IV 1000 / 1000 1999 / 2099 NS Inj 1,000 ML @ 125 mls/hr IV 1000 / 1000 1999 .CONT .Q8H [facility] Rx#:[id number] Rocephin Inj 1,000 MG In NS Inj 100 / 100 100 ML @ 200 mls/hr IV.SIG Q24H [facility] Rx#:[id number] Oral 900 / 900 Tube Feeding 780 / 780 Tube Irrigant 290 / 290 Anesthesia Amount 400 / 400 Other 529 / 529 Output: Urine 2650 / 2650 980 / 980 Stool 1 / 1 Estimated Blood Loss 0 / 0 Other: Date of Last Bowel Movement 10/25/17 10/26/17 10/26/17 # Bowel Movements 1 1 # Incontinent Bowel Movements 1 Narrative: Subjective In bed appears in nad. No lightheadedness Feels stronger today. looking forward for physical therapy. No n/v/d/c. No palpitations, cp, sob. 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 Work up in progress. DC to rehab [facility] when approved by insurance. Physical exam GENERAL: Well-developed, well-nourished. SKIN: Pale. Warm and dry. No rash. HEAD: Normocephalic. Atraumatic. EYES: Pupils equal and round. No scleral icterus. No injection or drainage. ENT: No nasal bleeding or discharge. Mucous membranes dry NECK: Supple. Trachea midline. CARDIOVASCULAR: Regular rate and rhythm. S1, S2 noted. No murmur appreciated. RESPIRATORY: No accessory muscle use. Clear to auscultation. Breath sounds equal bilaterally. GASTROINTESTINAL: Abdomen soft, non-tender, nondistended. Normoactive bowel sounds. PEG tube in place without evidence of bleeding MUSCULOSKELETAL: No obvious deformities. Extremities without clubbing, cyanosis NEUROLOGICAL: Awake and alert conversant. No obvious cranial nerve deficits. Motor grossly within normal limits in the upper extremities. 4 out of 5 power bilateral lower extremities. Assessment and Plan This is a pleasant 67-year-old male patient with a history of osteoarthritis, prostate cancer, anemia, CAD who was admitted to [facility] on 09/21/17 with complaints of bowel and bladder incontinence with ascending weakness. Was eventually stabilized and sent to [facility]. On 10/12/17 patient complained of multiple lowell red bloody bowel movements. Patient had an episode of hypotension and dizziness, was transfused 2 units PRBC and discharged from [facility] and readmitted to the hospital. Symptomatic Anemia suspect secondary to GI bleed/ Pancytopenia -s/p PRBC and platelet transfusion. -bleeding scan negative -octreotide d/c. Continue PPI. -GI following. S/p EGD/ colonoscopy with ulcer noted in rectum with diverticulosis and hemorrhoids and a hiatal hernia. -continue to monitor H/H. -follow CBC. Pancytopenia may be s/t sulfasalazine. Hold sulfasalazine and consult hematology. Hypotension Blood pressure has decreased after steroids were discontinued. -resume stress dose steroids. -fluid and blood products as needed. 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 PEG in place -PEG feedings. -Status post IVIG and IV steroids recent admission-. D/c stress-dose IV steroids. -Speech is following. UTI ( recently diagnosed) -Urine culture positive for klebsiella pneumoniae. -treated with Augmentin. -blood cultures negative. CAD Cardiomyopathy -Recent NSTEMI. Evaluated by cardiology during hospitalization. Stable. hold BB and PRITESH for now due to hypotension. -Recent ECHO showing EF 35%. Hypokalemia; continue to replace and monitor. DVT Prophylaxis: SCDs. Lovenox dcd secondary to active bleeding Discharge Planning: D/c to [facility] once pancytopenia has stabilized. 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 - Urinary Catheter Management Condom Cath placed during this visit: no Indwelling Urethral Catheter Cath placed during this visit: no Results - Labs CBC & Chem 7: 10/25/17 08:09 10/25/17 08:09
[2017-10-26] MEDS: Temazepam 15 MG Capsule PO PRN (20:32)
[2017-10-26] MEDS: FONDAPARINUX 5 MG/0.4 ML SQ SCH (22:41)
[2017-10-26 23:53] LABS: SSA High Dose 100 IU/mL 0 (2.1-21.7); SSA Low Dose 0.1IU/mL 0 (2.1-21.7); SSA Low Dose 0.5 IU/mL 0 (2.1-21.7); Serotonin Release Result NEGATIVE (NEGATIVE)
[2017-10-27] MEDS: Hydrocortisone Sod Succinate 100 MG Vial IV.PUSH SCH ×3 (01:41→17:41)
[2017-10-27] MEDS: Pantoprazole Inj 40 MG Vial IV.PUSH SCH ×2 (01:42→16:07)
[2017-10-27] MEDS: Sod Chloride 0.9% Inj 1,000 ML IV.CONT SCH ×4 (01:44→19:00)
--- NOTE | 2017-10-27 08:14 | P.PN ---
Physical Exam Vital signs: Vital Signs 10/26/17 12:00 10/26/17 16:00 10/26/17 20:00 Temperature 98.5 F 98.4 F 98.2 F Pulse Rate 63 60 60 Respiratory Rate 18 18 18 Blood Pressure 128/72 121/72 121/70 Pulse Oximetry 97 97 95 10/27/17 00:00 10/27/17 04:00 Temperature 97.6 F 97.9 F Pulse Rate 59 L 70 Respiratory Rate 18 20 Blood Pressure 123/64 120/63 Pulse Oximetry 98 96 Intake & Output 10/26/17 10/27/17 10/27/17 18:59 06:59 18:59 Intake Total 4099 / 4099 2100 / 2100 Output Total 981 / 981 1200 / 1200 Balance 3118 / 3118 900 / 900 Intake: IV 2099 / 2099 2099 / 2099 NS Inj 1,000 ML @ 125 mls/hr IV 1999 .CONT .Q8H [facility] Rx#:[id number] Rocephin Inj 1,000 MG In NS Inj 100 / 100 100 / 100 100 ML @ 200 mls/hr IV.SIG Q24H [facility] Rx#:[id number] Tube Feeding 780 / 780 Tube Irrigant 290 / 290 Anesthesia Amount 400 / 400 Other 529 / 529 Output: Urine 980 / 980 1200 / 1200 Stool 1 / 1 Estimated Blood Loss 0 / 0 Other: Date of Last Bowel Movement 10/26/17 10/26/17 # Bowel Movements 1 # Incontinent Bowel Movements 1 Narrative: Subjective In bed appears in nad. No lightheadedness Feels stronger today. looking forward for physical therapy. No n/v/d/c. No palpitations, cp, sob. 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 Work up in progress. DC to rehab [facility] when approved by insurance. Physical exam GENERAL: Well-developed, well-nourished. SKIN: Pale. Warm and dry. No rash. HEAD: Normocephalic. Atraumatic. EYES: Pupils equal and round. No scleral icterus. No injection or drainage. ENT: No nasal bleeding or discharge. Mucous membranes dry NECK: Supple. Trachea midline. CARDIOVASCULAR: Regular rate and rhythm. S1, S2 noted. No murmur appreciated. RESPIRATORY: No accessory muscle use. Clear to auscultation. Breath sounds equal bilaterally. GASTROINTESTINAL: Abdomen soft, non-tender, nondistended. Normoactive bowel sounds. PEG tube in place without evidence of bleeding MUSCULOSKELETAL: No obvious deformities. Extremities without clubbing, cyanosis NEUROLOGICAL: Awake and alert conversant. No obvious cranial nerve deficits. Motor grossly within normal limits in the upper extremities. 4 out of 5 power bilateral lower extremities. Assessment and Plan This is a pleasant 67-year-old male patient with a history of osteoarthritis, prostate cancer, anemia, CAD who was admitted to [facility] on 09/21/17 with complaints of bowel and bladder incontinence with ascending weakness. Was eventually stabilized and sent to [facility]. On 10/12/17 patient complained of multiple lowell red bloody bowel movements. Patient had an episode of hypotension and dizziness, was transfused 2 units PRBC and discharged from [facility] and readmitted to the hospital. Symptomatic Anemia suspect secondary to GI bleed/ Pancytopenia -s/p PRBC and platelet transfusion. -bleeding scan negative -octreotide d/c. Continue PPI. -GI following. S/p EGD/ colonoscopy with ulcer noted in rectum with diverticulosis and hemorrhoids and a hiatal hernia. -continue to monitor H/H. -follow CBC. Pancytopenia may be s/t sulfasalazine. Hold sulfasalazine and consult hematology. Hypotension Blood pressure has decreased after steroids were discontinued. -resume stress dose steroids. -fluid and blood products as needed. Dysphagia suspect secondary to Gullain-[place] syndrome. PEG in place -PEG feedings. -Status post IVIG and IV steroids recent admission-. D/c stress-dose IV steroids. -Speech is following. UTI ( recently diagnosed) -Urine culture positive for klebsiella pneumoniae. -treated with Augmentin. -blood cultures negative. CAD Cardiomyopathy -Recent NSTEMI. Evaluated by cardiology during hospitalization. Stable. hold BB and PRITESH for now due to hypotension. -Recent ECHO showing EF 35%. Hypokalemia; continue to replace and monitor. DVT Prophylaxis: SCDs. Lovenox dcd secondary to active bleeding Discharge Planning: D/c to [facility] once pancytopenia has stabilized. 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 - Urinary Catheter Management Condom Cath placed during this visit: no Indwelling Urethral Catheter Cath placed during this visit: no Results - Labs CBC & Chem 7: 10/27/17 07:15 10/25/17 08:09 Laboratory Results - last 24 hr 10/22/17 08:09 Serotonin Release Assay Negative [facility] Low Dose 0.1 0 [facility] Low Dose 0.5 0 [facility] High Dose 100 0
[2017-10-27 08:37] LABS: Baso % (Auto) 0.1 % (0.0-2.0); Eos % (Auto) 0.1 % (0.0-4.0); Hematocrit 25.8 % (39.0-51.0); Hemoglobin 8.8 gm/dL (13.0-17.0); Lymph # (Auto) 0.4 th/mm3 (1.0-4.8); Lymph % (Auto) 11.8 % (9.0-44.0); Mean Corpuscular Volume 94.1 fL (80.0-100.0); Mean Platelet Volume 7.7 fL (7.0-11.0); Mono # (Auto) 0.2 th/mm3 (0.0-0.9); Mono % (Auto) 7.3 % (0.0-8.0); Neut # (Auto) 2.4 th/mm3 (1.8-7.7); Neut % (Auto) 80.7 % (16.0-70.0); Platelet Count 172 th/mm3 (150-450); Red Blood Count 2.74 mil/mm3 (4.50-5.90)
[2017-10-27] MEDS: Docusate Sodium 100 MG Capsule PO SCH ×2 (10:20→20:58)
[2017-10-27] MEDS: Potassium Chloride 25 MEQ Effervescent Tablet NG/OG SCH (10:20)
[2017-10-27] MEDS: FONDAPARINUX 5 MG/0.4 ML SQ SCH (20:59)
[2017-10-28] MEDS: Temazepam 15 MG Capsule PO PRN (00:58)
[2017-10-28] MEDS: Hydrocortisone Sod Succinate 100 MG Vial IV.PUSH SCH ×3 (00:59→17:09)
[2017-10-28] MEDS: Pantoprazole Inj 40 MG Vial IV.PUSH SCH ×2 (00:59→17:12)
[2017-10-28] MEDS: Sod Chloride 0.9% Inj 1,000 ML IV.CONT SCH ×2 (03:37→11:26)
--- NOTE | 2017-10-28 09:38 | P.PN ---
Physical Exam Vital signs: Vital Signs 10/27/17 12:00 10/27/17 16:00 10/27/17 20:00 Temperature 98.1 F 98.1 F 98.2 F Pulse Rate 67 65 61 Respiratory Rate 18 18 18 Blood Pressure 129/75 130/69 126/69 Pulse Oximetry 94 L 93 L 96 10/28/17 00:00 10/28/17 04:00 Temperature 97.9 F 97.6 F Pulse Rate 64 61 Respiratory Rate 18 18 Blood Pressure 121/56 L 124/60 Pulse Oximetry 96 96 Intake & Output 10/27/17 10/28/17 10/28/17 18:59 06:59 18:59 Intake Total 1000 / 1000 2100 / 2100 Output Total 1000 / 1000 1600 / 1600 Balance 0 / 0 500 / 500 Weight 78.1 kg Intake: IV 1000 / 1000 2099 / 2100 NS Inj 1,000 ML @ 125 mls/hr IV 1000 / 1000 2000 / 2000 .CONT .Q8H [facility] Rx#:[id number] Rocephin Inj 1,000 MG In NS Inj 100 / 100 100 ML @ 200 mls/hr IV.SIG Q24H [facility] Rx#:[id number] Output: Urine 1000 / 1000 1600 / 1600 Other: Date of Last Bowel Movement 10/26/17 10/27/17 # Bowel Movements 2 # Incontinent Bowel Movements 1 Narrative: Subjective In bed appears in nad. Weak, K is low replaced. No n/v/d/c. No palpitations, cp, sob. 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 Work up in progress. DC to rehab [facility] when approved by insurance. Physical exam GENERAL: Well-developed, well-nourished. SKIN: Pale. Warm and dry. No rash. HEAD: Normocephalic. Atraumatic. EYES: Pupils equal and round. No scleral icterus. No injection or drainage. ENT: No nasal bleeding or discharge. Mucous membranes dry NECK: Supple. Trachea midline. CARDIOVASCULAR: Regular rate and rhythm. S1, S2 noted. No murmur appreciated. RESPIRATORY: No accessory muscle use. Clear to auscultation. Breath sounds equal bilaterally. GASTROINTESTINAL: Abdomen soft, non-tender, nondistended. Normoactive bowel sounds. PEG tube in place without evidence of bleeding MUSCULOSKELETAL: No obvious deformities. Extremities without clubbing, cyanosis NEUROLOGICAL: Awake and alert conversant. No obvious cranial nerve deficits. Motor grossly within normal limits in the upper extremities. 4 out of 5 power bilateral lower extremities. Assessment and Plan This is a pleasant 67-year-old male patient with a history of osteoarthritis, prostate cancer, anemia, CAD who was admitted to [facility] on 09/21/17 with complaints of bowel and bladder incontinence with ascending weakness. Was eventually stabilized and sent to [facility]. On 10/12/17 patient complained of multiple lowell red bloody bowel movements. Patient had an episode of hypotension and dizziness, was transfused 2 units PRBC and discharged from [facility] and readmitted to the hospital. Symptomatic Anemia suspect secondary to GI bleed/ Pancytopenia -s/p PRBC and platelet transfusion. -bleeding scan negative -octreotide d/c. Continue PPI. -GI following. S/p EGD/ colonoscopy with ulcer noted in rectum with diverticulosis and hemorrhoids and a hiatal hernia. -continue to monitor H/H. -follow CBC. Pancytopenia may be s/t sulfasalazine. Hold sulfasalazine and consult hematology. Hypotension Blood pressure has decreased after steroids were discontinued. -resume stress dose steroids. -fluid and blood products as needed. Dysphagia suspect secondary to Gullain-[place] syndrome. PEG in place -PEG feedings. -Status post IVIG and IV steroids recent admission-. D/c stress-dose IV steroids. -Speech is following. UTI ( recently diagnosed) -Urine culture positive for klebsiella pneumoniae. -treated with Augmentin. -blood cultures negative. CAD Cardiomyopathy -Recent NSTEMI. Evaluated by cardiology during hospitalization. Stable. hold BB and PRITESH for now due to hypotension. -Recent ECHO showing EF 35%. Hypokalemia; continue to replace and monitor. DVT Prophylaxis: SCDs. Lovenox dcd secondary to active bleeding Discharge Planning: D/c to [facility] once pancytopenia has stabilized. 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 POss today - Urinary Catheter Management Condom Cath placed during this visit: no Indwelling Urethral Catheter Cath placed during this visit: no Results - Labs CBC & Chem 7: 10/27/17 07:15 10/25/17 08:09
[2017-10-28] MEDS: Potassium Chloride 25 MEQ Effervescent Tablet NG/OG SCH (11:16)
[2017-10-28] MEDS: Docusate Sodium 100 MG Capsule PO SCH (11:17)
[2017-10-28] MEDS ORDERED: Potassium Bicarbonate 25 MEQ Effervescent Tablet PO ONE (14:26)
--- NOTE | 2017-10-28 16:16 | P.CONREH ---
History of Present Illness Service: Physical Medicine and Rehabilitation Consult date: 10/28/17 Reason for Consult: Comprehensive Rehabilitation Evaluation Primary Care Provider: UNKNOWN Chief Complaint: GI bleed History of Present Illness: Abraham Goodman is a 67-year-old [id number] male admitted to [facility] 09/21/17 with a 2 day history of ascending weakness and bowel and bladder continent incontinence. Head CT 09/21/17 was negative for acute intracranial change. Brain MRI 09/22/[address] of the cervical spine 09/21/17 showed no evidence of compression deformity or spondylolisthesis. Hypertrophic degenerative changes in the posterior elements with multilevel right-sided bony neural foraminal stenosis. MRI of the cervical spine 09/22/17 showed no acute findings. No abnormal enhancement. Cervical cord unremarkable. Mild degenerative change MRI of the thoracic spine 09/21/17 showed suspected 1.4 cm nodule in the right lung. Further evaluation with chest CT was recommended. Mild degenerative change in the thoracic spine without canal stenosis or nerve root compression identified. MRI lumbar spine 09/21/17 showed L4-5 mild central canal lateral recess stenosis with mild bilateral foraminal stenosis. L3-4 and L5-S1 there is a minimal anterolisthesis with mild foraminal encroachment. Conus medullaris intact. No acute fracture. Echocardiogram 09/21/17 showed mildly dilated left ventricle. Mild concentric left ventricular hypertrophy. Moderate global left ventricular systolic function with the ejection fraction of 35%. Distal anteroseptal and apical severe hypokinesis. Posterior mitral valve leaflet prolapse. Mild mitral valve regurgitation. There is trace tricuspid valve regurgitation. He will underwent lumbar puncture which showed CSF pleocytosis but normal protein. He was started on IVIG. He subsequently received IV Solu-Medrol and is currently receiving p.o. steroids. His course has included non-STEMI for which he was treated with heparin drip. Cardiac cath showed mild coronary artery disease. He had episode of nonsustained V. tach and underwent EPS study 10/05/17. Cardiology is following and medications have been adjusted. PEG was placed 10/03/17 due to dysphagia and risk for silent aspiration. He was admitted for inpatient rehabilitation 10/08/17 but required transfer back to acute care 10/12/17 with birght red blood per rectum. He was transfused. HIT panel positive. Pancytopenic. Sulfasalazine held. Hematology following. Review of Systems Constitutional: Reports fatigue Eyes: Denies double vision Ears, Nose, Mouth, and Throat: Reports difficulty swallowing, Denies sore throat Cardiovascular: Reports shortness of breath with activity, Denies chest pain Respiratory: Denies cough Gastrointestinal: Reports change in bowel habits (Diarrhea), Reports incontinent of stools, Reports loose stools, Denies abdominal pain Genitourinary: Reports urinary frequency, Denies urinary incontinence Musculoskeletal: Reports body aches, Reports muscle weakness Skin/Breast: Denies rash Neurologic: Reports tingling/numbness/burning sensations (LE bilaterally), Denies abnormal hearing Hematologic/Lymphatic: Reports easy bruising Allergic/Immunologic: Denies wheezing PMFSH - History History Provided By: Patient - Medical History Medical History: Medical History (Last Reviewed 10/30/17 @ 11:29 by Lena Hall) Anemia Arthritis Cataract GERD (gastroesophageal reflux disease) Glaucoma History of radiation therapy Onset Date: 05/2016 Osteoarthritis Prostate cancer Rheumatoid arthritis - Surgical History Surgical History: Surgical History (Last Reviewed 10/30/17 @ 11:29 by Lena Hall) History of cataract surgery History of tonsillectomy Hx of hand surgery Onset Date: ~2012 S/P foot surgery, left Onset Date: ~1999 S/P foot surgery, right Onset Date: ~1999 - Tobacco History Second Hand Smoke Exposure: No Smoking Status: Never smoker - Alcohol History How Often Do You Have a Drink Containing Alcohol: 4 or more times a week - Substance Use History Substance History: No History of Abuse - Travel History History of Recent Travel: Yes - Immunization History Tetanus Immunization: Unsure Tetanus Immunization Year if Known: Refu Hx Influenza Vaccine This Season: Yes Medications and Allergies Active Medications: Active Medications Acetaminophen (Tylenol) 650 mg PO Q4H PRN PRN Reason: Temp > 100.4 Atorvastatin Calcium (Lipitor) 40 mg PO HS [facility] Last Admin: 10/27/17 20:59 Dose: 40 mg Carvedilol (Coreg) 6.25 mg PO BID [facility] Last Admin: 10/12/17 22:37 Dose: Not Given Docusate Sodium (Colace) 100 mg PO BID [facility] Last Admin: 10/28/17 11:17 Dose: Not Given Fluticasone Propionate (Flonase Nasal [place]) 2 spray NASAL DAILY [facility] Last Admin: 10/28/17 11:17 Dose: 2 spray Fondaparinux (Arixtra Inj) 5 mg SQ Q24H [facility] Last Admin: 10/27/17 20:59 Dose: 5 mg Hydrocortisone Sodium Succinate (Solucortef Inj) 100 mg IV.PUSH Q8H [facility] Last Admin: 10/28/17 11:15 Dose: 100 mg Sodium Chloride (Ns Inj) 1,000 mls @ 125 mls/hr IV.CONT .Q8H [facility] Last Admin: 10/28/17 11:26 Dose: 125 mls/hr Ceftriaxone Sodium 1,000 mg/ (Sodium Chloride) 100 mls @ 200 mls/hr IV.SIG Q24H [facility] Last Infusion: 10/28/17 01:30 Dose: Infused Lisinopril (Prinivil) 10 mg G-TUBE DAILY [facility] Ondansetron HCl (Zofran Odt) 4 mg PO Q6H PRN PRN Reason: NAUSEA OR VOMITING Pantoprazole Sodium (Protonix Inj) 40 mg IV.PUSH Q12H [facility] Last Admin: 10/28/17 00:59 Dose: 40 mg Potassium Bicarb/Potassium Chloride (K-Lyte Cl Eff) 25 meq NG/OG DAILY [facility] Last Admin: 10/28/17 11:16 Dose: 25 meq Sodium Chloride (Ns Flush) 2 ml IV.FLUSH BID [facility] Last Admin: 10/28/17 11:26 Dose: 2 ml Sodium Chloride (Ns Flush) 2 ml IV.FLUSH PRN PRN PRN Reason: FLUSH AFTER USING IV ACCESS Sterile Water (Free Water) 100 ml G-TUBE Q8HR [facility] Last Admin: 10/28/17 05:37 Dose: 100 ml Sulfasalazine (Azulfidine) 500 mg PO BID [facility] Last Admin: 10/18/17 20:58 Dose: 500 mg Temazepam (Restoril) 15 mg PO HS PRN PRN Reason: INSOMNIA Last Admin: 10/28/17 00:58 Dose: 15 mg Allergies Allergy/AdvReac Type Severity Reaction Status Date / Time ciprofloxacin Allergy Severe Rash Verified 09/21/17 10:13 Home Medications Medication Instructions Recorded Confirmed Type fluticasone 1 spray INTRANASAL DAILY 09/21/17 10/28/17 History iron 44 mg FEEDING TUBE BID 09/21/17 10/28/17 History leflunomide 20 mg FEEDING TUBE QAM 09/21/17 10/28/17 History omeprazole 20 mg DAILY 09/21/17 10/28/17 History amoxicillin-pot clavulanate 1 tab FEEDING TUBE Q12HR 10/28/17 10/28/17 History atorvastatin 40 mg FEEDING TUBE HS 10/28/17 10/28/17 History carvedilol [Coreg] 6.25 mg FEEDING TUBE BID 10/28/17 10/28/17 History potassium chloride 20 meq FEEDING TUBE DAILY 10/28/17 10/28/17 History prednisone 50 mg FEEDING TUBE BID 10/28/17 10/28/17 History sulfasalazine [Azulfidine] 500 mg FEEDING TUBE BID 10/28/17 10/28/17 History temazepam 15 mg FEEDING TUBE HS PRN 10/28/17 10/28/17 History Exam - Physical Examination Vital Signs / I&O: Vital Signs 10/27/17 20:00 10/28/17 00:00 10/28/17 04:00 Temperature 98.2 F 97.9 F 97.6 F Pulse Rate 61 64 61 Respiratory Rate 18 18 18 Blood Pressure 126/69 121/56 L 124/60 Pulse Oximetry 96 96 96 10/28/17 12:00 10/28/17 12:06 Temperature 98.4 F Pulse Rate 60 78 Respiratory Rate 16 Blood Pressure 110/56 L Pulse Oximetry 96 Intake & Output 10/27/17 10/28/17 10/28/17 18:59 06:59 18:59 Intake Total 1000 / 1000 2099 / 2100 1000 / 1000 Output Total 1000 / 1000 1600 / 1600 Balance 0 / 0 500 / 500 1000 / 1000 Weight 78.1 kg Intake: IV 1000 / 1000 2099 / 2100 1000 / 1000 NS Inj 1,000 ML @ 125 mls/hr IV 1000 / 1000 2000 / 2000 1000 / 1000 .CONT .Q8H [facility] Rx#:[id number] Rocephin Inj 1,000 MG In NS Inj 100 / 100 100 ML @ 200 mls/hr IV.SIG Q24H [facility] Rx#:[id number] Output: Urine 1000 / 1000 1600 / 1600 Other: Date of Last Bowel Movement 10/26/17 10/27/17 # Bowel Movements 2 # Incontinent Bowel Movements 1 Intake & Output 10/26/17 10/27/17 10/28/17 10/29/17 06:59 06:59 06:59 06:59 Intake Total 3900 / 3900 6199 / 6199 3100 / 3100 1000 / 1000 Output Total 2650 / 2650 2181 / 2181 2600 / 2600 Balance 1250 / 1250 4018 / 4018 500 / 500 1000 / 1000 Weight 77 kg 78.1 kg General: No acute distress Respiratory: Lungs CTA, Non-labored respirations, BS equal Gastrointestinal: Positive bowel sounds, Non-distended, Non-tender, Other (PEG in place and no surrounding erythema or induration) Date of Last Bowel Movement: 10/27/17 Cardiovascular: Normal rate, No edema, Regular rhythm Skin: Wound(s) (Grade 2 coccyx) Musculoskeletal: Swelling (None in LE) Psychiatric: Cooperative, Appropriate mood & affect - Neurologic Orientation: oriented to: Self, Place, Time, Situation Neurologic: Cranial nerves (Intact 2-12 with decreased palate elevation bilaterally), Coordination Motor: Right Upper Extremity (3+/5), Left Upper Extremity (3+/5), Right Lower Extremity (2/5), Left Lower Extremity (2/5) Sensory: Decreased to light touch distal LE bilaterally DTRs: Abnormal (1+) Babinski: Negative Clonus: Negative Results - Labs CBC & Chem 7: 10/27/17 07:15 10/25/17 08:09 Assessment and Plan (1) Guillain Romero syndrome Status: Chronic Code(s): G61.0 - Guillain-[place] syndrome - Plan Assessment: 1. 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 Dysphagia currently n.p.o. status post PEG placement with tube feeding 3. Non-STEMI with ejection fraction 35% 4. Episode of nonsustained V. tach with EPS study 10/05/17 5. Rheumatoid arthritis 6. Anemia 7. Prostate cancer status post TURP with radiation 8. History of melanoma 9. History of chronic low back pain 10. Sacral/coccyx skin breakdown 11. GI bleed 12. Pancytopenia 13. HIT positive Recommendations: 1. Return to reposition every 2 hours with barrier cream and skin prep to sacral/coccyx area 2. Continue to mobilize with physical therapy. Patient is mod-maximal assistance of 2 to sit edge of bed. He is unable to stand due to lower extremity weakness. 3. Roho cushion when up to sitting 4. Occupational therapy is addressing ADLs and mod-max assist for upper body dressing/ADLs and dependent for lower body ADLs 5. Continue speech therapy to address swallow including vital stim 6. Continue dietitian for tube feeding and to monitor hydration and nutritional intake 7. Patient will benefit from ongoing inpatient rehabilitation to address quadriparesis due to Guillain Romero versus transverse myelitis. Case management has arranging [id number] review for benefits 8. Will follow while hospitalized and at discharge
== END 2017-10-28 17:58 ==
LOC: N04 13:40 → HIMC 10-15 13:02 → UNDODISIN 10-19 14:27 → N05 10-20 17:15
PROVIDERS: ADMIT Hospitalist; ATTEND Hospitalist
PROC: PANENDO (2017-10-16 16:04)